=== PATIENT | female | born 1990 | race Caucasian/White ===

== ENCOUNTER → 2018-08-13 16:06 | Outpatient (CLI) | payer BC, SELFPAY ==
[2018-08-13 17:37] LABS: hCG Titer Quant., Serum 86 mIU/mL (<9 non-preg)
== END ==
PROVIDERS: Referring Provider Obstetrics & Gynecology; Visit Provider Obstetrics & Gynecology
DX: Z78.9 Other specified health status (principal)
CPT/HCPCS: 36415; 84702

== ENCOUNTER → 2018-08-15 15:17 | Outpatient (CLI) | payer BC, SELFPAY ==
[2018-08-15 16:27] LABS: hCG Titer Quant., Serum 295 mIU/mL (<9 non-preg)
== END ==
PROVIDERS: Referring Provider Nurse Practitioner Women's Health; Visit Provider Nurse Practitioner Women's Health
DX: Z34.90 Encounter for supervision of normal pregnancy, unspecified, unspecified trimester (principal)
CPT/HCPCS: 36415; 84702

== ENCOUNTER → 2018-09-02 12:50 | Outpatient (CLI) | payer BC, SELFPAY ==
[2018-09-02 09:56] VITALS: BMI 25.1
[2018-09-02 16:56] LABS: Chlamydia Trachomatis by PCR Negative (Negative); Neisserai gonorrhoeae by PCR Negative (Negative); Probe Check PASS; Sample Adequacy Control PASS; Specimen Processing Control PASS
--- OUTSIDE RECORDS SUMMARY | 2018-11-04 13:33 | XMS RPT_ITS ---
:1990 Author Organization OHIP Care Team Providers Name Role Phone EM LOPEZ (MATHEMATICAL SCIENCES PROFESSOR) Attending Unavailable AmarilisJoelle gonzalez Attending Unavailable Joelle Olmos Referring Unavailable Primay Care Physicia, No Primary Care Unavailable Naty Ace Consulting Unavailable ParmeleeJoelle gonzalez Attending Unavailable Primay Care Physicia, No Primary Care Unavailable AmarilisJoelle gonzalez Attending Unavailable ParmeleeAmy gonzalezy Referring Unavailable Primay Care Physicia, No Primary Care Unavailable Amarilis, Joelle Attending Unavailable Naty Ace Attending Unavailable Naty Ace Referring Unavailable PROBLEMS PROBLEMS DATE TYPE CONDITION / CODE ATTENDING STATUS SOURCE 09/02/2018 Unknown Z34.90 - Joelle Olmos Active [place] Encounter for Community supervision of [facility] normal , Repository unspecified, unspecified trimester / Z34.90(ICD-10) 06/19/2018 Active Unknown / EM LOPEZ Active [facility] UNK(Unknown) (MATHEMATICAL SCIENCES PROFESSOR) Main [place] Repository PROCEDURES PROCEDURES No Procedure Records FoundRESULTS RESULTS CBC W/DIFF, AUTOMATED Collected: 09/04/2018 Status: F Source: [place] 10:56 AM [facility] REPOSITORY TYPE CODE TESTS RESULT OUT OF RANGE REFERENCE UNITS LAB L100.1000 4.4-11.0 K/mm3 Normal WBC 6.2 LAB L100.1200 4.2-5.4 M/mm3 Normal RBC 4.56 LAB L100.1300 12.0-15.0 g/dl Normal HGB 13.1 LAB L100.1400 37-47 % Normal HCT 39.2 LAB L100.1500 81-99 fL Normal MCV 86.0 LAB L100.1600 27.0-32.0 pg Normal MCH 28.7 LAB L100.1700 32-36 g/gl Normal MCHC 33.4 LAB L100.1810 11.6-14.6 % Normal RDW CV 11.9 LAB L100.1820 35.1-43.9 fl Normal RDW SD 36.9 LAB L100.1900 150-450 K/mm3 Normal PLT 254 LAB L100.2000 6.2-12.0 fl Normal MPV 9.3 LAB L100.2100 47-70 % Normal NEUT% 52.7 LAB L100.2200 19-41 % Normal LY% 33.3 LAB L100.2300 0-10 % High MONO% 11.9 LAB L100.2400 0-5 % Normal EO% 1.6 LAB L100.2500 0-1 % Normal BASO% 0.3 LAB L100.2550 0.0-0.9 % Normal IM GRAN % 0.200 Result Comment: IG% - Immature Granulocytes (promyelocytes, myelocytes and metamyelocytes) > 1% indicates that a LEFT SHIFT is Present. LAB L100.2620 2.0-7.7 X10 3/uL Normal Absolute Neut 3.2 LAB L100.2720 0.83-4.51 X10 3/ul Normal Absolute Lymph 2.05 Performed By: #### L100.0100 #### [facility] [address] [place], [address] TYPE AND SCREEN Collected: 09/04/2018 Status: F Source: [place] 10:56 AM [facility] REPOSITORY Order Comment: Reason for Type AND Screen/Red Cells: TYPE CODE TESTS RESULT OUT OF RANGE REFERENCE UNITS LAB B10.0800 O Normal BLOOD TYPE GEL POSITIVE LAB B100.4000 Normal Antibody NEGATIVE Screen Performed By: #### B101.7450 #### [facility] [address] [place], [address] RUBELLA IGG Collected: 09/04/2018 Status: F Source: [place] 10:56 AM [facility] REPOSITORY TYPE CODE TESTS RESULT OUT OF RANGE REFERENCE UNITS LAB L509.4000 IU/mL Normal Rubella IgG 131.1 Result Comment: Antibody results Interpretation of Immune Status < 5 IU/ml Presumed Non-immune 5 - < 10 IU/ml Equivocal > or = 10 IU/ml Presumed Immune Performed By: #### L509.4000, L3890.6005 #### [facility] [address] [place], [address] HIV - [facility] Collected: 09/04/2018 Status: F Source: [place] 10:56 AM [facility] REPOSITORY TYPE CODE TESTS RESULT OUT OF RANGE REFERENCE UNITS LAB L3890.6005 Nonreactive Normal HIV - [facility] Non-Reactive Performed By: #### L509.4000, L3890.6005 #### [facility] [place], [address] RAPID PLASMIN REAGIN Collected: 09/04/2018 Status: F Source: [place] (RPR) 10:56 AM [facility] REPOSITORY TYPE CODE TESTS RESULT OUT OF REFERENCE UNITS RANGE LAB L700.5000 NONREACTIVE NONREACTIVE Normal RPR Performed By: #### L700.5000 #### [facility] [place], [address] HEPATITIS B SURFACE Collected: 09/04/2018 Status: F Source: [place] AG 10:56 AM [facility] REPOSITORY TYPE CODE TESTS RESULT OUT OF RANGE REFERENCE UNITS LAB L3100.0400 Negative Normal HB Negative SURF AG Result Comment: Performed at: - [facility] [id number] Jig Bore Operator: Nick Nunez PhD, Phone: [phone] Performed By: #### L3100.0390 #### [facility] (refer to report for specific site) refer to report for address and phone number CT/NG [facility] BY PCR Collected: 09/02/2018 Status: F Source: [place] 1:21 PM [facility] REPOSITORY TYPE CODE TESTS RESULT OUT OF RANGE REFERENCE UNITS LAB L8200.2100 Negative Normal Chlam Negative Trac PCR LAB L8200.2200 Negative Normal NG by Negative PCR Performed By: #### L8200.2000 #### [facility] [address] [place], [address] Observed: 09/02/2018 Status: F Source: [place] CULTURE, URINE 1:21 PM [facility] REPOSITORY Urine Culture ORGANISM 1: Mixed Gram Positive Organisms Fontana Count 25,000-50,000 MIX CULTURE Mixed contaminants. Submit a new specimen if indicated. Performed By: #### M100.0650 #### [facility] [address] [place], [address] MEDICAL BILLING SUPERVISOR OFFICE VISIT Observed: 09/02/2018 Status: F Source: [place] REPORT 11:52 AM [facility] REPOSITORY [facility] 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: No Accompanied by: Is patient in pain?: No Allergies No Known Allergies Allergy (Verified 09/02/18 09:49) Medications Vits [Prenatabs FA ] 1 tab PO DAILY 05/29/13 [History Confirmed 09/02/18] promethazine 12.5 mg tablet 12.5 mg PO Q6H PRN #60 tab 09/02/18 [Rx Confirmed 09/02/18] Last Menstral Period: 05/30/17 Zika: Zika virus screening: Negative : No PFSH PFSH Surgical History S/P appendectomy (Resolved) Family History Mother Epilepsy Grandmother Epilepsy Social History Smoking Status: Former smoker alcohol intake: never substance use type: does not use caffeine: Yes what type of physical activity do you participate in: walking frequency: 1-2 times per week seatbelt use: always do you feel safe at home: Yes additional social history: Gxkmzlm-Ukod-Xfmgw at [employer] 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 DateName GA/Weeks Outcome Route Bth WeighInfant GeLabor LgtAnesthesiDel LocatProvider FOB t n h a n Delivery Date: 09/13/15 On 09/02/18 @ 09:56 Amaris Lund HR of mom and baby dropped. Infection in uterus both were on antibiotics. Delivery Date: 06/17/13 On 09/02/18 @ 09:54 Amaris Lund HR low during labor and meconium HPI NOB-LMP unknown: Details: MANDIE ARAGON is a 28 year old who presents for New OB visit. OB Visit SILVANA Calculator Estimated Delivery Date 04/27/19 Based on LMP (certain) 07/21/18 Current WG 6w 1d Number 1 Expected Delivery Route/Plan Specific Issue/Plans flu vaccine: declines tdap vaccine: [] rhogam: [] LARC form signed: [] labor support person: Maged pain management: [] cut cord/dad catch: [] : [] PP control planned: [] special requests: Initial Weight: Not Recorded Date Weight BP Urine PrFHR FuHt Pres MoCTX DilationFetal StVisit NoProviderComments E ot v te GA G Effac lucose ed Menstrual History Last Menstral Period: 05/30/17 Reported LMP: definite Normal amount/duration: Yes Frequency in days: 7 On hormonal BC at conception: Yes (nuvaring but left out for 9 days) hCG+: 08/11/18 Antepartum Record Genetic Screening: Congenital Heart Defect: Other, Neural Tube Defect: Other, Hemoglobinopathy Or Carrier: Other, Cystic Fibrosis: Other, Chromosome Abnormality: Other, Jesu-Sachs: Other, Hemophilia: Other, Intellectual Disability/Autism: Other, Recurrent Loss/Stillbirth: Other, Other Structural Defect: Patient (niece w gastroicheisis), Other Genetic Disease: Other, Maternal Metabolic Disorder: Other Comments/Counseling: Reviewed Infection History: Live with someone with TB or Exposed to TB: No, Patient or Partner has history of Genital Herpes: No, Rash or Viral illness since last mentrual period: No, Prior GBS-Infected child: No, History of STD: No, HIV Infection: No, History of Hepatitis: No, Recent travel outside of [place]: No, Concern for Hep exposure: No, Varicella immune: Yes (chicken pox) Medical History Medical History: Positive: Operations/hospitalizations (appendectomy), Negative: Diabetes, Hypertension, Heart disease, Auto-immune disorder, Kidney disease/UTI, Neurologic/epilepsy, Psychiatric, Depression/ depression, Hepatitis/liver disease, Varicosities/phlebitis, Thyroid dysfunction, Trauma/domestic violence, History of blood transfusions, D (Rh) Sensitized, Pulmonary (e.g.,TB,Asthma), Seasonal allergies, Drug/latex allergies/reactions, Breast, Nutrition Aides Teacher surgery, Anesthetic complications, History of abnormal pap, Uterine anomaly/estrella, Infertility, Anti-retroviral treatment, Relevant family history, Other ROS Const Reports as per HPI Card Denies chest pain, Denies shortness of breath Resp Denies shortness of breath GI Denies change in stools Denies difficulty urinating, Denies abnormal vaginal bleeding, Denies vaginal odor, Denies vaginal itching, Denies vaginal discharge Exam Const General: cooperative, healthy appearing, well developed Nutritional Appearance: average body habitus, well nourished Orientation: oriented x3 Neck Neck: normal visual inspection Neck mass: No Thyroid: thyroid normal Chest Chest palpation AND inspection: normal inspection of the chest Breast inspection: normal inspection of the breasts, normal inspection of the axillae Resp Effort AND Inspection: normal respiratory effort GI Inspection: normal to inspection Palpation: soft, nontender, no masses External Female Exam: normal external appearance, normal appearance of the urethra Urethra: normal appearance of the urethra Speculum Exam - Vagina: normal appearance of the vagina, normal vaginal discharge Speculum Exam - Cervix: normal appearance of the cervix, closed cervix, other (thin prep pap with reflex HPV, GCC collected) Bimanual Exam- Vagina AND Uterus: normal bimanual exam, uterine shape normal, uterine size normal Bimanual Exam- Adnexa, other: normal adnexae, no adnexal masses, adnexae non-tender Skin General: no rashes or lesions noted, turgor normal Assessment AND Plan Problems 1. Supervision of other normal Z34.80 Grav 3/2 SILVANA 04/27/19 PC: Scott Ornelas. Spouse:Maged 2. Less than 8 weeks gestation of Z3A.01 Genetic screen:checking insurance. 3. Nausea/vomiting in O21.9 Plan Patient oriented to practice and discussed care expectations and screenings. ACOG book offered to patient. labs Rx phenergan Genetic screening offered to patient and patient chose: plans but will check with insurance first RTO 4 weeks Orders Orders: Medications New: Coding Level of Care Code Off vis,est,level 4 Diagnoses Supervision of other normal Z34.80 Less than 8 weeks gestation of Z3A.01 Weeks of gestation: less than 8 weeks Nausea/vomiting in O21.9 09/02/18 1152 <Electronically signed by Joelle STRINGER> Date Joelle HIGUERAC Cosigner Signature: Date (if applicable) CC: HCG TITER QUANT., Collected: 08/15/2018 Status: F Source: [place] SERUM 3:38 PM [facility] REPOSITORY TYPE CODE TESTS RESULT OUT OF RANGE REFERENCE UNITS LAB L700.8000 <9 non-preg mIU/mL High HCG 295 QUANT. Performed By: #### L700.8000 #### [facility] [address] [place], [place], [address] HCG TITER QUANT., Collected: 08/13/2018 Status: F Source: [place] SERUM 4:14 PM [facility] REPOSITORY TYPE CODE TESTS RESULT OUT OF RANGE REFERENCE UNITS LAB L700.8000 <9 non-preg mIU/mL High HCG 86 QUANT. Performed By: #### L700.8000 #### [facility] [address] [place], [address] PROGRESS Observed: 06/27/2018 Status: COMPLETED Source: [place] 3:35 PM [facility] HNO ID: [id number] Author: Rohinimarcos Palumbo Service: (none) Author Type: (none) Type: Progress Notes Filed: 06/27/2018 3:35 PM Note Text: Pap logged and normal pap letter sent to patient. Rohini Palumbo CYTOLOGY Observed: 06/19/2018 Status: F Source: [place] 9:54 AM [facility] [place] REPOSITORY Specimen originated from [facility] Specimen #: [id number] Submitting Physician: EM LOPEZ SPECIMEN SUBMITTED A: CERVICAL, SCREENING, FLUID FINAL DIAGNOSIS A. CERVICAL, SCREENING, FLUID Satisfactory for interpretation. Negative for intraepithelial lesion or malignancy. This specimen has been analyzed by the ThinPrep Imaging System, an automated imaging and review system, which assists the laboratory in evaluating cells on ThinPrep Pap tests. Following automated imaging, selected vela from every slide are reviewed by a angio technologist. MAGGY Parikh(ASCP) (Electronic Signature) CLINICAL DATA ROUTINE EXAM, HPV Testing: Yes, Reflex HPV for ASCUS Date of Last Menstrual Period: 05/22/2018 STAINS A: CERVICAL, SCREENING, FLUID THIN PREP NUISANCE WILDLIFE TRAPPER Kalyn Langley M.D., Manager Hardware Date of Report: 06/27/2018 Date of Procedure: 06/19/2018 Date of Receipt: 06/20/2018 Submitted by: EM LOPEZ Location: [facility] Diagnostic interpretation performed at [facility], [address] [facility] [address]. The Pap Smear is a screening test for cervical cancer. False negative results occur with all screening tests, emphasizing the need for rescreening at recommended intervals, and clinical correlation. PROGRESS Observed: 06/19/2018 Status: COMPLETED Source: [place] 9:44 AM [facility] REPOSITORY HNO ID: [id number] Author: Em Maier) John Service: (none) Author Type: Nurse Practitioner Type: Progress Notes Filed: 06/19/2018 10:08 AM Note Text: Mandie Aragon is a 27 year old who presents for her annual gynecologic exam. Menses: cycles every 21-25 days and 6 days of flow. Contraception: Nuva Ring HPV vaccine: Yes Last Pap: 2014 normal HPV: N/A History of abnormal pap: No Last mammogram: never Sexually active: Yes Pain with intercourse: No Postcoital bleeding: No Obstetric History T2 L2 SAB0 TAB0 Ectopic0 Multiple0 Live Births2 PAST MEDICAL HISTORY Diagnosis Date - Asthma EXERCISE INDUCED, NO INHALER SINCE AGE 13 PAST SURGICAL HISTORY Procedure Laterality Date - APPENDECTOMY 2010 FAMILY HISTORY Problem Relation Age of Onset - other (epilepsy) Mother - Alcohol/Drug Father - Hypertension Father - Hyperlipidemia Father - Stroke Maternal Grandmother - Cancer Paternal Grandmother LUNG - Emphysema Paternal Grandfather SOCIAL HISTORY Social History Substance Use Topics - Smoking status: Former Smoker Packs/day: 0.25 Years: 3.00 Quit date: 09/18/2012 - Smokeless tobacco: Never Used - Alcohol use 3.0 oz/week 2 Cans of Beer (12oz) per week Comment: rarely REVIEW OF SYSTEMS Abdomen: No abdominal pain, nausea, vomiting, diarrhea, or constipation. No bloating, early satiety, indigestion, or increased flatulence. Bladder: No dysuria, gross hematuria, urinary frequency, urinary urgency, or incontinence. Breast: No breast lumps, nipple d/c, overlying skin changes, redness or skin retraction. Allergies and current medication updated:Yes EXAM: BP 100/60 Ht 5' 5.5 (1.66m) Wt 146 lb (66.2kg) LMP 05/22/2018 BMI 23.92 kg/(m2). GENERAL: pleasant, female in no apparent distress HEENT: Normocephalic, atraumatic, mucus membranes moist and no lesions NECK: Supple, full range of motion, no adenopathy and thyroid normal DERMATOLOGY: Normal, without lesions, non-icteric and non-hirsute BREAST: soft, non-tender, symmetric, no dominant mass, normal nipple-areolar complex, no lymphadenopathy and no nipple discharge CHEST: Normal inspiratory effort ABDOMEN: soft, non-tender and no masses PELVIC: external genitalia normal, normal Bartholin's glands, urethra, [place]'s glands, no vulvar lesions, no cervical lesions, good vaginal support, physiologic discharge present, normal appearing perineal body and perianal region, well estrogenized BIMANUAL: uterus normal size, shape and consistency, no adnexal masses, non-tender and no cervical motion tenderness RECTOVAGINAL: deferred. NEURO: alert and oriented x3,exam grossly non-focal EXTREMITIES: normal ASSESSMENT/PLAN: 1) Health maintenance: Pap done with reflex HPV. Mammogram starting age 40. Nutrition, exercise and routine health maintenance exams reviewed. Calcium/Vitamin D supplementation information provided. HPV vaccine: completed series 2) Contraception: Nuva Ring. Contraceptive options reviewed and information provided. 3) STD screening: Declined STD check. 4) Follow up one year or sooner as needed Em Lopez APRN.CNP CNOV Observed: 06/19/2018 Status: COMPLETED Source: [place] 9:30 AM [facility] REPOSITORY Office Visit (WOOB) MANDIE ARAGON ([id number]) 1990 F Date Time Provider Department 06/19/18 9:30 AM EM LOPEZ (KAY) WOOB During your visit today, we recorded the following information about you: Blood pressure Weight Height Last Period 100/60 66.2 kg 1.664 m 05/22/18 Em Lopez APRN.CNP 06/19/2018 10:08 AM Signed Mandie Burleson Margo is a 27 year old who presents for her annual gynecologic exam. Menses: cycles every 21-25 days and 6 days of flow. Contraception: Nuva Ring HPV vaccine: Yes Last Pap: 2014 normal HPV: N/A History of abnormal pap: No Last mammogram: never Sexually active: Yes Pain with intercourse: No Postcoital bleeding: No Obstetric History T2 L2 SAB0 TAB0 Ectopic0 Multiple0 Live Births2 PAST MEDICAL HISTORY Diagnosis Date - Asthma EXERCISE INDUCED, NO INHALER SINCE AGE 13 PAST SURGICAL HISTORY Procedure Laterality Date - APPENDECTOMY 2010 FAMILY HISTORY Problem Relation Age of Onset - other (epilepsy) Mother - Alcohol/Drug Father - Hypertension Father - Hyperlipidemia Father - Stroke Maternal Grandmother - Cancer Paternal Grandmother LUNG - Emphysema Paternal Grandfather SOCIAL HISTORY Social History Substance Use Topics - Smoking status: Former Smoker Packs/day: 0.25 Years: 3.00 Quit date: 09/18/2012 - Smokeless tobacco: Never Used - Alcohol use 3.0 oz/week 2 Cans of Beer (12oz) per week Comment: rarely REVIEW OF SYSTEMS Abdomen: No abdominal pain, nausea, vomiting, diarrhea, or constipation. No bloating, early satiety, indigestion, or increased flatulence. Bladder: No dysuria, gross hematuria, urinary frequency, urinary urgency, or incontinence. Breast: No breast lumps, nipple d/c, overlying skin changes, redness or skin retraction. Allergies and current medication updated:Yes EXAM: BP 100/60 Ht 5' 5.5 (1.66m) Wt 146 lb (66.2kg) LMP 05/22/2018 BMI 23.92 kg/(m2). GENERAL: pleasant, female in no apparent distress HEENT: Normocephalic, atraumatic, mucus membranes moist and no lesions NECK: Supple, full range of motion, no adenopathy and thyroid normal DERMATOLOGY: Normal, without lesions, non-icteric and non-hirsute BREAST: soft, non-tender, symmetric, no dominant mass, normal nipple-areolar complex, no lymphadenopathy and no nipple discharge CHEST: Normal inspiratory effort ABDOMEN: soft, non-tender and no masses PELVIC: external genitalia normal, normal Bartholin's glands, urethra, [place]'s glands, no vulvar lesions, no cervical lesions, good vaginal support, physiologic discharge present, normal appearing perineal body and perianal region, well estrogenized BIMANUAL: uterus normal size, shape and consistency, no adnexal masses, non-tender and no cervical motion tenderness RECTOVAGINAL: deferred. NEURO: alert and oriented x3,exam grossly non-focal EXTREMITIES: normal ASSESSMENT/PLAN: 1) Health maintenance: Pap done with reflex HPV. Mammogram starting age 40. Nutrition, exercise and routine health maintenance exams reviewed. Calcium/Vitamin D supplementation information provided. HPV vaccine: completed series 2) Contraception: Nuva Ring. Contraceptive options reviewed and information provided. 3) STD screening: Declined STD check. 4) Follow up one year or sooner as needed Em Lopez, AVIONICS SYSTEMS REPAIRER.KAY Palumbo 06/27/2018 3:35 PM Signed Pap logged and normal pap letter sent to patient. Rohini Palumbo Referring Provider: SELF [200] Allergies As of Date: 06/19/2018 Noted Allergy Reaction BEES 05/13/2018 2 - Rash Comments: Chest pains, facial swelling Date Reviewed: 06/19/2018 Reviewed by: Em (Kay) John - Fully Assessed Reason for Visit: Yearly Exam [187] Primary Visit Diagnosis:Encounter for gynecological examination (general) (routine) without abnormal findings [Z01.419] Other Visit Diagnosis:Screening for cervical cancer [Z12.4] Order(s):PAP FLUID CERVICAL SCREENING [[id number]] Order #: [id number]. #:[id number] Etonogestrel-Ethinyl Estradiol (NUVARING) 0.12-0.015 mg/24 hr vaginal ringUse 1 Each vaginally as directed. INSERT ONE(1) RING VAGINALLY AND LEAVE IN PLACE FOR THREE WEEKS, THEN REMOVE FOR 1 WEEK.Disp: 3 EachRfl: 3 Prescriptions as of 06/19/2018 Sig: ETONOGESTREL-ETHINYL ESTRADIO* Use 1 Each vaginally as direc* EPINEPHRINE 0.3 MG/0.3 ML INJ* Inject 0.3 mL intramuscularly* DIPHENHYDRAMINE 25 MG CAPSULE Take 25 mg by mouth every 6 h* Problem List As Of Date 06/19/2018 Noted Resolved History of asthma [Z87.09] INVALID FOR*10/24/2012 More... Quit smoking [Z87.891] INVALID FOR*08/04/2013 More... Family history of defects [Z82.79] INVALID FOR*08/04/2013 More... Patient requested diagnostic testing [Z01.89] INVALID FOR*08/04/2013 More... Supervision of normal first [Z34.00] INVALID FOR*07/03/2013 More... Supervision of other normal , antepart*INVALID FOR*12/29/2015 control [Z30.9] INVALID FOR* More... Prescriptions ordered this encounter Disp Refills Start End ETONOGESTREL-ETHINYL ESTRADIOL 0.12 * 3 Ea* 3 06/19/2018 Route: VAGINAL Sig: Use 1 Each vaginally as directed. INSERT ONE(1) RING VAGINALLY AND LEAVE IN PLACE FOR THREE WEEKS, THEN REMOVE FOR 1 WEEK. Medications Discontinued During This Encounter citalopram (CELEXA) 20 mg tablet 10 t* 0 12/13/2015 06/19/2018 Sig: Take one tab every other day for 5 doses then half a tab every other day for 5 days then discontinue. Patient not taking: Reported on 05/13/2018 Disc: Reason for discontinue is not on file. Etonogestrel-Ethinyl Estradiol (NUVA* 3 Ea* 3 06/27/2017 06/19/2018 Class: Print RX Route: VAGINAL Sig: Use 1 Each vaginally as directed. INSERT ONE(1) RING VAGINALLY AND LEAVE IN PLACE FOR THREE WEEKS, THEN REMOVE FOR 1 WEEK. Disc: Reason for discontinue is not on file. Disposition: Return in 1 year (on 06/19/2019) for Annual Exam. Follow-up and Disposition History Recorded Letter Text Em Lopez [facility] [address] [place] [phone] Mandie Aragon [address] [facility] [address] 06/27/2018 [facility]: [id number] Dear Mandie, We are pleased to inform you that your recent Pap Test was within normal limits. Because Pap tests are so effective in the early detection of cervical cancer, you are encouraged to continue having the test at regular intervals. You will be due for a 1 year Gynecological Exam after this date 06/19/2019. If you have any questions regarding the above information, do not hesitate to call our office at between the hours of 8:00 a.m. and 5:00 p.m. Sincerely, Em Lopez CNP Encounter Status:Closed by EM LOPEZ on 06/19/18 CNOV Observed: 05/13/2018 Status: COMPLETED Source: [place] 2:40 PM [facility] [facility] [place] REPOS[facility]ORY Office Visit (AGINTMLW) MANDIE ARAGON ([id number]) 1990 F Date Time Provider Department 05/13/18 2:40 PM ANGIE AMADOR AGINTMLW During your visit today, we recorded the following information about you: Temperature Pulse Respiration Blood pressure 98.4 degrees 76/minute 16/minute 110/62 Weight Height 66.8 kg 1.651 m Angie Amador MD 05/13/2018 3:13 PM Signed Subjective The patient is here to establish care. She was seeing Dr. Bergman but hasn't been seen for 4 years as her insurance changed. She is due for a pap smear and follows with gynecology. She is not interested in a flu shot. She reports she eats healthy. She reports she works out 1-2 times a week by doing some weights and cardio. She is not on any moth exterminator medications and is a former smoker. The patient was seen yesterday in the ED after being stung by a bee. She reports there is a stump around the yard and was pulling out weeds and some bees flew out and stung her. She was stung on the left forearm. The patient reports it started to swell up a little and was starting to get itchy and warm around her face. She went inside to check and noticed bumps all over her body and her throat started to hurt. She then started to have difficulty breathing so she came to the ED. In the ED, she was given some steroids, benadryl and pepcid. She was also given a fluid bolus. She was prescribed prednisone and an epi pen. Today, the patient reports she is still having a mild rash and some itching. She reports she was having some tingling. She does report it is a little better. She reports she hasn't had any fevers and reports she is breathing easy. She has no other questions or concerns today. The history is provided by the patient. Trauma This is a new problem. The current episode started yesterday. The problem occurs constantly. The problem has been gradually improving. Associated symptoms include headaches (history of migraines) and a rash (improving). Pertinent negatives include no abdominal pain, chest pain, congestion, coughing, fever, nausea, sore throat, vomiting or weakness. Nothing (Bee sting) aggravates the symptoms. She has tried nothing (steroids and antihistamine) for the symptoms. The treatment provided moderate relief. ALLERGIES Allergen Reactions - Bees Rash Chest pains, facial swelling Current Outpatient Prescriptions: diphenhydrAMINE (BENADRYL) 25 mg capsule Take 25 mg by mouth every 6 hours as needed. Disp: Rfl: predniSONE (DELTASONE) 20 mg tablet Take 1 tablet by mouth twice daily for 5 days. Disp: 10 tablet Rfl: 0 famotidine (PEPCID) 20 mg tablet Take 1 tablet by mouth twice daily for 5 days. Disp: 10 tablet Rfl: 0 EPINEPHrine (EPIPEN) 0.3 mg/0.3 mL auto-injector Inject 0.3 mL intramuscularly as needed. Inject full content of the syringe. Disp: 2 Each Rfl: 0 Etonogestrel-Ethinyl Estradiol (NUVARING) 0.12-0.015 mg/24 hr vaginal ring Use 1 Each vaginally as directed. INSERT ONE(1) RING VAGINALLY AND LEAVE IN PLACE FOR THREE WEEKS, THEN REMOVE FOR 1 WEEK. Disp: 3 Each Rfl: 3 citalopram (CELEXA) 20 mg tablet Take one tab every other day for 5 doses then half a tab every other day for 5 days then discontinue. (Patient not taking: Reported on 05/13/2018 ) Disp: 10 tablet Rfl: 0 No current facility-administered medications for this visit. 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 Family History Problem Relation Age of Onset - other (epilepsy) Mother - Alcohol/Drug Father - Hypertension Father - Hyperlipidemia Father - Stroke Maternal Grandmother - Cancer Paternal Grandmother LUNG - Emphysema Paternal Grandfather Reviewed past medical and surgical history. BP 110/62 (BP Site: Right Arm, BP Position: Sitting, BP Cuff Size: Regular Adult) Pulse 76 Temp 36.9 ?C (98.4 ?F) Resp 16 Ht 165.1 cm (5' 5) Wt 66.8 kg (147 lb 3.2 oz) BMI 24.50 kg/m? Review of Systems Constitutional: Negative for fever and weight loss. HENT: Negative for congestion, hearing loss and sore throat. Eyes: Negative for blurred vision. Respiratory: Negative for cough and shortness of breath (resolved). Cardiovascular: Negative for chest pain, palpitations and leg swelling. Gastrointestinal: Negative for abdominal pain, constipation, diarrhea, nausea and vomiting. Genitourinary: Negative for dysuria. Musculoskeletal: Negative for falls. Skin: Positive for itching (improving) and rash (improving). Neurological: Positive for tingling (improving) and headaches (history of migraines). Negative for dizziness, loss of consciousness and weakness. Psychiatric/Behavioral: Negative for depression and suicidal ideas. Objective Physical Exam Constitutional: She is oriented to person, place, and time and well-developed, well-nourished, and in no distress. Vital signs are normal. She does not have a sickly appearance. No distress. HENT: Head: Normocephalic and atraumatic. Mouth/Throat: Oropharynx is clear and moist and mucous membranes are normal. Eyes: Pupils are equal, round, and reactive to light. Conjunctivae are normal. Cardiovascular: Normal rate, regular rhythm and normal heart sounds. No murmur heard. Pulmonary/Chest: Effort normal and breath sounds normal. No respiratory distress. She has no wheezes. Abdominal: Soft. Bowel sounds are normal. There is no tenderness. Musculoskeletal: She exhibits no edema. Neurological: She is alert and oriented to person, place, and time. Skin: Skin is warm and dry. She is not diaphoretic. Psychiatric: Mood normal. Nursing note and vitals reviewed. ASSESSMENT/PLAN: 1. Bee sting allergy - ICD9: V15.06, ICD10: Z91.030 (primary diagnosis) 2. Encounter to establish care with new doctor - ICD9: V65.8, ICD10: Z76.89 The patient is here to establish care. She was seen in the ED yesterday for a bee sting and reports her symptoms are improving. She was instructed to complete her medications as prescribed. Cautioned the patient that her epi pen does and to be aware and call for refills routinely. She voiced understanding. Routine follow up scheduled. She was instructed to call with any concerns or questions before then and she agreed. Return in about 1 year (around 05/13/2019) for annual visit. MD Angie Milian MD 05/13/2018 2:37 PM Signed Call with any concerns or questions. Referring Provider: SELF [[id number]] Allergies As of Date: 05/13/2018 Noted Allergy Reaction BEES 05/13/2018 2 - Rash Comments: Chest pains, facial swelling Date Reviewed: 05/13/2018 Reviewed by: Angie Amador - Fully Assessed Reason for Visit: New Patient [172] Cmt: was in ER 05/12/18 for bee stings on left forearm and was given prednisone, benadryl and pepcid now has a rash and tingling in left forearm Reason For Visit History Recorded Primary Visit Diagnosis:Bee sting allergy [Z91.030] Other Visit Diagnosis:Encounter to establish care with new doctor [Z76.89] Prescriptions as of 05/13/2018 Sig: DIPHENHYDRAMINE 25 MG CAPSULE Take 25 mg by mouth every 6 h* PREDNISONE 20 MG TABLET Take 1 tablet by mouth twice * FAMOTIDINE 20 MG TABLET Take 1 tablet by mouth twice * EPINEPHRINE 0.3 MG/0.3 ML INJ* Inject 0.3 mL intramuscularly* ETONOGESTREL-ETHINYL ESTRADIO* Use 1 Each vaginally as direc* CITALOPRAM 20 MG TABLET Take one tab every other day * Patient not taking: Reported on 05/13/2018 Problem List As Of Date 05/13/2018 Noted Resolved History of asthma [Z87.09] INVALID FOR*10/24/2012 More... Quit smoking [Z87.891] INVALID FOR*08/04/2013 More... Family history of defects [Z82.79] INVALID FOR*08/04/2013 More... Patient requested diagnostic testing [Z01.89] INVALID FOR*08/04/2013 More... Supervision of normal first [Z34.00] INVALID FOR*07/03/2013 More... Supervision of other normal , antepart*INVALID FOR*12/29/2015 control [Z30.9] INVALID FOR* More... Other instructions from your clinician: Call with any concerns or questions. Level of Service: EST PATIENT VISIT LEVEL 4 [19497] Disposition: Return in about 1 year (around 05/13/2019) for annual visit. LOS history recorded Follow-up and Disposition History Recorded Encounter Status:Closed by ANGIE AMADOR MD on 05/13/18 PROGRESS Observed: 05/13/2018 Status: COMPLETED Source: [place] 2:26 PM [facility] [place] REPOSITORY [facility] ID: [id number] Author: Angie Amador Service: (none) Author Type: Physician Type: Progress Notes Filed: 05/13/2018 3:13 PM Note Text: Subjective The patient is here to establish care. She was seeing Dr. Bergman but hasn't been seen for 4 years as her insurance changed. She is due for a pap smear and follows with gynecology. She is not interested in a flu shot. She reports she eats healthy. She reports she works out 1-2 times a week by doing some weights and cardio. She is not on any residential medications and is a former smoker. The patient was seen yesterday in the ED after being stung by a bee. She reports there is a stump around the yard and was pulling out weeds and some bees flew out and stung her. She was stung on the left forearm. The patient reports it started to swell up a little and was starting to get itchy and warm around her face. She went inside to check and noticed bumps all over her body and her throat started to hurt. She then started to have difficulty breathing so she came to the ED. In the ED, she was given some steroids, benadryl and pepcid. She was also given a fluid bolus. She was prescribed prednisone and an epi pen. Today, the patient reports she is still having a mild rash and some itching. She reports she was having some tingling. She does report it is a little better. She reports she hasn't had any fevers and reports she is breathing easy. She has no other questions or concerns today. The history is provided by the patient. Trauma This is a new problem. The current episode started yesterday. The problem occurs constantly. The problem has been gradually improving. Associated symptoms include headaches (history of migraines) and a rash (improving). Pertinent negatives include no abdominal pain, chest pain, congestion, coughing, fever, nausea, sore throat, vomiting or weakness. Nothing (Bee sting) aggravates the symptoms. She has tried nothing (steroids and antihistamine) for the symptoms. The treatment provided moderate relief. ALLERGIES Allergen Reactions - Bees Rash Chest pains, facial swelling Current Outpatient Prescriptions: diphenhydrAMINE (BENADRYL) 25 mg capsule Take 25 mg by mouth every 6 hours as needed. Disp: Rfl: predniSONE (DELTASONE) 20 mg tablet Take 1 tablet by mouth twice daily for 5 days. Disp: 10 tablet Rfl: 0 famotidine (PEPCID) 20 mg tablet Take 1 tablet by mouth twice daily for 5 days. Disp: 10 tablet Rfl: 0 EPINEPHrine (EPIPEN) 0.3 mg/0.3 mL auto-injector Inject 0.3 mL intramuscularly as needed. Inject full content of the syringe. Disp: 2 Each Rfl: 0 Etonogestrel-Ethinyl Estradiol (NUVARING) 0.12-0.015 mg/24 hr vaginal ring Use 1 Each vaginally as directed. INSERT ONE(1) RING VAGINALLY AND LEAVE IN PLACE FOR THREE WEEKS, THEN REMOVE FOR 1 WEEK. Disp: 3 Each Rfl: 3 citalopram (CELEXA) 20 mg tablet Take one tab every other day for 5 doses then half a tab every other day for 5 days then discontinue. (Patient not taking: Reported on 05/13/2018 ) Disp: 10 tablet Rfl: 0 No current facility-administered medications for this visit. 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 Family History Problem Relation Age of Onset - other (epilepsy) Mother - Alcohol/Drug Father - Hypertension Father - Hyperlipidemia Father - Stroke Maternal Grandmother - Cancer Paternal Grandmother LUNG - Emphysema Paternal Grandfather Reviewed past medical and surgical history. BP 110/62 (BP Site: Right Arm, BP Position: Sitting, BP Cuff Size: Regular Adult) Pulse 76 Temp 36.9 ?C (98.4 ?F) Resp 16 Ht 165.1 cm (5' 5) Wt 66.8 kg (147 lb 3.2 oz) BMI 24.50 kg/m? Review of Systems Constitutional: Negative for fever and weight loss. HENT: Negative for congestion, hearing loss and sore throat. Eyes: Negative for blurred vision. Respiratory: Negative for cough and shortness of breath (resolved). Cardiovascular: Negative for chest pain, palpitations and leg swelling. Gastrointestinal: Negative for abdominal pain, constipation, diarrhea, nausea and vomiting. Genitourinary: Negative for dysuria. Musculoskeletal: Negative for falls. Skin: Positive for itching (improving) and rash (improving). Neurological: Positive for tingling (improving) and headaches (history of migraines). Negative for dizziness, loss of consciousness and weakness. Psychiatric/Behavioral: Negative for depression and suicidal ideas. Objective Physical Exam Constitutional: She is oriented to person, place, and time and well-developed, well-nourished, and in no distress. Vital signs are normal. She does not have a sickly appearance. No distress. HENT: Head: Normocephalic and atraumatic. Mouth/Throat: Oropharynx is clear and moist and mucous membranes are normal. Eyes: Pupils are equal, round, and reactive to light. Conjunctivae are normal. Cardiovascular: Normal rate, regular rhythm and normal heart sounds. No murmur heard. Pulmonary/Chest: Effort normal and breath sounds normal. No respiratory distress. She has no wheezes. Abdominal: Soft. Bowel sounds are normal. There is no tenderness. Musculoskeletal: She exhibits no edema. Neurological: She is alert and oriented to person, place, and time. Skin: Skin is warm and dry. She is not diaphoretic. Psychiatric: Mood normal. Nursing note and vitals reviewed. ASSESSMENT/PLAN: 1. Bee sting allergy - ICD9: V15.06, ICD10: Z91.030 (primary diagnosis) 2. Encounter to establish care with new doctor - ICD9: V65.8, ICD10: Z76.89 The patient is here to establish care. She was seen in the ED yesterday for a bee sting and reports her symptoms are improving. She was instructed to complete her medications as prescribed. Cautioned the patient that her epi pen does and to be aware and call for refills routinely. She voiced understanding. Routine follow up scheduled. She was instructed to call with any concerns or questions before then and she agreed. Return in about 1 year (around 05/13/2019) for annual visit. Angie Amador MD ED NOTE Observed: 05/12/2018 Status: COMPLETED Source: [place] 8:42 PM [facility] [place] RE[facility] ID: [id number] Author: Hans Estevez RN Service: Emergency Medicine Author Type: Registered Nurse Type: ED Notes Filed: 05/12/2018 8:42 PM Note Text: Patient informed: the name of medication, why we are giving it, possible side effects, what they may expect to feel, and was offered a chance to ask questions, prior to the administration of prednisone. ED NOTE Observed: 05/12/2018 Status: COMPLETED Source: [place] 8:20 PM [facility] [place] REPOS[facility] ID: [id number] Author: Hans Live) PENELOPE Estevez Service: Emergency Medicine Author Type: Registered Nurse Type: ED Notes Filed: 05/12/2018 8:20 PM Note Text: Ice packs applied to beesting area. ED PROV NOTE Observed: 05/12/2018 Status: COMPLETED Source: [place] 7:01 PM [facility] [place] [facility] ID: [id number] Author: Daren Owusu MD Service: Emergency Medicine Author Type: Physician Type: ED Provider Notes Filed: 05/12/2018 8:28 PM Note Text: ED Provider Note Patient Name: Mandie Aragon SERVICE DATE: 05/12/18 History Patient presents with: Allergic Reaction Left 30-45 minutes ago patient was stung by a bee on her left forearm. She has diffuse itching and hives. She is normally having shortness of breath or wheezing. She is not lightheaded. She is never had a reaction to bees before she has no history of anaphylaxis to any compound. Her father may have a history of severe reactions to bees. There has been no other exposure. PAST MEDICAL HISTORY Diagnosis Date - Asthma EXERCISE INDUCED, NO INHALER SINCE AGE 13 PAST SURGICAL HISTORY Procedure Laterality Date - APPENDECTOMY 2010 FAMILY HISTORY Problem Relation Age of Onset - Stroke Mother - Alcohol/Drug Father - Hypertension Father - Stroke Maternal Grandmother - Cancer Paternal Grandmother LUNG - Emphysema Paternal Grandfather - Stroke Sister Social History Social History Main Topics - Smoking status: Former Smoker Years: 3.00 Quit date: 09/18/2012 - Smokeless tobacco: Never Used - Alcohol use 3.0 oz/week 2 Cans of Beer (12oz) per week Comment: NOT WHILE - Drug use: No - Sexual activity: Yes Partners: Male ALLERGIES No Known Allergies Review of Systems Constitutional: Negative for chills and fever. HENT: Negative for congestion, drooling, rhinorrhea and trouble swallowing. Eyes: Negative for visual disturbance. Respiratory: Negative for apnea, shortness of breath and wheezing. Cardiovascular: Negative for chest pain. Gastrointestinal: Negative for abdominal pain, nausea and vomiting. Musculoskeletal: Negative for arthralgias and neck stiffness. Skin: Positive for color change and rash. Allergic/Immunologic: Negative for environmental allergies, food allergies and immunocompromised state. Neurological: Negative for dizziness, speech difficulty and light-headedness. Hematological: Does not bruise/bleed easily. Psychiatric/Behavioral: Negative for agitation. Physical Exam BP 137/80 Pulse 107 Temp 98.7 Resp 20 Ht 5' 5 (1.65m) Wt 140 lb (63.5kg) SpO2 96% BMI 23.30 kg/(m2). Physical Exam Constitutional: She is oriented to person, place, and time. She appears well-developed and well-nourished. No distress. HENT: Head: Normocephalic and atraumatic. Oropharynx is normal. There is no swelling. She has no change in voice. She is able to swallow easily. Eyes: Pupils are equal, round, and reactive to light. EOM are normal. Neck: No tracheal deviation present. Cardiovascular: Regular rhythm, normal heart sounds and intact distal pulses. Mild tachycardia Pulmonary/Chest: Breath sounds normal. No stridor. No respiratory distress. She has no wheezes. She has no rales. She exhibits no tenderness. Abdominal: Soft. Bowel sounds are normal. There is no tenderness. Musculoskeletal: She exhibits no edema. Neurological: She is alert and oriented to person, place, and time. Skin: Skin is warm and dry. Patient does have site of a stinger in her left forearm. This was felt and looked at under magnification shows no retained stinger. She also has hives on both arms and on her back. She has dermatographia on her back where she is scratching. Psychiatric: She has a normal mood and affect. Diagnostic Testing ED Labs Ordered and Reviewed - No data to display EKG done for indication of palpitations and read by me. EKG shows a normal sinus rhythm with a rate of 92. There is no ectopy. Intervals are normal. There is no sign of acute ST depression or elevation consistent with infarct or ischemia. There is no preexcitation. There is no old for comparison. Procedures ED Course / Clinical Impression Clinical Impressions as of May 12 2027 Bee sting reaction, accidental or unintentional, initial encounter I will give the patient IV fluids, steroids, Benadryl, Pepcid. She does not need epinephrine at this time. She will be observed here. We will adjust therapy depending on her clinical response. 19:24 Patient's comfortable. She is unchanged in appearance but feels slightly better. 20:14 Patient's hives are getting significantly better. She is complaining of some mild palpitations and tightness in the chest. She is not short of breath. We will check an EKG. 20:30 Patient's EKG shows no acute process. We will get her home on prednisone, Pepcid and Benadryl. She will take Benadryl [id number]. We will also write for an EpiPen if needed. MDM / Disposition / Plan MDM SIGNATURE: MD Daren Blake MD 05/12/182027 ED NOTE Observed: 05/12/2018 Status: COMPLETED Source: [place] 6:46 PM [facility] [place] REPOSIT[facility] ID: [id number] Author: Ti (Penelope) PENELOPE Archuleta Service: Emergency Medicine Author Type: Registered Nurse Type: ED Notes Filed: 05/12/2018 6:47 PM Note Text: Bee sting left arm 30min PARK GUIDE, arrives to ED c/o redness and hives ALLERGIES ALLERGIES DATE TYPE / CODE NAME / CODE REACTION SEVERITY SOURCE 09/02/2018 Drug No Known Unknown [facility] Allergy/4160 Allergies/F00 [facility] 26455(SNOMED [id number](RXNOR Repository CT) M) 05/13/2018 Environ/4201 BEES RASH [facility] 83839(SNOMED [address] [place] [address]) Repository ENCOUNTERS ENCOUNTERS ADMIT/DISCHARGE ACCOUNT ADMITTING ENCOUNTER LOCATION SOURCE NUMBER CLASS 09/04/2018 [id number] [facility] ing:PAVLAB Repository 09/02/2018 [id number] [facility] ing:PAVLAB Repository 09/02/2018/09/02/19 [id number] Ambulatory BMSBuilding:[address] [place] [address] [facility] Repository 08/15/2018 [id number] [facility] ing:LAB Repository 08/13/2018 [id number] [facility] ing:LAB Repository 06/19/2018/06/20/20 [id number] Ambulatory [address] Repository PAYERS PAYERS ENCOUNTER GUARANTOR PAYER SUBSCRIBER SOURCE 09/04/2018 MANDIE [place]on Primary [place] [id number] [facility] y [place]: [id number] [id number] Repository [address]Jko: (304) majo Date:[id number] [phone] () [address], [place] [address]BK: 09/04/2018 Secondary NOT GIVENUNK [place] Insurance:SELF [facility]Y [facility] Number: Effective Repository Date:2018-09-04 09/02/2018 [facility] Primary [place] [id number] Insurance:ANTHEMPolic WELLMANDOB: Community [place] y Number: [id number] [facility] [place] [id number] Repository [address]Irs: (330) majo Date:[id number] [phone] () [address] [place] [address]ZW: 09/02/2018 Secondary NOT GIVENUNK [place] Insurance:SELF PAY [facility] Number: Effective Repository Date:2018-09-02 09/02/2018 [facility]9430 Primary [place] R [place] Insurance:ANTHEMPolic [place]LL[place]ANDOB: [place] y Number: [id number] Hospital [address]Bdj: (330) [id number] Repository [phone] () majo Date:[id number] [address] [place] [address] 12069WX: 09/02/2018 Secondary NOT GIVENUNK [place] Insurance:SELF PAY [facility] Number: Effective Repository Date:2018-09-02 08/15/2018 [facility]9430 Primary [place] Insurance:ANTHEMPolic [place]OB: [place] y Number: [id number] Hospital [address]Owv: (330) [id number] Repository [phone] () majo Date:[id number] [id number] [place] [id number]: 08/15/2018 Secondary NOT GIVENUNK [place] Insurance:SELF PAY [facility] Number: Effective Repository Date:2018-08-15 08/13/2018 [facility]9430 Primary [place] Insurance:ANTHEMPolic WELL[place]OB: [place] y Number: [id number] Hospital 614[address]Syq: (330) [id number] Repository [phone] () majo Date:7639-49-27MO [id number] [place] [address] [id number]: 08/13/2018 Secondary NOT GIVENUNK [place] Insurance:SELF PAY [facility]: Effective Repository Date:2018-08-13
--- OUTSIDE RECORDS SUMMARY | 2018-11-04 16:57 | XMS RPT_ITS ---
:1990 Author Organization OHIP Care Team Providers Name Role Phone EM LOPEZ (CLOTHES IRONER) Attending Unavailable Naty Ace Attending Unavailable Naty Ace Referring Unavailable [place], Joelle Attending Unavailable Petersburg, Joelle Attending Unavailable Amarilis, Joelle Referring Unavailable Primay Care Physicia, No Primary Care Unavailable Petersburg, Joelle Attending Unavailable Amarilis, Joelle Referring Unavailable Primay Care Physicia, No Primary Care Unavailable Naty Ace Consulting Unavailable Amarilis, Joelle Attending Unavailable Primay Care Physicia, No Primary Care Unavailable PROBLEMS PROBLEMS DATE TYPE CONDITION / CODE ATTENDING STATUS SOURCE 09/02/2018 Unknown Z34.90 - Joelle Olmos Active [place] Encounter for Community supervision of [facility] normal , Repository unspecified, unspecified trimester / Z34.90(ICD-10) 06/19/2018 Active Unknown / EM LOPEZ Active [facility] UNK(Unknown) (CLOTHES IRONER) [place] Repository PROCEDURES PROCEDURES No Procedure Records FoundRESULTS RESULTS CBC W/DIFF, AUTOMATED Collected: 09/04/2018 Status: F Source: [place] 10:56 AM [facility] REPOSITORY TYPE CODE TESTS RESULT OUT [...] Lymph 2.05 Performed By: #### L100.0100 #### [facility] [address] [place], [address] TYPE AND SCREEN Collected: 09/04/2018 Status: F Source: [place] 10:56 AM [facility] REPOSITORY Order Comment: Reason for Type AND Screen/Red Cells: TYPE CODE TESTS RESULT OUT OF RANGE REFERENCE UNITS LAB B10.0800 O Normal BLOOD TYPE GEL POSITIVE LAB B100.4000 Normal Antibody NEGATIVE Screen Performed By: #### B101.7450 #### [facility] [address] [place], [address] RUBELLA IGG Collected: 09/04/2018 Status: F Source: [place] 10:56 AM [facility] REPOSITORY TYPE CODE TESTS RESULT OUT OF RANGE REFERENCE UNITS LAB L509.4000 IU/mL Normal Rubella IgG 131.1 Result Comment: Antibody results Interpretation of Immune Status < 5 IU/ml Presumed Non-immune 5 - < 10 IU/ml Equivocal > or = 10 IU/ml Presumed Immune Performed By: #### L509.4000, L3890.6005 #### [facility] [address] [place], [address] HIV - [facility] Collected: 09/04/2018 Status: F Source: [place] 10:56 AM [facility] REPOSITORY TYPE CODE TESTS RESULT OUT OF RANGE REFERENCE UNITS LAB L3890.6005 Nonreactive Normal HIV - [facility] Non-Reactive Performed By: #### L509.4000, L3890.6005 #### [facility] [place], [address] RAPID PLASMIN REAGIN Collected: 09/04/2018 Status: F Source: [place] (RPR) 10:56 AM [facility] REPOSITORY TYPE CODE TESTS RESULT OUT OF REFERENCE UNITS RANGE LAB L700.5000 NONREACTIVE NONREACTIVE Normal RPR Performed By: #### L700.5000 #### [facility] [place], [address] HEPATITIS B SURFACE Collected: 09/04/2018 Status: F Source: [place] AG 10:56 AM [facility] REPOSITORY TYPE CODE TESTS RESULT OUT OF RANGE REFERENCE UNITS LAB L3100.0400 Negative Normal HB Negative SURF AG Result Comment: Performed at: - [facility] [id number] Steel Pan Form Placing Supervisor: Nick Nunez PhD, Phone: [phone] Performed By: #### L3100.0390 #### [facility] (refer to report for specific site) refer to report for address and phone number CT/NG WCH BY PCR Collected: 09/02/2018 Status: F Source: [place] 1:21 PM [facility] REPOSITORY TYPE CODE TESTS RESULT OUT OF RANGE REFERENCE UNITS LAB L8200.2100 Negative Normal Chlam Negative Trac PCR LAB L8200.2200 Negative Normal NG by Negative PCR Performed By: #### L8200.2000 #### [facility] [address] [place], [address] Observed: 09/02/2018 Status: F Source: [place] CULTURE, URINE 1:21 PM [facility] REPOSITORY Urine Culture ORGANISM 1: Mixed Gram Positive Organisms Carlisle Count 25,000-50,000 MIX CULTURE Mixed contaminants. Submit a new specimen if indicated. Performed By: #### M100.0650 #### [facility] [address] [place], [address] COUPON COLLECTION CLERK OFFICE VISIT Observed: 09/02/2018 Status: F Source: [place] REPORT 11:52 AM [facility] REPOSITORY [facility] 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 Performed By: #### L700.8000 #### [facility] [address] [place], [place], [address] HCG TITER QUANT., Collected: 08/13/2018 Status: F Source: [place] SERUM 4:14 PM [facility] REPOSITORY TYPE CODE TESTS RESULT OUT OF RANGE REFERENCE UNITS LAB L700.8000 <9 non-preg mIU/mL High HCG 86 QUANT. Performed By: #### L700.8000 #### [facility] [address] [place], [address] PROGRESS Observed: 06/27/2018 Status: COMPLETED Source: [place] 3:35 PM [facility] REPOSITORY HNO ID: [id number] Author: Rohinimarcos Palumbo Service: (none) Author Type: (none) Type: Progress Notes Filed: 06/27/2018 3:35 PM Note Text: Pap logged and normal pap letter sent to patient. Rohini Palumbo CYTOLOGY Observed: 06/19/2018 Status: F Source: [place] 9:54 AM [facility] [place] REPOSITORY Specimen originated from [facility] Specimen #: [id number] Submitting Physician: EM LOPEZ SPECIMEN SUBMITTED A: [...] from every slide are reviewed by a nut roaster. MAGGY Parikh(ASCP) (Electronic Signature) CLINICAL DATA ROUTINE EXAM, HPV Testing: Yes, Reflex HPV for ASCUS Date of Last Menstrual Period: 05/22/2018 STAINS A: CERVICAL, SCREENING, FLUID THIN PREP GEOPHYSICAL COMPUTER Kalyn Langley M.D., Continuous Drier Helper Date of Report: 06/27/2018 Date of Procedure: 06/19/2018 Date of Receipt: 06/20/2018 Submitted by: EM LOPEZ Location: [facility] Diagnostic interpretation performed at [facility], [address] [address]. The Pap Smear is a screening test for cervical cancer. False negative results occur with all screening tests, emphasizing the need for rescreening at recommended intervals, and clinical correlation. PROGRESS Observed: 06/19/2018 Status: COMPLETED Source: [place] 9:44 AM [facility] REPOSITORY HNO ID: [id number] Author: Em Maier) John Service: (none) Author [...] external genitalia normal, normal Bartholin's glands, urethra, [employer]'s glands, no vulvar lesions, no cervical lesions, [...] APRN.CNP CNOV Observed: 06/19/2018 Status: COMPLETED Source: [place] 9:30 AM [facility] REPOSITORY Office Visit (WOOB) MANDIE ARAGON ([id number]) 1990 F Date Time Provider Department 06/19/18 [...] external genitalia normal, normal Bartholin's glands, urethra, [employer]'s glands, no vulvar lesions, no cervical lesions, [...] year or sooner as needed Em Lopez, SECURITY INCIDENT RESPONSE ENGINEER.KAY Palumbo 06/27/2018 3:35 PM Signed Pap logged [...] cervical cancer [Z12.4] Order(s):PAP FLUID CERVICAL SCREENING [[id number]] Order #: [id number]. #:[id number] Etonogestrel-Ethinyl Estradiol (NUVARING) 0.12-0.015 mg/24 hr vaginal [...] Disposition History Recorded Letter Text Em Lopez [facility] [address] [place] [phone] Mandie Aragon [address] [facility] [address] 06/27/2018 [facility]: [id number] Dear Mandie, We are pleased to inform [...] 06/19/18 CNOV Observed: 05/13/2018 Status: COMPLETED Source: [place] 2:40 PM [facility] RE[facility]ITORY Office Visit (AGINTMLW) MANDIE ARAGON ([id number]) 1990 F Date Time Provider Department 05/13/18 [...] and cardio. She is not on any intermediate manager medications and is a former smoker. 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 ED NOTE Observed: 05/12/2018 Status: COMPLETED Source: [place] 8:20 PM [facility] REPOSITORY HNO ID: [id number] Author: Hans Live) PENELOPE Estevez Service: Emergency Medicine Author Type: Registered Nurse Type: ED Notes Filed: 05/12/2018 8:20 PM Note Text: Ice packs applied to beesting area. ED PROV NOTE Observed: 05/12/2018 Status: COMPLETED Source: [place] 7:01 PM [facility] REPOSITORY HNO ID: [id number] Author: Daren Owusu MD Service: Emergency Medicine [...] Pepcid and Benadryl. She will take Benadryl [id number]. We will also write for an EpiPen if needed. 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 and hives ALLERGIES ALLERGIES DATE TYPE / CODE NAME / CODE REACTION SEVERITY SOURCE 09/02/2018 Drug No Known Unknown [facility] Allergy/4160 Allergies/F00 [facility] [address](SNOMED [id number](RXNOR Repository CT) M) 05/13/2018 Environ/4201 BEES RASH [facility] [address](SNOMED [facility] [place] [facility]) Repository ENCOUNTERS ENCOUNTERS ADMIT/DISCHARGE ACCOUNT ADMITTING ENCOUNTER LOCATION SOURCE NUMBER CLASS 09/04/2018 [id number] [facility] ing:PAVLAB Repository 09/02/2018 [id number] [facility] ing:PAVLAB Repository 09/02/2018/09/02/19 [id number] Ambulatory BMSBuilding:B [place] [facility] Repository 08/15/2018 [id number] [facility] ing:LAB Repository 08/13/2018 [id number] [facility] ing:LAB Repository 06/19/2018/06/20/20 [id number] Ambulatory [address] Repository PAYERS PAYERS ENCOUNTER GUARANTOR PAYER SUBSCRIBER SOURCE 09/04/2018 MANDIE Burleson Primary ASPEN R [place] [id number] [facility] y Number: [id number] [id number] Repository [address]Afh: (548) majo Date:[id number] [phone] () [address], [place] [address]GW: 09/04/2018 Secondary NOT GIVENUNK [place] Insurance:SELF PAY [facility] Number: Effective Repository Date:2018-09-04 09/02/2018 [facility] Primary ASPEN R [place] [id number] Insurance:ANTHEMPolic WELLMANDOB: Community [place] y Number: [id number] [facility] [place] [id number] Repository [address]Mxe: ([phone]) majo Date:[id number] [phone] () [address] [place] [address]YI: 09/02/2018 Secondary NOT GIVENUNK [place] Insurance:SELF PAY [facility] Number: Effective Repository Date:2018-09-02 09/02/2018 [facility]94[address] Primary ASPEN R [place] Insurance:ANTHEMPolic WELLMANDOB: [place] y Number: [id number] Hospital [address]Bhj: (330) [id number] Repository [phone] () majo Date:[id number] [address] [place] [address]MO: 09/02/2018 Secondary NOT GIVENUNK [place] Insurance:SELF PAY [facility] Number: Effective Repository Date:2018-09-02 08/15/2018 [facility]9430 Primary [place] Insurance:ANTHEMPolic WELL[place]ANDOB: [place] y Number: [id number] [address]Tms: (330) [id number] Repository [phone] () majo Date:0065-25-19OA [id number] [place] [address]IV: 08/15/2018 Secondary NOT GIVENUNK [place] Insurance:SELF PAY [facility] Number: Effective Repository Date:2018-08-15 08/13/2018 [facility]9430 Primary ASP[place] Insurance:ANTHEMPolic WELL[place]ANDOB: [place] y Number: [id number] [address]Ewx: (330) [id number] Repository [phone] () majo Date:6329-03-78CR [id number] [place] [address]LP: 08/13/2018 Secondary NOT GIVENUNK [place] Insurance:SELF PAY [facility] Number: Effective Repository Date:2018-08-13
== END ==
PROVIDERS: Referring Provider Nurse Practitioner Women's Health; Visit Provider Nurse Practitioner Women's Health
DX: Z34.90 Encounter for supervision of normal pregnancy, unspecified, unspecified trimester (principal)
CPT/HCPCS: 87086; 87088; 87491; 87591

== ENCOUNTER → 2018-09-04 10:40 | Outpatient (CLI) | payer BC, SELFPAY ==
[2018-09-02 09:56] VITALS: BMI 25.1
[2018-09-04 11:21] LABS: Absolute Lymphocyte Count 2.05 X10^3/ul (0.83-4.51); Absolute Neutrophil Count 3.2 X10^3/uL (2.0-7.7); Basophil# 0.02 X10^3/uL; Basophil% 0.3 % (0-1); Eosinophils% 1.6 % (0-5); Hematocrit 39.2 % (37-47); Hemoglobin 13.1 g/dl (12.0-15.0); Lymphocyte # 2.05 X10^3/ul (4.0); Lymphocyte % 33.3 % (19-41); Mean Corp Hgb Conc 33.4 g/gl (32-36); Mean Corpuscular Hgb 28.7 pg (27.0-32.0); Mean Platelet Vol. 9.3 fl (6.2-12.0); Monocyte# 0.73 X10^3/uL; Monocyte% 11.9 % (0-10); Neutrophil # 3.24 X10^3/uL (2.7-7.7); Neutrophil % 52.7 % (47-70); Platelet Count 254 K/mm3 (150-450); RBC Distribution Width CV 11.9 % (11.6-14.6); RBC Distribution Width SD 36.9 fl (35.1-43.9); Red Blood Count 4.56 M/mm3 (4.2-5.4); White Blood Count 6.2 K/mm3 (4.4-11.0)
[2018-09-04 11:26] LABS: POSITIVE COUNT NO; POSITIVE DIFFERENTIAL NO; POSITIVE MORPHOLOGY NO
[2018-09-04 13:20] LABS: HIV - WCH Non-Reactive (Nonreactive); Rubella IgG 131.1 IU/mL
[2018-09-05 01:11] LABS: Rapid Plasmin Reagin (RPR) NONREACTIVE (NONREACTIVE)
[2018-09-05 11:12] LABS: HEPATITIS B SURFACE AG Negative (Negative)
== END ==
PROVIDERS: Visit Provider Nurse Practitioner Women's Health
DX: Z34.80 Encounter for supervision of other normal pregnancy, unspecified trimester (principal)
CPT/HCPCS: 36415; 85025; 86592; 86703; 86762; 86850; 86900; 87340

== ENCOUNTER → 2018-09-30 15:07 | Outpatient (CLI) | payer BC, SELFPAY ==
[2018-09-30 14:36] VITALS: BMI 25.1
== END ==
PROVIDERS: Visit Provider Obstetrics & Gynecology
DX: Z34.81 Encounter for supervision of other normal pregnancy, first trimester (principal)
CPT/HCPCS: 36415

== ENCOUNTER → 2018-11-18 | Outpatient (CLI) | payer BC, SELFPAY ==
[2018-10-29 13:17] VITALS: BMI 25.1
== END | disposition home or self-care (01) ==
LOC: PAVLAB 09:44
PROVIDERS: Visit Provider Obstetrics & Gynecology
DX: Z34.80 Encounter for supervision of other normal pregnancy, unspecified trimester (principal)
CPT/HCPCS: 36415

== ENCOUNTER → 2018-12-08 | Outpatient (CLI) | payer BC, SELFPAY ==
[2018-11-25 14:11] VITALS: BMI 25.6
--- NOTE | 2018-12-08 12:32 | US_ITS ---
STUDY: SECOND AND THIRD TRIMESTER OBSTETRICAL ULTRASOUND REASON FOR EXAM: Female, 28 years old. Routine survey. LMP: July 21, 2018. TECHNIQUE: Transabdominal TECHNICAL QUALITY: Adequate. PRIOR ULTRASOUND: None. FINDINGS: There is a single intrauterine fetus. The fetus is in a cephalic presentation. There is demonstrated cardiac activity with a heart rate of 153 bpm. There is a normal amniotic fluid volume. The largest amniotic fluid pocket measures 6.7 cm x 3.8 cm. The amniotic fluid index (MARÍA) is within normal limits. The placenta is anterior in location and is not low lying. There are Grade 0 placental changes. The cervix measures 3.6 cm in length. The bilateral adnexal regions are normal. BIOMETRY: BPD: 4.83 cm: 20 weeks, 5 days HC: 18.12 cm: 20 weeks, 4 days AC: 15.36 cm: 20 weeks, 4 days FL: 3.7 cm: 21 weeks, 6 days CI: 79% FL/BPD: 77% FL/HC: FL/AC: 24% HC/AC: 1.18 age by current US: 21 weeks, 0 days. SILVANA by current US: April 20, 2019. Estimated weight: 395 grams, +/- 58 grams, 94 %. Age by LMP: 20 weeks, 0 days. SILVANA by LMP: April 27, 2019. ANATOMY: Gender: Male Cranium: Normal lateral ventricles. Normal choroid plexus. Normal cerebellum. Normal cisterna magna. Normal face, nose and lips. Chest: Normal 4-chamber heart. Abdomen/Pelvis: Normal diaphragm. Normal stomach. Normal abdominal wall. Normal cord insertion. Normal 3 vessel cord. Normal kidneys. Normal bladder. Spine: Normal cervical spine. Normal thoracic spine. Normal lumbar spine. Normal sacrum. Extremities: Normal bilateral upper extremities. Normal bilateral lower extremities. US/OB Anatomy Scan IMPRESSION: Single live intrauterine gestation with a mean gestational age of 21 weeks. Electronically Signed: Alfredo Cummins, at 15:26 EDT , Service support ,
== END | disposition home or self-care (01) ==
PROVIDERS: Family Provider Internal Medicine; PCP Internal Medicine; Referring Provider Obstetrics & Gynecology; Visit Provider Obstetrics & Gynecology
DX: Z34.90 Encounter for supervision of normal pregnancy, unspecified, unspecified trimester (principal)
CPT/HCPCS: 76805

== ENCOUNTER → 2019-01-20 | Outpatient (CLI) | payer BC, SELFPAY ==
[2019-01-20 13:45] VITALS: BMI 25.6
[2019-01-20 14:54] LABS: Absolute Lymphocyte Count 1.76 X10^3/ul (0.83-4.51); Absolute Neutrophil Count 5.5 X10^3/uL (2.0-7.7); Basophil# 0.02 X10^3/uL; Basophil% 0.2 % (0-1); Eosinophil# 0.09 X10^3/uL; Eosinophils% 1.1 % (0-5); Hematocrit 34.4 % (37-47); Hemoglobin 11.6 g/dl (12.0-15.0); Lymphocyte # 1.76 X10^3/ul (4.0); Mean Corp Hgb Conc 33.7 g/gl (32-36); Mean Corpuscular Hgb 28.8 pg (27.0-32.0); Mean Corpuscular Volume 85.4 fL (81-99); Mean Platelet Vol. 8.7 fl (6.2-12.0); Monocyte# 1.02 X10^3/uL; Monocyte% 12.1 % (0-10); Neutrophil % 65.5 % (47-70); POSITIVE COUNT NO; POSITIVE DIFFERENTIAL NO; POSITIVE MORPHOLOGY NO; Platelet Count 255 K/mm3 (150-450); RBC Distribution Width CV 12.1 % (11.6-14.6); RBC Distribution Width SD 37.9 fl (35.1-43.9); Red Blood Count 4.03 M/mm3 (4.2-5.4); White Blood Count 8.4 K/mm3 (4.4-11.0)
[2019-01-20 15:05] LABS: Glucose Challenge Gest 1H 50g 84 mg/dL (70-140)
== END | disposition home or self-care (01) ==
LOC: PAVLAB 14:05
PROVIDERS: Visit Provider Obstetrics & Gynecology
DX: Z34.92 Encounter for supervision of normal pregnancy, unspecified, second trimester (principal); Z3A.26 26 weeks gestation of pregnancy
CPT/HCPCS: 36415; 82950; 85025

== ENCOUNTER → 2019-04-03 | Outpatient (CLI) | payer BC, SELFPAY ==
[2019-04-03 11:05] VITALS: BMI 25.6
== END | disposition home or self-care (01) ==
LOC: LABSPEC 16:49
PROVIDERS: Referring Provider Obstetrics & Gynecology; Visit Provider Obstetrics & Gynecology
DX: Z34.80 Encounter for supervision of other normal pregnancy, unspecified trimester (principal)
CPT/HCPCS: 87081

== ENCOUNTER → 2019-04-16 16:39 | Outpatient (CLI) | payer BC, SELFPAY ==
[2019-04-16 16:22] VITALS: BMI 29.7
[2019-04-16 17:14] LABS: ROM Internal Control Test YES-OK TO RESULT pt. (Internal QC)
[2019-04-16 17:17] LABS: ROM Patient Test POSITIVE (Negative)
== END ==
PROVIDERS: Visit Provider Obstetrics & Gynecology
DX: N89.8 Other specified noninflammatory disorders of vagina (principal)
CPT/HCPCS: 84112

== ENCOUNTER 2019-04-16 17:55 | Inpatient (IN) | payer BC, SELFPAY ==
[2019-04-16 18:03] VITALS: BMI 29.7
[2019-04-16 18:11] VITALS: BMI 29.9
[2019-04-16] MEDS: Lactated Ringers 1,000 ML 50 ML IV (18:55)
[2019-04-16 19:13] LABS: Absolute Lymphocyte Count 1.92 X10^3/uL (0.83-4.51); Absolute Neutrophil Count 8.4 X10^3/uL (2.0-7.7); Basophil# 0.02 X10^3/uL; Basophil% 0.2 % (0-1); Eosinophil# 0.09 X10^3/uL; Eosinophils% 0.8 % (0-5); Hematocrit 34.9 % (37-47); Hemoglobin 11.4 g/dL (12.0-15.0); Lymphocyte # 1.92 X10^3/ul (4.0); Lymphocyte % 16.4 % (19-41); Mean Corp Hgb Conc 32.7 g/dL (32-36); Mean Corpuscular Hgb 27.2 pg (27.0-32.0); Mean Corpuscular Volume 83.3 fL (81-99); Mean Platelet Vol. 9.5 fl (6.2-12.0); Monocyte# 1.24 X10^3/uL; Monocyte% 10.6 % (0-10); NRBC Flagged by Analyzer 0 % (0-5); Neutrophil # 8.38 X10^3/uL (2.7-7.7); Neutrophil % 71.6 % (47-70); Platelet Count 270 K/mm3 (150-450); RBC Distribution Width CV 12.5 % (11.6-14.6); Red Blood Count 4.19 M/mm3 (4.2-5.4); White Blood Count 11.7 K/mm3 (4.4-11.0)
[2019-04-16] MEDS: Oxytocin 30 units/NS 500 ml 30 UNITS/500 ML IV.SOLN IV (19:55)
[2019-04-16] MEDS: Lactated Ringers 1,000 ML 999 ML IV (22:39)
[2019-04-16] MEDS: fentaNYL-bupivacaine (epidural) 100 ML BAG EPIDURAL (23:44)
[2019-04-17] MEDS: Lactated Ringers 500 ML 999 ML IV (00:35)
[2019-04-17] MEDS: Lactated Ringers 1,000 ML 200 ML IV (03:43)
[2019-04-17] MEDS: fentaNYL-bupivacaine (epidural) 100 ML BAG EPIDURAL (04:20)
[2019-04-17] MEDS: Ondansetron 4 MG/2 ML Vial IV (04:36)
[2019-04-17] MEDS: Amnioinfusion- 0.9% NS 1,000 ML IV.SOLN. 1000 ML INTRA-UTER (05:18)
[2019-04-17] MEDS: Oxytocin 30 units/NS 500 ml 30 UNITS/500 ML IV.SOLN 334 UNITS IV (05:48)
--- NOTE | 2019-04-17 07:17 | HP.PCM_ITS ---
- Problem List (1) PROM with onset of labor more than 24 hours following rupture Status: Acute (2) Nausea/vomiting in Status: Acute (3) Status: Acute Qualifiers: Weeks of gestation: 38 weeks Qualified Code(s): Z3A.38 - 38 weeks gestation of Comment: nipt-low risk-male carrier screening negative afp normal. (4) Supervision of other normal Status: Acute Comment: PRR SILVANA 04/27/19 boy Stevie PC: Scott Ornelas. Spouse:Mihai History Date of Admission: 05/29/13 Final SILVANA: 04/27/19 Gestational age: 38 Weeks and 4 Days History of this : This is a 28 year-old, G 3P2 at 38 weeks gestational age presents with rupture of membranes for over 24 hours without onset of labor. Patient has had some contractions but no bleeding and has felt good movement. Patient denies any fevers. Patient was GBS negative. Patient presents for induction of labor secondary to premature prolonged rupture of membranes. Pitocin used. Medical History: Medical History (Last Reviewed 04/16/19 @ 16:22 by Miroslava Gifford) Environmental allergies Z91.09 Headaches, cluster G44.009 Surgical History: Surgical History (Last Reviewed 04/16/19 @ 16:22 by Miroslava Gifford) S/P appendectomy Z90.49 Allergies No Known Allergies Allergy (Verified 04/16/19 18:12) Home Medications: Home Medications Vits [Prenatabs FA ] 1 tab PO DAILY 05/29/13 Smoking Status: Former smoker Alcohol: None Number of Fetus(es): 1 NST - FHR Rate Baby A Baseline: 140 Variability:: Moderate Accelerations:: 15 x 15 Decelerations:: None NST Reactive:: Yes FHR Category:: Category I Uterine Activity:: irregular History Past Pregnancies: Past Pregnancies 2 previous term uncomplicated Labs: Mom's Problem List Problem Status Onset Code PROM with onset of labor more than 24 hours following rupture Acute O42.10 Normal vaginal delivery Acute O80 Mom's Labs & Results 04/16/19 04/16/19 18:55 18:55 WBC 11.7 H RBC 4.19 L Hgb 11.4 L Hct 34.9 L MCV 83.3 MCH 27.2 MCHC 32.7 RDW Std Deviation 38.0 RDW Coeff of Veto 12.5 Plt Count 270 MPV 9.5 Immature Gran % (Auto) 0.400 Neut % (Auto) 71.6 H Lymph % (Auto) 16.4 L [place] % (Auto) 10.6 H Eos % (Auto) 0.8 Baso % (Auto) 0.2 Absolute Neuts (auto) 8.4 H Absolute Lymphs (auto) 1.92 Nucleated RBC % 0 Blood Type O POSITIVE Antibody Screen NEGATIVE Course Did the patient receive Yes care? Labs Blood Type: O RH: POSITIVE RPR/VDRL/Syphilis Nonreactive Rubella status Immune HbSAg Negative Date Done: 09/04/18 Chlamydia Negative Gonorrhea Negative HIV/AIDS Non-Reactive Group B Strep: Negative Current Obstetrical History Gestational Diabetes No Incompetent Cervix No Infertility No IUGR No Macrosomia No Hypertension/Pre-eclampsia No Placenta Previa/Abruption No PTL/PROM No Uterine anomaly No Oligohydramnios No Polyhydramnios No Multiple gestation No Past Medical History Asthma Yes: sports induced Diabetes No Hypertension No Heart disease No Mitral valve prolapse No Neurologic/Seizure disorder/ No Migraines Kidney disease No Liver disease No Varicosities No Clotting disorders/Hx of DVT No Thyroid Dysfunction No Other medical diseases No Psychiatric disorders No Major trauma No Abnormal PAP smear No Sleep apnea No Mammogram in the last 2 years No Social History Marital Status: Alleged father Mihai Hx Smoking Yes Smoking Status Former smoker Expected Infant Delivery Method: Spontaneous Vaginal Review of Systems Constitutional: Denies: Fever, Malaise Eyes: Denies: Blurred vision, Vision Change HEENT: Denies: Head Aches, Visual Changes Cardiovascular: Denies: Chest Pain, Palpitations Respiratory: Denies: Cough, Shortness of Breath, Wheezing Gastrointestinal: Denies: Abdominal Pain, Diarrhea, Nausea, Vomiting Genitourinary: Denies: Dysuria, Hematuria Gynecological: Reports: Vaginal discharge Musculoskeletal: Denies: Joint Pain, Muscle pain Skin: Denies: Lesions, Rash Neurological: Denies: Blurred vision, Focal weakness, Headaches Psychiatric: Denies: Anxiety, Depression Endocrine: Denies: Heat/ Cold Intolerance Hematologic/ Lymphatic: Denies: Easy Bruising, Easy Bleeding Physical Exam General: Alert, Cooperative, No apparent distress HEENT: Atraumatic, Normocephalic. Negative for: Thyromegaly, Lymphadenopathy Cardiovascular: Regular rate Lungs: Normal air movement Abdomen: Soft, Non Tender, Gravid Neurological: Deep Tendon Reflexes 2+/4 and Symmetrical, Neuro grossly intact. Negative for: Clonus BABY COUNSELOR: Normal external genitalia. Negative for: Vulvar lesions Estimated gestational size: Appropriate for gestational size Presentation: Cephalic Cervix Dilation (cm): 2 Assessment/Plan All Active Problems (Last Reviewed 04/16/19 @ 16:22 by Miroslava Gifford) PROM with onset of labor more than 24 hours following rupture (Acute) Normal vaginal delivery (Acute) Segmental and somatic dysfunction of pelvic region (Acute) Segmental and somatic dysfunction of sacral region (Acute) Segmental and somatic dysfunction of lumbar region (Acute) Nausea/vomiting in (Acute) (Acute) Supervision of other normal (Acute) This is a 28 year-old, , at 38 weeks gestational age presents IOL PROM. Patient presents IOL, plan management for , pitocin PRN. Pain management: Plans epidural. GBS negative. Management of any complications: None I have reviewed the [facility] and made any clinically relevant updates.
--- NOTE | 2019-04-17 07:20 | OP.PCM_ITS ---
Problem List (1) PROM with onset of labor more than 24 hours following rupture Status: Acute (2) Nausea/vomiting in Status: Acute (3) Status: Acute Qualifiers: Weeks of gestation: 38 weeks Qualified Code(s): Z3A.38 - 38 weeks gestation of Comment: nipt-low risk-male carrier screening negative afp normal. (4) Supervision of other normal Status: Acute Comment: PRR SILVANA 04/27/19 boy Stevie PC: Scott Ornelas. Spouse:Mihai (5) Normal vaginal delivery Status: Acute Vaginal Delivery Maternal Presentation: Spontaneous Rupture of Membranes 28-year-old at 38 weeks presents with spontaneous rupture of membranes over 24 hours. Patient has had irregular contractions but is still 2 cm. She was started on Pitocin and 4 bag was ruptured for clear fluid. Patient p roceeded to complete dilation Method of Induction: Pitocin Medical Reason for Induction: Premature Rupture of Membranes Amniotic Membrane Rupture Type: Spontaneous at home Amniotic Fluid Description: Clear Final SILVANA: 04/27/19 Gestational age: 38 Weeks and 4 Days Date of Procedure: 04/17/19 Pre-Operative Diagnosis: Premature rupture membranes along with prolonged rupture membranes Post-Operative Diagnosis: Same Surgery/ Procedure Performed: Spontaneous Vaginal Delivery Type of Anesthesia: Epidural Description of Procedure: Patient began pushing and delivered the head in the CORBY presentation. The head was delivered atraumatically. The anterior and posterior shoulders delivered without complication followed by the rest of the infant and the was placed on the maternal abdomen. Delayed cord clamping was employed for approximately 60 seconds. Cord was clamped and cut and gentle traction was applied to the cord and the placenta delivered spontaneously immediately following it was noted to be intact with three-vessel cord. The perineum and vagina were inspected and noted to have no laceration. EBL was 100 cc. Patient and tolerated delivery well. Presentation: COBRY Placental Delivery Description: Spontaneous Cord Vessel Description: 3 Vessels Cord Entanglement: None Drain: Sung to straight drain Estimated Blood Loss: 100 Infant A gender: Male Episiotomy Description: None Laceration: None Medications given after delivery: IV Pitocin Complications: None
[2019-04-17] MEDS: 0.9% Saline Lock 10 ML Syringe IV (08:37)
[2019-04-17 12:00] VITALS: BP 109/61; PULSE 93; RESP 14; TEMP 36.6
[2019-04-17] MEDS: Naproxen 250 MG Tablet 500 MG PO (13:43)
[2019-04-17 15:45] VITALS: BP 115/62; PULSE 83; RESP 14; TEMP 36.9
[2019-04-17] MEDS: Acetaminophen 500 MG Tablet 1000 MG PO (17:32)
[2019-04-17 20:00] VITALS: BP 112/79; PULSE 76; RESP 16; TEMP 37.2
[2019-04-18] VITALS: BP 115/71; PULSE 72; RESP 16; TEMP 36.9
--- NOTE | 2019-04-18 01:51 | DCINST_ITS ---
Discharge Diet: No Restrictions Discharge Activity: Return to Normal Activity, May not drive while taking narcotic pain medications., May Shower May resume sexual activity in: 4-6 weeks Call your doctor if your incision/area has: Continuous Slow Oozing, Sudden Increased Bleeding, Increased Pain/ Swelling, Increased Redness, Foul Smelling Discharge Additional Instructions: If you experience any of the following, contact your healthcare provider. * Bleeding that soaks a pad every hour for 2 hours * Fever 100.4 or higher * Unrelieved incision or abdominal pain * Swelling, redness, discharge or bleeding from your incision or episiotomy site * Your incision begins to separate * Problems urinating (including inability to urinate or burning while urinating). * Visual changes * Severe headache * Flu-like symptoms * Pain or redness in one of both of your breasts * Pain, warmth, tenderness or swelling in your legs, especially the calf area * Frequent nausea and vomiting * Symptoms of depression or anxiety If you experience any of the following, call 911 or go to the nearest Emergency Room. * Chest pain * Problems breathing * Seizure activity * Partial or complete paralysis of a body part, slurred speech, weakness or drooping of the face, or a sudden inability to walk or hold your balance Allergies/Adverse Reactions: Allergies No Known Allergies Allergy (Verified 04/16/19 18:12) Medications to take at Discharge Vits [Prenatabs FA ] 1 tab PO DAILY 05/29/13 Please Follow Up With: Naty Aec MD - [phone] When: Call to make an appointment with your doctor in 6 weeks. If you had elevated Blood pressure or 4th degree laceration you will need to be seen in 2 weeks. Primary Care Physician: Care Physician,No Primary [Primary Care Provider] - Test Results: Test results from this visit will be discussed in further detail at your follow- up appointment, if applicable.
--- NOTE | 2019-04-18 01:51 | PCM.DCVAG ---
Discharge Diet: No Restrictions Discharge Activity: Return to Normal Activity, May not drive while taking narcotic pain medications., May Shower May resume sexual activity in: 4-6 weeks Call your doctor if your incision/area has: Continuous Slow Oozing, Sudden Increased Bleeding, Increased Pain/ Swelling, Increased Redness, Foul Smelling Discharge Additional Instructions: If you experience any of the following, contact your healthcare provider. Bleeding that soaks a pad every hour for 2 hours Fever 100.4 or higher Unrelieved incision or abdominal pain Swelling, redness, discharge or bleeding from your incision or episiotomy site Your incision begins to separate Problems urinating (including inability to urinate or burning while urinating). Visual changes Severe headache Flu-like symptoms Pain or redness in one of both of your breasts Pain, warmth, tenderness or swelling in your legs, especially the calf area Frequent nausea and vomiting Symptoms of depression or anxiety If you experience any of the following, call 911 or go to the nearest Emergency Room. Chest pain Problems breathing Seizure activity Partial or complete paralysis of a body part, slurred speech, weakness or drooping of the face, or a sudden inability to walk or hold your balance Allergies/Adverse Reactions: Allergies No Known Allergies Allergy (Verified 04/16/19 18:12) Medications to take at Discharge Vits [Prenatabs FA ] 1 tab PO DAILY 05/29/13 Please Follow Up With: Naty Ace MD - [phone] When: Call to make an appointment with your doctor in 6 weeks. If you had elevated Blood pressure or 4th degree laceration you will need to be seen in 2 weeks. Primary Care Physician: Care Physician,No Primary [Primary Care Provider] - Test Results: Test results from this visit will be discussed in further detail at your follow-up appointment, if applicable.
[2019-04-18 03:30] VITALS: BP 110/70; PULSE 74; RESP 16; TEMP 36.6
--- NOTE | 2019-04-18 09:28 | PCM.PN.OB ---
Patient Problems: Active and Suspected Problems (Last Reviewed 04/16/19 @ 16:22 by Miroslava Gifford) PROM with onset of labor more than 24 hours following rupture (Acute) Normal vaginal delivery (Acute) Subjective: doing well no complaints pain controlled no CP SOB N V ambulating well tolerating po lochia moderate, going well - Physical Exam Vital Signs Temp Pulse Resp BP 97.9 F 74 16 110/70 04/18/19 03:30 04/18/19 03:30 04/18/19 03:30 04/18/19 03:30 Oxygen Delivery Method Room Air Weight: 180 lb 1.883 oz Body Mass Index (BMI) 29.9 Intake and Output for Last 24 Hours 04/16/19 04/17/19 04/18/19 23:59 23:59 23:59 Intake Total 1798.63 / 1798.63 2133.06 / 2133.06 Output Total 800 / 800 1800 / 1800 Balance 998.63 / 998.63 333.06 / 333.06 Medical Necessity - Tobacco Use Smoking Status: Former smoker Assessment/Plan All Active Problems (Last Reviewed 04/16/19 @ 16:22 by Miroslava Gifford) PROM with onset of labor more than 24 hours following rupture (Acute) Normal vaginal delivery (Acute) Segmental and somatic dysfunction of pelvic region (Acute) Segmental and somatic dysfunction of sacral region (Acute) Segmental and somatic dysfunction of lumbar region (Acute) Nausea/vomiting in (Acute) (Acute) Supervision of other normal (Acute) s/p PPD # 1 1. routine post delivery care 2. breast feeding- support given 3. rh positive 4. rubella immune
[2019-04-18 10:07] VITALS: BP 108/77; PULSE 74; RESP 16; TEMP 36.8; O2SAT 96
[2019-04-18] MEDS: Naproxen 250 MG Tablet 500 MG PO (10:07)
[2019-04-18 14:10] VITALS: BP 102/69; PULSE 70; TEMP 36.9; O2SAT 99
== END 2019-04-18 18:10 | disposition home or self-care (01) | DRG 807 ==
PROVIDERS: Admitting Provider Obstetrics & Gynecology; Referring Provider Obstetrics & Gynecology; Visit Provider Obstetrics & Gynecology
DX: O42.12 Full-term premature rupture of membranes, onset of labor more than 24 hours following rupture (principal); Z37.0 Single live birth; Z3A.38 38 weeks gestation of pregnancy; Z87.891 Personal history of nicotine dependence; M99.05 Segmental and somatic dysfunction of pelvic region; M99.04 Segmental and somatic dysfunction of sacral region; M99.03 Segmental and somatic dysfunction of lumbar region
CPT/HCPCS: 59025; 59050; 85025; 86850; 86900; 86901; 99218; J7030; J7120; A4216; G0378; J2405; J3490

== ENCOUNTER → 2019-06-01 16:59 | Outpatient (CLI) | payer BC, SELFPAY ==
[2019-06-01 14:57] VITALS: BMI 29.9
[2019-06-04 15:38] LABS: HPV Reflexed? NOT INDICATED
== END ==
PROVIDERS: Referring Provider Obstetrics & Gynecology; Visit Provider Obstetrics & Gynecology
DX: Z12.4 Encounter for screening for malignant neoplasm of cervix (principal)
CPT/HCPCS: 88175; G0145

== ENCOUNTER → 2022-04-17 | Outpatient (CLI) | payer BC, SELFPAY ==
[2022-04-24 16:01] LABS: HPV APTIMA, High Risk Negative (Negative)
== END | disposition home or self-care (01) ==
LOC: LABSPEC 14:37
PROVIDERS: Referring Provider Obstetrics & Gynecology; Visit Provider Obstetrics & Gynecology
DX: Z12.4 Encounter for screening for malignant neoplasm of cervix (principal)
CPT/HCPCS: 87624; 88175; G0145

== ENCOUNTER → 2022-11-27 | Outpatient (CLI) | payer BC, SELFPAY ==
[2022-11-27 11:25] LABS: Absolute Lymphocyte Count 2.46 X10^3/uL (0.83-4.51); Absolute Neutrophil Count 3.6 X10^3/uL (2.0-7.7); Basophil# 0.03 X10^3/uL; Basophil% 0.4 % (0-1); Eosinophil# 0.18 X10^3/uL; Eosinophils% 2.6 % (0-5); Hematocrit 43.4 % (37-47); Hemoglobin 14.1 g/dL (12.0-15.0); Lymphocyte # 2.46 X10^3/ul (0.83-4.51); Lymphocyte % 35.4 % (19-41); Mean Corp Hgb Conc 32.5 g/dL (32-36); Mean Corpuscular Hgb 28.8 pg (27.0-32.0); Mean Corpuscular Volume 88.8 fL (81-99); Mean Platelet Vol. 8.7 fl (6.2-12.0); Monocyte# 0.72 X10^3/uL; Monocyte% 10.4 % (0-10); NRBC Flagged by Analyzer 0 % (0-5); Neutrophil # 3.55 X10^3/uL (2.7-7.7); Neutrophil % 51.1 % (47-70); Platelet Count 360 K/mm3 (150-450); RBC Distribution Width SD 38.7 fl (35.1-43.9); Red Blood Count 4.89 M/mm3 (4.2-5.4)
[2022-11-27 12:02] LABS: Vitamin D,25 Hydroxy 29.2 ng/mL
[2022-11-27 12:09] LABS: Estradiol 59.8 pg/mL; T4 Free Direct 0.89 ng/dL (0.76-1.46); Thyroid Stim Hormone (TSH) 1.27 uIU/mL (0.358-3.74)
[2022-11-29 22:06] LABS: Testosterone Free 1.1 pg/mL (0.0-4.2)
== END | disposition home or self-care (01) ==
LOC: LAB 11:08
PROVIDERS: PCP Nurse Practitioner Family; Referring Provider Obstetrics & Gynecology; Visit Provider Obstetrics & Gynecology
DX: N91.4 Secondary oligomenorrhea (principal)
CPT/HCPCS: 36415; 82306; 82670; 83001; 84402; 84439; 84443; 85025

== ENCOUNTER → 2022-12-04 | Outpatient (CLI) | payer BC, SELFPAY ==
--- NOTE | 2022-12-04 16:26 | US_ITS ---
STUDY: ULTRASOUND OF THE FEMALE PELVIS - COMPLETE REASON FOR EXAM: Female, 32 years old. Secondary oligomenorrhea LMP: November 23, 2022 TECHNIQUE: Transabdominal and Transvaginal TECHNICAL QUALITY: Adequate. COMPARISON: None. FINDINGS: The uterus is anteverted and is in a midline position. The uterus measures 7.4 cm x 5.9 cm x 3.6 cm. Normal uterine cervix. The endometrium measures 8 mm in thickness, and is hyperechoic. There is no demonstrated endometrial mass. The myometrium is of heterogeneous echotexture although no focal fibroid is seen. This is suggestive of fibroid change. I.U.D. - The patient does not have an I.U.D. The right ovary is visualized. The right ovary measures 2.3 cm x 1.8 cm x 1.8 cm. There is no right ovarian cyst or ovarian mass. There is no visualized right adnexal mass or complex lesion. There is normal arterial and normal venous vascularity. The left ovary is visualized. The left ovary measures 3 cm x 1.7 cm x 1.8 cm. A dominant follicle is seen within the ovary measuring 1 cm x 1 cm x 1 cm. There is no visualized left adnexal mass or complex lesion. There is normal arterial and normal venous vascularity. There is no fluid in the cul-de-sac. The pre void volume of the bladder was 478 ml. Polycystic ovary disease: No. US/Pelvic w/ Transvaginal IMPRESSION: Heterogeneous echotexture of the uterus suggestive of fibroid change of the no focal fibroid is seen. Electronically Signed: Alfredo Cummins MD at 14:57 EDT ,
== END | disposition home or self-care (01) ==
LOC: US 16:25
PROVIDERS: PCP Nurse Practitioner Family; Referring Provider Obstetrics & Gynecology; Visit Provider Obstetrics & Gynecology
DX: N91.4 Secondary oligomenorrhea (principal)
CPT/HCPCS: 76830; 76856

== ENCOUNTER 2025-08-06 11:35 | Emergency (ER) | payer BC, SELFPAY ==
[2025-08-06 11:36] VITALS: BP 119/87; PULSE 73; RESP 16; TEMP 36.1; O2SAT 100; BMI 26.9
[2025-08-06 11:37] VITALS: BP 119/87; PULSE 69; RESP 16; TEMP 36.1; O2SAT 100
--- NOTE | 2025-08-06 13:34 | EX.ED.DYSGE1 ---
HPI History of Present Illness Chief Complaint: Dental Narrative Narrative: Patient is a 35-year-old female who presented to the emergency department the chief complaint of right lower dental pain. Patient states that this has been bothering her for the last few days now she states that she tried to call her doctor and her dentist and they were unable to get her in therefore she came here to be further evaluated. She states that she tried Motrin without any relief. Patient states that she has been eating and drinking without any difficulty. PFSH PFSH Medical History (Updated 08/06/25 @ 14:[address] Abhi Martins, DO) Headaches, cluster Environmental allergies Home Medications ?Medication ?Instructions ?Recorded ?Last Taken ?Type fluoxetine 20 mg capsule (Prozac) 20 mg PO DAILY #30 caps 11/27/22 Unknown Rx sumatriptan succinate 25 mg tablet 25 mg PO ONCE 11/27/22 Unknown History (Imitrex) clindamycin HCl 300 mg capsule 300 mg PO TID 5 days #15 caps 08/06/25 Unknown Rx (Cleocin HCl) ondansetron 4 mg disintegrating 4 mg PO Q6H PRN nausea and 08/06/25 Unknown Rx tablet vomiting #20 tabs oxycodone-acetaminophen 5 mg-325 1 tab PO Q6H PRN pain 2 days #8 08/06/25 Unknown Rx mg tablet (Endocet) tabs Allergy/AdvReac Type Severity Reaction Status Date / Time bee venom protein (honey Allergy Mild Hives Verified 08/06/25 11:39 bee) (bees) droperidol Allergy Mild Other Verified 08/06/25 11:39 Family History Mother Epilepsy Grandmother Epilepsy Surgical History S/P appendectomy Social History (Updated 08/06/25 @ 13:49 by Pati Patiño) Smoking Status: Never smoker alcohol intake: never substance use type: does not use caffeine: No what type of physical activity do you participate in: weight training frequency: 3-4 times per week seatbelt use: always do you feel safe at home: Yes additional social history: [id number] 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 ROS ROS ED ROS Narrative Constitutional: Denies any fevers, chills, headaches Eyes, ears, nose, throat: Complains of dental pain as noted above Neurological: Denies numbness or tingling Skin: Denies rashes or lesions EXAM Physical Exam Narrative Exam Narrative: General: Patient lying in bed rest comfortably did not appear to be in acute distress Head: Atraumatic, normocephalic Eyes, ears, nose, throat:, Patient has tenderness to palpation along the right posterior molar no concern for abscess at this point in time no sublingual swelling PERRL bilaterally, EOMI bilaterally, no conjunctival injection noted Neck: Soft, supple, trachea midline, no concern for Nahum's angina Cardiovascular: Regular rate Extremities: +5/5 strength noted in the bilateral upper and lower extremities Neurological: Patient following commands knew that she was at [facility] year is 2024 Skin: Warm, dry, intact no rashes lesions noted Const Vital Signs: 08/06/25 11:36 08/06/25 11:37 Temperature 96.9 F L 96.9 F L Temperature Source Oral Oral Pulse Rate 73 69 Respiratory Rate 16 16 Blood Pressure 119/87 H 119/87 H Blood Pressure Mean 97 97 Pulse Ox 100 100 Oxygen Delivery Method Room Air Room Air MDM MDM MDM Narrative Medical decision making narrative: Patient is a 35-year-old female who presented to the emergency department the chief complaint of dental pain. On the differential diagnose includes but limited to dental carry, periapical abscess although have low suspicion for this clinically. Patient be given IM Toradol as she is planning to go back to work after this she will be given a dose of clindamycin. On reevaluation patient she is feeling better she would like to go back to work at this point in time. She will be given a prescription for clindamycin, Endocet and Zofran for severe pain. She is advised otherwise rotate Tylenol and ibuprofen [id number] she is advised to follow-up with her dentist in the outpatient setting and return with worsening symptoms or other concerns. She is agreeable to plan all question concerns answered she was discharged home in stable condition Discharge Plan Triage Chief Complaint: Dental ED Provider: Abhi Martins Dx/Rx/DC Orders Clinical Impression: Pain, dental, History of cluster headache, Encounter for medical screening examination Prescriptions: New clindamycin HCl [Cleocin HCl] 300 mg capsule 300 mg PO TID 5 Days Qty: 15 0RF ondansetron 4 mg tablet,disintegrating 4 mg PO Q6H PRN (Reason: nausea and vomiting) Qty: 20 0RF oxycodone-acetaminophen [Endocet] 5-325 mg tablet 1 tab PO Q6H PRN (Reason: pain) 2 Days Qty: 8 0RF No Action sumatriptan succinate [Imitrex] 25 mg tablet 25 mg PO ONCE fluoxetine [Prozac] 20 mg capsule 20 mg PO DAILY Qty: 30 12RF Primary Care Provider: Emelia Siddiqui NP Referrals: Emelia Siddiqui DIRECTOR CLINICAL INFORMATION SERVICES, DIRECTOR CLINICAL INFORMATION SERVICES-C [Primary Care Provider, [facility]] Activity Restrictions/Additional Instructions: Rotate Tylenol and ibuprofen [id number] when you do this you can take something every 3 hours for pain max dose Tylenol in 24 hours 4000 mg max dose of ibuprofen in 24 hours 3200 mg. Use the Endocet for severe pain and sure you take Zofran with this as it will upset your stomach. Do not operate anything under influence this medication. Follow-up with your dentist in the outpatient setting take antibiotics as prescribed. Return with worsening symptoms or any concerns Print Language: Portuguese Disposition Disposition: Home, Self Care
[2025-08-06] MEDS: Ketorolac 30 MG/ML Syringe IM (13:46)
--- OUTSIDE RECORDS SUMMARY | 2025-08-06 13:58 | XMS RPT_ITS | CCD ---
Author Organization [facility] Care Team Providers Care Inspector Process Name Role Phone Queden HEEL TOP LIFT SPLITTER.Lisa VILLANUEVAtny A Primary Care Provider Care Physician, No Primary Primary Care Provider Unavailable Care Physician, No Primary Referring Provider Un available Dr. Naty Ace Attending Provider Queden HEEL TOP LIFT SPLITTER.KAY Emelia A Primary Care Provider Queden HEEL TOP LIFT SPLITTER.KAY Emelia A Primary Care Provider QUEDEN, EMELIA A Primary Care Unavailable ELEANOR BARRETT Attending Unavailable Queden HOOP MAKER MACHINE, Emelia Primary Care Unavailable Queden HOOP MAKER MACHINE, Emelia Referring Unavailable Naty Ace Attending Unavailable Queden HOOP MAKER MACHINE, Emelia Referring Unavailable Naty Ace Attending Unavailable Queden HOOP MAKER MACHINE, Emelia Primary Care Unavailable Queden HOOP MAKER MACHINE, Emelia Primary Care Unavailable Assessment, Health Risk Attending Unavaila ble Assessment, Health Risk Referring Unavaila ble ANTONI SOLIS Attending Unavailable QUEDEN, EMELIA A Primary Care Unavailable NENAELEANOR Referring Unavailable QUEDEN, EMELIA A Primary Care Unavailable EMILI MENDOZA Attending Unavailable EMILI MENDOZA Attending Unavailable QUEDEN, EMELIA A Primary Care Unavailable LUIS ANGEL HALL Attending Unavailable QUEDEN, EMELIA A Primary Care Unavailable QUEDEN, EMELIA A Attending Unavailable QUEDEN, EMELIA A Primary Care Unavailable QUEDEN, EMELIA A Attending Unavailable QUEDEN, EMELIA A Referring Unavailable QUEDEN, EMELIA A Primary Care Unavailable QUEDEN, EMELIA A Referring Unavailable QUEDEN, EMELIA A Primary Care Unavailable QUEDEN, EMELIA A Primary Care Unavailable QUEDEN, EMELIA A Attending Unavailable QUEDEN, EMELIA A Primary Care Unavailable Allergies Allergy Classification Reported Allergen(s) Allergy Type Date of Onset Reaction(s) Facility (20 sources) Bees; Translations: [BEES] Allergy to substance 05-13-2018 Rash [facility] (17 sources) Droperidol; Translations: [DROPERIDOL] Drug Allergy 10-07-2024 Dystonia [facility] Work Phone: Medications Current Medications Medication Drug Class(es) Dates Sig (Normalized) Sig (Original) [id number] 200 actuat albuterol 0.09 mg/actuat metered dose inhaler (20 sources) beta2-Adrenergic Agonist Start: 08-22-2021 End: 10-20-2024 take 2 puff(s) by inhalation every four hours as needed albuterol HFA (PROVENTIL HFA, VENTOLIN HFA) 90 mcg/actuation inhaler Indications: Acute lower respiratory infection , Recurrent cough Inhale 2 Puffs as instructed every 4 hours as needed. 1 Each 09/16/2023 10/20/2024 Discontinued Comment on above: Inhale 2 Puffs as in structed every 4 hours as needed. amoxicillin 500 mg oral capsule (1 source) Penicillin-class Antibacterial Start: 07-03-2023 End: 07-13-2023 take 1 capsule by mouth every eight hours amoxicillin (AMOXIL) 500 mg capsule Take 1 capsule by mouth every 8 hours for 10 days. 30 capsule 0 07/03/2023 07/13/2023 Active Comment on above: Take 1 capsule by [facility] every 8 hours for 10 days. amoxicillin 875 mg / clavulanate 125 mg oral tablet (3 sources) Penicillin-class Antibacterial Start: 09-16-2023 End: 09-26-2023 take 1 tablet by mouth every twelve hours amoxicillin-clavul anate potassium (AUGMENTIN) 875-125 mg per tablet Indications: Acute lower respiratory infection Take 1 tablet by mouth every 12 hours for 10 days. 20 tablet 0 09/16/2023 09/26/2023 Active Start: 08-27-2022 End: 09-06-2022 take 1 tablet by mouth every twelve hours amoxicillin-clavulanic acid (AUGMENTIN) 875-125 mg per tablet Indications: Sore throat Take 1 tablet by mouth every 12 hours for 10 days. 20 tablet 0 08/27/2022 09/06/2022 Active Comment on above: Take 1 tablet by [facility] every 12 hours for 10 days. cephalexin 500 mg oral capsule (3 sources) Cephalosporin Antibacterial Start: 5 End: 5 take 1 capsule by mouth three times daily cephALEXin (KEFLEX) 500 mg capsule Take 1 capsule by mouth three times a day for 7 days. 21 capsule 10/06/2024 10/13/2024 Active codeine phosphate 2 mg/ml / guaiFENesin 20 mg/ml oral solution (2 sources) Opioid Agonist Start: 3 End: 3 take 5 mL by mouth every eight hours as needed for cough and cough codeine-guaiFENesi n (ROBITUSSIN AC) 10-100 mg/5 mL syrup Indications: Acute cough Take 5 mL by mouth three times a day as needed for up to 5 days. 118 mL 0 06/07/2023 06/12/2023 Active Start: 07-16-2022 End: 07-21-2022 take 5 mL by mouth every eight hours as needed for cough and cough codeine-guaiFENesin (GUAIFENESIN AC) 10-100 mg/5 mL syrup Indications: Recurrent cough Take 5 mL by mouth three times daily as needed for cough for up to 5 days. 75 mL 0 07/16/2022 07/21/2022 Active Comment on above: Take 5 mL by mouth t hree times daily as needed for cough for up to 5 days. Take 5 mL by mouth t hree times a day as needed for up to 5 days. dexamethasone 4 mg oral tablet (1 source) Corticosteroid Start: End: take 2 tablets by mouth once dexAMETHasone (DECADRON) 4 mg tablet Indications: Sore throat Take 2 tablets by mouth one time only for 1 dose. 2 tablet 0 08/27/2022 08/27/2022 Active Comment on above: Take 2 tablets by mo [facility] one time only for 1 dose. dicyclomine hydrochloride 10 mg oral capsule (20 sources) Anticholinergic Start: 023 End: 025 take 1 capsule by mouth three times daily as needed dicyclomine (BENTYL) 10 mg capsule Indications: Abdominal bloating with cramps , Diarrhea, unspecified type Take 1 capsule by mouth three times daily as needed. 30 capsule 03/22/2023 10/20/2024 Discontinued Comment on above: Take 1 capsule by mo [facility] three times daily as needed. doxycycline hyclate 100 mg oral capsule (2 sources) Tetracycline-class Drug Start: 025 End: take 1 capsule by mouth twice daily doxycycline hyclate (VIBRAMYCIN) 100 mg capsule Take 1 capsule by mouth two times a day for 14 days. 28 capsule 01/22/2025 02/05/2025 Active [id number] 0.3 ml EPINEPHrine 1 mg/ml auto-injector (20 sources) alpha-Adrenergic Agonist, beta-Adrenergic Agonist, Catecholamine Start: 020 End: 023 EPINEPHrine (EPIPEN) 0.3 mg/0.3 mL auto-injector Inject 0.3 mL intramuscularly as needed. Inject full content of the syringe. 2 Each 03/22/2023 Active Comment on above: Inject 0.3 mL intram uscularly as needed. Inject full content of the syringe. famotidine 20 mg oral tablet (1 source) Histamine-2 Receptor Antagonist Start: 022 End: take 1 tablet by mouth twice daily famotidine (PEPCID) 20 mg tablet Take 1 tablet by mouth twice daily for 14 days. 28 tablet 0 12/08/2021 12/22/2021 Active Comment on above: Take 1 tablet by [facility] twice daily for 14 days. FLUoxetine 40 mg oral capsule (20 sources) Serotonin Reuptake Inhibitor Start: 024 End: take 1 capsule by mouth once daily FLUoxetine (PROZAC) 40 mg capsule Indications: PAKO (generalized anxiety disorder) Take 1 capsule by mouth once daily. 90 capsule 1 11/16/2024 Active Start: 05-01-2023 take 1 capsule by [facility] once daily FLUoxetine (PROZAC) 20 mg capsule Indications: PAKO (generalized anxiety disorder) Take 1 capsule by mouth once daily. 30 capsule 2 05/01/2023 Active Start: 11-27-2022 End: 03-22-2023 FLUoxetine (PROZAC) 20 mg ca psule Take by mouth. 0 11/27/2022 03/22/2023 Discontinued (Changing Therapy/Dosage Form) Comment on above: Take 20 mg by mouth once daily. Take by mouth. Take 1 capsule by [facility] once daily. TAKE 1 CAPSULE BY [facility] EVERY DAY 120 actuat fluticasone propionate 0.044 mg/actuat metered dose inhaler (20 sources) Corticosteroid Start: 12-30-19 take 1 puff(s) by mouth twice daily fluticasone (FLOVENT) 44 mcg/actuation inhaler Indications: Moderate persistent asthma, uncomplicated (HCC) INHALE 1 PUFF INSTRUCTED TWO TIMES A DAY. SHAKE WELL BEFORE USE. RINSE MOUTH AFTER USE. 3 Each 2 12/30/2023 Active Start: 10-27-2023 End: 12-30-2023 take 1 puff(s) by mouth twice daily fluticasone (FLOVENT) 44 mcg/actuation inhaler Indications: Moderate persistent asthma, uncomplicated Inhale 1 Puff as instructed two times a day. Shake well before use. Rinse mouth after use. 10.6 g 1 10/27/2023 12/30/2023 Discontinued Comment on above: Inhale 1 Puff as ins tructed two times a day. Shake well before use. Rinse mouth after use. hydrOXYzine pamoate 25 mg oral capsule (20 sources) Antihistamine Start: 07-29-20 take 25-50 mg by mouth every eight hours as needed hydrOXYzine pamoate (VISTARIL) 25 mg capsule Take 1-2 capsules by mouth three times a day as needed. 30 capsule 2 07/29/2023 Active Comment on above: Take 1-2 capsules by mouth three times a day as needed. nitrofurantoin, macrocrystals 25 mg / nitrofurantoin, monohydrate 75 mg oral capsule (1 source) Nitrofuran Antibacterial Start: 05-29-20 End: 06-05-20 take 1 capsule by mouth twice daily nitrofurantoin monohydrate and macrocrystal (MACROBID) 100 mg capsule Indications: Acute cystitis with hematuria Take 1 capsule by mouth two times a day for 7 days. 14 capsule 05/29/2024 06/05/2024 Active ondansetron 4 mg oral tablet (20 sources) Serotonin-3 Receptor Antagonist Start: 11-23-19 End: 03-22-20 take 1 tablet by mouth every eight hours as needed for nausea ondansetron (ZOFRAN) 4 mg tablet Indications: Migraine without aura and without status migrainosus, not intractable Take 1 tablet by mouth every 8 hours as needed for nausea/vomiting. 12 tablet 03/22/2023 Active Start: 10-29-2018 End: 01-20-2019 take 4 mg by mouth every four hours Ondansetron Discontinued 4 MG PO Q4H 60 October 29, 2018 12:00am January 20, 2019 1:44pm Comment on above: Take 1 tablet by [facility] every 8 hours as needed for nausea/vomiting. phenazopyridine hydrochloride 100 mg oral tablet (7 sources) Start: 2023 End: 2024 take 1 tablet by mouth three times daily as needed phenazopyridine (PYRIDIUM) 100 mg tablet Indications: Burning with urination Take 1 tablet by mouth three times a day as needed. 6 tablet 05/26/2024 10/20/2024 Discontinued predniSONE 20 mg oral tablet (7 sources) Start: 2023 End: 2023 take 2 tablets by mouth once daily predniSONE (DELTASONE) 20 mg tablet Indications: Acute lower respiratory infection Take 2 tablets by mouth once daily for 5 days. 10 tablet 0 09/16/2023 09/21/2023 Active Start: 06-07-2023 End: 09-16-2023 take 3 tablets by mouth once daily, then take 2 tablets by mouth once daily, then take 1 tablet by mouth once daily predniSONE (DELTASONE) 20 mg tablet Take 3 pills by mouth daily for 3 days, then 2 pills by mouth daily for 3 days, then 1 pill by mouth daily for 3 days 18 tablet 0 06/07/2023 09/16/2023 Discontinued Start: 07-16-2022 End: 07-21-2022 take 2 tablets by mouth once daily predniSONE (DELTASONE) 20 mg tablet Indications: Recurrent cough Take 2 tablets by mouth once daily for 5 days. 10 tablet 0 07/16/2022 07/21/2022 Active Start: 12-09-2021 End: 12-13-2021 take 2 tablets by mouth once daily predniSONE (DELTASONE) 20 mg tablet Take 2 tablets by mouth once daily for 4 days. 8 tablet 0 12/09/2021 12/13/2021 Active Comment on above: Take 2 tablets by mo [facility] once daily for 4 days. Take 2 tablets by mo [facility] once daily for 5 days. Take 3 pills by mout daily for 3 days, then 2 pills by mouth daily for 3 days, then 1 pill by mouth daily for 3 days rimegepant 75 mg disintegrating oral tablet (6 sources) Start: 01-21-20 End: 02-20-20 rimegepant (NURTEC ODT) 75 mg disintegrating tablet Take 1 tablet by mouth as directed. 8 tablet 5 01/20/2025 02/19/2025 Active rizatriptan 10 mg oral tablet (3 sources) Serotonin-1b and Serotonin-1d Receptor Agonist Start: 10-21-19 End: 01-19-20 take 1 tablet by mouth every two hours as needed for headache rizatriptan (MAXALT) 10 mg tablet Take 1 tablet by mouth as needed (at onset of headache. May repeat after 2 hours.). Do not exceed 30 mg per day. 12 tablet 2 10/20/2024 01/18/2025 Active SUMAtriptan 25 mg oral tablet (20 sources) Serotonin-1b and Serotonin-1d Receptor Agonist Start: 09-04-19 End: 10-21-19 take 1 tablet by mouth every two hours as needed for headache SUMAtriptan (IMITREX) 25 mg tablet Indications: Migraine without aura and without status migrainosus, not intractable TAKE 1 TABLET BY MOUTH NEEDED FOR MIGRAINE HEADACHE . MAY REPEAT AFTER 2 HOURS. 12 tablet 09/04/2023 10/20/2024 Discontinued Start: 11-27-2022 take 1 tablet by mouth once [place] matriptan Succinate (Imitrex) 25 mg tablet Active 25 MG PO ONCE November 27, 2022 12:00am Start: 11-22-2022 End: 07-02-2023 take 1 tablet by mouth every two hours as needed for headache SUMAtriptan (IMITREX) 25 mg tablet Indications: Migraine without aura and without status migrainosus, not intractable TAKE 1 TABLET BY MOUTH NEEDED FOR MIGRAINE HEADACHE . MAY REPEAT AFTER 2 HOURS. 12 tablet 0 07/02/2023 Active Comment on above: Take 1 tablet by [facility] as needed for migraine headache (see administration instructions). May repeat after 2 hours. TAKE 1 TABLET BY [facility] TH NEEDED FOR MIGRAINE HEADACHE . MAY REPEAT AFTER 2 HOURS. topiramate 50 mg oral tablet (14 sources) Start: take 1 tablet by mouth once daily at bedtime topiramate (TOPAMAX) 50 mg tablet TAKE 1 TABLET BY MOUTH EVERYDAY AT BEDTIME 90 tablet 04/13/2025 Active Start: 02-17-2025 End: 05-18-2025 take 1 tablet by mouth once daily at bedtime topiramate (TOPAMAX) 50 mg tablet Take 1 tablet by mouth daily at bedtime. 30 tablet 2 02/17/2025 04/13/2025 Discontinued Start: 10-20-2024 End: 03-09-2025 take 1 tablet by mouth once daily at bedtime topiramate (TOPAMAX) 25 mg tablet Take 1 tablet by mouth daily at bedtime. 30 tablet 2 12/09/2024 02/17/2025 Discontinued Completed/Discontinued Medications Medication Drug Class(es) Dates Sig (Normalized) Sig (Original) Acetaminophen / HYDROcodone (2 sources) Opioid Agonist Start: 06-18-2013 End: 09-22-2015 take 1 tablet by mouth every six hours as needed Hydrocodone-Acetamin ophen Discontinued 1 - 2 TABLET PO EVERY 6 HOURS NEEDED June 18, 2013 1:00am September 23, 2015 12:05am acetaminophen 325 mg / oxyCODONE hydrochloride 5 mg oral tablet (2 sources) Opioid Agonist Start: 09-28-2015 End: 09-02-2018 take 1 tablet by mouth every six hours as needed Oxycodone-Acetaminop hen Discontinued 1 - 2 TABLET PO EVERY 6 HOURS NEEDED September 28, 2015 1:00am September 02, 2018 10:49am ascorbic acid 125 mg / iron carbonyl 65 mg delayed release oral tablet (2 sources) Vitamin C Start: 05-29-2013 End: 09-22-2015 Iron,Carbonyl-Vitami n C (Vitron-C Tablet) 1 EACH Tablet. Discontinued 1 EACH PO DAILY May 29, 2013 12:00am September 23, 2015 12:05am azithromycin 250 mg oral tablet (3 sources) Macrolide Antimicrobial Start: 07-16-2022 End: 08-27-2022 azithromycin (ZITHROMAX) 250 mg tablet Indications: Recurrent cough Take two tablets by mouth the first day and then one tablet a day for days 2-5 6 tablet 0 07/16/2022 08/27/2022 Discontinued (Course of therapy completed) Comment on above: Take two tablets by mouth the first day and then one tablet a day for days 2-5 benzonatate 100 mg oral capsule (3 sources) Non-narcotic Antitussive Start: 08-22-2021 benzonatate (TESSALON PERLES) 100 mg capsule Indications: Persistent cough Take 2 capsules by mouth as directed. Take 1 capsule in the morning and afternoon and then 2 capsules at bedtime as needed 60 capsule 0 08/22/2021 Active Comment on above: Take 2 capsules by m outh as directed. Take 1 capsule in the morning and afternoon and then 2 capsules at bedtime as needed cyclobenzaprine hydrochloride 5 mg oral tablet (14 sources) Muscle Relaxant Start: 05-24-2022 End: 11-22-2022 take 1 tablet by mouth twice daily as needed for pain cyclobenzaprine (FLEXERIL) 5 mg tablet Indications: Neck pain Take 1 tablet by mouth twice daily as needed for pain or muscle spasm. 30 tablet 0 05/24/2022 11/22/2022 Discontinued (Lack of Efficacy) Comment on above: Take 1 tablet by [facility] th twice daily as needed for pain or muscle spasm. diphenhydrAMINE hydrochloride 25 mg oral tablet (2 sources) Histamine-1 Receptor Antagonist Start: 12-08-2021 take 1 tablet by mouth every six hours as needed diphenhydrAMINE (BENADRYL) 25 mg tablet Take 1 tablet by mouth every 6 hours as needed. 20 tablet 0 12/08/2021 Active Comment on above: Take 1 tablet by [facility] th every 6 hours as needed. etonogestrel/ethinyl estradiol (NUVARING VAGINAL) (3 sources) End: 03-22-2023 etonogestrel/ethinyl estradiol (NUVARING VAGINAL) Use vaginally. 0 03/22/2023 Discontinued etonogestrel/eth inyl estradiol (NUVARING VAGINAL) Use vaginally. 0 Active Comment on above: Use vaginally. ibuprofen 800 mg oral tablet (2 sources) Nonsteroidal Anti-inflammatory Drug Start: 09-28-19 End: 09-02-19 take 800 mg by mouth three times daily as needed Ibuprofen Discontinued 800 MG PO 3 TIMES DAILY NEEDED September 28, 2015 1:00am September 02, 2018 10:50am 2 ml ketorolac tromethamine 30 mg/ml injection (1 source) Nonsteroidal Anti-inflammatory Drug, Cyclooxygenase Inhibitor Start: 11-23-19 End: 11-23-19 keTORolac 60 mg injection (Toradol) Start: 11-22-2022 End: 11-22-2022 keTORolac 60 mg injection (T oradol) methylPREDNISolone (1 source) Corticosteroid Start: 05-24-2022 End: 06-26-2022 methylPREDNISolone (MEDROL, LOUISA,) 4 mg Dose-Pack Indications: URI, acute As Instructed per package 21 tablet 0 05/24/2022 06/26/2022 Discontinued (Course of therapy completed) Comment on above: As Instructed per [facility] Vit,[id number] (2 sources) Start: 05-29-2013 End: 04-17-2022 take 1 tablet by mouth once daily Vit,[id number] Discontinued 1 TABLET PO DAILY May 29, 2013 12:00am April 17, 2022 11:59am promethazine hydrochloride 12.5 mg oral tablet (2 sources) Phenothiazine Start: 09-02-2018 End: 01-20-2019 take 12.5 mg by mouth every six hours Promethazine Discontinued 12.5 MG PO EVERY 6 HOURS 60 September 02, 2018 1:00am January 20, 2019 1:44pm sertraline 50 mg oral tablet (20 sources) Serotonin Reuptake Inhibitor Start: 11-12-2022 End: 03-22-2023 take 1 tablet by mouth once daily sertraline (ZOLOFT) 25 mg tablet Indications: PAKO (generalized anxiety disorder) TAKE 1 TABLET BY MOUTH ONCE DAILY. TAKE WITH 50 MG TABLET DAILY. 90 tablet 1 11/12/2022 03/22/2023 Discontinued Start: 05-24-2022 take 1 tablet by [facility] once daily sertraline (ZOLOFT) 25 mg tablet Indications: PAKO (generalized anxiety disorder) Take 1 tablet by mouth once daily. Take with 50 mg tablet daily. 90 tablet 1 05/24/2022 Active Start: 10-26-2019 End: 05-01-2023 take 1 tablet by mouth once daily sertraline (ZOLOFT) 50 mg tablet Indications: PAKO (generalized anxiety disorder) Take 1 tablet by mouth once daily. 30 tablet 2 04/17/2023 05/01/2023 Discontinued (Discontinued by Patient) Comment on above: TAKE 1 TABLET BY [facility] TH EVERY DAY Take 1 tablet by [facility] th once daily. Take 1 tablet by [facility] th once daily. Take with 50 mg tablet daily. Take 1 tablet by [facility] th once daily. Take with 25 mg tablet daily. Take 1 tablet by [facility] th once daily. 1/2 tablet for the first 7 days and then 1 full tablet daily after. Problems Active Problems Problem Classification Problem Date Documented Da te Episodic/Chronic Anxiety disorders (20 sources) Generalized anxiety disorder; Translations: [Generalized anxiety disorder] Onset: 06-26-2022 Chronic Asthma (3 sources) Uncomplicated moderate persistent asthma; Translations: [Moderate persistent asthma, uncomplicated] Onset: 06-18-2025 10-27-2023 Chronic E Codes: Natural/environment (1 source) Bitten or stung by nonvenomous insect and other nonvenomous arthropods, sequela; Translations: [Tick bite of left upper arm, sequela] Onset: 06-18-2025 Episodic Genitourinary symptoms and ill-defined conditions (2 sources) Scalding pain on urination ; Translations: [Dysuria] 05-26-2024 Episodic Headache; including migraine (10 sources) Migraine without aura, not refractory ; Translations: [Migraine without aura, not intractable, without status migrainosus] Onset: 01-20-2025 Chronic Headache; including migraine (1 source) Headache; including migraine; Translations: [Nonintractable headache, unspecified chronicity pattern, unspecified headache type] Onset: 10-07-2024 Immunizations and screening for infectious disease (10 sources) Patient encounter status; Translations: [Encounter for immunization] Episodic Malaise and fatigue (4 sources) Fatigue; Translations: [Other fatigue] 11-27-2022 Episodic Menstrual disorders (4 sources) Secondary oligomenorrhea; Translations: [Secondary oligomenorrhea] 11-27-2022 Chronic Nausea and vomiting (1 source) Nausea; Translations: [Nausea] Onset: 10-07-2024 Episodic Nutritional deficiencies (1 source) Vitamin D deficiency, unspecified; Translations: [Vitamin D deficiency] Onset: 06-18-2025 Chronic Other gastrointestinal disorders (1 source) Abdominal bloating; Translations: [Abdominal distension (gaseous)] 03-22-2023 Episodic Other gastrointestinal disorders (1 source) Diarrhea; Translations: [Diarrhea, unspecified] 03-22-2023 Episodic Other infections; including parasitic (1 source) Disorder due to infection; Translations: [Personal history of other infectious and parasitic diseases] Episodic Other lower respiratory disease (4 sources) Persistent cough; Translations: [Persistent cough] Episodic Other lower respiratory disease (1 source) Acute lower respiratory tract infection; Translations: [Unspecified acute lower respiratory infection] 09-16-2023 Episodic Other nervous system disorders (1 source) Poor concentration; Translations: [Attention and concentration deficit] 08-25-2024 Chronic Other nervous system disorders (1 source) Attention and concentration deficit; Translations: [Difficulty concentrating] Onset: 08-25-2024 Chronic Other nutritional; endocrine; and metabolic disorders (2 sources) Weight gain; Translations: [Abnormal weight gain] 11-27-2022 Episodic Other nutritional; endocrine; and metabolic disorders (2 sources) Abnormal weight gain; Translations: [Abnormal weight gain] 11-27-2022 Episodic Other skin disorders (1 source) Eruption; Translations: [Rash and other nonspecific skin eruption] 01-22-2025 Episodic Other upper respiratory infections (20 sources) Recurrent upper respiratory tract infection ; Translations: [Acute upper respiratory infection, unspecified] Onset: 07-16-2022 Episodic Spondylosis; intervertebral disc disorders; other back problems (1 source) Chronic neck pain; Translations: [Cervicalgia] Episodic Superficial injury; contusion (1 source) Insect bite (nonvenomous) of left upper arm, sequela; Translations: [Tick bite of left upper arm, sequela] Onset: 06-18-2025 Episodic Urinary tract infections (1 source) Acute cystitis; Translations: [Acute cystitis with hematuria] 05-29-2024 Episodic Past or Other Problems Problem Classification Problem Date Documented Da te Episodic/Chronic Diseases of mouth; excluding dental (2 sources) Geographic tongue; Translations: [Geographic tongue] Onset: 02-23-2025 02-15-2025 Episodic Headache; including migraine (1 source) Headache Onset: 10-06-2024 Episodic Other lower respiratory disease (20 sources) Cough; Translations: [Acute cough] Onset: 07-16-2022 Episodic Other lower respiratory disease (20 sources) H/O: asthma; Translations: [Personal history of other diseases of the respiratory system] Onset: 10-09-2012 Resolved: 10-24-2012 08-07-2021 Episodic Other and delivery including normal (20 sources) Normal in primigravida; Translations: [Encounter for supervision of normal first , unspecified trimester] Onset: 11-24-2012 Resolved: 12-29-2015 08-07-2021 Episodic Other skin disorders (1 source) Rash and other nonspecific skin eruption; Translations: [Rash] Onset: 01-22-2025 Episodic Residual codes; unclassified (20 sources) FH: Congenital anomaly; Translations: [Family history of other congenital malformations, deformations and chromosomal abnormalities] Onset: 10-09-2012 Resolved: 08-04-2013 08-07-2021 Episodic Screening and history of mental health and substance abuse codes (20 sources) Stopped smoking; Translations: [Personal history of nicotine dependence] Onset: 10-09-2012 Resolved: 08-04-2013 08-07-2021 Episodic Unclassified (20 sources) Uses contraception; Translations: [ control] Onset: 05-19-2015 Resolved: 06-26-2022 08-07-2021 Results Test Name Value Interpretation Reference Range Facility [facility] 06-18-2025 [facility] Office Visit (AGFAMPLE) ANA ARAGON ([id number]) 1990 F Date Time Provider Department 06/18/25 9:00 AM EMELIA SIDDIQUI During your visit today, we recorded the following information about you: Temperature Pulse Blood pressure Weight 98.2 degrees 76/minute 110/60 69.4 kg Height 1.651 m Emelia Siddiqui APRN.SECURITY SOFTWARE ENGINEER 06/18/2025 10:34 AM Signed CHIEF COMPLAINT: The patient is a 34-year-old female with asthma, depression/anxiety, and migraine, presenting for annual wellness visit and follow-up for medication management and laboratory evaluation. I reviewed past medical, surgical, social, and family histories today and updated chart. Allergies, chronic medications, and supplements were also reviewed. Recording using Synt[employer]ia software for draft documentation of the visit was discussed with the patient/authorized patient relations representative; all questions welcomed and answered. Patient/authorized patient relations representative agreed to proceed. Lifestyle: - Recently completed schooling and started a job in [place], which has reduced stress levels. - Has not yet established a regular exercise routine. - Primarily cooks at home. - Has three children, ages 12, 9, and 6. - Sees a car cooper but is overdue for a Pap smear. - Due for a vision exam. Migraine: - Managed by a neurologist at [facility]. - Currently taking Topamax and Nurtec, which have been effective in reducing frequency and severity. - Still experiences migraines around menstruation. - Nurtec taken PRN at onset of headache, provides relief within a few hours without causing drowsiness. Anxiety: - Currently taking fluoxetine 40 mg daily. - Reports persistent feelings of being overwhelmed and anxious on some days. - Experiences chest tightness associated with anxiety. - Considering dosage adjustment. Asthma: - Using Flovent inhaler, but not consistently. PAST MEDICAL HISTORY Diagnosis Date Asthma (HCC) EXERCISE INDUCED, NO INHALER SINCE AGE 13 Endometrioid adenofibroma PAKO (generalized anxiety disorder) 06/26/2022 PAST SURGICAL HISTORY Procedure Laterality Date APPENDECTOMY 2010 SOCIAL HISTORY[1] ALLERGIES Allergen Reactions Bees Rash Chest pains, facial swelling Droperidol Dystonia Family History Problem Relation Age of Onset other (epilepsy) Mother Alcohol/Drug Father Hypertension Father Hyperlipidemia Father Stroke Maternal Grandmother Cancer Paternal Grandmother LUNG Emphysema Paternal Grandfather Current Outpatient Medications Medication Sig Dispense Refill FLUoxetine (PROZAC) 40 mg capsule TAKE 1 CAPSULE BY MOUTH EVERY DAY 90 capsule 1 topiramate (TOPAMAX) 50 mg tablet TAKE 1 TABLET BY MOUTH EVERYDAY AT BEDTIME 90 tablet 0 fluticasone (FLOVENT) 44 mcg/actuation inhaler INHALE 1 PUFF INSTRUCTED TWO TIMES A DAY. SHAKE WELL BEFORE USE. RINSE MOUTH AFTER USE. 3 Each 2 hydrOXYzine pamoate (VISTARIL) 25 mg capsule Take 1-2 capsules by mouth three times a day as needed. 30 capsule 2 ondansetron (ZOFRAN) 4 mg tablet Take 1 tablet by mouth every 8 hours as needed for nausea/vomiting. 12 tablet 0 EPINEPHrine (EPIPEN) 0.3 mg/0.3 mL auto-injector Inject 0.3 mL intramuscularly as needed. Inject full content of the syringe. 2 Each 0 FLUoxetine (PROZAC) 10 mg capsule Take 1 capsule by mouth once daily. Take with 40 mg capsule daily. 90 capsule 0 No current facility-administered medications for this visit. Review of Systems Constitutional: (-) drowsiness Head: (+) headaches Eyes: (-) visual changes Cardiovascular: (+) chest tightness, (-) chest pain Respiratory: (-) dyspnea Musculoskeletal: (-) back pain, (-) neck pain Psychiatric: (+) anxiety BP 110/60 Pulse 76 Temp 98.2 Ht 5' 5 (1.65m) Wt 153 lb (69.4kg) SpO2 100% LMP 01/20/2025 BMI 25.46 kg/(m2). Physical Exam GENERAL: NAD, alert and oriented. SKIN: Unremarkable, no rash or skin lesions. HEAD: Normocephalic. EYES: PERRLA, conjunctiva clear. EARS: External ears normal, canals clear, TM's normal. NOSE/SINUSES: Nares normal. Septum midline. OROPHARYNX: Lips, mucosa, and tongue normal, good dentition. No oral lesions noted. NECK: Supple, no lymphadenopathy, normal thyroid LUNGS: Clear to auscultation bilaterally, no wheezes/rhonchi/rales . HEART: Regular rate and rhythm, no murmurs. No ectopy. EXTREMITIES: Normal, no deformities, no skin discoloration, no edema. NEURO: Awake, alert and oriented x3, normal gait, no involuntary motions. ASSESSMENT/PLAN: 1. Well adult exam (Z00.00) - No acute concerns on exam. - Recommended patient follow up with car cooper for overdue Pap smear. - Advised patient to schedule vision exam. - Ordered routine labs; instructed patient to fast prior to blood draw. 2. PAKO (generalized anxiety disorder) (F41.1) - Ongoing anxiety and feeling overwhelmed on current fluo (more content not included)... Normal [facility] CNOVon 06-16-2025 CNOV Office Visit (WOUCA) ANA ARAGON ([id number]) 1990 F Date Time Provider Department 06/16/25 4:15 PM ANTONI SOLIS During your visit today, we recorded the following information about you: Temperature Pulse Respiration Blood pressure 98.2 degrees 80/minute 16/minute 100/64 Weight 69.6 kg Antoni Solis APRN.SECURITY SOFTWARE ENGINEER 06/16/2025 5:10 PM Signed URGENT CARE FLEX Subjective HPI HPI Ana Aragon is a 34 year old female who presents today for CC of st, sinus pressure. This started 2 days ago. Has tried nothing for relief. Symptoms are worsened by nothing. Risk factors sick exposure/strep at home. Denies possibility of being . nonsmoker. .Patient presents with: Sore Throat: sinus pressure x 2 days, strep exposure PAST MEDICAL HISTORY Diagnosis Date Asthma (HCC) EXERCISE INDUCED, NO INHALER SINCE AGE 13 Endometrioid adenofibroma PAKO (generalized anxiety disorder) 06/26/2022 PAST SURGICAL HISTORY Procedure Laterality Date APPENDECTOMY 2010 ALLERGIES Bees and Droperidol MEDICATIONS FLUoxetine (PROZAC) 40 mg capsule TAKE 1 CAPSULE BY MOUTH EVERY DAY topiramate (TOPAMAX) 50 mg tablet TAKE 1 TABLET BY MOUTH EVERYDAY AT BEDTIME fluticasone (FLOVENT) 44 mcg/actuation inhaler INHALE 1 PUFF INSTRUCTED TWO TIMES A DAY. SHAKE WELL BEFORE USE. RINSE MOUTH AFTER USE. hydrOXYzine pamoate (VISTARIL) 25 mg capsule Take 1-2 capsules by mouth three times a day as needed. ondansetron (ZOFRAN) 4 mg tablet Take 1 tablet by mouth every 8 hours as needed for nausea/vomiting. EPINEPHrine (EPIPEN) 0.3 mg/0.3 mL auto-injector Inject 0.3 mL intramuscularly as needed. Inject full content of the syringe. FAMILY HISTORY Problem Relation Age of Onset other (epilepsy) Mother Alcohol/Drug Father Hypertension Father Hyperlipidemia Father Stroke Maternal Grandmother Cancer Paternal Grandmother LUNG Emphysema Paternal Grandfather SOCIAL HISTORY[1] Review of Systems Constitutional: Negative for chills, fatigue and fever. HENT: Positive for rhinorrhea and sore throat. Negative for ear discharge, ear pain, sinus pressure and sinus pain. Eyes: Negative for discharge and redness. Respiratory: Negative for cough, shortness of breath and wheezing. Cardiovascular: Negative for chest pain. Skin: Negative for rash. Objective BP 100/64 Pulse 80 Temp 36.8 ?C (98.2 ?F) Resp 16 Wt 69.6 kg (153 lb 7 oz) LMP 01/20/2025 (Exact Date) SpO2 98% BMI 25.53 kg/m? Physical Exam Constitutional: General: She is not in acute distress. Appearance: She is not toxic-appearing or diaphoretic. HENT: Head: Normocephalic and atraumatic. Right Ear: Hearing, tympanic membrane, ear canal and external ear normal. Left Ear: Hearing, tympanic membrane, ear canal and external ear normal. Nose: Nose normal. Mouth/Throat: Lips: [place]. Mouth: Mucous membranes are moist. Pharynx: Uvula midline. Posterior oropharyngeal erythema present. Eyes: General: Lids are normal. No scleral icterus. Right eye: No discharge. Left eye: No discharge. Conjunctiva/sclera: Conjunctivae normal. Pupils: Pupils are equal, round, and reactive to light. Neck: Trachea: Trachea normal. Cardiovascular: Rate and Rhythm: Normal rate and regular rhythm. Heart sounds: Normal heart sounds. Pulmonary: Effort: Pulmonary effort is normal. Breath sounds: Normal breath sounds. Musculoskeletal: Cervical back: Normal range of motion and neck supple. Lymphadenopathy: Cervical: No cervical adenopathy. Skin: Findings: No rash. Neurological: Mental Status: She is alert and oriented to person, place, and time. {ASSESSMENT/PLAN: 1. Sore throat - ICD9: 462, ICD10: J02.9 (primary diagnosis) - suspect viral - Group A strep molecular testing negative - Discussed supportive care treatment with fluids, rest and analgesia. - The patient should follow up in 3-5 days if symptoms persist or worsen - STREP A MOLECULAR (POC) 2. URI, acute - ICD9: 465.9, ICD10: J06.9 - Discussed viral etiology and rationale for treatment. - Symptomatic treatment with prn analgesia - Supportive care with fluids and rest - Follow up in 3-5 days if symptoms persist or sooner if worsening of symptoms Antoni Solis APRN.SECURITY SOFTWARE ENGINEER History and Record Review External record(s) reviewed: prior outpatient record. Differential Diagnoses - viral uri is more likely for the following reason(s): consistent with laboratory studies Disposition The patient was discharged. Procedures [1] Social History Tobacco Use Smoking status: Former Current packs/day: 0.00 Average packs/day: 0.3 packs/day for 3.0 years (0.8 ttl pk-yrs) Types: Cigarettes Start date: 09/18/2009 Quit date: 09/18/2012 Years since quittin.7 Smokeless tobacco: Never Vaping Use Vaping status: Never Used Substance Use Topics Alcohol use: Yes Alcohol (more content not included)... Normal [facility] B. burgdorferi IgG and IgM p lillian (S)on 02-23-2025 B. burgdorferi IgG+IgM Qn (S) Negative Normal Negative [facility] Comment on above: Order Comment: Chad nair Type: BLOOD SPECIMEN Ordering Facility: [facility] Address: [address] [place] [address] Result Comment: Rece nt infection with B. burgdorferi sensu lato cannot be excluded if the specimen collected within four weeks after the onset of signs and symptoms or within six weeks after a known tick exposure. Clinical and epidemiological correlation is required. Performed By: #### 3 4942-3 #### [facility] CLIA [id number] [address] [place] [address] [place] CBC W Auto Differential pane l (Bld)on 02-23-2025 Basophils (Bld) [#/Vol] 0.03 10*3/uL Normal <0.11 [facility] Comment on above: Order Comment: Chad nair Type: BLOOD SPECIMEN Ordering Facility: [facility] Address: [address] [place] [address] Performed By: #### 5 7021-8 #### [facility] CLIA [id number] [address] [place] [address] [place] Basophils/100 WBC (Bld) 0.5 % Normal [facility] Comment on above: Order Comment: Speci men Type: BLOOD SPECIMEN Ordering Facility: [facility] Address: [address] [place] [address] Performed By: #### 5 7021-8 #### [facility] CLIA [id number] [address] [place] [address] [facility] [place] Differential cell count method Nom (Bld) Auto Normal [facility] Comment on above: Order Comment: Speci men Type: BLOOD SPECIMEN Ordering Facility: [facility] Address: [address] [place] [address] Performed By: #### 5 7021-8 #### [facility] CLIA [id number] [address] [place] [address] [facility] Eosinophils (Bld) [#/Vol] 0.09 10*3/uL Normal <0.46 [facility] Comment on above: Order Comment: Speci men Type: BLOOD SPECIMEN Ordering Facility: [facility] Address: [address] [place] [address] Performed By: #### 5 7021-8 #### [facility] CLIA [id number] [address] [place] [id number] [facility] Eosinophils/100 WBC (Bld) 1.5 % Normal [facility] Comment on above: Order Comment: Speci men Type: BLOOD SPECIMEN Ordering Facility: [facility] Address: [address] [place] [address] Performed By: #### 5 7021-8 #### [facility] CLIA [id number] [address] [place] [address] [place] [facility] Erythrocyte distribution width (RBC) [Ratio] 12.4 % Normal 11.5-15.0 [facility] Comment on above: Order Comment: Speci men Type: BLOOD SPECIMEN Ordering Facility: [facility] Address: [address] [place] [address] Performed By: #### 5 7021-8 #### [facility] CLIA [id number] [address] [place] Hematocrit (Bld) [Volume fraction] 40.7 % Normal 36.0-46.0 [facility] Comment on above: Order Comment: Speci men Type: BLOOD SPECIMEN Ordering Facility: [facility] Address: [address] [place] [address] Performed By: #### 5 7021-8 #### [facility] CLIA [id number] [address] [place] [address] [place] Hemoglobin (Bld) [Mass/Vol] 13.5 g/dL Normal 11.5-15.5 [facility] Comment on above: Order Comment: Speci men Type: BLOOD SPECIMEN Ordering Facility: [facility] Address: [address] [place] [address] Performed By: #### 5 7021-8 #### [facility] CLIA [id number] [address] [place] [address] [place] Immature granulocytes (Bld) [#/Vol] 10*3/uL Normal <0.10 [facility] Comment on above: Order Comment: Speci men Type: BLOOD SPECIMEN Ordering Facility: [facility] Address: [address] [place] [address] Performed By: #### 5 7021-8 #### [facility] CLIA [id number] [address] [place] Immature granulocytes/100 WBC (Bld) 0.2 % Normal [facility] Comment on above: Order Comment: Speci men Type: BLOOD SPECIMEN Ordering Facility: [facility] Address: [address] [place] [address] Performed By: #### 5 7021-8 #### [facility] CLIA [id number] [address] [place] Lymphocytes (Bld) [#/Vol] 2.20 10*3/uL Normal 1.00-4.00 [facility] Comment on above: Order Comment: Speci men Type: BLOOD SPECIMEN Ordering Facility: [facility] Address: [address] [place] [address] Performed By: #### 5 7021-8 #### [facility] CLIA [id number] [address] Lymphocytes/100 WBC (Bld) 35.9 % Normal [facility] Comment on above: Order Comment: Speci men Type: BLOOD SPECIMEN Ordering Facility: [facility] Address: [address] [place] [address] Performed By: #### 5 7021-8 #### [facility] CLIA [id number] [address] [facility] MCH (RBC) [Entitic mass] 29.3 pg Normal 26.0-34.0 [facility] Comment on above: Order Comment: Speci men Type: BLOOD SPECIMEN Ordering Facility: [facility] Address: [address] [place] [address] Performed By: #### 5 7021-8 #### [facility] CLIA [id number] [address] [place] [address] MCHC (RBC) [Mass/Vol] 33.2 g/dL Normal 30.5-36.0 [facility] Comment on above: Order Comment: Speci men Type: BLOOD SPECIMEN Ordering Facility: [facility] Address: [address] [place] [address] Performed By: #### 5 7021-8 #### [facility] CLIA [id number] [address] [place] [address] MCV (RBC) [Entitic vol] 88.5 fL Normal 80.0-100.0 [facility] Comment on above: Order Comment: Speci men Type: BLOOD SPECIMEN Ordering Facility: [facility] Address: [address] [place] [address] Performed By: #### 5 7021-8 #### [facility] CLIA [id number] [address] [place] Monocytes (Bld) [#/Vol] 0.47 10*3/uL Normal <0.87 [facility] Comment on above: Order Comment: Speci men Type: BLOOD SPECIMEN Ordering Facility: [facility] Address: [address] [place] [address] Performed By: #### 5 7021-8 #### [facility] CLIA [id number] [address] [place] [address] [place] Monocytes/100 WBC (Bld) 7.7 % Normal [facility] Comment on above: Order Comment: Speci men Type: BLOOD SPECIMEN Ordering Facility: [facility] Address: [address] [place] [address] Performed By: #### 5 7021-8 #### [facility] CLIA [id number] [address] [place] [address] [place] Neutrophils (Bld) [#/Vol] 3.32 10*3/uL Normal 1.45-7.50 [facility] Comment on above: Order Comment: Speci men Type: BLOOD SPECIMEN Ordering Facility: [facility] Address: [address] [place] [address] Performed By: #### 5 7021-8 #### [facility] CLIA [id number] [address] [place] [address] [place] Neutrophils/100 WBC (Bld) 54.2 % Normal [facility] Comment on above: Order Comment: Speci men Type: BLOOD SPECIMEN Ordering Facility: [facility] Address: [address] [place] [address] Performed By: #### 5 7021-8 #### [facility] CLIA [id number] [address] [place] [address] [place] Nucleated RBC (Bld) [#/Vol] Normal [facility] Comment on above: Order Comment: Speci men Type: BLOOD SPECIMEN Ordering Facility: [facility] Address: [address] [place] [address] Performed By: #### 5 7021-8 #### [facility] CLIA [id number] [address] [place] [address] [place] Nucleated RBC/100 WBC (Bld) [Ratio] Normal [facility] Comment on above: Order Comment: Speci men Type: BLOOD SPECIMEN Ordering Facility: [facility] Address: [address] [place] [address] Performed By: #### 5 7021-8 #### [facility] CLIA [id number] [address] [place] [address] [place] Platelet mean volume (Bld) [Entitic vol] 9.5 fL Normal 9.0-12.7 [facility] Comment on above: Order Comment: Speci men Type: BLOOD SPECIMEN Ordering Facility: [facility] Address: [address] [place] [address] Performed By: #### 5 7021-8 #### [facility] CLIA [id number] [address] [place] [address] [place] Platelets (Bld) [#/Vol] 289 10*3/uL Normal 150-400 [facility] Comment on above: Order Comment: Speci men Type: BLOOD SPECIMEN Ordering Facility: [facility] Address: [address] [place] [address] Performed By: #### 5 7021-8 #### [facility] CLIA [id number] [address] [place] [address] [place] RBC (Bld) [#/Vol] 4.60 10*6/uL Normal 3.90-5.20 [facility] Comment on above: Order Comment: Speci men Type: BLOOD SPECIMEN Ordering Facility: [facility] Address: [address] [place] [address] Performed By: #### 5 7021-8 #### [facility] CLIA [id number] [address] [place] [address] [place] WBC (Bld) [#/Vol] 6.12 10*3/uL Normal 3.70-11.00 [facility] Comment on above: Order Comment: Speci men Type: BLOOD SPECIMEN Ordering Facility: [facility] Address: [address] [place] [address] Performed By: #### 5 7021-8 #### [facility] CLIA [id number] [address] [place] [address] [facility] 02-03-2025 KAYN Telephone (AGFAMPLE) ANA ARAGON ([id number]) 1990 F Date Time Provider Department 02/03/25 EMELIA SIDDIQUI During your visit today, we recorded the following information about you: Helen Hammer MA 02/03/2025 1:01 PM Signed Pt. Lm on vm stating she was at urgent care 01/12/2025 for tic bite. They prescribed her doxycyline. She is in [place] and is in the sun. She states she is burnt and is swollen. Wants to know if it is from doxy and wants to know what she can do for the burn. Pt. States she still has a few more days left to take it. Please advise. NOELLE Lee Kristin C, APRN.[facility] 02/03/2025 2:28 PM Signed Yes its from the doxycycline, it can make you very sun sensitive. I recommend avoiding too much sun exposure - especially between 10 am and 2 pm Wear hat, loose clothing that provides coverage SPF at least 50 She can try OTC steroid cream for the burn, cold compresses, plenty of fluids. Helen Andrew MA 02/03/2025 2:32 PM Addendum Patient notified. Helen Hammer MA Allergies As of Date: 02/03/2025 Noted Allergy Reaction BEES 05/13/2018 2 - Rash Comments: Chest pains, facial swelling DROPERIDOL 10/07/2024 13 - Dystonia Date Reviewed: 01/22/2025 Reviewed by: Alice Jones LPN - Fully Assessed Reason for Visit: Patient Question [3877] Prescriptions as of 02/03/2025 - doxycycline hyclate (VIBRAMYCIN) 100 mg capsule Take 1 capsule by mouth two times a day for 14 days. - rimegepant (NURTEC ODT) 75 mg disintegrating tablet Take 1 tablet by mouth as directed. - topiramate (TOPAMAX) 25 mg tablet Take 1 tablet by mouth daily at bedtime. - FLUoxetine (PROZAC) 40 mg capsule Take 1 capsule by mouth once daily. - fluticasone (FLOVENT) 44 mcg/actuation inhaler INHALE 1 PUFF INSTRUCTED TWO TIMES A DAY. SHAKE WELL BEFORE USE. RINSE MOUTH AFTER USE. - hydrOXYzine pamoate (VISTARIL) 25 mg capsule Take 1-2 capsules by mouth three times a day as needed. - ondansetron (ZOFRAN) 4 mg tablet Take 1 tablet by mouth every 8 hours as needed for nausea/vomiting. - EPINEPHrine (EPIPEN) 0.3 mg/0.3 mL auto-injector Inject 0.3 mL intramuscularly as needed. Inject full content of the syringe. Problem List As Of Date 02/03/2025 Noted Resolved History of asthma [Z87.09] 10/09/2012 10/24/2012 Quit smoking [Z87.891] 10/09/2012 08/04/2013 Family history of defects [Z82.79] 10/09/2012 08/04/2013 Patient requested diagnostic testing [Z01.89] 10/09/2012 08/04/2013 Supervision of normal first [Z34.00] 11/24/2012 07/03/2013 Supervision of other normal , antepart*03/01/2015 12/29/2015 control [[id number]] 05/19/2015 06/26/2022 PAKO (generalized anxiety disorder) [F41.1] 06/26/2022 Recurrent upper respiratory infection (URI) [J0*07/16/2022 Recurrent cough [R05.8] 07/16/2022 Encounter Status:Closed by HELEN HAMMER on 02/03/25 [facility] CNOVon 01-22-2025 CNOV Office Visit (UCWSTR ) ANA ARAGON ([id number]) 1990 F Date Time Provider Department 01/22/25 1:30 PM LUIS ANGEL HALL [facility] During your visit today, we recorded the following information about you: Temperature Pulse Respiration Blood pressure 97 degrees 80/minute 18/minute 109/75 Weight Last Period 69 kg 01/20/25 Luis Angel Hall, PA 01/22/2025 1:27 PM Signed [facility] Subjective Ana Aragon is a 34 year old female. Patient presents with: Insect Bites AND Stings: Entered by patient Trauma: Left upper arm, redness, warmth, swelling, increasing in size, unsure of what insectx 2 days HPI Rash: - Rash onset 3 days ago, progressively enlarging. - circled the rash with a pen on Saturday night; noted to have spread by the next day. - Rash is tender and slightly pruritic. - [place]; denies seeing a tick attached. - Children have had multiple tick exposures. - Denies or . PAST MEDICAL HISTORY Diagnosis Date Asthma (HCC) EXERCISE INDUCED, NO INHALER SINCE AGE 13 Endometrioid adenofibroma PAKO (generalized anxiety disorder) 06/26/2022 PAST SURGICAL HISTORY Procedure Laterality Date APPENDECTOMY 2010 ALLERGIES Bees and Droperidol MEDICATIONS rimegepant (NURTEC ODT) 75 mg disintegrating tablet Take 1 tablet by mouth as directed. topiramate (TOPAMAX) 25 mg tablet Take 1 tablet by mouth daily at bedtime. FLUoxetine (PROZAC) 40 mg capsule Take 1 capsule by mouth once daily. fluticasone (FLOVENT) 44 mcg/actuation inhaler INHALE 1 PUFF INSTRUCTED TWO TIMES A DAY. SHAKE WELL BEFORE USE. RINSE MOUTH AFTER USE. hydrOXYzine pamoate (VISTARIL) 25 mg capsule Take 1-2 capsules by mouth three times a day as needed. ondansetron (ZOFRAN) 4 mg tablet Take 1 tablet by mouth every 8 hours as needed for nausea/vomiting. EPINEPHrine (EPIPEN) 0.3 mg/0.3 mL auto-injector Inject 0.3 mL intramuscularly as needed. Inject full content of the syringe. doxycycline hyclate (VIBRAMYCIN) 100 mg capsule Take 1 capsule by mouth two times a day for 14 days. FAMILY HISTORY Problem Relation Age of Onset other (epilepsy) Mother Alcohol/Drug Father Hypertension Father Hyperlipidemia Father Stroke Maternal Grandmother Cancer Paternal Grandmother LUNG Emphysema Paternal Grandfather Social History Tobacco Use Smoking status: Former Current packs/day: 0.00 Average packs/day: 0.3 packs/day for 3.0 years (0.8 ttl pk-yrs) Types: Cigarettes Start date: 09/18/2009 Quit date: 09/18/2012 Years since quittin.3 Smokeless tobacco: Never Vaping Use Vaping status: Never Used Substance Use Topics Alcohol use: Yes Alcohol/week: 2.0 standard drinks of alcohol Types: 2 Cans of Beer (12oz) per week Comment: social Drug use: Never Review of Systems Skin: (+) rash, (+) pruritus, (+) skin tenderness Objective BP 109/75 Pulse 80 Temp 36.1 ?C (97 ?F) Resp 18 Wt 69 kg (152 lb 1.9 oz) LMP 01/20/2025 (Exact Date) SpO2 100% BMI 25.31 kg/m? Physical Exam Vitals and nursing note reviewed. Constitutional: General: She is not in acute distress. Appearance: Normal appearance. She is not toxic-appearing. HENT: Mouth/Throat: Mouth: Mucous membranes are moist. Cardiovascular: Rate and Rhythm: Normal rate and regular rhythm. Pulmonary: Effort: Pulmonary effort is normal. Breath sounds: Normal breath sounds. Skin: General: Skin is warm and dry. Findings: Erythema and rash present. Comments: Approximately 3 cm x 3 cm round erythematous area of left upper arm/deltoid region. Small amount of central clearing starting. No lymphatic streaking. No abscess. No fluctuance Neurological: Mental Status: She is alert. General: No acute distress. Skin: Erythematous rash with central clearing, resembling a bullseye pattern. {1. Rash (R21) - Erythematous, slightly pruritic rash with central clearing, resembling erythema migrans. - Differential diagnosis includes Lyme disease and cellulitis. - Initiated doxycycline BID for 14 days; prescription sent to [facility] pharmacy. - Advised to complete the full course of antibiotics. - Educated on monitoring for systemic symptoms such as fever, myalgias, or cephalgia. - Instructed to return for evaluation if symptoms persist or worsen. Recording using Syntensia software for draft documentation of the visit was discussed with the patient/authorized patient relations representative; all questions welcomed and answered. Patient/authorized patient relations representative agreed to proceed History and Record Review External record(s) reviewed: prior outpatient record. Differential Diagnoses - Rash, suspect erythema migrans is more likely for the following reason(s): suggested by HANDP Disposition The patient was discharged. Procedures Allergies As of Date: 01/22/2025 Noted Allergy Reaction BEES (more content not included)... Normal [facility] CNOVon 10-20-2024 CNOV Office Visit (NEURMM ) ANA ARAGON ([id number]) 1990 F Date Time Provider Department 10/20/24 8:00 AM EMILI MENDOZA NEURCHELSIE During your visit today, we recorded the following information about you: Pulse Blood pressure 71/minute 105/70 Emili Menodza APRN.SECURITY SOFTWARE ENGINEER 10/20/2024 10:10 AM Addendum [facility] Neurologic [place] New Patient Evaluation This visit was conducted via virtual platform. I have communicated my name and active licensure. The patient's identity and physical location were verified at the time of this visit. Either the patient or their legal patient relations representative has been informed of the risks and benefits of -- and alternatives to -- treatment through a remote evaluation and consents to proceed with the evaluation remotely. CHIEF COMPLAINT: Migraines Ana Aragon is a 34 year old accompanied by self. Consult was requested by self for an opinion regarding above CC. My final impression and recommendations will be communicated back to the requesting physician by way of the shared medical record or fax. October 20, 2024 HPI: Ms. Aragon presents today secondary to issues of headache. Went to the ED x2 d/t ongoing AVELAR recently. AVELAR started to resolve after second ED visit. Before she went to the ED tried drinking water and was sick vomiting. Could not stop vomiting. Per ED note on 10/07/24: 34-year-old female PMH asthma, PAKO, migraines presents today for headache. Patient arrived hemodynamically stable, saturating well on room air and no acute distress. Patient was neurovascularly intact on arrival. Patient afebrile and overall nontoxic-appearing. Patient treated symptomatically with IV migraine cocktail. Patient was noted to have dystonic reaction likely from droperidol. Patient treated with Benadryl with improvement. Patient monitored in the department. CT head negative. On reevaluation, patient states that her headache had improved and was nearly resolved. She is requesting to be discharged. States that she felt much better at this time. She was able to ambulate and tolerate p.o. in the department. Patient was encouraged to follow-up with neurology. Referral request was placed. She was told return immediately if she develops any nausea, vomiting, unable to tolerate food or water, worsening headaches, vision changes, blurry vision, difficulty ambulating, focal weakness or numbness. Patient verbalized understanding. Patient discharged home. Patient is comfortable to plan at this time. Had reaction to droperidol; took steroid and Benadryl for this. Has had to go to the ED in the past for a AVELAR. Migraine HPI HEADACHE LOCATION: can be posterior. Normally worse on R. Can vary side to side. Spread to whole head. Neck pain? Yes with headaches. Onset: Headaches began around age 18 Quality: throbbing Photophobia? Yes Phonophobia? Yes Nausea? Yes Vomitting? Yes Aura? How long? No None Worse with activity? Yes Severe? 7/10 -- usually less severe Frequency: 2-5 times a month Duration? 2 days to 5-7 days Autonomic features: None Autonomic headache features -: none Tinnitus? No Positional? No - lies in dark room with heavy eye pad Double vision? Yes - with recent headache but not normally Visual obscurations? Yes -blurred Worse with valsalva/sneeze/cough ? No Caffeine intake? Ally, 1/day Water intake? Eight or more 8 ounce glasses daily. Alcohol? Rare Tobacco? No Drug use? No Triggers? Menstrual cycle, weather changing from hot to cold Sleep concerns? No; in school and has three kids Mood concerns? Yes; anxiety History of concussion? No Plans for /current BC? No/no plans. No current BC. Family Hx of migraines, aneurysms, brain tumors: Mother with migraines; no aneurysm/brain tumor Ophthalmology: Last summer Renal stone No, cardiovascular disease/arrhythmia No, cerebrovascular disease (TIA/stroke) No Only takes hydroxyzine prn; does not have current prescription. Previous/Current Headache treatment Preventative: Fluoxetine- current Sertraline- past Magnesium glycinate- current (6 months) CANNOT TAKE BB D/T ASTHMA Rescue: Imitrex- does not help (took two hours later without relief) Excedrin- some days helps but other times does not # of doses of abortive medications per month: > or = 10 days/month (or 8 for opiates, 5 for barbiturates) Medication Overuse Headache concern? No In school for sonography; last week. PAST MEDICAL HISTORY Diagnosis Date Asthma EXERCISE INDUCED, NO INHALER SINCE AGE 13 Endometrioid adenofibroma PAKO (generalized anxiety disorder) 06/26/2022 PAST SURGICAL HISTORY Procedure Laterality Date APPENDECTOMY 2010 Current Outpatient Medications on File Prior to Visit Medication Sig cephALEXin (KEFLEX) 500 mg capsule Take 1 capsule by mouth three times a day for 7 days. phenazo (more content not included)... Normal [facility] CNCOon 10-08-2024 CNCO Letter Text Normal [facility] CNPGely 10-08-2024 KAYN Telephone (AGINTMLW) ANA ARAGON ([id number]) 1990 F Date Time Provider Department 10/08/24 AL PALACIOS AGRIDGE During your visit today, we recorded the following information about you: Elenita Brady 10/08/2024 7:37 AM Signed No Show Documentation Ana Aragon no showed for an appointment on 10/08/2024 with Al Palacios APRN.CNP at 7:00 am Virtual appointment. She was scheduled for Emergency Room follow up for migraines. I called and was unable to reach the patient regarding her missed appointment. Resources discussed/offered to patient: na No show determined to be fault of patient: Yes This is the patients third no show in the last 12 months. Patient was rescheduled for na. [facility] Is this the Third or Fourth No Show? No Elenita Brady October 08, 2024 7:36 AM Allergies As of Date: 10/08/2024 Noted Allergy Reaction BEES 05/13/2018 2 - Rash Comments: Chest pains, facial swelling DROPERIDOL 10/07/2024 13 - Dystonia Date Reviewed: 10/07/2024 Reviewed by: Tiny Núñez RN - Fully Assessed Reason for Visit: Missed Appointment [1304] Cmt: 3rd no show in 365 days (2nd letter sent) Prescriptions as of 10/08/2024 - cephALEXin (KEFLEX) 500 mg capsule Take 1 capsule by mouth three times a day for 7 days. - phenazopyridine (PYRIDIUM) 100 mg tablet Take 1 tablet by mouth three times a day as needed. - FLUoxetine (PROZAC) 40 mg capsule take 1 capsule by mouth every day - fluticasone (FLOVENT) 44 mcg/actuation inhaler INHALE 1 PUFF INSTRUCTED TWO TIMES A DAY. SHAKE WELL BEFORE USE. RINSE MOUTH AFTER USE. - albuterol HFA (PROVENTIL HFA, VENTOLIN HFA) 90 mcg/actuation inhaler Inhale 2 Puffs as instructed every 4 hours as needed. - SUMAtriptan (IMITREX) 25 mg tablet TAKE 1 TABLET BY MOUTH NEEDED FOR MIGRAINE HEADACHE . MAY REPEAT AFTER 2 HOURS. - hydrOXYzine pamoate (VISTARIL) 25 mg capsule Take 1-2 capsules by mouth three times a day as needed. - ondansetron (ZOFRAN) 4 mg tablet Take 1 tablet by mouth every 8 hours as needed for nausea/vomiting. - EPINEPHrine (EPIPEN) 0.3 mg/0.3 mL auto-injector Inject 0.3 mL intramuscularly as needed. Inject full content of the syringe. - dicyclomine (BENTYL) 10 mg capsule Take 1 capsule by mouth three times daily as needed. Problem List As Of Date 10/08/2024 Noted Resolved History of asthma [Z87.09] 10/09/2012 10/24/2012 Quit smoking [Z87.891] 10/09/2012 08/04/2013 Family history of defects [Z82.79] 10/09/2012 08/04/2013 Patient requested diagnostic testing [Z01.89] 10/09/2012 08/04/2013 Supervision of normal first [Z34.00] 11/24/2012 07/03/2013 Supervision of other normal , antepart*03/01/2015 12/29/2015 control [UJG0930] 05/19/2015 06/26/2022 PAKO (generalized anxiety disorder) [F41.1] 06/26/2022 Recurrent upper respiratory infection (URI) [J0*07/16/2022 Recurrent cough [R05.8] 07/16/2022 Encounter Status:Closed by ELENITA BRADY on 10/08/24 [facility] ALLIED HEALTHon 10-07-2024 ALLIED HEALTH HNO ID: [id number] Author: LYNDON HERNANDEZ CT Service: Radiology Author Type: Technologist Type: Allied Health Filed: 10/07/2024 17:52 Note Text: Radiology Service Progress Note PATIENT NAME: Ana Aragon DATE OF SERVICE: October 07, 2024 TIME: 5:51 PM PATIENT IDENTITY VERIFICATION COMPLETED USING TWO (2) IDENTIFIERS: Name and Date of confirmed by patient verbally and Name and Date of confirmed by identification band. FALL SCREENING: Has the patient had 2 falls in the last year or 1 fall with injury or currently using an Ambulatory Assistive Device (Walker, Cane, Wheelchair, Crutches, etc.)? Emergency Room Patient: Screened in ED PATIENT GENDER DATA: Assigned female at . status: : No status: NO. PATIENT RELEVANT IMPLANT DATA REVIEWED: Not Applicable PATIENT PRESENTS WITH AN IMPLANTABLE OR ATTACHED EMERGENCY MEDICINE PHYSICIAN: No RADIOLOGY DEPARTMENT: CT; Exam(s) Completed: Abdomen/Pelvis PERIPHERAL IV DATA: Inpatient: see LDA documentation SIGNED BY: MAGGY Keith October 07, 2024 5:51 PM [facility] 10-07-2024 [facility] Telephone (AGFAMPLE) MARGO,ANA Burleson ([id number]) 1990 F Date Time Provider Department 10/07/24 EMELIA SIDDIQUI AGKENNAISIS During your visit today, we recorded the following information about you: Susy Granado MA 10/07/2024 11:28 AM Signed Patient called and left a message stating she would like to schedule a virtual ER follow up appt with PCP Susy Granado MA Allergies As of Date: 10/07/2024 Noted Allergy Reaction BEES 05/13/2018 2 - Rash Comments: Chest pains, facial swelling Date Reviewed: 10/06/2024 Reviewed by: Jacinda Martinez, PENELOPE - Fully Assessed Reason for Visit: Appointment [186] Prescriptions as of 10/07/2024 - cephALEXin (KEFLEX) 500 mg capsule Take 1 capsule by mouth three times a day for 7 days. - phenazopyridine (PYRIDIUM) 100 mg tablet Take 1 tablet by mouth three times a day as needed. - FLUoxetine (PROZAC) 40 mg capsule take 1 capsule by mouth every day - fluticasone (FLOVENT) 44 mcg/actuation inhaler INHALE 1 PUFF INSTRUCTED TWO TIMES A DAY. SHAKE WELL BEFORE USE. RINSE MOUTH AFTER USE. - albuterol HFA (PROVENTIL HFA, VENTOLIN HFA) 90 mcg/actuation inhaler Inhale 2 Puffs as instructed every 4 hours as needed. - SUMAtriptan (IMITREX) 25 mg tablet TAKE 1 TABLET BY MOUTH NEEDED FOR MIGRAINE HEADACHE . MAY REPEAT AFTER 2 HOURS. - hydrOXYzine pamoate (VISTARIL) 25 mg capsule Take 1-2 capsules by mouth three times a day as needed. - ondansetron (ZOFRAN) 4 mg tablet Take 1 tablet by mouth every 8 hours as needed for nausea/vomiting. - EPINEPHrine (EPIPEN) 0.3 mg/0.3 mL auto-injector Inject 0.3 mL intramuscularly as needed. Inject full content of the syringe. - dicyclomine (BENTYL) 10 mg capsule Take 1 capsule by mouth three times daily as needed. Problem List As Of Date 10/07/2024 Noted Resolved History of asthma [Z87.09] 10/09/2012 10/24/2012 Quit smoking [Z87.891] 10/09/2012 08/04/2013 Family history of defects [Z82.79] 10/09/2012 08/04/2013 Patient requested diagnostic testing [Z01.89] 10/09/2012 08/04/2013 Supervision of normal first [Z34.00] 11/24/2012 07/03/2013 Supervision of other normal , antepart*03/01/2015 12/29/2015 control [[id number]] 05/19/2015 06/26/2022 PAKO (generalized anxiety disorder) [F41.1] 06/26/2022 Recurrent upper respiratory infection (URI) [J0*07/16/2022 Recurrent cough [R05.8] 07/16/2022 Encounter Status:Closed by SUSY GRANADO on 10/07/24 Normal [facility] CT BRAIN WO IVCONon 10-07-19 CT BRAIN WO IVCON * * *Final Report* * * DATE OF EXAM: Oct 07 2024 5:51PM [facility] [place] / PROCEDURE REASON: Headache, sudden, severe * * * * Physician Interpretation * * * * EXAMINATION: CT BRAIN WO IVCON CLINICAL HISTORY: Sudden headache TECHNIQUE: Serial axial images without IV contrast were obtained from the vertex to the foramen magnum. MQ: [id number] CT Radiation dose: Integrated Dose-Length Product (DLP) for this visit = 778 mGy*cm CT Dose Reduction Employed: Automated exposure control(AEC) and iterative recon COMPARISON: None. RESULT: Post-operative change: None. Acute change: No evidence of an acute infarct or other acute parenchymal process. Hemorrhage: No evidence of acute intracranial hemorrhage. ECASS hemorrhagic transformation score: Not Applicable Mass Lesion / Mass Effect: There is no evidence of an intracranial mass or extraaxial fluid collection. No significant mass effect. Chronic change: None apparent. Parenchyma: There is no significant volume loss. The brain parenchyma is otherwise within normal limits for age. Ventricles: The ventricles are within normal limits of size and configuration for age. Paranasal sinuses and skull base: Mild mucoperiosteal thickening in the left sphenoid sinus. The skull base and imaged soft tissues are unremarkable. Localizer images: No additional findings. IMPRESSION: No evidence of acute intracranial abnormality. Cut Out Worker: PSCTricia Transcribe Date/Time: Oct 07 2024 6:08P Dictated by : JOE HENSON MD This examination was interpreted and the report reviewed and electronically signed by: JOE HENSON MD on Oct 07 2024 6:12PM EST [id number] [facility] ED NOTEon 10-07-2024 ED NOTE HNO ID: [id number] Author: BEAN RUDD RN Service: ? Author Type: Registered Nurse Type: ED Notes Filed: 10/07/2024 20:20 Note Text: Discharge instructions d/w pt at bedside. Stated understanding with no further questions for this nurse. Encouraged f/u with PCP and referring doctors given. Stated understanding. Prescription(S) were given X 0. [facility] ED NOTE HNO ID: [id number] Author: LA NENA WEAVER RN Service: Nursing Author Type: Registered Nurse Type: ED Notes Filed: 10/07/2024 18:11 Note Text: Report given to PENELOPE Rodríguez and care transferred at this time. [facility] ED NOTE HNO ID: [id number] Author: LA NENA WEAVER RN Service: Nursing Author Type: Registered Nurse Type: ED Notes Filed: 10/07/2024 17:08 Note Text: Assumed care of patient at this time. [facility] ED PROV NOTEon 10-07-2024 ED PROV NOTE HNO ID: [id number] Author: ELEANOR BARRETT DO Service: Emergency Medicine Author Type: Physician Type: ED Provider Notes Filed: 10/07/2024 20:54 Note Text: ED Provider Note Patient Name: Ana Aragon : 1990 SERVICE DATE: 10/07/24 History Patient presents with: Headache: X6 days; worsening headache than her norm; was seen at [place] ER yesterday; no imaging Was given a cocktail and it helped slightly Nausea HPI 34-year-old female PMH asthma, PAKO, migraines presents today for headache. Patient states that she has had a headache ongoing for 6 days. Patient states that she does get migraines about twice per month. Notes that they are usually global. States that they usually go away after 1 to 2 days. States that this 1 has persisted and has gotten steadily worse. Does endorse aura. Denies any blurry vision, vision changes, nausea, vomiting, fever, chills, focal weakness or numbness, chest pain, shortness of breath, syncope, fall, head strike, trauma. Denies any edema, chance of , dysuria, hematuria, vaginal bleeding, melena, hematochezia. PAST MEDICAL HISTORY Diagnosis Date Asthma EXERCISE INDUCED, NO INHALER SINCE AGE 13 Endometrioid adenofibroma PAKO (generalized anxiety disorder) 06/26/2022 PAST SURGICAL HISTORY Procedure Laterality Date APPENDECTOMY 2010 FAMILY HISTORY Problem Relation Age of Onset other (epilepsy) Mother Alcohol/Drug Father Hypertension Father Hyperlipidemia Father Stroke Maternal Grandmother Cancer Paternal Grandmother LUNG Emphysema Paternal Grandfather Social History Tobacco Use Smoking status: Former Current packs/day: 0.00 Average packs/day: 0.3 packs/day for 3.0 years (0.8 ttl pk-yrs) Types: Cigarettes Start date: 09/18/2009 Quit date: 09/18/2012 Years since quittin.0 Smokeless tobacco: Never Vaping Use Vaping status: Never Used Substance and Sexual Activity Alcohol use: Yes Alcohol/week: 2.0 standard drinks of alcohol Types: 2 Cans of Beer (12oz) per week Comment: social Drug use: Never Sexual activity: Yes Partners: Male control/protection: Inserts ALLERGIES Allergen Reactions Bees Rash Chest pains, facial swelling Droperidol Dystonia Review of Systems Constitutional: Negative for fatigue and fever. HENT: Negative for congestion. Respiratory: Negative for cough and shortness of breath. Cardiovascular: Negative for chest pain and leg swelling. Gastrointestinal: Negative for abdominal pain, diarrhea, nausea and vomiting. Genitourinary: Negative for dysuria. Neurological: Positive for headaches. Physical Exam Vitals [10/07/24 1652] BP Pulse Temp Temp src Resp SpO2 Weight Height 117/75 83 36.9 ?C (98.4 ?F) Oral 18 98 % 72.1 kg (159 lb) -- Physical Exam Constitutional: General: She is not in acute distress. Appearance: She is not ill-appearing, toxic-appearing or diaphoretic. HENT: Head: Normocephalic. Nose: Nose normal. Mouth/Throat: Mouth: Mucous membranes are moist. Eyes: Pupils: Pupils are equal, round, and reactive to light. Cardiovascular: Rate and Rhythm: Normal rate and regular rhythm. Pulses: Normal pulses. Pulmonary: Effort: Pulmonary effort is normal. No respiratory distress. Breath sounds: No wheezing. Comments: Saturating well on room air. No respiratory distress. No conversational dyspnea. Abdominal: Palpations: Abdomen is soft. Tenderness: There is no abdominal tenderness. There is no guarding. Comments: Soft and nontender in all quadrants. No peritoneal signs. Musculoskeletal: Cervical back: No rigidity. Right lower leg: No edema. Left lower leg: No edema. Skin: Capillary Refill: Capillary refill takes less than 2 seconds. Neurological: Mental Status: She is alert. Comments: Alert, oriented x 4. CN II through XII intact. Strength 5/5 BUE, BLE. Dull sensation intact BUE, BLE. Negative venous finger. Negative heel gomez. Diagnostic Testing ED Labs Ordered and Reviewed - No data to display Procedures ED Course / Clinical Impression ED Course as of 10/07/242053 Eleanor Barrett's Documentation SatOct 07, [id number] On evaluation of patient, patient did appear to have dystonic reaction, likely from droperidol. Will give Benadryl. Patient monitored closely. 1819 CT BRAIN WO IVCON IMPRESSION: No evidence of acute intracranial abnormality. Clinical Impressions as of 10/07/242053 Nonintractable headache, unspecified chronicity pattern, unspecified headache type Nausea MDM / Disposition / Plan Chart review: Seen 04/20/2024 for well adult exam. History of PAKO hCG negative yesterday. Patient noted to have leukocytosis. Electrolytes unremarkable. Mag unremarkable. History and Record Review External record(s) reviewed: prior outpatient record. Findings from review of outpatient records: See above Differential Diagnoses - Migraines is more likely for the following reason (more content not included)... Normal [facility] ED Triage Noteon 10-07-2024 ED Triage Note HNO ID: [id number] Author: PETER PECK PA-C Service: ? Author Type: Physician Fruit Buyer Type: ED Triage Notes Filed: 10/07/2024 17:00 Note Text: ED TRIAGE PROVIDER NOTE Patient Name: Ana Aragon Service Date: 10/07/24 BRIEF HPI: This is a 34 year old female who presents to the ED with: Hx of Migraines AVELAR x 6 days, Migraines usually last 2 days Was seen at [place] ED yesterday, no imaging Cocktail helped some More photophobic today +nausea, no vomiting No fever BRIEF EXAM: NAD Awake and Alert Non labored breathing No focal neurological deficits INITIAL WORKUP AND DECISION MAKING: Orders Placed This Encounter CT BRAIN WO IVCON droperidol 1.25 mg injection (INAPSINE) keTORolac 15 mg injection (Toradol) NaCl 0.9% 1,000 mL iv bolus NaCl 0.9% iv flush bag magnesium sulfate 1 g in D5W 100 mL SIGNATURE: Peter Peck PA-C Normal [facility] B-HCG SerPl-aCncon 5 HCG.beta subunit Qn m[IU]/mL Normal <5.0 [facility] Comment on above: Order Comment: Speci men Type: BLOOD SPECIMEN Ordering Facility: [facility] Address: [address] [place] [address] Result Comment: Nega tive Performed By: #### 2 1198-7 #### [facility] CLIA [id number] [address] [place] [address] OF [facility] Bacteria Ur Culton 5 Bacteria identified Cx Nom (U) CULTURE, URINE: No growth (<1,000 CFU/ml) Normal [facility] Comment on above: Performed By: #### 2 4356-8 #### [facility] CLIA [id number] [address] [place] [address] OF [place] #### 630-4 #### [facility] CLIA [id number] [address] OF [facility] Basic metabolic 2000 panelon 10-06-2024 Anion gap [Moles/Vol] 12 mmol/L Normal 8-15 [facility] Comment on above: Order Comment: Speci men Type: BLOOD SPECIMENOrdering Facility: [facility] Address: [address] [place] [address] Performed By: #### 2 4321-2, ####[facility] [place] [facility] [id number] [place] [address] [place] Calcium [Mass/Vol] 9.5 mg/dL Normal 8.5-10.2 [facility] Comment on above: Order Comment: Speci men Type: BLOOD SPECIMENOrdering Facility: [facility] Address: [address] [place], [place] [address] Performed By: #### 2 4321-2, ####[facility] [place] LABCLIA [id number] [facility] [place] [address] [place] Chloride [Moles/Vol] 98 mmol/L Normal 98-107 [facility] Comment on above: Order Comment: Speci men Type: BLOOD SPECIMENOrdering Facility: [facility] Address: [address] [place] [address] Performed By: #### 2 4320-2, ####[facility] LABCLIA [id number] [facility] [place] [address] [place] CO2 [Moles/Vol] 25 mmol/L Normal 22-30 [facility] Comment on above: Order Comment: Speci men Type: BLOOD SPECIMENOrdering Facility: [facility] Address: [address] [place] [address] Performed By: #### 2 4321-2, ####[facility] LABCLIA [id number] [facility] [place] [address] [place] Creatinine [Mass/Vol] 0.85 mg/dL Normal 0.58-0.96 [facility] Comment on above: Order Comment: Speci men Type: BLOOD SPECIMENOrdering Facility: [facility] Address: [address] [place] [address] Performed By: #### 2 4321-2, ####[facility] LABCLIA [id number] [place] [address] [place] Creatinine and Glomerular filtration rate.predicted panel (S/P/Bld) 92 mL/min/1.73m??? Normal >=60 [facility] Comment on above: Order Comment: Chad nair Type: BLOOD SPECIMENOrdering Facility: [facility] Address: [address] [place] [address] Result Comment: Lilian mated Glomerular Filtration Rate (eGFR) is calculated using the 2020 CKD-EPI creatinine equation. This equation utilizes serum creatinine, sex, and age as parameters. The creatinine assay has traceable calibration to isotope dilution-mass spectrometry. Refer to KDIGO guidelines for clinical interpretation. In patients with unstable renal function, e.g. those with acute kidney injury, the eGFR may not accurately reflect actual GFR. Performed By: #### 2 4321-2, ####[facility] [employer] LABCLIA [id number] [place] [id number] [place] Glucose [Mass/Vol] 107 mg/dL High 74-99 [facility] Comment on above: Order Comment: Chad nair Type: BLOOD SPECIMENOrdering Facility: [facility] Address: [address] [place] [address] Result Comment: The [place] Diabetes Association (ADA) provides guidance for cutoff values for fasting glucose and random glucose. The ADA defines fasting as no caloric intake for at least 8 hours. Fasting plasma glucose results between 100 to 125 mg/dL indicate increased risk for diabetes (prediabetes). Fasting plasma glucose results greater than or equal to 126 mg/dL meet the criteria for diagnosis of diabetes. In the absence of unequivocal hyperglycemia, results should be confirmed by repeat testing. In a patient with classic symptoms of hyperglycemia or hyperglycemic crisis, random plasma glucose results greater than or equal to 200 mg/dL meet the criteria for diagnosis of diabetes. Reference: Standards of Medical Care in Diabetes 2016, [place] Diabetes Association. Diabetes Care. 2016.39(Suppl 1). Performed By: #### 2 4321-2, ####TelepartnerZARINA [facility] LABCLIA [id number] [place] [address] [place] Potassium [Moles/Vol] 4.1 mmol/L Normal 3.7-5.1 [facility] Comment on above: Order Comment: Speci men Type: BLOOD SPECIMENOrdering Facility: [facility] Address: [address] [place] [address] Performed By: #### 2 4321-2, 64413-3 ####[facility] LABCLIA [id number] [place] [facility] [place] [address] [place] Sodium [Moles/Vol] 135 mmol/L Low 136-144 [facility] Comment on above: Order Comment: Speci men Type: BLOOD SPECIMENOrdering Facility: [facility] Address: [address] [place] [address] Performed By: #### 2 4321-2, ####[facility] [place] LABCLIA [id number] [facility] [place] [address] [place] [facility] Urea nitrogen [Mass/Vol] 11 mg/dL Normal 7-21 [facility] Comment on above: Order Comment: Speci men Type: BLOOD SPECIMENOrdering Facility: [facility] Address: [address] [place] [address] Performed By: #### 2 4321-2, ####[facility] LABCLIA [id number] [facility] [place] [address] [place] CBC W Auto Differential pane l (Bld)on 10-06-2024 Basophils (Bld) [#/Vol] 10*3/uL Normal <0.11 [facility] Comment on above: Order Comment: Speci men Type: BLOOD SPECIMENOrdering Facility: [facility] Address: [address] [place] [address] Performed By: #### 5 7021-8 ####[facility] LABCLIA [id number] [facility] [place] [address] [facility] [place] Basophils/100 WBC (Bld) 0.1 % Normal [facility] Comment on above: Order Comment: Speci men Type: BLOOD SPECIMENOrdering Facility: [facility] Address: [address] [place] [address] Performed By: #### 5 7021-8 ####[facility] [place] LABCLIA [id number] [place] [address] [facility] Differential cell count method Nom (Bld) Auto Normal [facility] Comment on above: Order Comment: Speci men Type: BLOOD SPECIMENOrdering Facility: [facility] Address: [address] [place] [address] Performed By: #### 5 7021-8 ####[facility] [place] LABCLIA [id number] [place] [address] [facility] Eosinophils (Bld) [#/Vol] 0.06 10*3/uL Normal <0.46 [facility] Comment on above: Order Comment: Speci men Type: BLOOD SPECIMENOrdering Facility: [facility] Address: [address] [place] [address] Performed By: #### 5 7021-8 ####[facility] [place] LABCLIA [id number] [place] [id number] [facility] Eosinophils/100 WBC (Bld) 0.4 % Normal [facility] Comment on above: Order Comment: Speci men Type: BLOOD SPECIMENOrdering Facility: [facility] Address: [address] [place] [address] Performed By: #### 5 7021-8 ####[facility] LABCLIA [id number] [place] [address] [place] Erythrocyte distribution width (RBC) [Ratio] 12.0 % Normal 11.5-15.0 [facility] Comment on above: Order Comment: Speci men Type: BLOOD SPECIMENOrdering Facility: [facility] Address: [address] [place] [address] Performed By: #### 5 7021-8 ####[facility] [place] LABCLIA [id number] [place] [address] [place] Hematocrit (Bld) [Volume fraction] 44.5 % Normal 36.0-46.0 [facility] Comment on above: Order Comment: Speci men Type: BLOOD SPECIMENOrdering Facility: [facility] Address: [address] [place] [address] Performed By: #### 5 7021-8 ####[facility] LABCLIA [id number] [place] [address] [place] Hemoglobin (Bld) [Mass/Vol] 14.7 g/dL Normal 11.5-15.5 [facility] Comment on above: Order Comment: Speci men Type: BLOOD SPECIMENOrdering Facility: [facility] Address: [address] [place] [address] Performed By: #### 5 7021-8 ####[facility] LABCLIA [id number] [facility] [place] [address] [place] Immature granulocytes (Bld) [#/Vol] 10*3/uL Normal <0.10 [facility] Comment on above: Order Comment: Speci men Type: BLOOD SPECIMENOrdering Facility: [facility] Address: [address] [place] [address] Performed By: #### 5 7021-8 ####[facility] [place] LABCLIA [id number] [place] [facility] [place] [address] [place] Immature granulocytes/100 WBC (Bld) 0.1 % Normal [facility] Comment on above: Order Comment: Speci men Type: BLOOD SPECIMENOrdering Facility: [facility] Address: [address] [place] [address] Performed By: #### 5 7021-8 ####[facility] [place] LABCLIA [id number] [facility] [place] [address] [place] Lymphocytes (Bld) [#/Vol] 0.93 10*3/uL Low 1.00-4.00 [facility] Comment on above: Order Comment: Speci men Type: BLOOD SPECIMENOrdering Facility: [facility] Address: [address] [place] [address] Performed By: #### 5 7021-8 ####[facility] LABCLIA [id number] [place], [place] [id number] [place] [address] Lymphocytes/100 WBC (Bld) 6.4 % Normal [facility] Comment on above: Order Comment: Speci men Type: BLOOD SPECIMENOrdering Facility: [facility] Address: [address] [place] [address] Performed By: #### 5 7021-8 ####[facility] LABCLIA [id number] [address] MCH (RBC) [Entitic mass] 28.9 pg Normal 26.0-34.0 [facility] Comment on above: Order Comment: Speci men Type: BLOOD SPECIMENOrdering Facility: [facility] Address: [address] [place] [address] Performed By: #### 5 7021-8 ####[facility] LABCLIA [id number] [address] MCHC (RBC) [Mass/Vol] 33.0 g/dL Normal 30.5-36.0 [facility] Comment on above: Order Comment: Speci men Type: BLOOD SPECIMENOrdering Facility: [facility] Address: [address] [place] [address] Performed By: #### 5 7021-8 ####[facility] LABCLIA [id number] [place] [id number] [facility] MCV (RBC) [Entitic vol] 87.6 fL Normal 80.0-100.0 [facility] Comment on above: Order Comment: Speci men Type: BLOOD SPECIMENOrdering Facility: [facility] Address: [address] [place] [address] Performed By: #### 5 7021-8 ####[facility] LABCLIA [id number] [place] [address] [facility] Monocytes (Bld) [#/Vol] 0.88 10*3/uL High <0.87 [facility] Comment on above: Order Comment: Speci men Type: BLOOD SPECIMENOrdering Facility: [facility] Address: [address] [place] [address] Performed By: #### 5 7021-8 ####[facility] [place] LABCLIA [id number] [place] [address] [place] Monocytes/100 WBC (Bld) 6.0 % Normal [facility] Comment on above: Order Comment: Speci men Type: BLOOD SPECIMENOrdering Facility: [facility] Address: [address] [place] [address] Performed By: #### 5 7021-8 ####[facility] [place] LABCLIA [id number] [place] [address] [place] [facility] Neutrophils (Bld) [#/Vol] 12.68 10*3/uL High 1.45-7.50 [facility] Comment on above: Order Comment: Speci men Type: BLOOD SPECIMENOrdering Facility: [facility] Address: [address] [place] [address] Performed By: #### 5 7021-8 ####[facility] [place] LABCLIA [id number] [place] [facility] [address] [place] [facility] Neutrophils/100 WBC (Bld) 87.0 % Normal [facility] Comment on above: Order Comment: Speci men Type: BLOOD SPECIMENOrdering Facility: [facility] Address: [address] [place] [address] Performed By: #### 5 7021-8 ####[facility] [place] LABCLIA [id number] [place] [address] [place] Nucleated RBC (Bld) [#/Vol] Normal [facility] Comment on above: Order Comment: Speci men Type: BLOOD SPECIMENOrdering Facility: [facility] Address: [address] [place] [address] Performed By: #### 5 7021-8 ####[facility] [place] LABCLIA [id number] [place] [address] [facility] [place] Nucleated RBC/100 WBC (Bld) [Ratio] Normal [facility] Comment on above: Order Comment: Speci men Type: BLOOD SPECIMENOrdering Facility: [facility] Address: [address] [place] [address] Performed By: #### 5 7021-8 ####[facility] LABCLIA [id number] [place] [address] [place] Platelet mean volume (Bld) [Entitic vol] 8.8 fL Low 9.0-12.7 [facility] Comment on above: Order Comment: Speci men Type: BLOOD SPECIMENOrdering Facility: [facility] Address: [address] [place] [address] Performed By: #### 5 7021-8 ####[facility] LABCLIA [id number] [place] [address] [facility] [place] Platelets (Bld) [#/Vol] 343 10*3/uL Normal 150-400 [facility] Comment on above: Order Comment: Speci men Type: BLOOD SPECIMENOrdering Facility: [facility] Address: [address] [place] [address] Performed By: #### 5 7021-8 ####[facility] LABCLIA [id number] [place] [address] [place] RBC (Bld) [#/Vol] 5.08 10*6/uL Normal 3.90-5.20 [facility] Comment on above: Order Comment: Speci men Type: BLOOD SPECIMENOrdering Facility: [facility] Address: [address] [place] [address] Performed By: #### 5 7021-8 ####[facility] LABCLIA [id number] [place] [address] [place] WBC (Bld) [#/Vol] 14.59 10*3/uL High 3.70-11.00 [facility] Comment on above: Order Comment: Speci men Type: BLOOD SPECIMENOrdering Facility: [facility] Address: [address] [place], [place] [address], [place] [address] Performed By: #### 5 7021-8 ####[facility] SHANNAN [id number] [place] [address] [facility] ED NOTEon 10-06-2024 ED NOTE HNO ID: [id number] Author: JACINDA MARTINEZ RN Service: Emergency Medicine Author Type: Registered Nurse Type: ED Notes Filed: 10/06/2024 20:01 Note Text: Pt to ED with c/o headache x 5 days with N/V Normal [facility] ED PROV NOTEon 10-06-2024 ED PROV NOTE HNO ID: [id number] Author: PAULINA NOONAN MD Service: Emergency Medicine Author Type: Physician Type: ED Provider Notes Filed: 10/07/2024 00:04 Note Text: ED Provider Note Patient Name: Ana Aragon : 1990 SERVICE DATE: 10/06/24 History Patient presents with: Headache This patient is a 34-year-old female with a past medical history significant for eczema, and generalized anxiety disorder with a history of migraine headaches who presents the emergency department for evaluation for headache. Patient states has had a headache for the last 5 days now with photophobia and nausea. She states the result she came to the emergency department. She states she normally takes Excedrin with relief of the headache. She states however this headache would not go away. She denies sudden onset. She denies worst headache of her life. She also denies any focal neurologic deficits. She denies fevers or chills. History provided by: Patient sole splitter used: No PAST MEDICAL HISTORY Diagnosis Date Asthma EXERCISE INDUCED, NO INHALER SINCE AGE 13 Endometrioid adenofibroma PAKO (generalized anxiety disorder) 06/26/2022 PAST SURGICAL HISTORY Procedure Laterality Date APPENDECTOMY 2010 FAMILY HISTORY Problem Relation Age of Onset other (epilepsy) Mother Alcohol/Drug Father Hypertension Father Hyperlipidemia Father Stroke Maternal Grandmother Cancer Paternal Grandmother LUNG Emphysema Paternal Grandfather Social History Tobacco Use Smoking status: Former Current packs/day: 0.00 Average packs/day: 0.3 packs/day for 3.0 years (0.8 ttl pk-yrs) Types: Cigarettes Start date: 09/18/2009 Quit date: 09/18/2012 Years since quittin.0 Smokeless tobacco: Never Vaping Use Vaping status: Never Used Substance and Sexual Activity Alcohol use: Yes Alcohol/week: 2.0 standard drinks of alcohol Types: 2 Cans of Beer (12oz) per week Comment: social Drug use: Never Sexual activity: Yes Partners: Male control/protection: Inserts ALLERGIES Allergen Reactions Bees Rash Chest pains, facial swelling Review of Systems Constitutional: Negative for chills, fatigue and fever. HENT: Negative for ear discharge, ear pain, mouth sores, rhinorrhea, sinus pressure, sneezing, sore throat and tinnitus. Eyes: Positive for visual disturbance. Negative for photophobia, discharge and itching. Respiratory: Negative for cough, shortness of breath, wheezing and stridor. Cardiovascular: Negative for chest pain, palpitations and leg swelling. Gastrointestinal: Positive for nausea and vomiting. Negative for abdominal distention, blood in stool, constipation and diarrhea. Endocrine: Negative for cold intolerance and heat intolerance. Genitourinary: Negative for dysuria, flank pain, frequency and hematuria. Musculoskeletal: Negative for back pain, gait problem and joint swelling. Skin: Negative for color change, pallor and rash. Neurological: Positive for headaches. Negative for dizziness, syncope, weakness and light-headedness. Psychiatric/Behaviora l: Negative for confusion, hallucinations, sleep disturbance and suicidal ideas. Physical Exam Vitals [10/06/241956] BP Pulse Temp Temp src Resp SpO2 Weight Height 111/73 78 36.9 ?C (98.4 ?F) Temporal 18 99 % 72.2 kg (159 lb 2.8 oz) 1.651 m (5' 5) Physical Exam Vitals and nursing note reviewed. Constitutional: General: She is not in acute distress. Appearance: She is not ill-appearing. HENT: Head: Normocephalic and atraumatic. Right Ear: External ear normal. Left Ear: External ear normal. Nose: No congestion or rhinorrhea. Mouth/Throat: Mouth: Mucous membranes are moist. Pharynx: Oropharynx is clear. Eyes: General: Right eye: No discharge. Left eye: No discharge. Pupils: Pupils are equal, round, and reactive to light. Neck: Trachea: No tracheal deviation. Cardiovascular: Rate and Rhythm: Normal rate and regular rhythm. Heart sounds: Normal heart sounds. Pulmonary: Effort: No respiratory distress. Breath sounds: Normal breath sounds. No stridor. No wheezing. Abdominal: General: There is no distension. Palpations: There is no mass. Tenderness: There is no abdominal tenderness. There is no guarding or rebound. Musculoskeletal: General: No tenderness or deformity. Cervical back: Normal range of motion. Lymphadenopathy: Cervical: No cervical adenopathy. Skin: General: Skin is warm and dry. Coloration: Skin is not pale. Findings: No rash. Neurological: General: No focal deficit present. Mental Status: She is alert and oriented to person, place, and time. Cranial Nerves: No cranial nerve deficit. Sensory: No sensory deficit. Motor: No weakness. Coordination: Coordination normal. Gait: Gait normal. Psychiatric: Thought Content: Thought content normal. Judgment: Judgment normal. Diagnostic Testing ED Labs Ordered and Re (more content not included)... Normal [facility] Magnesium SerPl-mCncon 10-06 Magnesium [Mass/Vol] 2.2 mg/dL Normal 1.7-2.3 [facility] Comment on above: Order Comment: Speci men Type: BLOOD SPECIMENOrdering Facility: [facility] Address: [address] [place] [address] Performed By: #### 2 4321-2, 49565-4 ####[facility] LABCLIA [id number] [address] STATES [facility] Urinalysis complete panel (U )on 10-06-2024 Bacteria LM.HPF (Urine sed) [#/Area] Many Abnormal None Seen [facility] Comment on above: Order Comment: Speci men Type: URINE SPECIMEN [facility] Address: [address] [place] [address] Performed By: #### 2 4356-8 #### [facility] [place] [facility] CLIA [id number] [address] [place] [address] [place] #### 630-4 #### [facility] CLIA [id number] [address] [place] Bilirubin Ql (U) Negative Normal Negative [facility] Comment on above: Order Comment: Speci men Type: URINE SPECIMEN [facility] Address: [address] [place] [address] Performed By: #### 2 4356-8 #### [facility] [place] [facility] CLIA [id number] [address] [place] [address] [place] #### 630-4 #### [facility] CLIA [id number] [address] Clarity (Unsp spec) Cloudy Abnormal Clear [facility] Comment on above: Order Comment: Speci men Type: URINE SPECIMEN [facility] Address: [address] [place] [address] Performed By: #### 2 4356-8 #### [facility] [place] [facility] CLIA [id number] [address] [place] [address] [place] #### 630-4 #### [facility] CLIA [id number] [address] Color (U) Yellow Normal Yellow [facility] Comment on above: Order Comment: Speci men Type: URINE SPECIMEN [facility] Address: [address] [place] [address] Performed By: #### 2 4356-8 #### [facility] [place] [facility] CLIA [id number] [address] [place] [address] [place] #### 630-4 #### [facility] CLIA [id number] [address] Epithelial cells LM.HPF (Urine sed) [#/Area] Many Normal [facility] Comment on above: Order Comment: Speci men Type: URINE SPECIMEN [facility] Address: [address] [place] [address] Performed By: #### 2 4356-8 #### [facility] [place] [facility] CLIA [id number] [address] [place] [address] [place] #### 630-4 #### [facility] CLIA [id number] [address] Glucose Test strip (U) [Mass/Vol] Negative Normal Negative [facility] Comment on above: Order Comment: Speci men Type: URINE SPECIMEN [facility] Address: [address] [place] [address] Performed By: #### 2 4356-8 #### [facility] [place] [facility] CLIA [id number] [address] [place] [address] #### 630-4 #### [facility] CLIA [id number] [address] Hemoglobin Ql (U) Negative Normal Negative [facility] Comment on above: Order Comment: Speci men Type: URINE SPECIMEN [facility] Address: [address] [place] [address] Performed By: #### 2 4356-8 #### [facility] [place] [facility] CLIA [id number] [address] [place] [address] #### 630-4 #### [facility] CLIA [id number] [address] Ketones Ql (U) Trace Abnormal Negative [facility] Comment on above: Order Comment: Speci men Type: URINE SPECIMEN [facility] Address: [address] [place] [address] Performed By: #### 2 4356-8 #### [facility] [place] [facility] CLIA [id number] [address] [place] [address] [place] #### 630-4 #### [facility] CLIA [id number] [address] Leukocyte esterase Test strip Ql (U) 1+ Abnormal Negative [facility] Comment on above: Order Comment: Speci men Type: URINE SPECIMEN [facility] Address: [address] [place] [address] Performed By: #### 2 4356-8 #### [facility] [place] [facility] CLIA [id number] [address] [place] [address] #### 630-4 #### [facility] CLIA [id number] [address] [place] [address] Nitrite Ql (U) Negative Normal Negative [facility] Comment on above: Order Comment: Speci men Type: URINE SPECIMEN Ordering Facility: [facility] Address: [address] [place] [address] Performed By: #### 2 4356-8 #### [facility] CLIA [id number] [address] [place] [address] #### 630-4 #### [facility] CLIA [id number] [address] [place] [address] pH (U) 8.5 [pH] High 5.0-8.0 [facility] Comment on above: Order Comment: Speci men Type: URINE SPECIMEN Ordering Facility: [facility] Address: [address] [place] [address] Performed By: #### 2 4356-8 #### [facility] CLIA [id number] [address] [place] [address] #### 630-4 #### [facility] CLIA [id number] [address] [place] [address] Protein (U) [Mass/Vol] 1+ Abnormal Negative [facility] Comment on above: Order Comment: Speci men Type: URINE SPECIMEN Ordering Facility: [facility] Address: [address] [place] [address] Performed By: #### 2 4356-8 #### [facility] CLIA [id number] [address] [place] [address] #### 630-4 #### [facility] CLIA [id number] [address] RBC LM.HPF (Urine sed) [#/Area] 0-3 /HPF Normal 0-3 /HPF [facility] Comment on above: Order Comment: Speci men Type: URINE SPECIMEN Ordering Facility: [facility] Address: [address] [place] [address] Performed By: #### 2 4356-8 #### [facility] CLIA [id number] [address] [place] [address] #### 630-4 #### [facility] CLIA [id number] [address] [place] [address] Specific gravity (U) [Rel density] 1.020 Normal 1.005-1.030 [facility] Comment on above: Order Comment: Speci men Type: URINE SPECIMEN Ordering Facility: [facility] Address: [address] [place] [address] Performed By: #### 2 4356-8 #### [facility] CLIA [id number] [address] [place] [address] #### 630-4 #### [facility] CLIA [id number] [address] Urobilinogen Ql (U) 1.0 EU/dL Normal 0.2-1.0 EU/dL [facility] Comment on above: Order Comment: Speci men Type: URINE SPECIMEN Ordering Facility: [facility] Address: [address] [place] [address] Performed By: #### 2 4356-8 #### [facility] CLIA [id number] [address] [place] [address] #### 630-4 #### [facility] CLIA [id number] [address] WBC LM.HPF (Urine sed) [#/Area] 11-25 /HPF Abnormal 0-5 /HPF [facility] Comment on above: Order Comment: Speci men Type: URINE SPECIMEN Ordering Facility: [facility] Address: [address] [place] [address] Performed By: #### 2 4356-8 #### [facility] CLIA [id number] [address] [place] [address] #### 630-4 #### [facility] CLIA [id number] [address] [place] [address] [facility] UA DIP, URINE (POC)on 2023 BILIRUBIN UA (POCT) Negative Negative [facility] CLARITY UA (POCT) Clear [facility] COLOR UA (POCT) Light yellow [facility] GLUCOSE UA (POCT) Negative Negative mg/dL [facility] Hemoglobin Ql (U) Large Abnormal Negative [facility] Interpretation and review of laboratory results Abnormal [facility] KETONE UA (POCT) Negative Negative mg/dL [facility] LEUKOCYTES UA (POCT) Small Abnormal Negative [facility] NITRITE UA (POCT) Negative Negative [facility] PH UA (POCT) 7.0 4.5 - 8.0 [facility] Protein Ql (U) Negative Negative mg/dL [facility] SPECIFIC GRAVITY UA (POCT) 1.010 1.005 - 1.030 [facility] UROBILINOGEN UA (POCT) 0.2 Patricia l E.U./dL [facility] Location:[facility], [address] [place] [address], [address] [place] [address] POINT OF CARE [facility] NITRIC OXIDE, EXHALEDon 02-2 [facility] STREP A MOLECULAR (POC)on Procedural Control Valid [facility] Strep A (POCT) Positive Abnormal Negative [facility] STREP A CULTURE Positive [facility] HBV surface Ab Ql (S)on 03-12 HBV surface Ab Qn (S) 31.10 mIU/mL [facility] HEP B SURF ABon 03-22-2023 HBV surface Ab Ql (S) Positive [facility] Absolute lymphocyte countOrd ered By: Dr. Ace on 11-27-2022 Lymphocytes Auto (Unsp spec) [#/Vol] 2.46 10*3/uL 0.83-4.51 [facility] Basophil percentageOrdered B y: Dr. Ace on 11-27-2022 Basophils/100 WBC (Bld) 0.4 % 0-1 [facility] Eosinophils/100 WBC (Bld) 2.6 % 0-5 [facility] Neutrophils (Bld) [#/Vol] 3.6 10*3/uL 2.0-7.7 [facility] Neutrophils/100 WBC (Bld) 51.1 % 47-70 [facility] WBC (Bld) [#/Vol] 7.0 10*3/uL 4.4-11.0 [facility] Blood erythrocytes count (nu mber/volume)Ordered By: Dr. Ace on 11-27-2022 RBC (Bld) [#/Vol] 4.89 10*6/uL 4.2-5.4 [facility] Blood hemoglobin measurement (mass/volume)Ordered By: Dr. Ace on 11-27-2022 Hemoglobin (Bld) [Mass/Vol] 14.1 g/dL 12.0-15.0 [facility] Blood lymphocytes/100 leukoc ytesOrdered By: Dr. Ace on 11-27-2022 Lymphocytes/100 WBC (Bld) 35.4 % 19-41 [facility] Blood monocytes/100 leukocyt esOrdered By: Dr. Ace on 11-27-2022 Monocytes/100 WBC (Bld) 10.4 % 0-10 [facility] Blood platelet mean volumeOr dered By: Dr. Ace on 11-27-2022 Platelet mean volume (Bld) [Entitic vol] 8.7 fL 6.2-12.0 [facility] Determination of erythrocyte mean corpuscular volume (MCV)Ordered By: Dr. Ace on 11-27-2022 MCV (RBC) [Entitic vol] 88.8 fL 81-99 [facility] Hematocrit Auto (Bld) [Volum e fraction]Ordered By: Dr. Ace on 11-27-2022 Hematocrit (Bld) [Volume fraction] 43.4 % 37-47 [facility] - Chemistry and C hemistry - challengeOrdered By: Dr. Ace on 11-27-2022 Free T4 [Mass/Vol] 0.89 ng/dL 0.76-1.46 [facility] Laboratory - Hematology and Cell countsOrdered By: Dr. Ace on 11-27-2022 Erythrocyte distribution width (RBC) [Entitic vol] 38.7 fL 35.1-43.9 [facility] Erythrocyte distribution width (RBC) [Ratio] 12.0 % 11.6-14.6 [facility] Immature granulocytes/100 WBC (Bld) 0.100 % 0.0-0.9 [facility] Comment on above: IG% - Immature Granu locytes (promyelocytes, myelocytes and metamyelocytes) > 1% indicates that a LEFT SHIFT is Present. MCH (RBC) [Entitic mass] 28.8 pg 27.0-32.0 [facility] Nucleated RBC/100 WBC (Bld) [Ratio] 0 % 0-5 [facility] MCHC Auto (RBC) [Mass/Vol]Or dered By: Dr. Ace on 11-27-2022 MCHC (RBC) [Mass/Vol] 32.5 g/dL 32-36 [facility] No Panel InformationOrdered By: Dr. Ace on 11-27-2022 Follicle Stimulating Hormone 6.0 mIU/mL [facility] Comment on above: NORMAL REFERENCE RAN GES FEMALE FOLLICULAR 2.3 - 12.6 mIU/mL MID-CYCLE PEAK 5.2 - 17.5 mIU/mL LUTEAL 1.7 - 12.9 mIU/mL POST-MENOPAUSAL ON MHT 5.9 - 72.8 mIU/mL NOT ON MHT 12.7 - 132.2 mlU/mL MALE 0.7 - 10.8 mIU/mL Thyroid Stimulating Hormone (TSH) 1.27 uIU/mL 0.358-3.74 [facility] Vitamin D 25-Hydroxy 29.2 ng/mL [facility] Comment on above: Vitamin D 25(OH) Sta tus Range Deficiency <20 ng/mL (50nmol/L) Insufficiency 20 - 30 ng/mL (50 - 75 nmol/L) Sufficiency 30 - 100 ng/mL (75 - 250 nmol/L) Toxicity >100 ng/mL (>250 nmol/L) Platelets bldOrdered By: Dr. Ace on 11-27-2022 Platelets (Bld) [#/Vol] 360 10*3/uL 150-450 [facility] Serum or plasma estradiol (E 2) measurement (mass/volume)Ordered By: Dr. Ace on 11-27-2022 E2 [Mass/Vol] 59.8 pg/mL [facility] Comment on above: NORMAL REFERENCE RAN GES FEMALE FOLLICULAR 21.4 - 164.8 pg/mL MID-CYCLE PEAK 49.9 - 367.2 pg/mL LUTEAL 40.2 - 259.0 pg/mL POST-MENOPAUSAL ON MHT <11.0 - 462.1 pg/mL NOT ON MHT <11.0 - 58.3 pg/mL MALE <11.0 - 52.5 pg/mL NOTE:[employer] HAS CONFIRMED THE DRUG FULVETRANT (FASLODEX) MAY CAUSE FALSELY ELEVATED ESTRADIOL RESULTS WHEN USING THIS TEST METHOD. IF PATIENT IS TAKING FULVESTRANT AN ALTERNATIVE METHOD SHOULD BE USED TO DETERMINE ESTRADIOL CONCENTRATION. Serum or plasma testosterone free measurement (mass/volume)Ordered By: Dr. Ace on 11-27-2022 Testosterone Free [Mass/Vol] 1.1 pg/mL 0.0-4.2 [facility] Comment on above: Performed at: [address] [id number] Director: Chary Reyes MD, Phone: [phone] No Panel Informationon 09-12 [facility] SPIROMETRY - BASELINE AND PO ST DILATORon 09-12-2022 DLCO (ml/min/mmHg) 23.94 ml/min/mmHg [facility] DLCO/VA (ml/min/mmHg/L) 4.95 ml/min/mmHg/L [facility] DLCOcor (ml/min/mmHg) 24.11 ml/min/mmHg [facility] ERV BOX (L) 1.14 L [facility] [id number]% POST (L/S) 4.81 L[facility] ZAY80-18% PRE (L/S) 3.60 L/S [facility] FEV1 PRE (L) 3.23 L [facility] FEV1/FVC POST (%) 87 % [facility] FEV1/FVC PRE (%) 83 % [facility] FEV1_POST (L) 3.42 L [facility] FRC Gas (L) 2.53 L [facility] FVC POST (L) 3.92 L [facility] FVC PRE (L) 3.87 L [facility] IC BOX (L) 2.82 L [facility] PEF POST (L/S) 8.22 L/S [facility] PEF PRE (L/S) 9.30 L/S [facility] RV Gas (L) 1.39 L [facility] RV/TLC Gas (%) 26 % [facility] TLC Gas (L) 5.35 L [facility] VA (L) 4.87 L [facility] VC (L) BOX 3.96 L [facility] STREP A MOLECULAR (POC)on Procedural Control Valid [facility] Strep A (POCT) Positive Abnormal Negative [facility] Rapid Influenza A/Bon 2019 Rapid Influenza A/B See below Normal Negative [facility] Comment on above: Result Comment: Posi tive for influenza A. Performed By: #### L RFLU #### [place] [address] Vital Signs Date Time Vital Sign Value Performing Clinician Facility 01-22-2025 13:21-0400 Body mass index (BMI) [Ratio] 25.31 kg/m2 KrisSiege Paintballn Aberegg PA Work Phone: [facility] 01-22-2025 13:21-0400 Body temperature 97 [degF] Krislyn Aberegg PA Work Phone: [facility] 01-22-2025 13:21-0400 Body weight 69 kg Krislyn Aberegg PA Work Phone: [facility] 01-22-2025 13:21-0400 Diastolic blood pressure 75 mm[Hg] Krislyn Aberegg PA Work Phone: [facility] 01-22-2025 13:21-0400 Heart rate 80 /min Krislyn Aberegg PA Work Phone: [facility] 01-22-2025 13:21-0400 Respiratory rate 18 /min Krislyn Aberegg PA Work Phone: [facility] 01-22-2025 13:21-0400 SaO2% (BldA) [Mass fraction] 100 % Krislyn Aberegg PA Work Phone: [facility] 01-22-2025 13:21-0400 Systolic blood pressure 109 mm[Hg] Krislyn Aberegg PA Work Phone: [facility] 10-20-2024 08:41-0400 Diastolic blood pressure 70 mm[Hg] Emili Dahlhausen HEEL [employer] LIFT SPLITTER.SECURITY SOFTWARE ENGINEER Work Phone: [facility] 10-20-2024 08:41-0400 Heart rate 71 /min Emili Dahlhausen HEEL TOP LIFT SPLITTER.SECURITY SOFTWARE ENGINEER Work Phone: [facility] 10-20-2024 08:41-0400 SaO2% (BldA) [Mass fraction] 98 % Emili Dahlhausen HEEL TOP LIFT SPLITTER.SECURITY SOFTWARE ENGINEER Work Phone: [facility] 10-20-2024 08:41-0400 Systolic blood pressure 105 mm[Hg] Emili Dahlhausen HEEL TOP LIFT SPLITTER.SECURITY SOFTWARE ENGINEER Work Phone: [facility] 05-26-2024 15:04-0400 Body height 165.7 cm Emelia Queden HEEL TOP LIFT SPLITTER.SECURITY SOFTWARE ENGINEER Work Phone: [facility] 05-26-2024 15:04-0400 Body mass index (BMI) [Ratio] 24.77 kg/m2 Emelia Queden HEEL TOP LIFT SPLITTER.SECURITY SOFTWARE ENGINEER Work Phone: [facility] 05-26-2024 15:04-0400 Body temperature 98.2 [degF] Emelia Queden HEEL TOP LIFT SPLITTER.SECURITY SOFTWARE ENGINEER Work Phone: [facility] 05-26-2024 15:04-0400 Body weight 68.04 kg Emelia Queden HEEL TOP LIFT SPLITTER.SECURITY SOFTWARE ENGINEER Work Phone: [facility] 05-26-2024 15:04-0400 Diastolic blood pressure 68 mm[Hg] Emelia Queden HEEL TOP LIFT SPLITTER.SECURITY SOFTWARE ENGINEER Work Phone: [facility] 05-26-2024 15:04-0400 Heart rate 77 /min Emelia Queden HEEL TOP LIFT SPLITTER.SECURITY SOFTWARE ENGINEER Work Phone: [facility] 05-26-2024 15:04-0400 Respiratory rate 18 /min Emelia Queden HEEL TOP LIFT SPLITTER.SECURITY SOFTWARE ENGINEER Work Phone: [facility] 05-26-2024 15:04-0400 SaO2% (BldA) [Mass fraction] 97 % Emelia Queden HEEL TOP LIFT SPLITTER.SECURITY SOFTWARE ENGINEER Work Phone: [facility] 05-26-2024 15:04-0400 Systolic blood pressure 112 mm[Hg] Emelia Queden HEEL TOP LIFT SPLITTER.[facility] Work Phone: [facility] 04-20-2024 13:59-0400 Body height 165.7 cm Emelia Queden HEEL TOP LIFT SPLITTER.[facility] Work Phone: [facility] 04-20-2024 13:59-0400 Body mass index (BMI) [Ratio] 25.93 kg/m2 Emelia Queden HEEL TOP LIFT SPLITTER.SECURITY SOFTWARE ENGINEER Work Phone: [facility] 04-20-2024 13:59-0400 Body temperature 97.81 [degF] Emelia Queden HEEL TOP LIFT SPLITTER.[facility] Work Phone: [facility] 04-20-2024 13:59-0400 Body weight 71.22 kg Emelia Queden HEEL TOP LIFT SPLITTER.[facility] Work Phone: [facility] 04-20-2024 13:59-0400 Diastolic blood pressure 62 mm[Hg] Emelia Queden HEEL TOP LIFT SPLITTER.SECURITY SOFTWARE ENGINEER Work Phone: [facility] 04-20-2024 13:59-0400 Heart rate 81 /min Emelia Queden HEEL TOP LIFT SPLITTER.SECURITY SOFTWARE ENGINEER Work Phone: [facility] 04-20-2024 13:59-0400 Respiratory rate 16 /min Emelia Queden HEEL TOP LIFT SPLITTER.SECURITY SOFTWARE ENGINEER Work Phone: [facility] 04-20-2024 13:59-0400 SaO2% (BldA) [Mass fraction] 98 % Emelia Queden HEEL TOP LIFT SPLITTER.SECURITY SOFTWARE ENGINEER Work Phone: [facility] 04-20-2024 13:59-0400 Systolic blood pressure 112 mm[Hg] Emelia Queden HEEL TOP LIFT SPLITTER.SECURITY SOFTWARE ENGINEER Work Phone: [facility] 09-16-2023 09:17-0500 Body height 165.7 cm Emelia Queden HEEL TOP LIFT SPLITTER.SECURITY SOFTWARE ENGINEER Work Phone: [facility] 09-16-2023 09:17-0500 Body temperature 97.9 [degF] Emelia Queden HEEL TOP LIFT SPLITTER.SECURITY SOFTWARE ENGINEER Work Phone: [facility] 09-16-2023 09:17-0500 Body weight 74.84 kg Emelia Queden HEEL TOP LIFT SPLITTER.SECURITY SOFTWARE ENGINEER Work Phone: [facility] 09-16-2023 09:17-0500 Diastolic blood pressure 60 mm[Hg] Emelia Queden HEEL TOP LIFT SPLITTER.SECURITY SOFTWARE ENGINEER Work Phone: [facility] 09-16-2023 09:17-0500 Heart rate 75 /min Emelia Queden HEEL TOP LIFT SPLITTER.SECURITY SOFTWARE ENGINEER Work Phone: [facility] 09-16-2023 09:17-0500 Respiratory rate 18 /min Emelia Queden HEEL TOP LIFT SPLITTER.SECURITY SOFTWARE ENGINEER Work Phone: [facility] 09-16-2023 09:17-0500 SaO2% (BldA) [Mass fraction] 97 % Emelia Queden HEEL TOP LIFT SPLITTER.SECURITY SOFTWARE ENGINEER Work Phone: [facility] 09-16-2023 09:17-0500 Systolic blood pressure 102 mm[Hg] Emelia Queden HEEL TOP LIFT SPLITTER.SECURITY SOFTWARE ENGINEER Work Phone: [facility] 07-03-2023 14:51-0500 Body height 165.7 cm Samantha Trill HEEL TOP LIFT SPLITTER.SECURITY SOFTWARE ENGINEER Work Phone: [facility] 07-03-2023 14:51-0500 Body temperature 98.1 [degF] Samantha Trill HEEL TOP LIFT SPLITTER.SECURITY SOFTWARE ENGINEER Work Phone: [facility] 11-22-2023 14:51-0500 Body weight 75.3 kg Samantha Chuguru HEEL TOP LIFT SPLITTER.SECURITY SOFTWARE ENGINEER Work Phone: [facility] 07-03-2023 14:51-0500 Diastolic blood pressure 60 mm[Hg] Samantha Trill HEEL TOP LIFT SPLITTER.SECURITY SOFTWARE ENGINEER Work Phone: [facility] 07-03-2023 14:51-0500 Heart rate 92 /min Samantha Trill HEEL TOP LIFT SPLITTER.SECURITY SOFTWARE ENGINEER Work Phone: [facility] 07-03-2023 14:51-0500 SaO2% (BldA) [Mass fraction] 96 % Samantha Trill HEEL TOP LIFT SPLITTER.SECURITY SOFTWARE ENGINEER Work Phone: [facility] 07-03-2023 14:51-0500 Systolic blood pressure 104 mm[Hg] Samantha Trill HEEL TOP LIFT SPLITTER.SECURITY SOFTWARE ENGINEER Work Phone: [facility] 06-07-2023 09:54-0400 Body height 165.7 cm Gudelia Sheets DO Work Phone: [facility] 06-07-2023 09:54-0400 Body temperature 98.01 [degF] Gudelia Sheets DO Work Phone: [facility] 06-07-2023 09:54-0400 Body weight 74.57 kg Gudelia Sheets DO Work Phone: [facility] 06-07-2023 09:54-0400 Diastolic blood pressure 68 mm[Hg] Gudelia Sheets DO Work Phone: [facility] 06-07-2023 09:54-0400 Heart rate 82 /min Gudelia Sheets DO Work Phone: [facility] 06-07-2023 09:54-0400 Respiratory rate 16 /min Gudelia Sheets DO Work Phone: [facility] 06-07-2023 09:54-0400 SaO2% (BldA) [Mass fraction] 96 % Gudelia Sheets DO Work Phone: [facility] 06-07-2023 09:54-0400 Systolic blood pressure 112 mm[Hg] Gudelia Sheets DO Work Phone: [facility] 04-29-2023 14:00-0400 Diastolic blood pressure 62 mm[Hg] Nurse [place] Work Phone: [facility] 04-29-2023 14:00-0400 Systolic blood pressure 110 mm[Hg] Nurse [place] Work Phone: [facility] 04-01-2023 11:05-0400 Diastolic blood pressure 66 mm[Hg] Nurse [place] Work Phone: [facility] 04-01-2023 11:05-0400 Systolic blood pressure 120 mm[Hg] Nurse [place] Work Phone: [facility] 03-22-2023 09:43-0400 Body height 165.7 cm Emelia Queden HEEL TOP LIFT SPLITTER.SECURITY SOFTWARE ENGINEER Work Phone: [facility] 03-22-2023 09:43-0400 Body temperature 97.59 [degF] Emelia Queden HEEL TOP LIFT SPLITTER.SECURITY SOFTWARE ENGINEER Work Phone: [facility] 03-22-2023 09:43-0400 Body weight 74.84 kg Emelia Queden HEEL TOP LIFT SPLITTER.SECURITY SOFTWARE ENGINEER Work Phone: [facility] 03-22-2023 09:43-0400 Diastolic blood pressure 68 mm[Hg] Emelia Queden HEEL TOP LIFT SPLITTER.SECURITY SOFTWARE ENGINEER Work Phone: [facility] 03-22-2023 09:43-0400 Heart rate 76 /min Emelia Queden HEEL TOP LIFT SPLITTER.SECURITY SOFTWARE ENGINEER Work Phone: [facility] 03-22-2023 09:43-0400 Respiratory rate 18 /min Emelia Queden HEEL TOP LIFT SPLITTER.SECURITY SOFTWARE ENGINEER Work Phone: [facility] 03-22-2023 09:43-0400 SaO2% (BldA) [Mass fraction] 96 % Emelia Queden HEEL TOP LIFT SPLITTER.SECURITY SOFTWARE ENGINEER Work Phone: [facility] 03-22-2023 09:43-0400 Systolic blood pressure 120 mm[Hg] Emelia Queden HEEL TOP LIFT SPLITTER.SECURITY SOFTWARE ENGINEER Work Phone: [facility] 11-27-2022 09:47-0400 Body height 165.1 cm No Primary Care Physician [facility] 11-27-2022 09:47-0400 Body mass index (BMI) [Ratio] 28 kg/m2 No Primary Care Physician [facility] 11-27-2022 09:47-0400 Body weight 76.43 kg No Primary Care Physician [facility] 11-27-2022 09:47-0400 Diastolic blood pressure 78 mm[Hg] No Primary Care Physician [facility] 11-27-2022 09:47-0400 Systolic blood pressure 112 mm[Hg] No Primary Care Physician [facility] 11-22-2022 13:38-0400 Body height 165.7 cm Emelia Queden HEEL TOP LIFT SPLITTER.SECURITY SOFTWARE ENGINEER Work Phone: [facility] 11-22-2022 13:38-0400 Body temperature 98.2 [degF] Emelia Queden HEEL TOP LIFT SPLITTER.SECURITY SOFTWARE ENGINEER Work Phone: [facility] 11-22-2022 13:38-0400 Body weight 77.56 kg Emelia Queden HEEL TOP LIFT SPLITTER.SECURITY SOFTWARE ENGINEER Work Phone: [facility] 11-22-2022 13:38-0400 Diastolic blood pressure 70 mm[Hg] Emelia Queden HEEL TOP LIFT SPLITTER.SECURITY SOFTWARE ENGINEER Work Phone: [facility] 11-22-2022 13:38-0400 Heart rate 78 /min Emelia Scottden HEEL TOP LIFT SPLITTER.SECURITY SOFTWARE ENGINEER Work Phone: [facility] 11-22-2022 13:38-0400 SaO2% (BldA) [Mass fraction] 98 % Emelia Queden HEEL TOP LIFT SPLITTER.SECURITY SOFTWARE ENGINEER Work Phone: [facility] 11-22-2022 13:38-0400 Systolic blood pressure 120 mm[Hg] Emelia Queden HEEL TOP LIFT SPLITTER.SECURITY SOFTWARE ENGINEER Work Phone: [facility] 09-07-2022 11:50-0500 Diastolic blood pressure 70 mm[Hg] Nurse [place] Work Phone: [facility] 09-07-2022 11:50-0500 Systolic blood pressure 122 mm[Hg] Nurse [place] Work Phone: [facility] 08-27-2022 15:10-0500 Body height 165.7 cm Emelia Queden HEEL TOP LIFT SPLITTER.SECURITY SOFTWARE ENGINEER Work Phone: [facility] 08-27-2022 15:10-0500 Body temperature 99.19 [degF] Emelia Queden HEEL TOP LIFT SPLITTER.SECURITY SOFTWARE ENGINEER Work Phone: [facility] 08-27-2022 15:10-0500 Body weight 71.67 kg Emelia Queden HEEL TOP LIFT SPLITTER.SECURITY SOFTWARE ENGINEER Work Phone: [facility] 08-27-2022 15:10-0500 Diastolic blood pressure 70 mm[Hg] Emelia Queden HEEL TOP LIFT SPLITTER.SECURITY SOFTWARE ENGINEER Work Phone: [facility] 08-27-2022 15:10-0500 Heart rate 112 /min Emelia Queden HEEL TOP LIFT SPLITTER.SECURITY SOFTWARE ENGINEER Work Phone: [facility] 08-27-2022 15:10-0500 SaO2% (BldA) [Mass fraction] 97 % Emelia Queden HEEL TOP LIFT SPLITTER.SECURITY SOFTWARE ENGINEER Work Phone: [facility] 08-27-2022 15:10-0500 Systolic blood pressure 120 mm[Hg] Emelia Queden HEEL TOP LIFT SPLITTER.SECURITY SOFTWARE ENGINEER Work Phone: [facility] 07-27-2022 16:08-0500 Diastolic blood pressure 70 mm[Hg] Nurse [place] Work Phone: [facility] 07-27-2022 16:08-0500 Systolic blood pressure 120 mm[Hg] Nurse [place] Work Phone: [facility] 07-16-2022 11:41-0500 Body height 165.7 cm Emelia Queden HEEL TOP LIFT SPLITTER.SECURITY SOFTWARE ENGINEER Work Phone: [facility] 07-16-2022 11:41-0500 Body temperature 97.59 [degF] Emelia Queden HEEL TOP LIFT SPLITTER.SECURITY SOFTWARE ENGINEER Work Phone: [facility] 07-16-2022 11:41-0500 Body weight 72.58 kg Emelia Siddiqui HEEL TOP LIFT SPLITTER.SECURITY SOFTWARE ENGINEER Work Phone: [facility] 07-16-2022 11:41-0500 Diastolic blood pressure 70 mm[Hg] Emelia Siddiuqi HEEL TOP LIFT SPLITTER.SECURITY SOFTWARE ENGINEER Work Phone: [facility] 07-16-2022 11:41-0500 Heart rate 73 /min Emelia Siddiqui HEEL TOP LIFT SPLITTER.SECURITY SOFTWARE ENGINEER Work Phone: [facility] 07-16-2022 11:41-0500 Respiratory rate 18 /min Emelia Siddiqui HEEL TOP LIFT SPLITTER.SECURITY SOFTWARE ENGINEER Work Phone: [facility] 07-16-2022 11:41-0500 SaO2% (BldA) [Mass fraction] 96 % Emelia Siddiqui HEEL TOP LIFT SPLITTER.SECURITY SOFTWARE ENGINEER Work Phone: [facility] 07-16-2022 11:41-0500 Systolic blood pressure 122 mm[Hg] Emelia Siddiqui HEEL TOP LIFT SPLITTER.SECURITY SOFTWARE ENGINEER Work Phone: [facility] Encounters Encounter Date Encounter Type Care Provider Facility Start: 06-18-2025 End: 06-18-2025 ambulatory EMELIA SIDDIQUI Facility:[facility] Start: 06-18-2025 Encounter for genera l adult medical examination without abnormal findings EMELIA SIDDIQUI [facility] Start: 06-16-2025 End: 06-16-2025 ambulatory [facility] Facility:[facility] Start: 04-12-2025 End: 04-13-2025 Refill Emili Mendoza HEEL TOP LIFT SPLITTER.SECURITY SOFTWARE ENGINEER Work Phone: Neurology Comment on above: Med Change Request Start: 04-05-2025 End: 04-05-2025 ambulatory Emili Mendoza HEEL TOP LIFT SPLITTER.SECURITY SOFTWARE ENGINEER Work Phone: Neurology Comment on above: [employer] Start: 02-25-2025 End: 04-27-2025 Follow-up encounter Emelia Siddiqui HEEL TOP LIFT SPLITTER.SECURITY SOFTWARE ENGINEER Work Phone: [facility] Start: 02-23-2025 End: 02-23-2025 ambulatory EMELIASARAH SIDDIQUI Facility:[facility] Start: 02-17-2025 End: 02-17-2025 ambulatory Emili Mendoza HEEL TOP LIFT SPLITTER.SECURITY SOFTWARE ENGINEER Work Phone: Neurology Comment on above: [employer] Start: 02-15-2025 End: 02-15-2025 ambulatory Emelia Siddiqui HEEL TOP LIFT SPLITTER.SECURITY SOFTWARE ENGINEER Work Phone: [facility] Comment on above: Erythema migrans (Pr imary Dx) Start: 02-15-2025 End: 02-15-2025 Telemedicine consultation with patient Emelia Siddiqui HEEL TOP LIFT SPLITTER.SECURITY SOFTWARE ENGINEER Work Phone: [facility] Start: 02-03-2025 End: 02-03-2025 Telephone encounter Emeliasarah Scottortega HEEL TOP LIFT SPLITTER.SECURITY SOFTWARE ENGINEER Work Phone: [facility] Comment on above: Patient Question Start: 01-22-2025 End: 01-22-2025 Patient encounter procedure Luis Angel Hall PA Work Phone: [facility] Comment on above: Rash (Primary Dx) Start: 01-22-2025 End: 01-22-2025 ambulatory LUIS ANGEL HALL Facility:[facility] Start: 01-21-2025 End: 01-21-2025 ambulatory Emelia Siddiqui HEEL TOP LIFT SPLITTER.SECURITY SOFTWARE ENGINEER Work Phone: [facility] Comment on above: Swollen Bump Start: 01-20-2025 End: 01-20-2025 Telemedicine consultation with patient Emili Mendoza HEEL TOP LIFT SPLITTER.SECURITY SOFTWARE ENGINEER Work Phone: Neurology Start: 01-20-2025 End: 01-20-2025 ambulatory Emili Mendoza HEEL TOP LIFT SPLITTER.SECURITY SOFTWARE ENGINEER Work Phone: Neurology Comment on above: Migraine without aur a and without status migrainosus, not intractable (Primary Dx) Start: 12-25-2024 ambulatory Emelia Siddiqui HOOP MAKER MACHINE Facil ity:[facility] Start: 12-08-2024 End: 12-09-2024 Refill Emili Mendoza HEEL TOP LIFT SPLITTER.SECURITY SOFTWARE ENGINEER Work Phone: Neurology Comment on above: Refill Request Start: 11-16-2024 End: 11-16-2024 Refill Emelia Siddiqui HEEL TOP LIFT SPLITTER.SECURITY SOFTWARE ENGINEER Work Phone: [facility] Comment on above: Refill Request Start: 10-26-2024 ambulatory Emelia Siddiqui HOOP MAKER MACHINE Facil ity:[facility] Start: 10-20-2024 End: 10-20-2024 ambulatory ELEANOR NENA Facility:[facility] Start: 10-20-2024 End: 10-20-2024 Patient encounter procedure Emili Mendoza HEEL TOP LIFT SPLITTER.SECURITY SOFTWARE ENGINEER Work Phone: Neurology Comment on above: Migraine without aur a and without status migrainosus, not intractable (Primary Dx) Start: 10-09-2024 End: 10-09-2024 ambulatory Emelia Siddiqui HEEL TOP LIFT SPLITTER.SECURITY SOFTWARE ENGINEER Work Phone: [facility] Start: 10-09-2024 End: 10-09-2024 Follow-up encounter Emelia Siddiqui HEEL TOP LIFT SPLITTER.SECURITY SOFTWARE ENGINEER Work Phone: [facility] Comment on above: ED Follow-up ([place] [facility] 10/06/2024 and [place] [facility] 10/07/2024) Start: 10-08-2024 End: 10-08-2024 Telephone encounter Al Palacios HEEL TOP LIFT SPLITTER.SECURITY SOFTWARE ENGINEER Work Phone: [facility] Comment on above: Missed Appointment ( 3rd no show in 365 days (2nd letter sent)) Start: 10-07-2024 End: 10-07-2024 Emergency department patient visit [facility] Facility:[facility] Start: 10-07-2024 End: 10-07-2024 Telephone encounter Emelia Siddiqui HEEL TOP LIFT SPLITTER.SECURITY SOFTWARE ENGINEER Work Phone: [facility] Comment on above: Appointment Start: 10-06-2024 Emergency department patient visit [facility] Facility:[facility] Start: 08-25-2024 End: 08-25-2024 [facility] Emelia Scottden HEEL TOP LIFT SPLITTER.SECURITY SOFTWARE ENGINEER Work Phone: [facility] Comment on above: PAKO (generalized anx iety disorder) (Primary Dx); Difficulty concentrating Start: 05-29-2024 End: 05-29-2024 Telephone encounter Emelia Carrington Queden HEEL TOP LIFT SPLITTER.SECURITY SOFTWARE ENGINEER Work Phone: [facility] Comment on above: Results Start: 05-26-2024 End: 05-26-2024 Patient encounter procedure Emelia Carrington Queden HEEL TOP LIFT SPLITTER.SECURITY SOFTWARE ENGINEER Work Phone: [facility] Comment on above: Burning with urinati on (Primary Dx); Urinary urgency Start: 05-25-2024 End: 05-25-2024 Telephone encounter Emelia Carrington Queden HEEL TOP LIFT SPLITTER.SECURITY SOFTWARE ENGINEER Work Phone: [facility] Comment on above: Missed Appointment ( 3rd no show in 365 days (2nd letter sent)) Start: 04-20-2024 End: 04-20-2024 Patient encounter procedure Emelia Carrington Queden HEEL TOP LIFT SPLITTER.SECURITY SOFTWARE ENGINEER Work Phone: [facility] Comment on above: Well adult exam (Abi cervantes Dx); Encounter for immunization; PAKO (generalized anxiety disorder); Screening for depression Start: 04-20-2024 End: 04-20-2024 Patient encounter status Emelia Carrington Queden HEEL TOP LIFT SPLITTER.SECURITY SOFTWARE ENGINEER Work Phone: [facility] Work Phone: Start: 04-02-2024 End: 04-02-2024 Telephone encounter Emelia Carrington Queden HEEL TOP LIFT SPLITTER.SECURITY SOFTWARE ENGINEER Work Phone: [facility] Start: 03-19-2024 Patient encounter status Tracey ny A Queden HEEL TOP LIFT SPLITTER.SECURITY SOFTWARE ENGINEER Work Phone: [facility] Work Phone: Start: 03-19-2024 Telephone encounter Emelia A Queden HEEL TOP LIFT SPLITTER.SECURITY SOFTWARE ENGINEER Work Phone: [facility] Comment on above: Patient Question Start: 03-16-2024 ambulatory Emelia Queden HOOP MAKER MACHINE Facil ity:[facility] Start: 01-09-2024 Refill Emelia A Qued en HEEL TOP LIFT SPLITTER.SECURITY SOFTWARE ENGINEER Work Phone: [facility] Comment on above: Refill Request Start: 12-28-2023 Refill Emelia A Qued en HEEL TOP LIFT SPLITTER.SECURITY SOFTWARE ENGINEER Work Phone: [facility] Comment on above: Med Change Request Start: 10-27-2023 Telephone encounter Emelia A Queden HEEL TOP LIFT SPLITTER.SECURITY SOFTWARE ENGINEER Work Phone: [facility] Comment on above: Results Start: 10-01-2023 End: 10-01-2023 ambulatory [facility] Comment on above: Arrived Procedure Start: 10-01-2023 End: 10-01-2023 Patient encounter procedure Pulm [facility] Start: 09-16-2023 End: 09-16-2023 Patient encounter procedure Emelia A Queden HEEL TOP LIFT SPLITTER.SECURITY SOFTWARE ENGINEER Work Phone: [facility] Comment on above: Acute lower respirat ory infection (Primary Dx); Recurrent cough; Recurrent upper respiratory infection (URI); PAKO (generalized anxiety disorder) Start: 07-03-2023 End: 07-03-2023 Patient encounter procedure Samantha Sethi HEEL TOP LIFT SPLITTER.SECURITY SOFTWARE ENGINEER Work Phone: [facility] Comment on above: Strep pharyngitis (P rimary Dx); Sore throat Start: 07-02-2023 Refill Emelia A Qued en HEEL TOP LIFT SPLITTER.SECURITY SOFTWARE ENGINEER Work Phone: [facility] Comment on above: Refill Request Start: 06-07-2023 End: 06-07-2023 Patient encounter procedure Gudelia Richards DO Work Phone: [facility] Comment on above: Acute cough (Primary Dx) Start: 05-23-2023 Refill Emelia A Qued en HEEL TOP LIFT SPLITTER.SECURITY SOFTWARE ENGINEER Work Phone: [facility] Comment on above: Refill Request Start: 05-01-2023 ambulatory Emelia A Qued en HEEL TOP LIFT SPLITTER.SECURITY SOFTWARE ENGINEER Work Phone: [facility] Comment on above: Prozac Start: 04-29-2023 End: 04-29-2023 Nursing evaluation of patient and report Nurse Amalia Adams Work Phone: [facility] Comment on above: Encounter for immuni zation (Primary Dx) Start: 04-20-2023 Refill Emelia A Qued en HEEL TOP LIFT SPLITTER.SECURITY SOFTWARE ENGINEER Work Phone: [facility] Comment on above: Refill Request Start: 04-14-2023 Refill Emelia A Qued en HEEL TOP LIFT SPLITTER.SECURITY SOFTWARE ENGINEER Work Phone: [facility] Comment on above: Refill Request Start: 04-01-2023 End: 04-01-2023 Nursing evaluation of patient and report Nurse Amalia Medina [place] Work Phone: [facility] Comment on above: Need for immunizatio n against measles (Primary Dx) Start: 03-28-2023 Telephone encounter Emelia Scottden HEEL TOP LIFT SPLITTER.SECURITY SOFTWARE ENGINEER Work Phone: [facility] Comment on above: Results; Appointment Start: 03-27-2023 Telephone encounter Emelia A Queden HEEL TOP LIFT SPLITTER.SECURITY SOFTWARE ENGINEER Work Phone: [facility] Start: 03-22-2023 End: 03-22-2023 Patient encounter procedure Emelia A Queden HEEL TOP LIFT SPLITTER.SECURITY SOFTWARE ENGINEER Work Phone: [facility] Comment on above: Well adult exam ([facility] helen Dx); Migraine without aura and without status migrainosus, not intractable; PAKO (generalized anxiety disorder); Abdominal bloating with cramps; Diarrhea, unspecified type; Immunity status testing; Screening for tuberculosis Start: 03-22-2023 End: 03-22-2023 Patient encounter status Emelia A Queden HEEL TOP LIFT SPLITTER.SECURITY SOFTWARE ENGINEER Work Phone: [facility] Work Phone: Start: 02-07-2023 ambulatory Emelia A Qued en HEEL TOP LIFT SPLITTER.SECURITY SOFTWARE ENGINEER Work Phone: [facility] Start: 02-07-2023 Patient encounter procedure Emelia A Queden HEEL TOP LIFT SPLITTER.SECURITY SOFTWARE ENGINEER Work Phone: [facility] Comment on above: Referral Start: 01-16-2023 Refill Emelia A Qued en HEEL TOP LIFT SPLITTER.SECURITY SOFTWARE ENGINEER Work Phone: [facility] Comment on above: Refill Request Start: 12-20-2022 Refill Emelia A Qued en HEEL TOP LIFT SPLITTER.SECURITY SOFTWARE ENGINEER Work Phone: [facility] Comment on above: Refill Request Start: 12-04-2022 End: 12-04-2022 ambulatory No Primary Care Physician [facility] Work Phone: Start: 12-04-2022 End: 12-04-2022 Patient encounter procedure No Primary Care Physician [facility]Ultrasound, [facility] Start: 11-27-2022 End: 11-27-2022 ambulatory No Primary Care Physician [facility] Work Phone: Start: 11-27-2022 End: 11-27-2022 Patient encounter procedure No Primary Care Physician [facility]-Laboratory Start: 11-27-2022 End: 11-27-2022 Patient encounter procedure No Primary Care Physician [facility] Start: 11-22-2022 Telephone encounter Helen Hammer [facility] Comment on above: Patient Question Start: 11-22-2022 End: 11-22-2022 Patient encounter procedure Emelia A Queden HEEL TOP LIFT SPLITTER.SECURITY SOFTWARE ENGINEER Work Phone: [facility] Comment on above: Migraine without aur a and without status migrainosus, not intractable (Primary Dx); Chronic neck pain Start: 09-24-2022 Telephone encounter Emelia A Queden HEEL TOP LIFT SPLITTER.SECURITY SOFTWARE ENGINEER Work Phone: [facility] Comment on above: Results Start: 09-14-2022 Telephone encounter Emelia A Queden HEEL TOP LIFT SPLITTER.SECURITY SOFTWARE ENGINEER Work Phone: [facility] Comment on above: Results Refill Request Start: 09-12-2022 End: 09-12-2022 ambulatory [facility] Comment on above: Procedure Start: 09-12-2022 End: 09-12-2022 Patient encounter procedure Pulm [facility]ct Lab [facility] Start: 09-07-2022 End: 09-07-2022 Nursing evaluation of patient and report Nurse Amalia Adams Work Phone: [facility] Comment on above: Encounter for immuni zation (Primary Dx) Start: 09-04-2022 Telephone encounter Emelia Siddiqui APRN.CNP Work Phone: [facility] Comment on above: Orders Start: 08-27-2022 End: 08-27-2022 Patient encounter procedure Emelia Siddiqui APRN.KAY Work Phone: [facility] Comment on above: Sore throat (Primary Dx); Strep throat; Frequent infections; Depression screening Start: 07-27-2022 End: 07-27-2022 Nursing evaluation of patient and report Nurse Amalia Medina [place] Work Phone: [facility] Comment on above: Encounter for immuni zation (Primary Dx) Start: 07-16-2022 End: 07-16-2022 Patient encounter procedure Emelia Siddiqui APRN.KAY Work Phone: [facility] Comment on above: Recurrent cough (Abi helen Dx); Recurrent upper respiratory infection (URI) Start: 06-26-2022 End: 06-26-2022 [facility] Emelia Siddiqui APRN.CNP Work Phone: [facility] Comment on above: PAKO (generalized anx iety disorder) (Primary Dx); Acute cough Start: 05-17-2022 Telephone encounter Emelia Siddiqui APRN.CNP Work Phone: [facility] Comment on above: Missed Appointment ( 2nd no show in 365 days (2nd letter sent)) Start: 12-12-2021 ambulatory Emelia A Qued en HEEL TOP LIFT SPLITTER.SECURITY SOFTWARE ENGINEER Work Phone: [facility] Comment on above: ER F/U Start: 12-06-2021 Refill Emelia Carrington Qued en HEEL TOP LIFT SPLITTER.SECURITY SOFTWARE ENGINEER Work Phone: [facility] Comment on above: Refill Request Start: 10-09-2012 End: 08-04-2013 Patient requested procedure Emelia Socttden HEEL TOP LIFT SPLITTER.SECURITY SOFTWARE ENGINEER Work Phone: [facility] Procedures Date Procedure Procedure Detail Performing Clinician Start: 05-26-2024 Urnls dip stick/tabl et rgnt auto w/o microscopy Emelia Charissa Queden HEEL TOP LIFT SPLITTER.SECURITY SOFTWARE ENGINEER Work Phone: Start: 04-20-2024 Adult depression scr eening assessment Emelia Queden HEEL TOP LIFT SPLITTER.SECURITY SOFTWARE ENGINEER Work Phone: Start: 10-01-2023 Nitric oxide gas determination Emelia Charissa Queden HEEL TOP LIFT SPLITTER.SECURITY SOFTWARE ENGINEER Work Phone: Start: 10-01-2023 Brncdilat rspse spmt ry pre&post-brncdilat admn Emelia A Queden HEEL TOP LIFT SPLITTER.SECURITY SOFTWARE ENGINEER Work Phone: Start: 07-03-2023 End: 07-03-2023 STREP A MOLECULAR (POC) Samantha Sethi HEEL TOP LIFT SPLITTER.SECURITY SOFTWARE ENGINEER Work Phone: Start: 12-04-2022 Pelvic echography No [facility] Care Physician Start: 09-12-2022 Brncdilat rspse spmt ry pre&post-brncdilat admn Emelia A Queden HEEL TOP LIFT SPLITTER.SECURITY SOFTWARE ENGINEER Work Phone: Start: 09-07-2022 [employer] COVI D-19 PRIMARY SERIES VACCINE, AGE 12+ YR Emelia A Queden HEEL TOP LIFT SPLITTER.SECURITY SOFTWARE ENGINEER Work Phone: Start: 08-27-2022 STREP A MOLECULAR (POC) Emelia A Queden HEEL TOP LIFT SPLITTER.SECURITY SOFTWARE ENGINEER Work Phone: Start: 07-27-2022 [employer] COVI D-19 PRIMARY SERIES VACCINE, AGE 12+ YR Emelia Siddiqui APRN.CNP Work Phone: Start: 04-04-2021 Adult depression scr eening assessment Emelia Siddiqui APRN.CNP Work Phone: Plan of Treatment Date Care Activity Detail Author Start: 01-20-2029 Urine microalbumin profile [facility] Start: 04-20-2025 Depression Screening Depression Scre ening [facility] Start: 04-12-2025 Influenza vaccination Influenza Vacc ine (#1) [facility] Start: 02-15-2025 End: 05-17-2025 Borrelia burgdorferi IgG and IgM panel - Serum LYME AB LATE >30 DAYS SYMPTOMS Lab Routine Erythema migrans Expected: 02/15/2025, Expires: 05/17/2025 [facility] Work Phone: Comment on above: Expected: 02/15/2025 , Expires: 05/17/2025 Start: 02-15-2025 End: 05-17-2025 CBC W Auto Differential panel - Blood COMPLETE BLOOD COUNT AND DIFFERENTIAL Lab Routine Erythema migrans Expected: 02/15/2025, Expires: 05/17/2025 [facility] Comment on above: Expected: 02/15/2025 , Expires: 05/17/2025 Start: 01-20-2025 End: 01-20-2025 Follow-up encounter 01/20/2025 11:30 AM EDT [facility] [address] [place] [address] Emili Mendoza APRN.SECURITY SOFTWARE ENGINEER [address] [address] 3 month follow up (migraines) Neurology Comment on above: 3 month follow up (m igraines) Start: 10-20-2024 End: 10-20-2024 Patient encounter procedure 10/20/2024 8:00 AM EDT Office Visit Neurology [address] [id number] Emili Mendoza APRN.KAY [address] [address] ED follow up: migraine Neurology Comment on above: ED follow up: migrai ne Start: 10-08-2024 End: 10-08-2024 ambulatory 10/08/2024 7:00 AM [facility] [address] [place] [address] Al Palacios, HEEL TOP LIFT SPLITTER.SECURITY SOFTWARE ENGINEER [address] [place] [address] ER FU migranes [facility] Comment on above: ER FU migranes Start: 04-20-2024 End: 07-20-2024 CBC W Auto Differential panel - Blood COMPLETE BLOOD COUNT AND DIFFERENTIAL Lab Routine Well adult exam Expected: 04/20/2024, Expires: 07/20/2024 [facility] Comment on above: Expected: 04/20/2024 , Expires: 07/20/2024 Start: 04-20-2024 End: 07-20-2024 Comprehensive metabolic 2000 panel - Serum or Plasma COMPREHENSIVE METABOLIC PANEL Lab Routine Well adult exam Expected: 04/20/2024, Expires: 07/20/2024 [facility] Comment on above: Expected: 04/20/2024 , Expires: 07/20/2024 Start: 04-20-2024 End: 04-20-2024 Patient encounter procedure 04/20/2024 2:00 PM EDT Office Visit [facility] [address] [place] [address] Emelia Siddiqui, HEEL TOP LIFT SPLITTER.SECURITY SOFTWARE ENGINEER [address] [place] [address] Wellness check [facility] Comment on above: Wellness check Start: 04-12-2024 Influenza vaccination Influenza Vacc ine (#1) [facility] Start: 03-19-2024 End: 03-19-2025 BLOOD TB SCREEN, INCUBATED [facility] Work Phone: Comment on above: Expected: 03/19/2024 , Expires: 03/19/2025 Start: 02-09-2024 Influenza vaccination Influenza Vacc ine (#1) [facility] Comment on above: Postponed from 04/12 (Declined at this time) Start: 11-23-2023 COVID-19 VACCINE (3 - Booster for Pfizer series) COVID-19 VACCINE (3 - Booster for Pfizer series) [facility] Comment on above: Postponed from 11/02 (Declined at this time) Start: 08-27-2023 COVID-19 VACCINE (2 - Pfizer series) COVID-19 VACCINE (2 - Pfizer series) [facility] Comment on above: Postponed from 08/17 (Declined at this time) Start: 08-12-2023 Behavioral Health Screening Behavioral Health Screening [facility] Start: 08-12-2023 Depression Assessment Depression Ass essment [facility] Start: 06-19-2023 PAP TESTING PAP TESTING [facility] Start: 06-19-2023 Screening for malign ant neoplasm of cervix Pap Testing [facility] Start: 05-24-2023 COVID-19 VACCINE (#1) COVID-19 VACCI NE (#1) [facility] Comment on above: Postponed from 01/13 (Declined at this time) Start: 04-12-2023 Influenza vaccination C [facility] Start: 03-22-2023 End: 03-22-2024 BLOOD TB SCREEN, INCUBATED [facility] Work Phone: Comment on above: Expected: 03/22/2023 , Expires: 03/22/2024 Start: 03-22-2023 End: 05-22-2023 GLIADIN (DEAMINATED) ABS [facility] Work Phone: Comment on above: Expected: 03/22/2023 , Expires: 05/22/2023 Start: 03-22-2023 End: 05-22-2023 MUMPS IGG AB [facility] Work Phone: Comment on above: Expected: 03/22/2023 , Expires: 05/22/2023 Start: 03-22-2023 End: 05-22-2023 RUBELLA IGG AB [facility] Work Phone: Comment on above: Expected: 03/22/2023 , Expires: 05/22/2023 Start: 03-22-2023 End: 05-22-2023 RUBEOLA (MEASLES)IGG [facility] Work Phone: Comment on above: Expected: 03/22/2023 , Expires: 05/22/2023 Start: 03-22-2023 End: 05-22-2023 Tissue transglutaminase Ab panel - Serum [facility] Work Phone: Comment on above: Expected: 03/22/2023 , Expires: 05/22/2023 Start: 03-22-2023 End: 05-22-2023 VARICELLA ZOSTER IGG [facility] Work Phone: Comment on above: Expected: 03/22/2023 , Expires: 05/22/2023 Start: 02-08-2023 Influenza vaccination INFLUENZA (#1) [facility] Comment on above: Postponed from 04/12 (Declined at this time) Start: 11-02-2022 COVID-19 VACCINE (3 - Booster for Pfizer series) COVID-19 VACCINE (3 - Booster for Pfizer series) [facility] Start: 08-17-2022 COVID-19 VACCINE (2 - Pfizer series) COVID-19 VACCINE (2 - Pfizer series) [facility] Start: 04-12-2022 Influenza vaccination C [facility] Start: 04-04-2022 Adult depression scr eening assessment DEPRESSION SCREENING [facility] Start: 04-04-2022 COVID-19 VACCINE (1) COVID-19 VACCIN E (1) [facility] Comment on above: Postponed from 07/15 (Declined at this time) Start: 08-12-2021 DEPRESSION ASSESSMENT DEPRESSION ASS ESSMENT [facility] Start: 06-19-2021 Screening for malign ant neoplasm of cervix Cervical Cancer Screening [facility] Start: 2020 HPV TESTING HPV TESTING [facility] Start: 2020 Screening for malign ant neoplasm of cervix HPV Testing [facility] Start: 2017 HPV Vaccine (1 - 3-d ose SCDM series) HPV Vaccine (1 - 3-dose SCDM series) [facility] Start: 2008 Depression Screening Depression Scre ening [facility] Start: 01-13-1991 COVID-19 VACCINE (#1) COVID-19 VACCI NE (#1) [facility] Start: 1990 HEPATITIS B (1 of 3 - 3-dose series) HEPATITIS B (1 of 3 - 3-dose series) [facility] Bacteria identified in Urine by Culture URINE CULTURE Microbiology Routine Urinary urgency Burning with urination 05/26/2024 3:27 PM EDT [facility] Work Phone: Im adm prq id subq/i m njxs 1 vaccine IMADM PRQ ID SUBQ/IM NJXS 1 VACC Immunization/Injection Routine Encounter for immunization Ordered: 09/07/2022 [facility] Work Phone: Comment on above: Ordered: 09/07/2022 Im adm prq id subq/i m njxs 1 vaccine IMADM PRQ ID SUBQ/IM NJXS 1 VACC Immunization/Injection Routine Need for immunization against measles Ordered: 04/01/2023 [facility] Work Phone: Comment on above: Ordered: 04/01/2023 Im adm prq id subq/i m njxs 1 vaccine IMADM PRQ ID SUBQ/IM NJXS 1 VACC Immunization/Injection Routine Encounter for immunization Ordered: 04/20/2024 [facility] Work Phone: Comment on above: Ordered: 04/20/2024 End: 08-15-2023 LUNG DIFFUSION CAPACITY (DLCO) LUNG DIFFUSION CAPACITY (DLCO) PFT Routine Recurrent cough 1 Occurrences starting 07/16/2022 until 08/15/2023 [facility] Work Phone: Comment on above: 1 Occurrences starti ng 07/16/2022 until 08/15/2023 End: 10-04-2023 LUNG DIFFUSION CAPACITY (DLCO) LUNG DIFFUSION CAPACITY (DLCO) PFT Routine Persistent cough 1 Occurrences starting 09/04/2022 until 10/04/2023 [facility] Work Phone: Comment on above: 1 Occurrences starti ng 09/04/2022 until 10/04/2023 End: 08-15-2023 LUNG VOLUMES LUNG VOLUMES PFT Routine Recurrent cough 1 Occurrences starting 07/16/2022 until 08/15/2023 [facility] Work Phone: Comment on above: 1 Occurrences starti ng 07/16/2022 until 08/15/2023 End: 10-04-2023 LUNG VOLUMES LUNG VOLUMES PFT Routine Persistent cough 1 Occurrences starting 09/04/2022 until 10/04/2023 [facility] Work Phone: Comment on above: 1 Occurrences starti ng 09/04/2022 until 10/04/2023 End: 10-15-2024 NITRIC OXIDE, EXHALED NITRIC OXIDE, EXHALED PFT Routine Recurrent cough Recurrent upper respiratory infection (URI) 1 Occurrences starting 09/16/2023 until 10/15/2024 [facility] Work Phone: Comment on above: 1 Occurrences starti ng 09/16/2023 until 10/15/2024 End: 08-15-2023 SPIROMETRY - BASELINE AND POST DILATOR SPIROMETRY - BASELINE AND POST DILATOR PFT Routine Recurrent cough 1 Occurrences starting 07/16/2022 until 08/15/2023 [facility] Work Phone: Comment on above: 1 Occurrences starti ng 07/16/2022 until 08/15/2023 End: 10-04-2023 SPIROMETRY - BASELINE AND POST DILATOR SPIROMETRY - BASELINE AND POST DILATOR PFT Routine Persistent cough 1 Occurrences starting 09/04/2022 until 10/04/2023 [facility] Work Phone: Comment on above: 1 Occurrences starti ng 09/04/2022 until 10/04/2023 End: 10-15-2024 SPIROMETRY - BASELINE AND POST DILATOR SPIROMETRY - BASELINE AND POST DILATOR PFT Routine Recurrent cough Recurrent upper respiratory infection (URI) 1 Occurrences starting 09/16/2023 until 10/15/2024 [facility] Work Phone: Comment on above: 1 Occurrences starti ng 09/16/2023 until 10/15/2024 SPIROMETRY - BASELIN E AND POST DILATOR SPIROMETRY - BASELINE AND POST DILATOR PFT Routine Recurrent cough Recurrent upper respiratory infection (URI) 10/01/2023 9:44 AM EST [facility] Work Phone: STREP A MOLECULAR (POC) STREP A MOLECULAR (POC) Microbiology Routine Sore throat Ordered: 08/27/2022 [facility] Work Phone: Comment on above: Ordered: 08/27/2022 [place] Pelvis [facility] Pelvis transvaginal [place] Immunizations Immunization Date Immunization Notes Care Provider Kenna becerril 04-20-2024 influenza, seasonal, injectable Emelia Queden HEEL TOP LIFT SPLITTER.SECURITY SOFTWARE ENGINEER Work Phone: [facility] 04-20-2024 influenza virus vaccine, unspecified formulation Emelia Queden HEEL TOP LIFT SPLITTER.SECURITY SOFTWARE ENGINEER Work Phone: [facility] 09-27-2023 influenza, seasonal, injectable [facility] 09-27-2023 influenza virus vaccine, unspecified formulation Emelia Queden HEEL TOP LIFT SPLITTER.SECURITY SOFTWARE ENGINEER Work Phone: [facility] 04-29-2023 measles, mumps and rubella virus vaccine Nurse [place] Work Phone: [facility] 04-01-2023 measles, mumps and rubella virus vaccine Nurse [place] Work Phone: [facility] 09-07-2022 COVID-19 original vaccine, age 12+ yr, monovalent (PFIZER-BIONTECH - STEVENS TOP) Nurse [place] Work Phone: [facility] 07-27-2022 COVID-19 original vaccine, age 12+ yr, monovalent (PFIZER-BIONTECH - STEVENS TOP) Nurse [place] Work Phone: [facility] 07-25-2022 influenza, injectabl e, quadrivalent, preservative free Emelia Queden HEEL TOP LIFT SPLITTER.SECURITY SOFTWARE ENGINEER Work Phone: [facility] Work Phone: 07-25-2022 influenza, seasonal, injectable Nurse [place] Work Phone: [facility] 07-25-2022 influenza virus vaccine, unspecified formulation Emelia Queden HEEL TOP LIFT SPLITTER.[facility] Work Phone: [facility] 06-30-2019 influenza, injectabl e, quadrivalent, preservative free Emelia Queden HEEL TOP LIFT SPLITTER.[facility] Work Phone: [facility] 01-20-2019 tetanus toxoid, redu sailaja diphtheria toxoid, and acellular pertussis vaccine, adsorbed Emelia Queden HEEL TOP LIFT SPLITTER.[facility] Work Phone: [facility] 07-13-2015 tetanus toxoid, redu sailaja diphtheria toxoid, and acellular pertussis vaccine, adsorbed Emelia Queden HEEL TOP LIFT SPLITTER.[facility] Work Phone: [facility] Work Phone: 05-19-2015 influenza, injectabl e, quadrivalent, contains preservative Emelia Queden HEEL TOP LIFT SPLITTER.[facility] Work Phone: [facility] 05-19-2013 influenza virus vaccine, unspecified formulation Emelia Queden HEEL TOP LIFT SPLITTER.[facility] Work Phone: [facility] 05-12-2013 Influenza virus vaccine No P [facility] Physician [facility] Payers Date Payer Category Payer Self-pay [id number] 2014 [facility] BLUE CARD O OOS [id number] 2014 Unknown [employer] BLUE CARD PPO OOS [id number] 2014-Present [phone] [address] [place] [address] PPO [id number] 2014 Unknown [employer] BLUE CARD PPO OOS [id number] 2014-Present [phone] [address] [place] [address] PPO [id number] 2014 Unknown [id number] Unknown [facility] [id number] Unknown [facility] [id number] Unknown [id number] Unknown [id number] Unknown [id number] Social History Date Type Detail Facility Start: 10-09-2012 End: 04-20-2024 Tobacco smoking status NHIS Ex-smoker [facility] Work Phone: Start: 09-18-2009 End: 09-18-2012 History of tobacco use Current smoker [facility] Work Phone: Start: 09-18-2009 End: 09-18-2012 History of tobacco use Cigarette Smoker [facility] Work Phone: Start: 10-09-2012 End: 05-17-2023 Cigarettes smoked current (pack per day) - Reported 0.25 [facility] Work Phone: Start: 10-09-2012 End: 04-20-2024 Tobacco use and exposure Smokeless tobacco non-user [facility] Work Phone: Start: 08-22-2021 End: 02-17-2025 Alcohol intake Current drinker of alcohol (finding) [facility] Start: 04-13-2020 History SDOH Alcohol Comment social [facility] Start: 1990 Sex Assigned At Not on file [facility] Start: 11-28-2021 End: 07-16-2022 Exposure to SARS-CoV-2 (event) Not sure [facility] Start: 05-07-2022 End: 05-17-2022 Exposure to SARS-CoV-2 (event) Unable to assess [facility] Start: 11-27-2022 Tobacco smoking stat us [facility] Unknown if ever smoked [facility] Start: 04-17-2019 None [facility] Start: 1990 Sex Assigned At Female W [facility] Start: 12-26-2022 End: 03-22-2023 Tobacco use panel [facility] Work Phone: Start: 07-13-2012 Adult Depression Screening Assessment 0 [facility] Work Phone: Goals Date Patient Goal Desired Activity /State Functional Status Date Assessment Result Facility 03-01-2015 Are you deaf, or do you have serious difficulty hearing No 03/01/2015 2:08 PM Natacha Miller MA No [facility] 03-01-2015 Are you blind, or do you have serious difficulty seeing, even when wearing glasses No 03/01/2015 2:08 PM Natacha Miller MA No [facility] 03-01-2015 Do you have serious difficulty walking or climbing stairs No 03/01/2015 2:08 PM Natacha Miller MA No [facility] 03-01-2015 Do you have difficul ty dressing or bathing No 03/01/2015 2:08 PM Natacha Miller MA No [facility] 03-01-2015 Because of a physica l, mental, or emotional condition, do you have difficulty doing errands alone such as visiting a physician's office or shopping No 03/01/2015 2:08 PM EDT Natacha Simental MA No [facility] Mental Status Date Assessment Result Facility 03-01-2015 Because of a physica l, mental, or emotional condition, do you have serious difficulty concentrating, remembering, or making decisions No 03/01/2015 2:08 PM EDT Natacha Simental MA No [facility] Clinical Notes 03-01-2015 to 06-18-2025 Telephone Encounter - Sindhu Gleason MA - 04/13/2025 8:13 AM EDTTelephone Encounter - Sindhu Gleason MA - 04/13/2025 8:13 AM EDTTelephone Encounter - Aguilar Meyer RN - 04/05/2025 12:21 PM EDT Note Date & Type Note Facility 06-18-2025 Note HNO ID: [id number] Author: EMELIA SIDDIQUI APRN.SECURITY SOFTWARE ENGINEER Service: ? Author Type: Nurse Practitioner Type: Progress Notes Filed: 06/18/2025 10:34 Note Text: CHIEF COMPLAINT: The patient is a 34-year-old female with asthma, depression/anxiety, and migraine, presenting for annual wellness visit and follow-up for medication management and laboratory evaluation. I reviewed past medical, surgical, social, and family histories today and updated chart. Allergies, chronic medications, and supplements were also reviewed. Recording using [employer] software for draft documentation of the visit was discussed with the patient/authorized patient relations representative; all questions welcomed and answered. Patient/authorized patient relations representative agreed to proceed. Lifestyle: - Recently completed schooling and started a job in [place], which has reduced stress levels. - Has not yet established a regular exercise routine. - Primarily cooks at home. - Has three children, ages 12, 9, and 6. - Sees a car cooper but is overdue for a Pap smear. - Due for a vision exam. Migraine: - Managed by a neurologist at [facility]. - Currently taking Topamax and Nurtec, which have been effective in reducing frequency and severity. - Still experiences migraines around menstruation. - Nurtec taken PRN at onset of headache, provides relief within a few hours without causing drowsiness. Anxiety: - Currently taking fluoxetine 40 mg daily. - Reports persistent feelings of being overwhelmed and anxious on some days. - Experiences chest tightness associated with anxiety. - Considering dosage adjustment. Asthma: - Using Flovent inhaler, but not consistently. PAST MEDICAL HISTORY Diagnosis Date Asthma (HCC) EXERCISE INDUCED, NO INHALER SINCE AGE 13 Endometrioid adenofibroma PAKO (generalized anxiety disorder) 06/26/2022 PAST SURGICAL HISTORY Procedure Laterality Date APPENDECTOMY 2010 SOCIAL HISTORY[1] ALLERGIES Allergen Reactions Bees Rash Chest pains, facial swelling Droperidol Dystonia Family History Problem Relation Age of Onset other (epilepsy) Mother Alcohol/Drug Father Hypertension Father Hyperlipidemia Father Stroke Maternal Grandmother Cancer Paternal Grandmother LUNG Emphysema Paternal Grandfather Current Outpatient Medications Medication Sig Dispense Refill FLUoxetine (PROZAC) 40 mg capsule TAKE 1 CAPSULE BY MOUTH EVERY DAY 90 capsule 1 topiramate (TOPAMAX) 50 mg tablet TAKE 1 TABLET BY MOUTH EVERYDAY AT BEDTIME 90 tablet 0 fluticasone (FLOVENT) 44 mcg/actuation inhaler INHALE 1 PUFF INSTRUCTED TWO TIMES A DAY. SHAKE WELL BEFORE USE. RINSE MOUTH AFTER USE. 3 Each 2 hydrOXYzine pamoate (VISTARIL) 25 mg capsule Take 1-2 capsules by mouth three times a day as needed. 30 capsule 2 ondansetron (ZOFRAN) 4 mg tablet Take 1 tablet by mouth every 8 hours as needed for nausea/vomiting. 12 tablet 0 EPINEPHrine (EPIPEN) 0.3 mg/0.3 mL auto-injector Inject 0.3 mL intramuscularly as needed. Inject full content of the syringe. 2 Each 0 FLUoxetine (PROZAC) 10 mg capsule Take 1 capsule by mouth once daily. Take with 40 mg capsule daily. 90 capsule 0 No current facility-administered medications for this visit. Review of Systems Constitutional: (-) drowsiness Head: (+) headaches Eyes: (-) visual changes Cardiovascular: (+) chest tightness, (-) chest pain Respiratory: (-) dyspnea Musculoskeletal: (-) back pain, (-) neck pain Psychiatric: (+) anxiety BP 110/60 Pulse 76 Temp 98.2 Ht 5' 5 (1.65m) Wt 153 lb (69.4kg) SpO2 100% LMP 01/20/2025 BMI 25.46 kg/(m2). Physical Exam GENERAL: NAD, alert and oriented. SKIN: Unremarkable, no rash or skin lesions. HEAD: Normocephalic. EYES: PERRLA, conjunctiva clear. EARS: External ears normal, canals clear, TM's normal. NOSE/SINUSES: Nares normal. Septum midline. OROPHARYNX: Lips, mucosa, and tongue normal, good dentition. No oral lesions noted. NECK: Supple, no lymphadenopathy, normal thyroid LUNGS: Clear to auscultation bilaterally, no wheezes/rhonchi/rales. HEART: Regular rate and rhythm, no murmurs. No ectopy. EXTREMITIES: Normal, no deformities, no skin discoloration, no edema. NEURO: Awake, alert and oriented x3, normal gait, no involuntary motions. ASSESSMENT/PLAN: 1. Well adult exam (Z00.00) - No acute concerns on exam. - Recommended patient follow up with car cooper for overdue Pap smear. - Advised patient to schedule vision exam. - Ordered routine labs; instructed patient to fast prior to blood draw. 2. PAKO (generalized anxiety disorder) (F41.1) - Ongoing anxiety and feeling overwhelmed on current fluoxetine 40 mg dose. - Increase fluoxetine by 10 mg (total 50 mg daily); discussed option to revert to 40 mg or consider alternatives if side effects occur. - Follow-up after the new year to reassess response to increased dose; patient instructed to send [employer] message if issues arise befo (more content not included)... [facility] 06-16-2025 Note HNO ID: [id number] Author: ANTONI SOLIS APRN.SECURITY SOFTWARE ENGINEER Service: ? Author Type: Nurse Practitioner Type: Progress Notes Filed: 06/16/2025 17:10 Note Text: URGENT CARE FLEX Subjective HPI HPI Ana Aragon is a 34 year old female who presents today for CC of st, sinus pressure. This started 2 days ago. Has tried nothing for relief. Symptoms are worsened by nothing. Risk factors sick exposure/strep at home. Denies possibility of being . nonsmoker. .Patient presents with: Sore Throat: sinus pressure x 2 days, strep exposure PAST MEDICAL HISTORY Diagnosis Date Asthma (HCC) EXERCISE INDUCED, NO INHALER SINCE AGE 13 Endometrioid adenofibroma PAKO (generalized anxiety disorder) 06/26/2022 PAST SURGICAL HISTORY Procedure Laterality Date APPENDECTOMY 2010 ALLERGIES Bees and Droperidol MEDICATIONS FLUoxetine (PROZAC) 40 mg capsule TAKE 1 CAPSULE BY MOUTH EVERY DAY topiramate (TOPAMAX) 50 mg tablet TAKE 1 TABLET BY MOUTH EVERYDAY AT BEDTIME fluticasone (FLOVENT) 44 mcg/actuation inhaler INHALE 1 PUFF INSTRUCTED TWO TIMES A DAY. SHAKE WELL BEFORE USE. RINSE MOUTH AFTER USE. hydrOXYzine pamoate (VISTARIL) 25 mg capsule Take 1-2 capsules by mouth three times a day as needed. ondansetron (ZOFRAN) 4 mg tablet Take 1 tablet by mouth every 8 hours as needed for nausea/vomiting. EPINEPHrine (EPIPEN) 0.3 mg/0.3 mL auto-injector Inject 0.3 mL intramuscularly as needed. Inject full content of the syringe. FAMILY HISTORY Problem Relation Age of Onset other (epilepsy) Mother Alcohol/Drug Father Hypertension Father Hyperlipidemia Father Stroke Maternal Grandmother Cancer Paternal Grandmother LUNG Emphysema Paternal Grandfather SOCIAL HISTORY[1] Review of Systems Constitutional: Negative for chills, fatigue and fever. HENT: Positive for rhinorrhea and sore throat. Negative for ear discharge, ear pain, sinus pressure and sinus pain. Eyes: Negative for discharge and redness. Respiratory: Negative for cough, shortness of breath and wheezing. Cardiovascular: Negative for chest pain. Skin: Negative for rash. Objective BP 100/64 Pulse 80 Temp 36.8 ?C (98.2 ?F) Resp 16 Wt 69.6 kg (153 lb 7 oz) LMP 01/20/2025 (Exact Date) SpO2 98% BMI 25.53 kg/m? Physical Exam Constitutional: General: She is not in acute distress. Appearance: She is not toxic-appearing or diaphoretic. HENT: Head: Normocephalic and atraumatic. Right Ear: Hearing, tympanic membrane, ear canal and external ear normal. Left Ear: Hearing, tympanic membrane, ear canal and external ear normal. Nose: Nose normal. Mouth/Throat: Lips: [place]. Mouth: Mucous membranes are moist. Pharynx: Uvula midline. Posterior oropharyngeal erythema present. Eyes: General: Lids are normal. No scleral icterus. Right eye: No discharge. Left eye: No discharge. Conjunctiva/sclera: Conjunctivae normal. Pupils: Pupils are equal, round, and reactive to light. Neck: Trachea: Trachea normal. Cardiovascular: Rate and Rhythm: Normal rate and regular rhythm. Heart sounds: Normal heart sounds. Pulmonary: Effort: Pulmonary effort is normal. Breath sounds: Normal breath sounds. Musculoskeletal: Cervical back: Normal range of motion and neck supple. Lymphadenopathy: Cervical: No cervical adenopathy. Skin: Findings: No rash. Neurological: Mental Status: She is alert and oriented to person, place, and time. {ASSESSMENT/PLAN: 1. Sore throat - ICD9: 462, ICD10: J02.9 (primary diagnosis) - suspect viral - Group A strep molecular testing negative - Discussed supportive care treatment with fluids, rest and analgesia. - The patient should follow up in 3-5 days if symptoms persist or worsen - STREP A MOLECULAR (POC) 2. URI, acute - ICD9: 465.9, ICD10: J06.9 - Discussed viral etiology and rationale for treatment. - Symptomatic treatment with prn analgesia - Supportive care with fluids and rest - Follow up in 3-5 days if symptoms persist or sooner if worsening of symptoms Antoni Solis APRN.SECURITY SOFTWARE ENGINEER History and Record Review External record(s) reviewed: prior outpatient record. Differential Diagnoses - viral uri is more likely for the following reason(s): consistent with laboratory studies Disposition The patient was discharged. Procedures [1] Social History Tobacco Use Smoking status: Former Current packs/day: 0.00 Average packs/day: 0.3 packs/day for 3.0 years (0.8 ttl pk-yrs) Types: Cigarettes Start date: 09/18/2009 Quit date: 09/18/2012 Years since quittin.7 Smokeless tobacco: Never Vaping Use Vaping status: Never Used Substance Use Topics Alcohol use: Yes Alcohol/week: 2.0 standard drinks of alcohol Types: 2 Cans of Beer (12oz) per week Comment: social Drug use: Never [facility] 04-13-2025 Telephone encounter Note Patient has been identified by name and date of : Yes Last office visit in this department: 01/20/25 virtual See pharmacy request for 90 day supply RX INSTRUCTIONS: Pharmacy initiated this request. No need to notify patient. Patient phones requesting refills as follows: Requested Prescriptions Pending Prescriptions Disp Refills topiramate (TOPAMAX) 50 mg tablet [Pharmacy Med Name: TOPIRAMATE 50 MG TABLET] 90 tablet 1 Sig: TAKE 1 TABLET BY MOUTH EVERYDAY AT BEDTIME Please review and advise. Sindhu Gleason MA [facility] 04-13-2025 Miscellaneous Notes Patient has been identified by name and date of : Yes Last office visit in this department: 01/20/25 virtual See pharmacy request for 90 day supply RX INSTRUCTIONS: Pharmacy initiated this request. No need to notify patient. Patient phones requesting refills as follows: Requested Prescriptions Pending Prescriptions Disp Refills topiramate (TOPAMAX) 50 mg tablet [Pharmacy Med Name: TOPIRAMATE 50 MG TABLET] 90 tablet 1 Sig: TAKE 1 TABLET BY MOUTH EVERYDAY AT BEDTIME Please review and advise. Sindhu Gleason MA documented in this encounter [facility] 04-05-2025 Telephone encounter Note DEBORAH: 01/20/2025 Distance Health Visit with Emili Mendoza APRN.[facility] Assessment/Plan: G43.009 Migraine without aura and without status migrainosus, not intractable (primary encounter diagnosis) Comment: Pt previously seen for migraine headaches located to either R or L posterior head with radiation throughout R and L hemicrania and associated with n/v and photo/phonophobia. Previous CT unremarkable. She was started on Topamax 25mg as headache preventative with goal to increase to 50mg once daily. She was also started on Maxalt as migraine abortive. At time of appointment today, she reports roughly 3-4 migraines per month with a decrease in severity and duration; no change in AVELAR characteristics. She denies SE with Tpx. She reports no improvement in migraines with use of rizatriptan. Will adjust medications as noted below. -Increase Topamax to 50mg daily at bedtime. -Discontinue Maxalt and instead begin Nurtec 75mg once every 24 hours as needed as migraine abortive (given failure of rizatriptan and sumatriptan). [facility] [place] [phone] who informs that patient has numerous refills available for Nurtec. Patient informed via my chart reply. [facility] 04-05-2025 Miscellaneous Notes DEBORAH: 01/20/2025 Distance Health Visit with Emili Mendoza APRN.[facility] Assessment/Plan: G43.009 Migraine without aura and without status migrainosus, not intractable (primary encounter diagnosis) Comment: Pt previously seen for migraine headaches located to either R or L posterior head with radiation throughout R and L hemicrania and associated with n/v and photo/phonophobia. Previous CT unremarkable. She was started on Topamax 25mg as headache preventative with goal to increase to 50mg once daily. She was also started on Maxalt as migraine abortive. At time of appointment today, she reports roughly 3-4 migraines per month with a decrease in severity and duration; no change in AVELAR characteristics. She denies SE with Tpx. She reports no improvement in migraines with use of rizatriptan. Will adjust medications as noted below. -Increase Topamax to 50mg daily at bedtime. -Discontinue Maxalt and instead begin Nurtec 75mg once every 24 hours as needed as migraine abortive (given failure of rizatriptan and sumatriptan). Spoke to Pharmacist at: [facility], [place], [place] [phone] who informs that patient has numerous refills available for Nurtec. Patient informed via my chart reply. documented in this encounter [facility] 02-17-2025 Telephone encounter Note 50mg tablet sent. [facility] 02-17-2025 Miscellaneous Notes 50mg tablet sent. Last office visit with Scott Mendoza APRN.[facility] 01-20-25 Assessment/Plan: G43.009 Migraine without aura and without status migrainosus, not intractable (primary encounter diagnosis) Comment: Pt previously seen for migraine headaches located to either R or L posterior head with radiation throughout R and L hemicrania and associated with n/v and photo/phonophobia. Previous CT unremarkable. She was started on Topamax 25mg as headache preventative with goal to increase to 50mg once daily. She was also started on Maxalt as migraine abortive. At time of appointment today, she reports roughly 3-4 migraines per month with a decrease in severity and duration; no change in AVELAR characteristics. She denies SE with Tpx. She reports no improvement in migraines with use of rizatriptan. Will adjust medications as noted below. -Increase Topamax to 50mg daily at bedtime. -Discontinue Maxalt and instead begin Nurtec 75mg once every 24 hours as needed as migraine abortive (given failure of rizatriptan and sumatriptan). documented in this encounter [facility] 02-17-2025 Telephone encounter Note Last office visit with Scott Mendoza APRN.[facility] 01-20-25 Assessment/Plan: G43.009 Migraine without aura and without status migrainosus, not intractable (primary encounter diagnosis) Comment: Pt previously seen for migraine headaches located to either R or L posterior head with radiation throughout R and L hemicrania and associated with n/v and photo/phonophobia. Previous CT unremarkable. She was started on Topamax 25mg as headache preventative with goal to increase to 50mg once daily. She was also started on Maxalt as migraine abortive. At time of appointment today, she reports roughly 3-4 migraines per month with a decrease in severity and duration; no change in AVELAR characteristics. She denies SE with Tpx. She reports no improvement in migraines with use of rizatriptan. Will adjust medications as noted below. -Increase Topamax to 50mg daily at bedtime. -Discontinue Maxalt and instead begin Nurtec 75mg once every 24 hours as needed as migraine abortive (given failure of rizatriptan and sumatriptan). [facility] 02-16-2025 Note HNO ID: [id number] Author: EMELIA SIDDIQUI APRN.SECURITY SOFTWARE ENGINEER Service: ? Author Type: Nurse Practitioner Type: Progress Notes Filed: 02/16/2025 13:30 Note Text: VIRTUAL VISIT PROGRESS NOTE This is a virtual visit using [employer] Video Visit. It required patient-provider interaction for the medical decision making as documented below. I have communicated my name and active licensure. The patient's identity and physical location were verified at the time of this visit. Either the patient or their legal patient relations representative has been informed of the risks and benefits of -- and alternatives to -- treatment through a remote evaluation and consents to proceed with the evaluation remotely. CHIEF COMPLAINT: Patient here today for Rash. I reviewed past medical, surgical, social, and family histories today and updated chart. Allergies, chronic medications, and supplements were also reviewed. Patient states she developed a rash (bullseye) to her left upper arm approximately 3 and a half weeks ago. She doesn't recall seeing a tick on her but [place] area and spend a lot of time outside. She was seen in an urgent care and was started on Doxycycline for 2 weeks. She thinks she had significant sun sensitivity while taking it and developed a burn-like rash to her right hand. She does report fatigue but denies fevers, headaches, joint pain. She is inquiring about lab work to test for Lyme's disease. PAST MEDICAL HISTORY Diagnosis Date Asthma (HCC) EXERCISE INDUCED, NO INHALER SINCE AGE 13 Endometrioid adenofibroma PAKO (generalized anxiety disorder) 06/26/2022 PAST SURGICAL HISTORY Procedure Laterality Date APPENDECTOMY 2010 Social History Tobacco Use Smoking status: Former Current packs/day: 0.00 Average packs/day: 0.3 packs/day for 3.0 years (0.8 ttl pk-yrs) Types: Cigarettes Start date: 09/18/2009 Quit date: 09/18/2012 Years since quittin.4 Smokeless tobacco: Never Vaping Use Vaping status: Never Used Substance Use Topics Alcohol use: Yes Alcohol/week: 2.0 standard drinks of alcohol Types: 2 Cans of Beer (12oz) per week Comment: social Drug use: Never ALLERGIES Allergen Reactions Bees Rash Chest pains, facial swelling Droperidol Dystonia Family History Problem Relation Age of Onset other (epilepsy) Mother Alcohol/Drug Father Hypertension Father Hyperlipidemia Father Stroke Maternal Grandmother Cancer Paternal Grandmother LUNG Emphysema Paternal Grandfather Current Outpatient Medications Medication Sig Dispense Refill rimegepant (NURTEC ODT) 75 mg disintegrating tablet Take 1 tablet by mouth as directed. 8 tablet 5 topiramate (TOPAMAX) 25 mg tablet Take 1 tablet by mouth daily at bedtime. 30 tablet 2 FLUoxetine (PROZAC) 40 mg capsule Take 1 capsule by mouth once daily. 90 capsule 1 fluticasone (FLOVENT) 44 mcg/actuation inhaler INHALE 1 PUFF INSTRUCTED TWO TIMES A DAY. SHAKE WELL BEFORE USE. RINSE MOUTH AFTER USE. 3 Each 2 hydrOXYzine pamoate (VISTARIL) 25 mg capsule Take 1-2 capsules by mouth three times a day as needed. 30 capsule 2 ondansetron (ZOFRAN) 4 mg tablet Take 1 tablet by mouth every 8 hours as needed for nausea/vomiting. 12 tablet 0 EPINEPHrine (EPIPEN) 0.3 mg/0.3 mL auto-injector Inject 0.3 mL intramuscularly as needed. Inject full content of the syringe. 2 Each 0 No current facility-administered medications for this visit. Review of Systems Constitutional: Positive for fatigue. Negative for chills, diaphoresis and fever. Respiratory: Negative for chest tightness and shortness of breath. Cardiovascular: Negative for chest pain and palpitations. Skin: Positive for rash (left upper arm). Neurological: Negative for dizziness, light-headedness and headaches. LMP 01/20/2025 Physical Exam Vitals and nursing note reviewed. Constitutional: Appearance: Normal appearance. Skin: Neurological: Mental Status: She is alert and oriented to person, place, and time. ASSESSMENT/PLAN: 1. Erythema migrans - ICD9: 529.1, ICD10: K14.1 - Rash resolving, after discussing with patient will test for Lyme and CBC. F/U as needed. - Discussed decreasing tick exposure - LYME AB LATE >30 DAYS SYMPTOMS - COMPLETE BLOOD COUNT AND DIFFERENTIAL New medication(s) prescribed today: None. Copy of written care plan, clinical summary, treatment plan, new medications, goals, and self management requirements were given to patient. Emelia Siddiqui APRN.[facility] 02-16-2025 History of Present illness Narrative Images from the original note were not included. VIRTUAL VISIT PROGRESS NOTE This is a virtual visit using [employer] Video Visit. It required patient-provider interaction for the medical decision making as documented below. I have communicated my name and active licensure. The patient's identity and physical location were verified at the time of this visit. Either the patient or their legal patient relations representative has been informed of the risks and benefits of -- and alternatives to -- treatment through a remote evaluation and consents to proceed with the evaluation remotely. CHIEF COMPLAINT: Patient here today for Rash. I reviewed past medical, surgical, social, and family histories today and updated chart. Allergies, chronic medications, and supplements were also reviewed. Patient states she developed a rash (bullseye) to her left upper arm approximately 3 and a half weeks ago. She doesn't recall seeing a tick on her but they live by [place] area and spend a lot of time outside. She was seen in an urgent care and was started on Doxycycline for 2 weeks. She thinks she had significant sun sensitivity while taking it and developed a burn-like rash to her right hand. She does report fatigue but denies fevers, headaches, joint pain. She is inquiring about lab work to test for Lyme's disease. PAST MEDICAL HISTORY Diagnosis Date Asthma (HCC) EXERCISE INDUCED, NO INHALER SINCE AGE 13 Endometrioid adenofibroma PAKO (generalized anxiety disorder) 06/26/2022 PAST SURGICAL HISTORY Procedure Laterality Date APPENDECTOMY 2010 Social History Tobacco Use Smoking status: Former Current packs/day: 0.00 Average packs/day: 0.3 packs/day for 3.0 years (0.8 ttl pk-yrs) Types: Cigarettes Start date: 09/18/2009 Quit date: 09/18/2012 Years since quittin.4 Smokeless tobacco: Never Vaping Use Vaping status: Never Used Substance Use Topics Alcohol use: Yes Alcohol/week: 2.0 standard drinks of alcohol Types: 2 Cans of Beer (12oz) per week Comment: social Drug use: Never ALLERGIES Allergen Reactions Bees Rash Chest pains, facial swelling Droperidol Dystonia Family History Problem Relation Age of Onset other (epilepsy) Mother Alcohol/Drug Father Hypertension Father Hyperlipidemia Father Stroke Maternal Grandmother Cancer Paternal Grandmother LUNG Emphysema Paternal Grandfather Current Outpatient Medications Medication Sig Dispense Refill rimegepant (NURTEC ODT) 75 mg disintegrating tablet Take 1 tablet by mouth as directed. 8 tablet 5 topiramate (TOPAMAX) 25 mg tablet Take 1 tablet by mouth daily at bedtime. 30 tablet 2 FLUoxetine (PROZAC) 40 mg capsule Take 1 capsule by mouth once daily. 90 capsule 1 fluticasone (FLOVENT) 44 mcg/actuation inhaler INHALE 1 PUFF INSTRUCTED TWO TIMES A DAY. SHAKE WELL BEFORE USE. RINSE MOUTH AFTER USE. 3 Each 2 hydrOXYzine pamoate (VISTARIL) 25 mg capsule Take 1-2 capsules by mouth three times a day as needed. 30 capsule 2 ondansetron (ZOFRAN) 4 mg tablet Take 1 tablet by mouth every 8 hours as needed for nausea/vomiting. 12 tablet 0 EPINEPHrine (EPIPEN) 0.3 mg/0.3 mL auto-injector Inject 0.3 mL intramuscularly as needed. Inject full content of the syringe. 2 Each 0 No current facility-administered medications for this visit. Review of Systems Constitutional: Positive for fatigue. Negative for chills, diaphoresis and fever. Respiratory: Negative for chest tightness and shortness of breath. Cardiovascular: Negative for chest pain and palpitations. Skin: Positive for rash (left upper arm). Neurological: Negative for dizziness, light-headedness and headaches. LMP 01/20/2025 Physical Exam Vitals and nursing note reviewed. Constitutional: Appearance: Normal appearance. Skin: Neurological: Mental Status: She is alert and oriented to person, place, and time. ASSESSMENT/PLAN: 1. Erythema migrans - ICD9: 529.1, ICD10: K14.1 - Rash resolving, after discussing with patient will test for Lyme and CBC. F/U as needed. - Discussed decreasing tick exposure - LYME AB LATE >30 DAYS SYMPTOMS - COMPLETE BLOOD COUNT AND DIFFERENTIAL New medication(s) prescribed today: None. Copy of written care plan, clinical summary, treatment plan, new medications, goals, and self management requirements were given to patient. Emelia Siddiqui APRN.[facility] documented in this encounter [facility] 02-03-2025 Telephone encounter Note Patient notified. Helen Hammer MA [facility] 02-03-2025 Miscellaneous Notes Patient notified. Helen Hammer MA Yes its from the doxycycline, it can make you very sun sensitive. I recommend avoiding too much sun exposure - especially between 10 am and 2 pm Wear hat, loose clothing that provides coverage SPF at least 50 She can try OTC steroid cream for the burn, cold compresses, plenty of fluids. Samantha Pt. Lm on vm stating she was at urgent care 01/12/2025 for tic bite. They prescribed her doxycyline. She is in [place] and is in the sun. She states she is burnt and is swollen. Wants to know if it is from doxy and wants to know what she can do for the burn. Pt. States she still has a few more days left to take it. Please advise. Helen Hammer MA documented in this encounter [facility] 02-03-2025 Telephone encounter Note Yes its from the doxycycline, it can make you very sun sensitive. I recommend avoiding too much sun exposure - especially between 10 am and 2 pm Wear hat, loose clothing that provides coverage SPF at least 50 She can try OTC steroid cream for the burn, cold compresses, plenty of fluids. Samantha T [facility] 02-03-2025 Telephone encounter Note Pt. Lm on vm stating she was at urgent care 01/12/2025 for tic bite. They prescribed her doxycyline. She is in [place] and is in the sun. She states she is burnt and is swollen. Wants to know if it is from doxy and wants to know what she can do for the burn. Pt. States she still has a few more days left to take it. Please advise. Helen Hammer MA T [facility] 01-22-2025 Note HNO ID: [id number] Author: LUIS ANEGL HALL PA Service: ? Author Type: Physician Fruit Buyer Type: Progress Notes Filed: 01/22/2025 13:27 Note Text: [facility] Subjective Ana Aragon is a 34 year old female. Patient presents with: Insect Bites AND Stings: Entered by patient Trauma: Left upper arm, redness, warmth, swelling, increasing in size, unsure of what insectx 2 days HPI Rash: - Rash onset 3 days ago, progressively enlarging. - circled the rash with a pen on Saturday night; noted to have spread by the next day. - Rash is tender and slightly pruritic. - [place] area; denies seeing a tick attached. - Children have had multiple tick exposures. - Denies or . PAST MEDICAL HISTORY Diagnosis Date Asthma (HCC) EXERCISE INDUCED, NO INHALER SINCE AGE 13 Endometrioid adenofibroma PAKO (generalized anxiety disorder) 06/26/2022 PAST SURGICAL HISTORY Procedure Laterality Date APPENDECTOMY 2010 ALLERGIES Bees and Droperidol MEDICATIONS rimegepant (NURTEC ODT) 75 mg disintegrating tablet Take 1 tablet by mouth as directed. topiramate (TOPAMAX) 25 mg tablet Take 1 tablet by mouth daily at bedtime. FLUoxetine (PROZAC) 40 mg capsule Take 1 capsule by mouth once daily. fluticasone (FLOVENT) 44 mcg/actuation inhaler INHALE 1 PUFF INSTRUCTED TWO TIMES A DAY. SHAKE WELL BEFORE USE. RINSE MOUTH AFTER USE. hydrOXYzine pamoate (VISTARIL) 25 mg capsule Take 1-2 capsules by mouth three times a day as needed. ondansetron (ZOFRAN) 4 mg tablet Take 1 tablet by mouth every 8 hours as needed for nausea/vomiting. EPINEPHrine (EPIPEN) 0.3 mg/0.3 mL auto-injector Inject 0.3 mL intramuscularly as needed. Inject full content of the syringe. doxycycline hyclate (VIBRAMYCIN) 100 mg capsule Take 1 capsule by mouth two times a day for 14 days. FAMILY HISTORY Problem Relation Age of Onset other (epilepsy) Mother Alcohol/Drug Father Hypertension Father Hyperlipidemia Father Stroke Maternal Grandmother Cancer Paternal Grandmother LUNG Emphysema Paternal Grandfather Social History Tobacco Use Smoking status: Former Current packs/day: 0.00 Average packs/day: 0.3 packs/day for 3.0 years (0.8 ttl pk-yrs) Types: Cigarettes Start date: 09/18/2009 Quit date: 09/18/2012 Years since quittin.3 Smokeless tobacco: Never Vaping Use Vaping status: Never Used Substance Use Topics Alcohol use: Yes Alcohol/week: 2.0 standard drinks of alcohol Types: 2 Cans of Beer (12oz) per week Comment: social Drug use: Never Review of Systems Skin: (+) rash, (+) pruritus, (+) skin tenderness Objective BP 109/75 Pulse 80 Temp 36.1 ?C (97 ?F) Resp 18 Wt 69 kg (152 lb 1.9 oz) LMP 01/20/2025 (Exact Date) SpO2 100% BMI 25.31 kg/m? Physical Exam Vitals and nursing note reviewed. Constitutional: General: She is not in acute distress. Appearance: Normal appearance. She is not toxic-appearing. HENT: Mouth/Throat: Mouth: Mucous membranes are moist. Cardiovascular: Rate and Rhythm: Normal rate and regular rhythm. Pulmonary: Effort: Pulmonary effort is normal. Breath sounds: Normal breath sounds. Skin: General: Skin is warm and dry. Findings: Erythema and rash present. Comments: Approximately 3 cm x 3 cm round erythematous area of left upper arm/deltoid region. Small amount of central clearing starting. No lymphatic streaking. No abscess. No fluctuance Neurological: Mental Status: She is alert. General: No acute distress. Skin: Erythematous rash with central clearing, resembling a bullseye pattern. {1. Rash (R21) - Erythematous, slightly pruritic rash with central clearing, resembling erythema migrans. - Differential diagnosis includes Lyme disease and cellulitis. - Initiated doxycycline BID for 14 days; prescription sent to [facility] pharmacy. - Advised to complete the full course of antibiotics. - Educated on monitoring for systemic symptoms such as fever, myalgias, or cephalgia. - Instructed to return for evaluation if symptoms persist or worsen. Recording using [employer] software for draft documentation of the visit was discussed with the patient/authorized patient relations representative; all questions welcomed and answered. Patient/authorized patient relations representative agreed to proceed History and Record Review External record(s) reviewed: prior outpatient record. Differential Diagnoses - Rash, suspect erythema migrans is more likely for the following reason(s): suggested by HANDP Disposition The patient was discharged. Procedures [facility] 01-22-2025 History of Present illness Narrative Images from the original note were not included. [facility] Subjective Ana Aragon is a 34 year old female. Patient presents with: Insect Bites & Stings: Entered by patient Trauma: Left upper arm, redness, warmth, swelling, increasing in size, unsure of what insectx 2 days HPI Rash: - Rash onset 3 days ago, progressively enlarging. - circled the rash with a pen on Saturday night; noted to have spread by the next day. - Rash is tender and slightly pruritic. - [place] area; denies seeing a tick attached. - Children have had multiple tick exposures. - Denies or . PAST MEDICAL HISTORY Diagnosis Date Asthma (HCC) EXERCISE INDUCED, NO INHALER SINCE AGE 13 Endometrioid adenofibroma PAKO (generalized anxiety disorder) 06/26/2022 PAST SURGICAL HISTORY Procedure Laterality Date APPENDECTOMY 2010 ALLERGIES Bees and Droperidol MEDICATIONS rimegepant (NURTEC ODT) 75 mg disintegrating tablet Take 1 tablet by mouth as directed. topiramate (TOPAMAX) 25 mg tablet Take 1 tablet by mouth daily at bedtime. FLUoxetine (PROZAC) 40 mg capsule Take 1 capsule by mouth once daily. fluticasone (FLOVENT) 44 mcg/actuation inhaler INHALE 1 PUFF INSTRUCTED TWO TIMES A DAY. SHAKE WELL BEFORE USE. RINSE MOUTH AFTER USE. hydrOXYzine pamoate (VISTARIL) 25 mg capsule Take 1-2 capsules by mouth three times a day as needed. ondansetron (ZOFRAN) 4 mg tablet Take 1 tablet by mouth every 8 hours as needed for nausea/vomiting. EPINEPHrine (EPIPEN) 0.3 mg/0.3 mL auto-injector Inject 0.3 mL intramuscularly as needed. Inject full content of the syringe. doxycycline hyclate (VIBRAMYCIN) 100 mg capsule Take 1 capsule by mouth two times a day for 14 days. FAMILY HISTORY Problem Relation Age of Onset other (epilepsy) Mother Alcohol/Drug Father Hypertension Father Hyperlipidemia Father Stroke Maternal Grandmother Cancer Paternal Grandmother LUNG Emphysema Paternal Grandfather Social History Tobacco Use Smoking status: Former Current packs/day: 0.00 Average packs/day: 0.3 packs/day for 3.0 years (0.8 ttl pk-yrs) Types: Cigarettes Start date: 09/18/2009 Quit date: 09/18/2012 Years since quittin.3 Smokeless tobacco: Never Vaping Use Vaping status: Never Used Substance Use Topics Alcohol use: Yes Alcohol/week: 2.0 standard drinks of alcohol Types: 2 Cans of Beer (12oz) per week Comment: social Drug use: Never Review of Systems Skin: (+) rash, (+) pruritus, (+) skin tenderness Objective BP 109/75 Pulse 80 Temp 36.1 C (97 F) Resp 18 Wt 69 kg (152 lb 1.9 oz) LMP 01/20/2025 (Exact Date) SpO2 100% BMI 25.31 kg/m Physical Exam Vitals and nursing note reviewed. Constitutional: General: She is not in acute distress. Appearance: Normal appearance. She is not toxic-appearing. HENT: Mouth/Throat: Mouth: Mucous membranes are moist. Cardiovascular: Rate and Rhythm: Normal rate and regular rhythm. Pulmonary: Effort: Pulmonary effort is normal. Breath sounds: Normal breath sounds. Skin: General: Skin is warm and dry. Findings: Erythema and rash present. Comments: Approximately 3 cm x 3 cm round erythematous area of left upper arm/deltoid region. Small amount of central clearing starting. No lymphatic streaking. No abscess. No fluctuance Neurological: Mental Status: She is alert. General: No acute distress. Skin: Erythematous rash with central clearing, resembling a bullseye pattern. {1. Rash (R21) - Erythematous, slightly pruritic rash with central clearing, resembling erythema migrans. - Differential diagnosis includes Lyme disease and cellulitis. - Initiated doxycycline BID for 14 days; prescription sent to [facility] pharmacy. - Advised to complete the full course of antibiotics. - Educated on monitoring for systemic symptoms such as fever, myalgias, or cephalgia. - Instructed to return for evaluation if symptoms persist or worsen. Recording using [employer] software for draft documentation of the visit was discussed with the patient/authorized patient relations representative; all questions welcomed and answered. Patient/authorized patient relations representative agreed to proceed History and Record Review External record(s) reviewed: prior outpatient record. Differential Diagnoses - Rash, suspect erythema migrans is more likely for the following reason(s): suggested by H&P Disposition The patient was discharged. Procedures documented in this encounter [facility] 01-20-2025 History of Present illness Narrative Images from the original note were not included. [facility] Follow-up Visit Follow-up note This visit was conducted via virtual platform. I have communicated my name and active licensure. The patient's identity and physical location were verified at the time of this visit. Either the patient or their legal patient relations representative has been informed of the risks and benefits of -- and alternatives to -- treatment through a remote evaluation and consents to proceed with the evaluation remotely. January 20, 2025 HPI: Ms. Aragon presents today for a follow-up visit. Per her previous visit on 10/20/24: G43.009 Migraine without aura and without status migrainosus, not intractable (primary encounter diagnosis) Comment: Pt presenting today for headaches. She reports a history of headaches since age 18. Headaches are located to either R or L posterior head with radiation throughout R and L hemicrania. Headaches are associated with n/v, photo/phonophobia. She denies aura, autonomic features, exertional or positional component. Headaches occur roughly 2-5 times per month and last 2-7 days. Recent headache persisted for 6 days at which time she was evaluated in the ED. CT brain unremarkable. AVELAR improved after discharge. She is currently taking fluoxetine but not on a medication for headache prevention. She has taken Imitrex in the past without relief of headaches. She continues to take OTC Excedrin as needed. Headaches consistent with migraine without aura. After discussion regarding medications will proceed with plan below. -Begin Topamax 25mg daily at bedtime. Increase to 50mg daily at bedtime after two weeks if no SE. SE reviewed. -Begin Maxalt 10mg as needed at onset of migraine. Can repeat dose after two hours if migraine persists. She should not take more than two tablets in 24 hours and recommend using no more than 3 days per week. Follow up in three months or sooner should new or changing symptoms occur. Headaches have gotten better. Feels Topamax has helped a lot. Going away faster than before. Generally less severe. She did not increase to 50mg. Has had roughly three to four migraines per month. No SE with Tpx. The headache prior to her menstrual cycle was more severe. Does not find much relief with the rizatriptan. No SE. No change in headache characteristics. No renal stone. No stroke/TIA. No new neurological concerns. PAST MEDICAL HISTORY Diagnosis Date Asthma (HCC) EXERCISE INDUCED, NO INHALER SINCE AGE 13 Endometrioid adenofibroma PAKO (generalized anxiety disorder) 06/26/2022 PAST SURGICAL HISTORY Procedure Laterality Date APPENDECTOMY 2010 Current Outpatient Medications on File Prior to Visit Medication Sig topiramate (TOPAMAX) 25 mg tablet Take 1 tablet by mouth daily at bedtime. FLUoxetine (PROZAC) 40 mg capsule Take 1 capsule by mouth once daily. rizatriptan (MAXALT) 10 mg tablet Take 1 tablet by mouth as needed (at onset of headache. May repeat after 2 hours.). Do not exceed 30 mg per day. fluticasone (FLOVENT) 44 mcg/actuation inhaler INHALE 1 PUFF INSTRUCTED TWO TIMES A DAY. SHAKE WELL BEFORE USE. RINSE MOUTH AFTER USE. hydrOXYzine pamoate (VISTARIL) 25 mg capsule Take 1-2 capsules by mouth three times a day as needed. ondansetron (ZOFRAN) 4 mg tablet Take 1 tablet by mouth every 8 hours as needed for nausea/vomiting. EPINEPHrine (EPIPEN) 0.3 mg/0.3 mL auto-injector Inject 0.3 mL intramuscularly as needed. Inject full content of the syringe. No current facility-administered medications on file prior to visit. Social History Tobacco Use Smoking status: Former Current packs/day: 0.00 Average packs/day: 0.3 packs/day for 3.0 years (0.8 ttl pk-yrs) Types: Cigarettes Start date: 09/18/2009 Quit date: 09/18/2012 Years since quittin.3 Smokeless tobacco: Never Vaping Use Vaping status: Never Used Substance Use Topics Alcohol use: Yes Alcohol/week: 2.0 standard drinks of alcohol Types: 2 Cans of Beer (12oz) per week Comment: social Drug use: Never ALLERGIES Allergen Reactions Bees Rash Chest pains, facial swelling Droperidol Dystonia Review of Systems: Cardiopulmonary: denies chest pain, palpitations Respiratory: denies shortness of breath GI/: denies recent nausea, vomiting, diarrhea, constipation, incontinence Musculoskeletal: denies weakness, joint ache/pain Back/spine: denies low back or cervical pains Neuro: denies tremors, loss of feeling, dizziness, seizure, blackout, paresthesia, facial paresthesia, facial weakness, difficulty in speech, slurring of words, dysarthria, dysphagia, memory loss, headache, vision changes, loss of hearing Physical Exam: There were no vitals filed for this visit. Patient is alert and in no distress. Dress is appropriate. Mood is appropriate Breathing appears regular and unstressed Neurologic examination: Exam is observational at best. General Appearance: well appearing, in no acute distress Mental status evaluation during the interview and examination showed normal level of consciousness, orientation, language, memory, praxis, and higher intellectual function Affect: Normal Speech: normal Cranial Nerves: III, IV, -EOMI: full. VII-face is symmetric without evidence of weakness. VIII-hearing intact. XII-tongue protrudes midline with normal movements. Labs/studies: CT Brain Report CT BRAIN WO IVCON Exam End: 10/07/2024 5:51 PM (Final result) Narrative: * * *Final Report* * * DATE OF EXAM: Oct 07 2024 5:51PM [facility] [id number] IVCON / PROCEDURE REASON: Headache, sudden, severe * * * * Physician Interpretation * * * * EXAMINATION: CT BRAIN WO IVCON CLINICAL HISTORY: Sudden headache TECHNIQUE: Serial axial images without IV contrast were obtained from the vertex to the foramen magnum. MQ: CTBWO_3 CT Radiation dose: Integrated Dose-Length Product (DLP) for this visit = 778 mGy*cm CT Dose Reduction Employed: Automated exposure control(AEC) and iterative recon COMPARISON: None. RESULT: Post-operative change: None. Acute change: No evidence of an acute infarct or other acute parenchymal process. Hemorrhage: No evidence of acute intracranial hemorrhage. ECASS hemorrhagic transformation score: Not Applicable Mass Lesion / Mass Effect: There is no evidence of an intracranial mass or extraaxial fluid collection. No significant mass effect. Chronic change: None apparent. Parenchyma: There is no significant volume loss. The brain parenchyma is otherwise within normal limits for age. Ventricles: The ventricles are within normal limits of size and configuration for age. Paranasal sinuses and skull base: Mild mucoperiosteal thickening in the left sphenoid sinus. The skull base and imaged soft tissues are unremarkable. Localizer images: No additional findings. Impression: IMPRESSION: No evidence of acute intracranial abnormality. Cut Out Worker: ANTONIA Transcribe Date/Time: Oct 07 2024 6:08P Dictated by : JOE HENSON MD This examination was interpreted and the report reviewed and electronically signed by: JOE HENSON MD on Oct 07 2024 6:12PM EST Assessment/Plan: G43.009 Migraine without aura and without status migrainosus, not intractable (primary encounter diagnosis) Comment: Pt previously seen for migraine headaches located to either R or L posterior head with radiation throughout R and L hemicrania and associated with n/v and photo/phonophobia. Previous CT unremarkable. She was started on Topamax 25mg as headache preventative with goal to increase to 50mg once daily. She was also started on Maxalt as migraine abortive. At time of appointment today, she reports roughly 3-4 migraines per month with a decrease in severity and duration; no change in AVELAR characteristics. She denies SE with Tpx. She reports no improvement in migraines with use of rizatriptan. Will adjust medications as noted below. -Increase Topamax to 50mg daily at bedtime. -Discontinue Maxalt and instead begin Nurtec 75mg once every 24 hours as needed as migraine abortive (given failure of rizatriptan and sumatriptan). Previous/Current Headache treatment Preventative: Fluoxetine- current Sertraline- past Magnesium glycinate- current (6 months) Topamax- current CANNOT TAKE BB D/T ASTHMA Rescue: Imitrex- ineffective Excedrin- some days helps but other times does not Maxalt- ineffective Nurtec- ordered/current No orders found for this visit on 01/20/25. Emili Mendoza APRN.CNP I spent a total of 15 minutes on the date of the service which included preparing to see the patient, [id number] patient care, completing clinical documentation, obtaining and/or reviewing separately obtained history, performing a medically appropriate examination, counseling and educating the patient/family/caregiver, and ordering medications, tests, or procedures. This patient arrived 19 minutes late for a 30 minute established patient appointment. In accordance with previous stated direction from leadership, the patient was seen for assessment of urgent issues but a full neurologic consultation could not be performed in the time allotted. documented in this encounter [facility] 01-20-2025 Note HNO ID: [id number] Author: EMILI MENDOZA APRN.CNP Service: ? Author Type: Nurse Practitioner Type: Progress Notes Filed: 01/20/2025 12:07 Note Text: [facility] [place] Follow-up Visit Follow-up note This visit was conducted via virtual platform. I have communicated my name and active licensure. The patient's identity and physical location were verified at the time of this visit. Either the patient or their legal patient relations representative has been informed of the risks and benefits of -- and alternatives to -- treatment through a remote evaluation and consents to proceed with the evaluation remotely. January 20, 2025 HPI: Ms. Aragon presents today for a follow-up visit. Per her previous visit on 10/20/24: G43.009 Migraine without aura and without status migrainosus, not intractable (primary encounter diagnosis) Comment: Pt presenting today for headaches. She reports a history of headaches since age 18. Headaches are located to either R or L posterior head with radiation throughout R and L hemicrania. Headaches are associated with n/v, photo/phonophobia. She denies aura, autonomic features, exertional or positional component. Headaches occur roughly 2-5 times per month and last 2-7 days. Recent headache persisted for 6 days at which time she was evaluated in the ED. CT brain unremarkable. AVELAR improved after discharge. She is currently taking fluoxetine but not on a medication for headache prevention. She has taken Imitrex in the past without relief of headaches. She continues to take OTC Excedrin as needed. Headaches consistent with migraine without aura. After discussion regarding medications will proceed with plan below. -Begin Topamax 25mg daily at bedtime. Increase to 50mg daily at bedtime after two weeks if no SE. SE reviewed. -Begin Maxalt 10mg as needed at onset of migraine. Can repeat dose after two hours if migraine persists. She should not take more than two tablets in 24 hours and recommend using no more than 3 days per week. Follow up in three months or sooner should new or changing symptoms occur. Headaches have gotten better. Feels Topamax has helped a lot. Going away faster than before. Generally less severe. She did not increase to 50mg. Has had roughly three to four migraines per month. No SE with Tpx. The headache prior to her menstrual cycle was more severe. Does not find much relief with the rizatriptan. No SE. No change in headache characteristics. No renal stone. No stroke/TIA. No new neurological concerns. PAST MEDICAL HISTORY Diagnosis Date Asthma (HCC) EXERCISE INDUCED, NO INHALER SINCE AGE 13 Endometrioid adenofibroma PAKO (generalized anxiety disorder) 06/26/2022 PAST SURGICAL HISTORY Procedure Laterality Date APPENDECTOMY 2010 Current Outpatient Medications on File Prior to Visit Medication Sig topiramate (TOPAMAX) 25 mg tablet Take 1 tablet by mouth daily at bedtime. FLUoxetine (PROZAC) 40 mg capsule Take 1 capsule by mouth once daily. rizatriptan (MAXALT) 10 mg tablet Take 1 tablet by mouth as needed (at onset of headache. May repeat after 2 hours.). Do not exceed 30 mg per day. fluticasone (FLOVENT) 44 mcg/actuation inhaler INHALE 1 PUFF INSTRUCTED TWO TIMES A DAY. SHAKE WELL BEFORE USE. RINSE MOUTH AFTER USE. hydrOXYzine pamoate (VISTARIL) 25 mg capsule Take 1-2 capsules by mouth three times a day as needed. ondansetron (ZOFRAN) 4 mg tablet Take 1 tablet by mouth every 8 hours as needed for nausea/vomiting. EPINEPHrine (EPIPEN) 0.3 mg/0.3 mL auto-injector Inject 0.3 mL intramuscularly as needed. Inject full content of the syringe. No current facility-administered medications on file prior to visit. Social History Tobacco Use Smoking status: Former Current packs/day: 0.00 Average packs/day: 0.3 packs/day for 3.0 years (0.8 ttl pk-yrs) Types: Cigarettes Start date: 09/18/2009 Quit date: 09/18/2012 Years since quittin.3 Smokeless tobacco: Never Vaping Use Vaping status: Never Used Substance Use Topics Alcohol use: Yes Alcohol/week: 2.0 standard drinks of alcohol Types: 2 Cans of Beer (12oz) per week Comment: social Drug use: Never ALLERGIES Allergen Reactions Bees Rash Chest pains, facial swelling Droperidol Dystonia Review of Systems: Cardiopulmonary: denies chest pain, palpitations Respiratory: denies shortness of breath GI/: denies recent nausea, vomiting, diarrhea, constipation, incontinence Musculoskeletal: denies weakness, joint ache/pain Back/spine: denies low back or cervical pains Neuro: denies tremors, loss of feeling, dizziness, seizure, blackout, paresthesia, facial paresthesia, facial weakness, difficulty in speech, slurring of words, dysarthria, dysphagia, memory loss, headache, vision changes, loss of hearing Physical Exam: There were no vitals filed for this visit. Patient is alert and in no distress. Dress is appropriate. Mood is appropriate (more content not included)... [facility] 12-09-2024 Telephone encounter Note Pharmacy verified in [email or web address]. Patient has been identified by name and date of : Yes Patient aware RX will be sent to pharmacy. No need to notify patient. Pharmacy phones for refill(s): Requested Prescriptions Pending Prescriptions Disp Refills topiramate (TOPAMAX) 25 mg tablet 30 tablet 2 Sig: Take 1 tablet by mouth daily at bedtime. Date of last office visit : 10/20/2024 Date of next office visit : Visit date not found Last 2 Encounter Wt Readings: Date: Wt: 10/07/2024 72.1 kg (159 lb) 10/06/2024 72.2 kg (159 lb 2.8 oz) Please advise. Kalyn Padilla MA [facility] 12-09-2024 Miscellaneous Notes Pharmacy verified in [email or web address]. Patient has been identified by name and date of : Yes Patient aware RX will be sent to pharmacy. No need to notify patient. Pharmacy phones for refill(s): Requested Prescriptions Pending Prescriptions Disp Refills topiramate (TOPAMAX) 25 mg tablet 30 tablet 2 Sig: Take 1 tablet by mouth daily at bedtime. Date of last office visit : 10/20/2024 Date of next office visit : Visit date not found Last 2 Encounter Wt Readings: Date: Wt: 10/07/2024 72.1 kg (159 lb) 10/06/2024 72.2 kg (159 lb 2.8 oz) Please advise. Kalyn Padilla MA documented in this encounter [facility] 11-16-2024 Telephone encounter Note patient electronically requesting refills as follows: Last seen 08/25/24 [facility] . Last refill 01/13/24 . Requested Prescriptions Pending Prescriptions Disp Refills FLUoxetine (PROZAC) 40 mg capsule 90 capsule 1 Sig: Take 1 capsule by mouth once daily. Please review and advise. Sharla Whittaker MA [facility] 11-16-2024 Miscellaneous Notes patient electronically requesting refills as follows: Last seen 08/25/24 [facility] . Last refill 01/13/24 . Requested Prescriptions Pending Prescriptions Disp Refills FLUoxetine (PROZAC) 40 mg capsule 90 capsule 1 Sig: Take 1 capsule by mouth once daily. Please review and advise. Sharla Whittaker MA documented in this encounter [facility] 10-20-2024 Instructions Emili Mendoza APRN.SECURITY SOFTWARE ENGINEER - 10/20/2024 8:33 AM EDT -Start Topamax 25mg tablet once daily at bedtime for two weeks. Increase to two tablets after two weeks if no side effects. Headache Preventive Treatment: Please keep in mind that it takes 4-6 weeks for the medication to start working well and 2-3 months at the appropriate dose before deciding if it will be useful or not. If it is not helping at all by this time, then we will discuss other medications to try. Supplements may take 3-6 months until you see full effect. Natural supplements: Magnesium Oxide 500 mg at bed Coenzyme Q10 300 mg in AM Vitamin B2- 200 mg twice a day Feverfew 50 mg twice a day Vitamins and herbs that show potential Magnesium: Magnesium (250 mg twice a day or 500 mg at bed) has a relaxant effect on smooth muscles such as blood vessels. Individuals suffering from frequent or daily headache usually have low magnesium levels which can be increase with daily supplementation of 400-750 mg. Three trials found 40-90% average headache reduction when used as a preventative. Magnesium also demonstrated the benefit in menstrually related migraine. Magnesium is part of the messenger system in the serotonin cascade and it is a good muscle relaxant. It is also useful for constipation which can be a side effect of other medications used to treat migraine. Good sources include nuts, whole grains, and tomatoes. Riboflavin (vitamin B 2) 200 mg twice a day. This vitamin assists nerve cells in the production of ATP a principal energy storing molecule. It is necessary for many chemical reactions in the body. There have been at least 3 clinical trials of riboflavin using 400 mg per day all of which suggested that migraine frequency can be decreased. All 3 trials showed significant improvement in over half of migraine sufferers. The supplement is found in bread, cereal, milk, meat, and poultry. Most Americans get more riboflavin than the recommended daily allowance, however riboflavin deficiency is not necessary for the supplements to help prevent headache. Feverfew: Feverfew is a common garden herb [place] to [place] and popular in [place] as a treatment for disorders typically controlled by aspirin. The mechanism of action is unknown but is believed to be related to a chemical called parthenolide which helps the body use serotonin more effectively. Serotonin helps prevent migraine and assists with resolution when it occurs. Parthenolide also inhibits the release of histamine which is linked to pain and inflammation. Consistency of active ingredients in different products can be a problem. Some formulations don't have the active ingredient (parthenolide) that prevents migraine. A parthenolide content of 0.2% is generally recommended. Typical dosage is one capsule 3 times a day. Coenzyme Q10: This is present in almost all cells in the body and is critical component for the conversion of energy. Recent studies have shown that a nutritional supplement of CoQ10 can reduce the frequency of migraine attacks by improving the energy production of cells as with riboflavin. Doses of 150 mg twice a day have been shown to be effective. Melatonin: Increasing evidence shows correlation between melatonin secretion and headache conditions. Melatonin supplementation has decreased headache intensity and duration. It is widely used as a sleep aid. Sleep is natures way of dealing with migraine. A dose of 3 mg is recommended to start for headaches including cluster headache. Higher doses up to 15 mg has been reviewed for use in Cluster headache and have been used. The rationale behind using melatonin for cluster is that many theories regarding the cause of Cluster headache center around the disruption of the normal circadian rhythm in the brain. This helps restore the normal circadian rhythm. Lana: Lana has a small amount of antihistamine and anti-inflammatory action which may help headache. It is primarily used for nausea and may aid in the absorption of other medications. HEADACHE DIET: Foods and beverages which may trigger migraine Note that only 20% of headache patients are food sensitive. You will know if you are food sensitive if you get a headache consistently 20 minutes to 2 hours after eating a certain food. Only cut out a food if it causes headaches, otherwise you might remove foods you enjoy! What matters most for diet is to eat a well balanced healthy diet full of vegetables and low fat protein, and to not miss meals. Chocolate, other sweets ALL cheeses except cottage and cream cheese Dairy products, yogurt, sour cream, ice cream Liver Meat extracts (Bovril, Marmite, meat tenderizers) Meats or fish which have undergone aging, fermenting, pickling or smoking. These include: Hotdogs,salami,Lox,sausage, mortadellas,smoked salmon, pepperoni, Pickled bergeron Pods of broad tripathi (Vincentian beans, Slovenian pea pods, [place] Islander (esthela) beans, alexander and navy beans Ripe avocado, ripe banana Yeast extracts or active yeast preparations such as Maria's or Gilbert's (commercial bakes goods are permitted) Tomato based foods, pizza (lasagna, etc.) MSG (monosodium glutamate) is disguised as many things; look for these common aliases: Monopotassium glutamate Autolysed yeast Hydrolysed protein Sodium caseinate flavorings all natural preservatives Nutrasweet Avoid all other foods that convincingly provoke headaches. Headache Prevention Strategies: 1. Maintain a headache diary; learn to identify and avoid triggers. Common triggers include: Emotional triggers: Emotional/Upset family or friends Emotional/Upset occupation Business reversal/success Anticipation anxiety Crisis-serious Post-crisis periodNew job/position Physical triggers: Vacation Day Weekend Strenuous Exercise High Altitude Location New Move Day Physical Illness Oversleep/Not enough sleep Weather changes Light: Photophobia or light sesnitivity treatment involves a balance between desensitization and reduction in overly strong input. Use dark polarized glasses outside, but not inside. Avoid bright or fluorescent light, but do not dim environment to the point that going into a normally lit room hurts. Consider FL-41 tint lenses, which reduce the most irritating wavelengths without blocking too much light. These can be obtained at [employer] or [employer] Foods: see list above. 2. Limit use of acute treatments (mqmu-rzm-glebbpf medications, triptans, etc.) to no more than 2 days per week or 10 days per month to prevent medication overuse headache (rebound headache). 3. Follow a regular schedule (including weekends and holidays): Don't skip meals. Eat a balanced diet. 8 hours of sleep nightly. Minimize stress. Exercise 30 minutes per day. Being overweight is associated with a 5 times increased risk of chronic migraine. Keep well hydrated and drink 6-8 glasses of water per day. 4. Initiate non-pharmacologic measures at the earliest onset of your headache. Rest and quiet environment. Relax and reduce stress. [employer] is a free hunter that can instruct you on some simple relaxtion and breathing techniques. Http://[employer] is a free website that provides teaching videos on relaxation. Also, there are many apps that can be downloaded for mindful relaxation. An hunter called YOGA NIDRA will help walk you through mindfulness. Cold compresses. 5. Don't wait!! Take prescribed medication at the first sign of migraine. 6. Compliance: Take prescribed medication regularly as directed and at the first sign of a migraine. 7. Communicate: Call your physician when problems arise, especially if your headaches change, increase in frequency/severity, or become associated with neurological symptoms (weakness, numbness, slurred speech, etc.). 8. Headache/pain management therapies: Consider various complementary methods, including medication, behavioral therapy, psychological counselling, biofeedback, massage therapy, acupuncture, dry needling, and other modalities. Such measures may reduce the need for medications. Counseling for pain management, where patients learn to function and ignore/minimize their pain, seems to work very well. 9. Recommend changing family's attention and focus away from patient's headaches. Instead, emphasize daily activities. If first question of day is 'How are your headaches/Do you have a headache today?', then patient will constantly think about headaches, thus making them worse. Goal is to re-direct attention away from headaches, toward daily activities and other distractions. 10. Helpful Websites: www.AmericanHeadacheSociety.org www.migrainetrust.org www.headaches.org www.migraine.org.uk www.achenet.org 11. HEADACHE EXPECTATIONS: There are many types of headaches, and only a rare few in which complete relief can be expected. In general, there is no cure for headache, especially migraine based headaches. There is nothing available that completely prevents headaches from occurring, breaking through, or having periodic flare-ups and fluctuations. Regardless of what you are using on a daily basis for prevention, episodic headaches should still be expected, and periods where frequency may escalate and fluctuate are unavoidable. There is no quick fix for most headaches. Furthermore, the longer you have had high frequency headaches (such as chronic daily headache), the longer it will likely take to expect any improvement. In fact, some people will never improve, regardless of how many medications or other treatments we try. Our treatment strategy is to evaluate for possible causes of your headache, although testing is usually always normal, even in cases of daily continuous headaches for years. Most types of headache such as migraine are electrical brain disorders (similar to how epilepsy is an electrical brain disorders). Therefore, there is no testing that will reveal this dysfunctional electrical circuitry such on MRI, or other testing. We try to find a medication that may help lessen the frequency and/or severity of your headaches. The goal is not to completely stop them from happening, although if that happens, great! Different people respond to different medications, and some people just don't respond to anything, so it's usually a matter of trying different options. We can not predict if or when exactly you will respond to a treatment that we provide. Preventive headache medications take 4-6 weeks to start working, and 2-3 months to see full effect, assuming you reach an effective dose. Therefore, calling or messaging frequently because you have a headache flare prior to the 3 month yocasta is unlikely to change anything, and unfortunately there is nothing available that will expedite this, so please try to avoid this. Our recommendation will generally be to give it adequate time first. In general, the best that preventive medications or other treatments (including Botox) are able to offer in migraine management (variable in other headache types) is a 50% improvement in frequency and/or severity of headache. That is our goal, and any additional benefit is considered a bonus. Some people do significantly better than this, others do not get close to this. Therefore, if your headaches are not improving by at least 3 months on your preventive strategy, contact us and we can discuss further adjustments. Keep in mind that complete headache cure is not a realistic expectation. MyChart: Please ask the schedulers to give you an activation code. The main way of communication is by [employer] rather than phone lines, so if you have not signed up, please do so. [employer] is also the way that you can review your labs and testing. We are not able to contact everyone to tell them results are normal. If you do not hear back from us regarding testing you have had, it should be considered normal or within normal range. If you have any questions about the results, you are free to message us. MyChart is meant for simple questions regarding medications, possible side effects, or other simple straight forward questions in limited sentences, rather than multiple paragraphs of discussion. MyChart is not meant for, or efficient for these complex questions, extensive questions, extensive medication adjustments, complex new symptoms or concerns. These issues beyond simple questions require a follow up visit with myself, one of our physician assistants, nurse practitioners, or a Virtual Visit via computer or smart phone, as detailed further down. Refills: Please pay attention to when your refills will need to be renewed. Due to the volume of phone calls daily, this could potentially take a few days, although we certainly try to honor your refill requests as soon as we can. You should call at least 1 week in advance of needing a refill to ensure you do not run out of medication. Keep in mind that refill requests on Fridays may not be filled until the following week. documented in this encounter [facility] 10-20-2024 History of Present illness Narrative Images from the original note were not included. [facility] [place] New Patient Evaluation This visit was conducted via virtual platform. I have communicated my name and active licensure. The patient's identity and physical location were verified at the time of this visit. Either the patient or their legal patient relations representative has been informed of the risks and benefits of -- and alternatives to -- treatment through a remote evaluation and consents to proceed with the evaluation remotely. CHIEF COMPLAINT: Migraines Ana Aragon is a 34 year old accompanied by self. Consult was requested by self for an opinion regarding above CC. My final impression and recommendations will be communicated back to the requesting physician by way of the shared medical record or fax. October 20, 2024 HPI: Ms. Aragon presents today secondary to issues of headache. Went to the ED x2 d/t ongoing AVELAR recently. AVELAR started to resolve after second ED visit. Before she went to the ED tried drinking water and was sick vomiting. Could not stop vomiting. Per ED note on 10/07/24: 34-year-old female PMH asthma, PAKO, migraines presents today for headache. Patient arrived hemodynamically stable, saturating well on room air and no acute distress. Patient was neurovascularly intact on arrival. Patient afebrile and overall nontoxic-appearing. Patient treated symptomatically with IV migraine cocktail. Patient was noted to have dystonic reaction likely from droperidol. Patient treated with Benadryl with improvement. Patient monitored in the department. CT head negative. On reevaluation, patient states that her headache had improved and was nearly resolved. She is requesting to be discharged. States that she felt much better at this time. She was able to ambulate and tolerate p.o. in the department. Patient was encouraged to follow-up with neurology. Referral request was placed. She was told return immediately if she develops any nausea, vomiting, unable to tolerate food or water, worsening headaches, vision changes, blurry vision, difficulty ambulating, focal weakness or numbness. Patient verbalized understanding. Patient discharged home. Patient is comfortable to plan at this time. Had reaction to droperidol; took steroid and Benadryl for this. Has had to go to the ED in the past for a AVELAR. Migraine HPI HEADACHE LOCATION: can be posterior. Normally worse on R. Can vary side to side. Spread to whole head. Neck pain? Yes with headaches. Onset: Headaches began around age 18 Quality: throbbing Photophobia? Yes Phonophobia? Yes Nausea? Yes Vomitting? Yes Aura? How long? No None Worse with activity? Yes Severe? 7/10 -- usually less severe Frequency: 2-5 times a month Duration? 2 days to 5-7 days Autonomic features: None Autonomic headache features -: none Tinnitus? No Positional? No - lies in dark room with heavy eye pad Double vision? Yes - with recent headache but not normally Visual obscurations? Yes -blurred Worse with valsalva/sneeze/cough? No Caffeine intake? Ally, 1/day Water intake? Eight or more 8 ounce glasses daily. Alcohol? Rare Tobacco? No Drug use? No Triggers? Menstrual cycle, weather changing from hot to cold Sleep concerns? No; in school and has three kids Mood concerns? Yes; anxiety History of concussion? No Plans for /current BC? No/no plans. No current BC. Family Hx of migraines, aneurysms, brain tumors: Mother with migraines; no aneurysm/brain tumor Ophthalmology: Last summer Renal stone No, cardiovascular disease/arrhythmia No, cerebrovascular disease (TIA/stroke) No Only takes hydroxyzine prn; does not have current prescription. Previous/Current Headache treatment Preventative: Fluoxetine- current Sertraline- past Magnesium glycinate- current (6 months) CANNOT TAKE BB D/T ASTHMA Rescue: Imitrex- does not help (took two hours later without relief) Excedrin- some days helps but other times does not # of doses of abortive medications per month: > or = 10 days/month (or 8 for opiates, 5 for barbiturates) Medication Overuse Headache concern? No In school for sonography; last week. PAST MEDICAL HISTORY Diagnosis Date Asthma EXERCISE INDUCED, NO INHALER SINCE AGE 13 Endometrioid adenofibroma PAKO (generalized anxiety disorder) 06/26/2022 PAST SURGICAL HISTORY Procedure Laterality Date APPENDECTOMY 2010 Current Outpatient Medications on File Prior to Visit Medication Sig cephALEXin (KEFLEX) 500 mg capsule Take 1 capsule by mouth three times a day for 7 days. phenazopyridine (PYRIDIUM) 100 mg tablet Take 1 tablet by mouth three times a day as needed. FLUoxetine (PROZAC) 40 mg capsule take 1 capsule by mouth every day fluticasone (FLOVENT) 44 mcg/actuation inhaler INHALE 1 PUFF INSTRUCTED TWO TIMES A DAY. SHAKE WELL BEFORE USE. RINSE MOUTH AFTER USE. albuterol HFA (PROVENTIL HFA, VENTOLIN HFA) 90 mcg/actuation inhaler Inhale 2 Puffs as instructed every 4 hours as needed. SUMAtriptan (IMITREX) 25 mg tablet TAKE 1 TABLET BY MOUTH NEEDED FOR MIGRAINE HEADACHE . MAY REPEAT AFTER 2 HOURS. hydrOXYzine pamoate (VISTARIL) 25 mg capsule Take 1-2 capsules by mouth three times a day as needed. ondansetron (ZOFRAN) 4 mg tablet Take 1 tablet by mouth every 8 hours as needed for nausea/vomiting. EPINEPHrine (EPIPEN) 0.3 mg/0.3 mL auto-injector Inject 0.3 mL intramuscularly as needed. Inject full content of the syringe. dicyclomine (BENTYL) 10 mg capsule Take 1 capsule by mouth three times daily as needed. No current facility-administered medications on file prior to visit. Social History Tobacco Use Smoking status: Former Current packs/day: 0.00 Average packs/day: 0.3 packs/day for 3.0 years (0.8 ttl pk-yrs) Types: Cigarettes Start date: 09/18/2009 Quit date: 09/18/2012 Years since quittin.0 Smokeless tobacco: Never Vaping Use Vaping status: Never Used Substance Use Topics Alcohol use: Yes Alcohol/week: 2.0 standard drinks of alcohol Types: 2 Cans of Beer (12oz) per week Comment: social Drug use: Never ALLERGIES Allergen Reactions Bees Rash Chest pains, facial swelling Droperidol Dystonia Review of Systems: ENT: denies loss of hearing, vertigo Cardiopulmonary: denies chest pain, palpitations Respiratory: denies shortness of breath GI: denies recent diarrhea, constipation : denies incontinence Musculoskeletal: denies weakness Neuro: denies tremors, loss of feeling, dizziness, seizure, blackout, paresthesia, facial paresthesia, facial weakness, difficulty in speech, slurring of words, dysarthria, dysphagia, + headache Physical Exam: 10/20/24 0841 BP: 105/70 Pulse: 71 SpO2: 98% Patient is alert and in no distress. Dress is appropriate. Mood is appropriate Breathing appears regular and unstressed Neurologic examination: Cognitively intact. No deficits. No formal MOCA performed. CN: Pupils equal and reactive to light, extraocular movements intact with no nystagmus, face is symmetric with no facial droop, facial sensation intact bilaterally to light touch. V1-3, hearing intact bilaterally, symmetric evaluation of the soft palate, tongue is midline with no deviation, shoulder shrug is symmetric. Motor Examination: Right Upper Extremity: (of 5) Left Upper Extremity: (of 5) Shoulder Abduction: Deltoid (Ax/C5) 5 Shoulder Abduction 5 Elbow Flexion: Biceps (MC/R and C5/6) 5 Elbow Flexion 5 Elbow Extension: Triceps (R/C7) 5 Elbow Extension 5 Wrist Flexion (M/U and C6/7) 5 Wrist Flexion 5 Wrist Extension (R/C6) 5 Wrist Extension 5 Finger Abduction (U/T1) 5 Finger Abduction 5 Magnetic Healer 5 Magnetic Healer 5 Right Lower Extremity: (of 5) Left Lower Extremity: (of 5) Hip Flexion: Iliopsoas (F and L1/2) 5 Hip Flexion 5 Knee Extension: Quadriceps (F and L3/4) 5 Knee Extension 5 Knee Flexion: Hamstrings (S/S1) 5 Knee Flexion 5 Dorsiflexion: Tibialis Anterior (DP and L4/5) 5 Dorsiflexion 5 Plantarflexion: Gastrocnemius/Soleus (T and S1/2) 5 Plantarflexion 5 Reflexes: Right Extremities Left Extremities: Triceps (C7-8R) 2 Triceps 2 Biceps (C5-6MC) 2 Biceps 2 Brachioradialis (C5-6R) 2 Brachioradialis 2 Patellar (L3-4F) 2+ Patellar 2+ Achilles (S1-2S) 2 Achilles 2 Ankle Clonus: negative bilaterally Flores's: negative bilaterally Sensory Intact to light touch upper and lower extremities bilaterally Temperature: intact in all extremities Normal toe and finger vibratory sensation No pain with palpation over bilateral temporal and occipital region. Labs/studies: CT Brain Report CT BRAIN WO IVCON Exam End: 10/07/2024 5:51 PM (Final result) Narrative: * * *Final Report* * * DATE OF EXAM: Oct 07 2024 5:51PM [facility] [place] / PROCEDURE REASON: Headache, sudden, severe * * * * Physician Interpretation * * * * EXAMINATION: CT BRAIN WO IVCON CLINICAL HISTORY: Sudden headache TECHNIQUE: Serial axial images without IV contrast were obtained from the vertex to the foramen magnum. MQ: [id number] CT Radiation dose: Integrated Dose-Length Product (DLP) for this visit = 778 mGy*cm CT Dose Reduction Employed: Automated exposure control(AEC) and iterative recon COMPARISON: None. RESULT: Post-operative change: None. Acute change: No evidence of an acute infarct or other acute parenchymal process. Hemorrhage: No evidence of acute intracranial hemorrhage. ECASS hemorrhagic transformation score: Not Applicable Mass Lesion / Mass Effect: There is no evidence of an intracranial mass or extraaxial fluid collection. No significant mass effect. Chronic change: None apparent. Parenchyma: There is no significant volume loss. The brain parenchyma is otherwise within normal limits for age. Ventricles: The ventricles are within normal limits of size and configuration for age. Paranasal sinuses and skull base: Mild mucoperiosteal thickening in the left sphenoid sinus. The skull base and imaged soft tissues are unremarkable. Localizer images: No additional findings. Impression: IMPRESSION: No evidence of acute intracranial abnormality. Cut Out Worker: PSCTricia Transcribe Date/Time: Oct 07 2024 6:08P Dictated by : JOE HENSON MD This examination was interpreted and the report reviewed and electronically signed by: JOE HENSON MD on Oct 07 2024 6:12PM EST Assessment/Plan: G43.009 Migraine without aura and without status migrainosus, not intractable (primary encounter diagnosis) Comment: Pt presenting today for headaches. She reports a history of headaches since age 18. Headaches are located to either R or L posterior head with radiation throughout R and L hemicrania. Headaches are associated with n/v, photo/phonophobia. She denies aura, autonomic features, exertional or positional component. Headaches occur roughly 2-5 times per month and last 2-7 days. Recent headache persisted for 6 days at which time she was evaluated in the ED. CT brain unremarkable. AVELAR improved after discharge. She is currently taking fluoxetine but not on a medication for headache prevention. She has taken Imitrex in the past without relief of headaches. She continues to take OTC Excedrin as needed. Headaches consistent with migraine without aura. After discussion regarding medications will proceed with plan below. -Begin Topamax 25mg daily at bedtime. Increase to 50mg daily at bedtime after two weeks if no SE. SE reviewed. -Begin Maxalt 10mg as needed at onset of migraine. Can repeat dose after two hours if migraine persists. She should not take more than two tablets in 24 hours and recommend using no more than 3 days per week. Follow up in three months or sooner should new or changing symptoms occur. No orders found for this visit on 10/20/24. Emili Mendoza APRN.KAY I spent a total of 45 minutes on the date of the service which included preparing to see the patient, [id number] patient care, completing clinical documentation, obtaining and/or reviewing separately obtained history, performing a medically appropriate examination, counseling and educating the patient/family/caregiver, and ordering medications, tests, or procedures. Portions of this note were created with electronic dictation and errors in spelling, syntax, and meaning may have occurred. documented in this encounter [facility] 10-20-2024 Note HNO ID: [id number] Author: MEILI MENDOZA APRN.CNP Service: ? Author Type: Nurse Practitioner Type: Progress Notes Filed: 10/20/2024 10:10 Note Text: [facility] Neurologic [place] New Patient Evaluation This visit was conducted via virtual platform. I have communicated my name and active licensure. The patient's identity and physical location were verified at the time of this visit. Either the patient or their legal patient relations representative has been informed of the risks and benefits of -- and alternatives to -- treatment through a remote evaluation and consents to proceed with the evaluation remotely. CHIEF COMPLAINT: Migraines Ana Aragon is a 34 year old accompanied by self. Consult was requested by self for an opinion regarding above CC. My final impression and recommendations will be communicated back to the requesting physician by way of the shared medical record or fax. October 20, 2024 HPI: Ms. Aragon presents today secondary to issues of headache. Went to the ED x2 d/t ongoing AVELAR recently. AVELAR started to resolve after second ED visit. Before she went to the ED tried drinking water and was sick vomiting. Could not stop vomiting. Per ED note on 10/07/24: 34-year-old female PMH asthma, PAKO, migraines presents today for headache. Patient arrived hemodynamically stable, saturating well on room air and no acute distress. Patient was neurovascularly intact on arrival. Patient afebrile and overall nontoxic-appearing. Patient treated symptomatically with IV migraine cocktail. Patient was noted to have dystonic reaction likely from droperidol. Patient treated with Benadryl with improvement. Patient monitored in the department. CT head negative. On reevaluation, patient states that her headache had improved and was nearly resolved. She is requesting to be discharged. States that she felt much better at this time. She was able to ambulate and tolerate p.o. in the department. Patient was encouraged to follow-up with neurology. Referral request was placed. She was told return immediately if she develops any nausea, vomiting, unable to tolerate food or water, worsening headaches, vision changes, blurry vision, difficulty ambulating, focal weakness or numbness. Patient verbalized understanding. Patient discharged home. Patient is comfortable to plan at this time. Had reaction to droperidol; took steroid and Benadryl for this. Has had to go to the ED in the past for a AVELAR. Migraine HPI HEADACHE LOCATION: can be posterior. Normally worse on R. Can vary side to side. Spread to whole head. Neck pain? Yes with headaches. Onset: Headaches began around age 18 Quality: throbbing Photophobia? Yes Phonophobia? Yes Nausea? Yes Vomitting? Yes Aura? How long? No None Worse with activity? Yes Severe? 7/10 -- usually less severe Frequency: 2-5 times a month Duration? 2 days to 5-7 days Autonomic features: None Autonomic headache features -: none Tinnitus? No Positional? No - lies in dark room with heavy eye pad Double vision? Yes - with recent headache but not normally Visual obscurations? Yes -blurred Worse with valsalva/sneeze/cough? No Caffeine intake? Ally, 1/day Water intake? Eight or more 8 ounce glasses daily. Alcohol? Rare Tobacco? No Drug use? No Triggers? Menstrual cycle, weather changing from hot to cold Sleep concerns? No; in school and has three kids Mood concerns? Yes; anxiety History of concussion? No Plans for /current BC? No/no plans. No current BC. Family Hx of migraines, aneurysms, brain tumors: Mother with migraines; no aneurysm/brain tumor Ophthalmology: Last summer Renal stone No, cardiovascular disease/arrhythmia No, cerebrovascular disease (TIA/stroke) No Only takes hydroxyzine prn; does not have current prescription. Previous/Current Headache treatment Preventative: Fluoxetine- current Sertraline- past Magnesium glycinate- current (6 months) CANNOT TAKE BB D/T ASTHMA Rescue: Imitrex- does not help (took two hours later without relief) Excedrin- some days helps but other times does not # of doses of abortive medications per month: > or = 10 days/month (or 8 for opiates, 5 for barbiturates) Medication Overuse Headache concern? No In school for sonography; last week. PAST MEDICAL HISTORY Diagnosis Date Asthma EXERCISE INDUCED, NO INHALER SINCE AGE 13 Endometrioid adenofibroma PAKO (generalized anxiety disorder) 06/26/2022 PAST SURGICAL HISTORY Procedure Laterality Date APPENDECTOMY 2010 Current Outpatient Medications on File Prior to Visit Medication Sig cephALEXin (KEFLEX) 500 mg capsule Take 1 capsule by mouth three times a day for 7 days. phenazopyridine (PYRIDIUM) 100 mg tablet Take 1 tablet by mouth three times a day as needed. FLUoxetine (PROZAC) 40 mg capsule take 1 capsule by mouth every day fluticasone (FLOVENT) 44 mcg/actuation inhaler INHALE 1 PUFF INSTRUCTE (more content not included)... [facility] 10-16-2024 Note HNO ID: [id number] Author: HANANE TONY LPN Service: ? Author Type: LICENSED NURSE Type: Progress Notes Filed: 10/16/2024 10:29 Note Text: ED Follow-Up Note Provider Action / FYI: Call completed by: ADRIANE Patient seen in ED: In Network ED Contact made with Patient: No, left message. Hanane Tony LPN October 16, 2024 10:29 AM [facility] 10-09-2024 Note HNO ID: [id number] Author: HANANE TONY LPN Service: ? Author Type: LICENSED NURSE Type: Progress Notes Filed: 10/09/2024 10:11 Note Text: ED Follow-Up Note Provider Action / FYI: Call completed by: ADRIANE Patient seen in ED: In Network ED Contact made with Patient: No, left message. Hanane Tony LPN October 09, 2024 10:11 AM [facility] 10-09-2024 History of Present illness Narrative ED Follow-Up Note Provider Action / FYI: Call completed by: ADRIANE Patient seen in ED: In Network ED Contact made with Patient: No, left message. Hanane Tony LPN October 09, 2024 10:11 AM documented in this encounter [facility] 10-09-2024 Note Patient Outreach (AG FAMPLE) -------- ANA ARAGON ([id number]) 1990 F Date Time Provider Department 10/09/24 EMELIA SIDDIQUI During your visit today, we recorded the following information about you: Hanane Tony LPN 10/09/2024 10:11 AM Signed ED Follow-Up Note Provider Action / FYI: Call completed by: ADRIANE Patient seen in ED: In Network ED Contact made with Patient: No, left message. Hanane Tony LPN October 09, 2024 10:11 AM Hanane Tony LPN 10/16/2024 10:29 AM Signed ED Follow-Up Note Provider Action / FYI: Call completed by: ADRIANE Patient seen in ED: In Network ED Contact made with Patient: No, left message. Hanane Tony LPN October 16, 2024 10:29 AM Allergies As of Date: 10/09/2024 Noted Allergy Reaction BEES 05/13/2018 2 - Rash Comments: Chest pains, facial swelling DROPERIDOL 10/07/2024 13 - Dystonia Date Reviewed: 10/07/2024 Reviewed by: Tiny Núñez RN - Fully Assessed Reason for Visit: ED Follow-up [821] Cmt: [place] [facility] 10/06/2024 and [place] [facility] 10/07/2024 Prescriptions as of 10/16/2024 - phenazopyridine (PYRIDIUM) 100 mg tablet Take 1 tablet by mouth three times a day as needed. - FLUoxetine (PROZAC) 40 mg capsule take 1 capsule by mouth every day - fluticasone (FLOVENT) 44 mcg/actuation inhaler INHALE 1 PUFF INSTRUCTED TWO TIMES A DAY. SHAKE WELL BEFORE USE. RINSE MOUTH AFTER USE. - albuterol HFA (PROVENTIL HFA, VENTOLIN HFA) 90 mcg/actuation inhaler Inhale 2 Puffs as instructed every 4 hours as needed. - SUMAtriptan (IMITREX) 25 mg tablet TAKE 1 TABLET BY MOUTH NEEDED FOR MIGRAINE HEADACHE . MAY REPEAT AFTER 2 HOURS. - hydrOXYzine pamoate (VISTARIL) 25 mg capsule Take 1-2 capsules by mouth three times a day as needed. - ondansetron (ZOFRAN) 4 mg tablet Take 1 tablet by mouth every 8 hours as needed for nausea/vomiting. - EPINEPHrine (EPIPEN) 0.3 mg/0.3 mL auto-injector Inject 0.3 mL intramuscularly as needed. Inject full content of the syringe. - dicyclomine (BENTYL) 10 mg capsule Take 1 capsule by mouth three times daily as needed. Problem List As Of Date 10/09/2024 Noted Resolved History of asthma [Z87.09] 10/09/2012 10/24/2012 Quit smoking [Z87.891] 10/09/2012 08/04/2013 Family history of defects [Z82.79] 10/09/2012 08/04/2013 Patient requested diagnostic testing [Z01.89] 10/09/2012 08/04/2013 Supervision of normal first [Z34.00] 11/24/2012 07/03/2013 Supervision of other normal , antepart*03/01/2015 12/29/2015 control [[id number]] 05/19/2015 06/26/2022 PAKO (generalized anxiety disorder) [F41.1] 06/26/2022 Recurrent upper respiratory infection (URI) [J0*07/16/2022 Recurrent cough [R05.8] 07/16/2022 Encounter Status:Closed by HANANE TONY on 10/09/24 [facility] 10-08-2024 Miscellaneous Notes No Show Documentation Ana Aragon no showed for an appointment on 10/08/2024 with Al Palacios APRN.KAY at 7:00 am Virtual appointment. She was scheduled for Emergency Room follow up for migraines. I called and was unable to reach the patient regarding her missed appointment. Resources discussed/offered to patient: na No show determined to be fault of patient: Yes This is the patients third no show in the last 12 months. Patient was rescheduled for na. Letter sent thru MyChart : Yes Is this the Third or Fourth No Show? No Elenita Brady October 08, 2024 7:36 AM documented in this encounter [facility] 10-08-2024 Telephone encounter Note No Show Documentation Ana Aragon no showed for an appointment on 10/08/2024 with Al Palacios APRN.SECURITY SOFTWARE ENGINEER at 7:00 am Virtual appointment. She was scheduled for Emergency Room follow up for migraines. I called and was unable to reach the patient regarding her missed appointment. Resources discussed/offered to patient: na No show determined to be fault of patient: Yes This is the patients third no show in the last 12 months. Patient was rescheduled for na. Letter sent thru MyChart : Yes Is this the Third or Fourth No Show? No Elenita Brady October 08, 2024 7:36 AM [facility] 10-07-2024 Telephone encounter Note Patient called and left a message stating she would like to schedule a virtual ER follow up appt with PCP Susy Granado MA [facility] 10-07-2024 Miscellaneous Notes Patient called and left a message stating she would like to schedule a virtual ER follow up appt with PCP Susy Granado MA documented in this encounter [facility] 10-06-2024 Note SARS-COV-2 (AGENT OF COVID-19) RNA: Not detected INFLUENZA A RNA: Not detected INFLUENZA B RNA: Not detected RESPIRATORY SYNCYTIAL VIRUS (RSV) RNA: Not detected [facility] Comment on above: Performed By: #### 9 [id number] ####[facility] [id number] [place] [address] [facility] 08-27-2024 Note HNO ID: [id number] Author: EMELIA SIDDIQUI APRN.KAY Service: ? Author Type: Nurse Practitioner Type: Progress Notes Filed: 08/27/2024 12:37 Note Text: Patient disconnected from visit before provider got on. Tried calling the patient and left voicemail. She did call back once and I returned her call but still unable to make contact. Will reschedule visit. [facility] 08-27-2024 History of Present illness Narrative Patient disconnected from visit before provider got on. Tried calling the patient and left voicemail. She did call back once and I returned her call but still unable to make contact. Will reschedule visit. documented in this encounter [facility] 08-25-2024 Instructions Emelia Siddiqui APRN.CNP - 08/25/2024 12:01 PM EST Yumiko Almaraz CNP [place] [phone] Appointment:[phone] documented in this encounter [facility] 05-29-2024 Telephone encounter Note Patient received her my chart message. Helen Hammer MA [facility] 05-29-2024 Miscellaneous Notes Patient received her my chart message. Helen Hammer MA Urine culture grew E.coli so I am going to start her on Macrobid for 7 days. documented in this encounter [facility] 05-29-2024 Telephone encounter Note Urine culture grew E.coli so I am going to start her on Macrobid for 7 days. [facility] 05-26-2024 Instructions Emelia Siddiqui APRN.CNP - 05/26/2024 3:22 PM EDT Urinary Tract Infections The urinary tract makes and stores urine, one of the body's liquid waste products. The urinary tract includes the following parts: Kidneys, which produce urine by removing waste and water from the blood Ureters, the tubes that carry urine from the kidneys to the bladder Bladder, the sac-like container for storing urine Urethra, the tube that carries urine from the bladder to outside of the body What is a urinary tract infection? Normal urine contains no bacteria (germs). Sometimes, however, bacteria from outside the body get into the urinary tract, and cause infection and inflammation. This is a urinary tract infection. The infection can involve the urethra (a condition called urethritis), kidneys (a condition called pyelonephritis) or bladder, (a condition called cystitis). Cystitis is the most common type of urinary tract infection. What are the symptoms of a urinary tract infection? A urinary tract infection causes the lining of the urinary tract to become red and irritated, which may produce some of the following symptoms: Pain in the flank (side), abdomen or pelvic area Pressure in the lower pelvis Frequent need to urinate (frequency) Painful urination (dysuria) Urgent need to urinate (urgency) Incontinence (urine leakage) The need to urinate at night Abnormal urine color (cloudy urine) Blood in the urine Strong or foul-smelling urine Other symptoms that may be associated with a urinary tract infection include: Pain during sex Penis pain Flank (side of the body) pain Fatigue Fever (temperature above 100oF) Chills Vomiting Mental changes or confusion What causes a urinary tract infection? Urinary tract infections are caused by microorganisms--usually bacteria--that enter the urethra and bladder, causing inflammation and infection. The bacteria also may travel up the ureters and infect the kidneys. More than 90 percent of cystitis cases are caused by E. coli, a bacterium normally found in the intestines. How common are urinary tract infections? Urinary tract infections are very common, occurring in 1 out of 5 women sometime in their lifetime. One to 2% of children develop urinary tract infections. Each year, 8 million to 10 million visits to doctors are for urinary tract infections. Who gets urinary tract infections? Anyone can get a urinary tract infection, but they are more common in women. This is because the urethra in females is shorter and closer to the anus, where E. coli bacteria are common. Older adults also are at higher risk for developing cystitis. This increased risk may be due to incomplete emptying of the bladder related to various medical conditions, including an enlarged prostate or a bladder prolapse (i.e., falling down or slipping of the bladder from its usual position). If you get frequent urinary tract infections, your doctor may do tests to check for other health problems--such as diabetes or an abnormal urinary system--that may be contributing to your infections. How are urinary tract infections diagnosed? Your doctor will use the following tests to diagnose a urinary tract infection: Urinalysis to examine the urine for red blood cells, white blood cells and bacteria (The number of white and red blood cells can indicate an infection.) Urine culture to determine the type of bacteria in the urine. This is important to help determine the appropriate treatment. If your infection does not respond to treatment or if you get repeated infections, your doctor may use the following tests to examine your urinary tract for disease or injury: Intravenous pyelogram (IVP), a series of X-rays of the bladder, kidneys and ureters after a special dye is injected (The dye helps the structures to show up better on the X-ray.) Ultrasound, a test that uses sound waves to form images of internal organs Cystoscopy, a test that uses a special instrument fitted with a lens and a light source (cystoscope) to see inside the bladder from the urethra CT scan, a type of X-ray that takes cross sections of the body (like slices) - much more precise than typical X-rays How are urinary tract infections treated? Antibiotics, medicines that kill the bacteria, are used to treat urinary tract infections. Your doctor will choose a drug that best treats the bacteria causing your infection. Commonly used antibiotics include: Nitrofurantoin Sulfonamides (sulfa drugs) Amoxicillin Cephalosporins Trimethoprim/sulfamethoxazole (Bactrim ) Doxycycline Quinolones (such as ciprofloxacin [Cipro ]) It is very important that you follow your doctor's directions for taking the medicine. Do not stop taking the antibiotic because your symptoms go away and you start feeling better. If you have a history of frequent urinary tract infections, you may be given a prescription for antibiotics that you would take at the first onset of symptoms. Other patients may be given antibiotics to take every day, every other day, or after sexual intercourse to prevent the infection. If the infection is not treated completely with the full course of antibiotics, it can return. What are the complications of a urinary tract infection? A urinary tract infection that is not treated can lead to a more serious infection of the kidneys. Can urinary tract infections be prevented? There are some steps you can take to reduce your risk of developing a urinary tract infection: Follow good hygiene practices of the genital area (especially women). After a bowel movement, the genitals should be wiped from front to back to reduce the chance of dragging E. coli bacteria from the rectal area to the urethra. Urinate frequently. This flushes bacteria out of the bladder and may reduce the risk of cystitis in those who are prone to urinary tract infections. Drinking plenty of fluids encourages frequent urination. Avoid fluids and foods that irritate the bladder, such as alcohol, citrus juices, drinks containing caffeine and spicy foods. Also avoid smoking during this time. Urinate immediately before and after sex. This may help flush out bacteria that may have been introduced during intercourse. Wash the genital area with warm water before having sex. Apply an estrogen-containing vaginal cream in post-menopausal women to reduce the risk of a urinary tract infection. Your physician will decide with you if this is something that may benefit you. The estrogen cream changes the pH of the vagina to make one less susceptible to infections. Drink at least 6-8 glasses of water a day Don't douche Don't use feminine deodorants on your genital area Change tampons and feminine pads often Use a water-based lubricant during sex if you have vaginal dryness Check with your doctor if you think your diaphragm is causing infection Wear cotton underwear Take showers instead of baths Avoid tight-fitting clothing and pantyhose What is the prognosis (outlook) for a person with a urinary tract infection? While urinary tract infections may be uncomfortable, they generally respond well to treatment. When should I call my health care provider? Call your health care provider if you have symptoms of a urinary tract infection. Also call if you have been diagnosed with an infection and your symptoms get worse or you develop new symptoms, especially fever, back pain and vomiting. documented in this encounter [facility] 05-26-2024 History of Present illness Narrative CHIEF COMPLAINT: Ana Aragon is a 33 year old female who presents for UTI symptoms. I reviewed past medical, surgical, social, and family histories today and updated chart. Allergies, chronic medications, and supplements were also reviewed. Symptoms started yesterday Had burning and urgency yesterday Had burning and difficulty urinating today Trying to drink more fluids Had blood in her urine today No flank pain No fever, N/V The history is provided by the patient. UTI This is a new problem. The current episode started yesterday. The problem occurs every urination. The problem has not changed since onset.The quality of the pain is described as burning. The pain is at a severity of 5/10. The pain is moderate. There has been no fever. She is Sexually active. There is No history of pyelonephritis. Associated symptoms include frequency, hematuria and urgency. Pertinent negatives include no chills, no sweats and no flank pain. PAST MEDICAL HISTORY Diagnosis Date Asthma EXERCISE INDUCED, NO INHALER SINCE AGE 13 Endometrioid adenofibroma PAKO (generalized anxiety disorder) 06/26/2022 PAST SURGICAL HISTORY Procedure Laterality Date APPENDECTOMY 2010 Social History Tobacco Use Smoking status: Former Current packs/day: 0.00 Average packs/day: 0.3 packs/day for 3.0 years (0.8 ttl pk-yrs) Types: Cigarettes Start date: 09/18/2009 Quit date: 09/18/2012 Years since quittin.6 Smokeless tobacco: Never Vaping Use Vaping status: Never Used Substance Use Topics Alcohol use: Yes Alcohol/week: 2.0 standard drinks of alcohol Types: 2 Cans of Beer (12oz) per week Comment: social Drug use: Never ALLERGIES Allergen Reactions Bees Rash Chest pains, facial swelling Family History Problem Relation Age of Onset other (epilepsy) Mother Alcohol/Drug Father Hypertension Father Hyperlipidemia Father Stroke Maternal Grandmother Cancer Paternal Grandmother LUNG Emphysema Paternal Grandfather Current Outpatient Medications Medication Sig Dispense Refill FLUoxetine (PROZAC) 40 mg capsule take 1 capsule by mouth every day 90 capsule 1 fluticasone (FLOVENT) 44 mcg/actuation inhaler INHALE 1 PUFF INSTRUCTED TWO TIMES A DAY. SHAKE WELL BEFORE USE. RINSE MOUTH AFTER USE. 3 Each 2 albuterol HFA (PROVENTIL HFA, VENTOLIN HFA) 90 mcg/actuation inhaler Inhale 2 Puffs as instructed every 4 hours as needed. 1 Each 0 SUMAtriptan (IMITREX) 25 mg tablet TAKE 1 TABLET BY MOUTH NEEDED FOR MIGRAINE HEADACHE . MAY REPEAT AFTER 2 HOURS. 12 tablet 0 hydrOXYzine pamoate (VISTARIL) 25 mg capsule Take 1-2 capsules by mouth three times a day as needed. 30 capsule 2 ondansetron (ZOFRAN) 4 mg tablet Take 1 tablet by mouth every 8 hours as needed for nausea/vomiting. 12 tablet 0 EPINEPHrine (EPIPEN) 0.3 mg/0.3 mL auto-injector Inject 0.3 mL intramuscularly as needed. Inject full content of the syringe. 2 Each 0 dicyclomine (BENTYL) 10 mg capsule Take 1 capsule by mouth three times daily as needed. 30 capsule 0 phenazopyridine (PYRIDIUM) 100 mg tablet Take 1 tablet by mouth three times a day as needed. 6 tablet 0 No current facility-administered medications for this visit. Review of Systems Constitutional: Negative for chills, diaphoresis, fatigue and fever. Respiratory: Negative. Cardiovascular: Negative. Gastrointestinal: Negative. Genitourinary: Positive for difficulty urinating, dysuria, frequency, hematuria and urgency. Negative for flank pain, menstrual problem, vaginal bleeding, vaginal discharge and vaginal pain. Neurological: Negative. BP 112/68 Pulse 77 Temp 98.2 Resp 18 Ht 5' 5.25 (1.66m) Wt 150 lb (68.0kg) SpO2 97% LMP 11/21/2022 BMI 24.78 kg/(m^2). Physical Exam Vitals and nursing note reviewed. Constitutional: Appearance: Normal appearance. HENT: Mouth/Throat: Mouth: Mucous membranes are moist. Cardiovascular: Rate and Rhythm: Normal rate. Pulmonary: Effort: Pulmonary effort is normal. Abdominal: General: There is no distension. Tenderness: There is no abdominal tenderness. Skin: General: Skin is warm and dry. Neurological: Mental Status: She is alert and oriented to person, place, and time. Psychiatric: Mood and Affect: Mood normal. Behavior: Behavior is cooperative. Latest Ref Rng 05/26/2024 GLUCOSE UA (POCT) Negative mg/dL Negative BILIRUBIN UA (POCT) Negative Negative KETONE UA (POCT) Negative mg/dL Negative SPECIFIC GRAVITY UA (POCT) 1.005 - 1.030 1.010 HEMOGLOBIN/BLOOD UA (POCT) Negative Large ! PH UA (POCT) 4.5 - 8.0 7.0 PROTEIN UA (POCT) Negative mg/dL Negative UROBILINOGEN UA (POCT) Normal E.U./dL 0.2 NITRITE UA (POCT) Negative Negative LEUKOCYTES UA (POCT) Negative Small ! COLOR UA (POCT) Light yellow CLARITY UA (POCT) Clear Legend: ! Abnormal ASSESSMENT/PLAN: 1. Burning with urination - ICD9: 788.1, ICD10: R30.0 (primary diagnosis) acute - UA positive for ryan esterase and hematuria - Send urine for culture - Patient education for prevention given. Increase water intake. - UA DIP, URINE (POC) - URINE CULTURE - PHENAZOPYRIDINE 100 MG TABLET 2. Urinary urgency - ICD9: 788.63, ICD10: R39.15 - UA DIP, URINE (POC) - URINE CULTURE New medication(s) prescribed today: Yes: Pyridium. Discussed new medication dosage, usage, goals of therapy, and side effects. Patient has been apprised of any potential drug interactions to be aware of. Patient expresses understanding. Counseling completed in adopting health behaviors such as avoiding excessive alcohol use, avoid tobacco use, improve nutrition, and engage in physical activities. Copy of written care plan, clinical summary, treatment plan, new medications, goals, and self management requirements were given to patient. Emelia Siddiqui APRN.KAY documented in this encounter [facility] 05-25-2024 Telephone encounter Note No Show Documentation Ana Aragon no showed for an appointment on 05/25/2024 with Emelia Siddiqui APRN.CNP at 4:20 pm. She was scheduled for possible urinary tract infection. I called and left a message for the patient regarding her missed appointment, told her to call the office if she needs to schedule another appointment. Resources discussed/offered to patient: na No show determined to be fault of patient: Yes This is the patients third no show in the last 12 months. Patient was rescheduled for na. Letter sent thru MyChart: Yes Is this the Third or Fourth No Show? No Elenita Brady May 25, 2024 4:46 PM [facility] 05-25-2024 Miscellaneous Notes No Show Documentation Ana Aragon no showed for an appointment on 05/25/2024 with Emelia Siddiqui APRN.CNP at 4:20 pm. She was scheduled for possible urinary tract infection. I called and left a message for the patient regarding her missed appointment, told her to call the office if she needs to schedule another appointment. Resources discussed/offered to patient: na No show determined to be fault of patient: Yes This is the patients third no show in the last 12 months. Patient was rescheduled for na. Letter sent thru MyChart: Yes Is this the Third or Fourth No Show? No Elenita Brady May 25, 2024 4:46 PM documented in this encounter [facility] 04-20-2024 Instructions Emelia Siddiqui APRN.CNP - 04/20/2024 2:29 PM EDT Vitamin D 1,000-2,000 international unit(s) DAILY Magnesium glycinate 200 mg documented in this encounter [facility] 04-20-2024 History of Present illness Narrative Images from the [place] [address] Date of Evaluation: 04/20/2024 Patient Name: Ana Aragon : 1990 Ana Aragon is a 33 year old female who presents for Wellness. I reviewed past medical, surgical, social, and family histories today and updated chart. Allergies, chronic medications, and supplements were also reviewed. She has been on a subscription of Ozempic for the last 2 months and has lost about 22 pounds. It has helped with her sugar cravings. Exercise: Patient does not have an exercise routine currently. Trying to walk more. Weight Trend: Last 2 Encounter Wt Readings: Date: Wt: 04/20/2024 71.2 kg (157 lb) 09/16/2023 74.8 kg (165 lb) Eating Habits: Patient does maintain healthy eating habits. Types of food appropriate diet Caffeine- 1-2 servings Tobacco Use: Types: Cigarettes Alcohol Use: Rare occasion Active Problem List/Chronic Problems There are no active hospital problems to display for this patient. Health Maintenance Depression Screening Never done Cervical Cancer Screening due on 06/19/2021 Influenza Vaccine(1) due on 04/12/2024 Immunization History Administered Date(s) Administered COVID-19 original vaccine, age 12+ yr, monovalent ([employer] - [employer]) 07/27/2022 09/07/2022 influenza (IIV3) vaccine, age 6 mo - 64 yr, trivalent (AFLURIA, FLULAVAL, FLUVIRIN, FLUZONE) 09/27/2023 04/20/2024 influenza (IIV3) vaccine, trivalent (AFLURIA, FLULAVAL, FLUVIRIN, FLUZONE) 07/25/2022 influenza (IIV4) vaccine, age 6 mo - 64 yr, quadrivalent (AFLURIA, FLULAVAL, FLUZONE) 05/19/2015 influenza (IIV4) vaccine, age 6 mo - 64 yr, quadrivalent, PF (AFLURIA, FLUARIX, FLULAVAL, FLUZONE) 06/30/2019 07/25/2022 influenza vaccine, unspecified formulation 05/19/2013 measles mumps rubella (MMR) vaccine (M-M-R II, PRIORIX) 04/01/2023 04/29/2023 tetanus diphtheria pertussis (Tdap) vaccine, age 7+ yr (ADACEL, BOOSTRIX) 07/13/2015 01/20/2019 Review of Systems Constitutional: Negative for appetite change, chills, diaphoresis, fatigue, fever and unexpected weight change. Respiratory: Negative. Cardiovascular: Negative. Gastrointestinal: Negative for abdominal pain, diarrhea, nausea and vomiting. Genitourinary: Negative for dysuria, frequency and urgency. Musculoskeletal: Negative. Skin: Negative. Neurological: Negative for dizziness, seizures, syncope, light-headedness and headaches. Psychiatric/Behavioral: Positive for dysphoric mood. The patient is nervous/anxious. PAIN: Negative for pain, history of chronic pain, or current treatment for a chronic pain condition. ALLERGIES Allergen Reactions Bees Rash Chest pains, facial swelling FLUoxetine (PROZAC) 40 mg capsule take 1 capsule by mouth every day fluticasone (FLOVENT) 44 mcg/actuation inhaler INHALE 1 PUFF INSTRUCTED TWO TIMES A DAY. SHAKE WELL BEFORE USE. RINSE MOUTH AFTER USE. albuterol HFA (PROVENTIL HFA, VENTOLIN HFA) 90 mcg/actuation inhaler Inhale 2 Puffs as instructed every 4 hours as needed. SUMAtriptan (IMITREX) 25 mg tablet TAKE 1 TABLET BY MOUTH NEEDED FOR MIGRAINE HEADACHE . MAY REPEAT AFTER 2 HOURS. hydrOXYzine pamoate (VISTARIL) 25 mg capsule Take 1-2 capsules by mouth three times a day as needed. ondansetron (ZOFRAN) 4 mg tablet Take 1 tablet by mouth every 8 hours as needed for nausea/vomiting. EPINEPHrine (EPIPEN) 0.3 mg/0.3 mL auto-injector Inject 0.3 mL intramuscularly as needed. Inject full content of the syringe. dicyclomine (BENTYL) 10 mg capsule Take 1 capsule by mouth three times daily as needed. 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 Physical Exam Vitals and nursing note reviewed. Constitutional: Appearance: Normal appearance. She is well-developed. HENT: Head: Normocephalic. Right Ear: Tympanic membrane, ear canal and external ear normal. Left Ear: Tympanic membrane, ear canal and external ear normal. Nose: Nose normal. Mouth/Throat: Lips: [place]. Mouth: Mucous membranes are moist. Pharynx: Oropharynx is clear. Eyes: General: Vision grossly intact. Conjunctiva/sclera: Conjunctivae normal. Pupils: Pupils are equal, round, and reactive to light. Neck: Thyroid: No thyroid mass or thyromegaly. Cardiovascular: Rate and Rhythm: Normal rate and regular rhythm. Pulses: Normal pulses. Heart sounds: Normal heart sounds. No murmur heard. Pulmonary: Effort: Pulmonary effort is normal. No respiratory distress. Breath sounds: Normal breath sounds and air entry. Abdominal: General: Bowel sounds are normal. Palpations: Abdomen is soft. Tenderness: There is no abdominal tenderness. Musculoskeletal: Cervical back: Normal range of motion and neck supple. Right lower leg: No edema. Left lower leg: No edema. Skin: General: Skin is warm and dry. Neurological: General: No focal deficit present. Mental Status: She is alert and oriented to person, place, and time. Motor: Motor function is intact. Psychiatric: Mood and Affect: Mood and affect normal. Speech: Speech normal. Behavior: Behavior normal. Behavior is cooperative. Thought Content: Thought content normal. Cognition and Memory: Cognition normal. Judgment: Judgment normal. ASSESSMENT/PLAN: 1. Well adult exam - ICD9: V70.0, ICD10: Z00.00 (primary diagnosis) - Counseled on healthy diet and regular exercise - Patient counseled on and acknowledged vaccine benefits/risks/side effects; VIS provided: Influenza - Follow up for annual exam in one year - COMPLETE BLOOD COUNT AND DIFFERENTIAL - COMPREHENSIVE METABOLIC PANEL 2. Encounter for immunization - ICD9: V03.89, ICD10: Z23 - INFLUENZA VACCINE, AGE 6MO-64YR, TRIVALENT (AFLURIA, FLULAVAL, FLUVIRIN, FLUZONE) - IMADM PRQ ID SUBQ/IM NJXS 1 VACC 3. PAKO (generalized anxiety disorder) - ICD9: 300.02, ICD10: F41.1 - Stable on Prozac 4. Screening for depression - ICD9: V79.0, ICD10: Z13.31 - DEPRESSION SCREENING Discussed health maintenance, including regular aerobic exercise, low fat diet, and periodic exams. Return in about 1 year (around 04/20/2025) for well adult exam. Emelia Siddiqui APRN.CNP documented in this encounter [facility] 04-02-2024 Telephone encounter Note No Show Documentation Ana Aragon no showed for an appointment on 04/02/24 with Emelia Siddiqui APRN.CNP . She was scheduled for wellness ex. I called but was unable to reach. Letter sent to call and reschedule. Resources discussed/offered to patient: No show determined to be fault of patient: N/A This is the patients second no show in the last 12 months. Patient was rescheduled for . Letter mailed : Yes Is this the Third or Fourth No Show? No Cathie Ayala April 02, 2024 9:43 AM [facility] 04-02-2024 Miscellaneous Notes No Show Documentation Ana Aragon no showed for an appointment on 04/02/24 with Emelia Siddiqui APRN.CNP . She was scheduled for wellness ex. I called but was unable to reach. Letter sent to call and reschedule. Resources discussed/offered to patient: No show determined to be fault of patient: N/A This is the patients second no show in the last 12 months. Patient was rescheduled for . Letter mailed : Yes Is this the Third or Fourth No Show? No Cathie Ayala April 02, 2024 9:43 AM documented in this encounter [facility] 03-19-2024 Telephone encounter Note Patient informed. Sharla Whittaker MA [facility] 03-19-2024 Miscellaneous Notes Patient informed. Sharla Whittaker MA Lab order placed. Patient left message stating she needs to have another TB screen for school and would like to know if this could be ordered for her to complete today. Please advise. Sharla Whittaker MA documented in this encounter [facility] 03-19-2024 Telephone encounter Note Lab order placed. [facility] 03-19-2024 Telephone encounter Note Patient left message stating she needs to have another TB screen for school and would like to know if this could be ordered for her to complete today. Please advise. Sharla Whittaker MA [facility] 01-13-2024 Telephone encounter Note Pharmacy requesting refills as follows: Last Office Visit: 09/16/2023 Last Refill: 09/16/2023 Next Office Visit: No future apt Requested Prescriptions Pending Prescriptions Disp Refills FLUoxetine (PROZAC) 40 mg capsule [Pharmacy Med Name: FLUOXETINE HCL 40 MG CAPSULE] 90 capsule 1 Sig: take 1 capsule by mouth every day Please review and advise. Hanane Tony LPN [facility] 01-13-2024 Miscellaneous Notes Pharmacy requesting refills as follows: Last Office Visit: 09/16/2023 Last Refill: 09/16/2023 Next Office Visit: No future apt Requested Prescriptions Pending Prescriptions Disp Refills FLUoxetine (PROZAC) 40 mg capsule [Pharmacy Med Name: FLUOXETINE HCL 40 MG CAPSULE] 90 capsule 1 Sig: take 1 capsule by mouth every day Please review and advise. Hanane Tony LPN documented in this encounter [facility] 12-30-2023 Telephone encounter Note Pharmacy comment: REQUEST FOR 90 DAYS PRESCRIPTION. DX Code Needed. [facility] 12-30-2023 Miscellaneous Notes Pharmacy comment: REQUEST FOR 90 DAYS PRESCRIPTION. DX Code Needed. documented in this encounter [facility] 10-28-2023 Miscellaneous Notes Patient is informed Susy Granado MA Nitric oxide test was elevated indicating inflammation. I would like to start her on a daily steroid inhaler called Flovent. She will do 1 puff twice daily. Rinse mouth out really well after. I'd like for her to follow up with me in 2-3 months. documented in this encounter [facility] 10-01-2023 History of Present illness Narrative PULM FUNCTION SMARTBLOCK: Provider: Domingo Thomson MD Assisting Tech: Tatum Pope RRT Spirometry w/BD: 1 documented in this encounter [facility] 10-01-2023 Procedure note Associated Ord er(s): NITRIC OXIDE, EXHALED RESPIRATORY THERAPY ORAL EXHALED NITRIC OXIDE SERVICE DATE: 10/01/2023 SERVICE TIME: 10:35 AM Oral Exhaled Nitric Oxide measurement: 25.0 (ppb) Normal: Adult 5-20 ppb, pediatric (<12 years) 5-15 ppb High Normal / Increased: Adult 20-35 ppb, pediatric (<12 years) 15-25 ppb Moderately raised exhaled Nitric Oxide may indicate underlying inflammation, but note that: Cold and influenza can raise exhaled Nitric Oxide and some patients have higher baseline exhaled Nitric Oxide levels than others. High: Adult >35 ppb, pediatric (<12 years) >25 ppb Indicative of ongoing eosinophilic inflammation. Symptomatic patient likely to respond to steroids. Possible causes (if already on steroids): Poor compliance, recent allergen exposure, steroid dose inadequate, and steroid resistance. Note that not all patients with high exhaled nitric oxide levels display symptoms. Oral Exhaled Nitric Oxide measurement (Previous Encounters) Test Date Oral Exhaled Nitric Oxide (ppb) 10/01/2023 25.0 NAME: Tatum Pope RRT PATIENT NAME: Ana Aragon DATE: October 01, 2023 TIME: 10:35 AM documented in this encounter [facility] 09-16-2023 History of Present illness Narrative CHIEF COMPLAINT: Ana Aragon is a 33 year old female who presents for a cough that started 4 days ago. She states her symptoms started as a sore throat and nasal congestion and then developed into a dry cough. Her chest is painful from the cough. She had some leftover Tessalon perles but they didn't help. She has not tested for Covid. She needs a refill on her Albuterol inhaler because it is broken. She is concerned why she is always getting sick. She was treated with Prednisone in May for a cough. She completed PFTs last year that showed normal spirometry but significant response to bronchodilator. I reviewed past medical, surgical, social, and family histories today and updated chart. Allergies, chronic medications, and supplements were also reviewed. The history is provided by the patient. No school speech language pathologist was used. Cough This is a new problem. The current episode started more than 2 days ago. The problem occurs every few minutes. The problem has been gradually worsening. The cough is Non-productive. There has been no fever. Associated symptoms include chest pain, shortness of breath and wheezing. Pertinent negatives include no chills, no sweats, no weight loss, no ear congestion, no ear pain, no headaches, no rhinorrhea, no sore throat, no myalgias and no eye redness. She is not a smoker. Her past medical history is significant for bronchitis. Her past medical history does not include pneumonia or emphysema. PAST MEDICAL HISTORY Diagnosis Date Asthma EXERCISE INDUCED, NO INHALER SINCE AGE 13 Endometrioid adenofibroma PAKO (generalized anxiety disorder) 06/26/2022 PAST SURGICAL HISTORY Procedure Laterality Date APPENDECTOMY 2010 Social History Tobacco Use Smoking status: Former Packs/day: 0.25 Years: 3.00 Additional pack years: 0.00 Total pack years: 0.75 Types: Cigarettes Quit date: 09/18/2012 Years since quittin.0 Smokeless tobacco: Never Vaping Use Vaping Use: Never used Substance Use Topics Alcohol use: Yes Alcohol/week: 2.0 standard drinks of alcohol Types: 2 Cans of Beer (12oz) per week Comment: social Drug use: No ALLERGIES Allergen Reactions Bees Rash Chest pains, facial swelling Family History Problem Relation Age of Onset other (epilepsy) Mother Alcohol/Drug Father Hypertension Father Hyperlipidemia Father Stroke Maternal Grandmother Cancer Paternal Grandmother LUNG Emphysema Paternal Grandfather Current Outpatient Medications Medication Sig Dispense Refill SUMAtriptan (IMITREX) 25 mg tablet TAKE 1 TABLET BY MOUTH NEEDED FOR MIGRAINE HEADACHE . MAY REPEAT AFTER 2 HOURS. 12 tablet 0 FLUoxetine (PROZAC) 40 mg capsule TAKE 1 CAPSULE BY MOUTH EVERY DAY 90 capsule 1 hydrOXYzine pamoate (VISTARIL) 25 mg capsule Take 1-2 capsules by mouth three times a day as needed. 30 capsule 2 albuterol HFA (PROVENTIL HFA, VENTOLIN HFA) 90 mcg/actuation inhaler Inhale 2 Puffs as instructed every 4 hours as needed. 1 Each 0 ondansetron (ZOFRAN) 4 mg tablet Take 1 tablet by mouth every 8 hours as needed for nausea/vomiting. 12 tablet 0 EPINEPHrine (EPIPEN) 0.3 mg/0.3 mL auto-injector Inject 0.3 mL intramuscularly as needed. Inject full content of the syringe. 2 Each 0 dicyclomine (BENTYL) 10 mg capsule Take 1 capsule by mouth three times daily as needed. 30 capsule 0 predniSONE (DELTASONE) 20 mg tablet Take 3 pills by mouth daily for 3 days, then 2 pills by mouth daily for 3 days, then 1 pill by mouth daily for 3 days (Patient not taking: Reported on 09/16/2023) 18 tablet 0 No current facility-administered medications for this visit. Review of Systems Constitutional: Negative for chills, diaphoresis, fatigue, fever and weight loss. HENT: Negative for ear pain, rhinorrhea and sore throat. Eyes: Negative for redness. Respiratory: Positive for cough, chest tightness, shortness of breath and wheezing. Cardiovascular: Positive for chest pain. Gastrointestinal: Negative. Musculoskeletal: Negative for myalgias. Neurological: Negative for dizziness, light-headedness and headaches. BP 102/60 Pulse 75 Temp 97.9 Resp 18 Ht 5' 5.25 (1.66m) Wt 165 lb (74.8kg) SpO2 97% LMP 11/21/2022 BMI 27.26 kg/(m^2). Physical Exam Vitals and nursing note reviewed. HENT: Nose: Nose normal. Mouth/Throat: Mouth: Mucous membranes are moist. Pharynx: Oropharynx is clear. Eyes: Pupils: Pupils are equal, round, and reactive to light. Cardiovascular: Rate and Rhythm: Normal rate and regular rhythm. Heart sounds: Normal heart sounds. Pulmonary: Effort: Pulmonary effort is normal. Breath sounds: Normal air entry. Examination of the left-lower field reveals decreased breath sounds. Decreased breath sounds present. No wheezing, rhonchi or rales. Skin: General: Skin is warm and dry. Neurological: Mental Status: She is alert and oriented to person, place, and time. ASSESSMENT/PLAN: 1. Acute lower respiratory infection - ICD9: 519.8, ICD10: J22 (primary diagnosis) - Will start treatment with Augmentin due to abnormal lung sounds - Can start Prednisone if cough does not improve - AMOXICILLIN 875 MG-POTASSIUM CLAVULANATE 125 MG TABLET - PREDNISONE 20 MG TABLET - ALBUTEROL SULFATE HFA 90 MCG/ACTUATION AEROSOL INHALER 2. Recurrent cough - ICD9: 786.2, ICD10: R05.8 - Asthma is still differential, recommend nitric oxide and spirometry once feeling better - NITRIC OXIDE, EXHALED - ALBUTEROL SULFATE HFA 90 MCG/ACTUATION AEROSOL INHALER - SPIROMETRY - BASELINE AND POST DILATOR 3. Recurrent upper respiratory infection (URI) - ICD9: 465.9, ICD10: J06.9 - NITRIC OXIDE, EXHALED - SPIROMETRY - BASELINE AND POST DILATOR 4. PAKO (generalized anxiety disorder) - ICD9: 300.02, ICD10: F41.1 - FLUOXETINE 40 MG CAPSULE New medication(s) prescribed today: Yes: Augmentin and Prednisone. Discussed new medication dosage, usage, goals of therapy, and side effects. Patient has been apprised of any potential drug interactions to be aware of. Patient expresses understanding. Counseling completed in adopting health behaviors such as avoiding excessive alcohol use, avoid tobacco use, improve nutrition, and engage in physical activities. Copy of written care plan, clinical summary, treatment plan, new medications, goals, and self management requirements were given to patient. Emelia Siddiqui APRN.KAY documented in this encounter [facility] 07-03-2023 History of Present illness Narrative This note was created using [employer]. Subjective Ana Aragon is a 32 year old female here today for sick visit. I reviewed past medical, surgical, social, and family histories today and updated chart. Allergies, chronic medications, and supplements were also reviewed. 100.7 fever last night Sore throat No runny nose, no cough Headache and muscles aching Son tested positive for strep PAST MEDICAL HISTORY Diagnosis Date Asthma EXERCISE INDUCED, NO INHALER SINCE AGE 13 Endometrioid adenofibroma PAKO (generalized anxiety disorder) 06/26/2022 PAST SURGICAL HISTORY Procedure Laterality Date APPENDECTOMY 2010 ALLERGIES Bees MEDICATIONS SUMAtriptan (IMITREX) 25 mg tablet TAKE 1 TABLET BY MOUTH NEEDED FOR MIGRAINE HEADACHE . MAY REPEAT AFTER 2 HOURS. FLUoxetine (PROZAC) 20 mg capsule Take 1 capsule by mouth once daily. albuterol HFA (PROVENTIL HFA, VENTOLIN HFA) 90 mcg/actuation inhaler Inhale 2 Puffs as instructed every 4 hours as needed. ondansetron (ZOFRAN) 4 mg tablet Take 1 tablet by mouth every 8 hours as needed for nausea/vomiting. EPINEPHrine (EPIPEN) 0.3 mg/0.3 mL auto-injector Inject 0.3 mL intramuscularly as needed. Inject full content of the syringe. dicyclomine (BENTYL) 10 mg capsule Take 1 capsule by mouth three times daily as needed. predniSONE (DELTASONE) 20 mg tablet Take 3 pills by mouth daily for 3 days, then 2 pills by mouth daily for 3 days, then 1 pill by mouth daily for 3 days (Patient not taking: Reported on 07/03/2023) FAMILY HISTORY Problem Relation Age of Onset other (epilepsy) Mother Alcohol/Drug Father Hypertension Father Hyperlipidemia Father Stroke Maternal Grandmother Cancer Paternal Grandmother LUNG Emphysema Paternal Grandfather Social History Tobacco Use Smoking status: Former Packs/day: 0.25 Years: 3.00 Additional pack years: 0.00 Total pack years: 0.75 Types: Cigarettes Quit date: 09/18/2012 Years since quittin.7 Smokeless tobacco: Never Vaping Use Vaping Use: Never used Substance Use Topics Alcohol use: Yes Alcohol/week: 2.0 standard drinks of alcohol Types: 2 Cans of Beer (12oz) per week Comment: social Drug use: No Review of Systems Constitutional: Positive for chills and fever. Negative for appetite change, fatigue and unexpected weight change. HENT: Positive for sore throat and trouble swallowing. Negative for congestion, ear pain and rhinorrhea. Eyes: Negative for pain, discharge, itching and visual disturbance. Respiratory: Negative for cough, shortness of breath and wheezing. Cardiovascular: Negative for chest pain, palpitations and leg swelling. Gastrointestinal: Negative for abdominal pain, constipation, diarrhea, nausea and vomiting. Genitourinary: Negative for difficulty urinating. Musculoskeletal: Positive for arthralgias and myalgias. Skin: Negative for rash. Neurological: Positive for headaches. Negative for dizziness, tremors and weakness. Psychiatric/Behavioral: Negative for dysphoric mood and sleep disturbance. The patient is not nervous/anxious. Objective BP 104/60 Pulse 92 Temp 36.7 C (98.1 F) Ht 165.7 cm (5' 5.25) Wt 75.3 kg (166 lb) LMP 11/21/2022 (Approximate) SpO2 96% BMI 27.41 kg/m Physical Exam Constitutional: General: She is not in acute distress. Appearance: She is well-developed. She is not toxic-appearing. HENT: Head: Normocephalic and atraumatic. Right Ear: Hearing, tympanic membrane, ear canal and external ear normal. No drainage. Tympanic membrane is not injected or bulging. Left Ear: Hearing, tympanic membrane, ear canal and external ear normal. No drainage. Tympanic membrane is not injected or bulging. Nose: Nose normal. No mucosal edema or rhinorrhea. Mouth/Throat: Lips: [place]. Mouth: Mucous membranes are moist. No oral lesions. Pharynx: Oropharynx is clear. Uvula midline. Posterior oropharyngeal erythema present. No oropharyngeal exudate. Eyes: General: Lids are normal. Right eye: No discharge. Left eye: No discharge. Conjunctiva/sclera: Conjunctivae normal. Pupils: Pupils are equal, round, and reactive to light. Cardiovascular: Rate and Rhythm: Normal rate and regular rhythm. Heart sounds: Normal heart sounds. No murmur heard. Pulmonary: Effort: Pulmonary effort is normal. Breath sounds: Normal breath sounds. No wheezing, rhonchi or rales. Musculoskeletal: Cervical back: Normal range of motion and neck supple. Lymphadenopathy: Head: Right side of head: No tonsillar, preauricular or posterior auricular adenopathy. Left side of head: No tonsillar, preauricular or posterior auricular adenopathy. Cervical: Cervical adenopathy present. Upper Body: Right upper body: No supraclavicular adenopathy. Left upper body: No supraclavicular adenopathy. Skin: General: Skin is warm and dry. Findings: No bruising or rash. Neurological: General: No focal deficit present. Mental Status: She is alert and oriented to person, place, and time. Cranial Nerves: No cranial nerve deficit. Psychiatric: Mood and Affect: Mood and affect normal. Speech: Speech normal. Behavior: Behavior normal. Behavior is cooperative. ASSESSMENT/PLAN: 1. Strep pharyngitis - ICD9: 034.0, ICD10: J02.0 (primary diagnosis) - Rapid Strep positive in the office today - antibiotic as written - Discussed supportive care treatment with fluids, rest and analgesia. - Call back if drooling, increased temperature, symptoms of dehydration and/or still sick in one week 2. Sore throat - ICD9: 462, ICD10: J02.9 - Rapid Strep positive in the office today - STREP A MOLECULAR (POC) Samantha Sethi APRN.SECURITY SOFTWARE ENGINEER documented in this encounter [facility] 07-02-2023 Miscellaneous Notes pharmacy electronically requesting refills as follows: Last seen 03/22/23 . Last refill 05/23/23 . Requested Prescriptions Pending Prescriptions Disp Refills SUMAtriptan (IMITREX) 25 mg tablet [Pharmacy Med Name: SUMATRIPTAN SUCC 25 MG TABLET] 12 tablet 0 Sig: TAKE 1 TABLET BY MOUTH NEEDED FOR MIGRAINE HEADACHE . MAY REPEAT AFTER 2 HOURS. Please review and advise. Sharla Whittaker MA documented in this encounter [facility] 06-07-2023 History of Present illness Narrative Subjective The history is provided by the patient. Pt hs not felt well for a few days with sinus congestion, drainage, and a deep cough She is prone to bronchitis since having covid 19 about 2 years ago. The cough is keeping her up at night, and she feels like she is breathing harder. She has been taking mucinex, using her inhaler. She does not use any tobacco or nicotine products. ALLERGIES Allergen Reactions Bees Rash Chest pains, facial swelling Current Outpatient Medications Medication Sig Dispense Refill SUMAtriptan (IMITREX) 25 mg tablet TAKE 1 TABLET BY MOUTH NEEDED FOR MIGRAINE HEADACHE (SEE ADMINISTRATION INSTRUCTIONS). MAY REPEAT AFTER 2 HOURS. 12 tablet 0 FLUoxetine (PROZAC) 20 mg capsule Take 1 capsule by mouth once daily. 30 capsule 2 albuterol HFA (PROVENTIL HFA, VENTOLIN HFA) 90 mcg/actuation inhaler Inhale 2 Puffs as instructed every 4 hours as needed. 1 Each 0 ondansetron (ZOFRAN) 4 mg tablet Take 1 tablet by mouth every 8 hours as needed for nausea/vomiting. 12 tablet 0 EPINEPHrine (EPIPEN) 0.3 mg/0.3 mL auto-injector Inject 0.3 mL intramuscularly as needed. Inject full content of the syringe. 2 Each 0 dicyclomine (BENTYL) 10 mg capsule Take 1 capsule by mouth three times daily as needed. 30 capsule 0 No current facility-administered medications for this visit. ACTIVE PROBLEM LIST Pako (Generalized Anxiety Disorder) Recurrent Upper Respiratory Infection (Uri) Recurrent Cough Social History Tobacco Use Smoking status: Former Packs/day: 0.25 Years: 3.00 Additional pack years: 0.00 Total pack years: 0.75 Types: Cigarettes Quit date: 09/18/2012 Years since quittin.7 Smokeless tobacco: Never Vaping Use Vaping Use: Never used Substance Use Topics Alcohol use: Yes Alcohol/week: 5.0 standard drinks of alcohol Types: 2 Cans of Beer (12oz) per week Comment: social Drug use: No Family History Problem Relation Age of Onset other (epilepsy) Mother Alcohol/Drug Father Hypertension Father Hyperlipidemia Father Stroke Maternal Grandmother Cancer Paternal Grandmother LUNG Emphysema Paternal Grandfather Reviewed past medical history, family history and surgeries. All medications and supplements were reviewed with the patient. Review of Systems Constitutional: Negative for chills, diaphoresis, fever, malaise/fatigue and weight loss. HENT: Positive for congestion. Negative for ear pain and hearing loss. Eyes: Negative for blurred vision and double vision. Respiratory: Positive for cough. Negative for shortness of breath. Cardiovascular: Negative for chest pain, palpitations and leg swelling. Gastrointestinal: Negative for constipation, diarrhea and heartburn. Genitourinary: Negative for dysuria and frequency. Musculoskeletal: Negative for back pain, falls, joint pain and myalgias. Skin: Negative for itching and rash. Neurological: Negative for dizziness, weakness and headaches. Endo/Heme/Allergies: Does not bruise/bleed easily. Psychiatric/Behavioral: Negative for depression and substance abuse. The patient does not have insomnia. Objective BP 112/68 Pulse 82 Temp 36.7 C (98 F) Resp 16 Ht 165.7 cm (5' 5.25) Wt 74.6 kg (164 lb 6.4 oz) LMP 11/21/2022 (Approximate) SpO2 96% BMI 27.15 kg/m Physical Exam Constitutional: Appearance: Normal appearance. HENT: Head: Normocephalic and atraumatic. Nose: Congestion present. Mouth/Throat: Mouth: Mucous membranes are moist. Dentition: Normal dentition. Pharynx: Oropharynx is clear. Posterior oropharyngeal erythema present. Eyes: General: Lids are normal. Extraocular Movements: Extraocular movements intact. Conjunctiva/sclera: Conjunctivae normal. Pupils: Pupils are equal, round, and reactive to light. Neck: Thyroid: No thyroid mass or thyromegaly. Vascular: No carotid bruit. Trachea: Phonation normal. Cardiovascular: Rate and Rhythm: Normal rate and regular rhythm. Heart sounds: Normal heart sounds. No murmur heard. No friction rub. No gallop. Pulmonary: Effort: Pulmonary effort is normal. Breath sounds: Normal breath sounds. No wheezing or rales. Abdominal: General: Bowel sounds are normal. There is no distension. Palpations: Abdomen is soft. There is no mass. Tenderness: There is no abdominal tenderness. Musculoskeletal: General: No swelling or tenderness. Normal range of motion. Cervical back: Normal range of motion and neck supple. No edema. Lymphadenopathy: Cervical: No cervical adenopathy. Skin: General: Skin is warm and dry. Findings: No erythema or rash. Nails: There is no clubbing. Neurological: Mental Status: She is alert and oriented to person, place, and time. Cranial Nerves: No cranial nerve deficit. Motor: Motor function is intact. Coordination: Coordination normal. Gait: Gait is intact. Psychiatric: Attention and Perception: Attention normal. Mood and Affect: Mood and affect normal. Speech: Speech normal. Behavior: Behavior normal. Behavior is cooperative. Thought Content: Thought content normal. Cognition and Memory: Cognition and memory normal. Judgment: Judgment normal. ASSESSMENT/PLAN: 1. Acute cough - ICD9: 786.2, ICD10: R05.1 Most likely viral - CODEINE 10 MG-GUAIFENESIN 100 MG/5 ML ORAL LIQUID Pt advised to call if not better by Saturday and we can call in an antibiotic Gudelia Sheets, DO PDMP website checked and validated. All prescriptions have been APPROPRIATELY filled. No suspicious activity was identified. 06/07/2023 by Gudelia Richards DO documented in this encounter [facility] 05-23-2023 Miscellaneous Notes pharmacy electronically requesting refills as follows: Last seen 03/22/23 . Last refill 04/23/23 . Requested Prescriptions Pending Prescriptions Disp Refills SUMAtriptan (IMITREX) 25 mg tablet [Pharmacy Med Name: SUMATRIPTAN SUCC 25 MG TABLET] 12 tablet 0 Sig: TAKE 1 TABLET BY MOUTH NEEDED FOR MIGRAINE HEADACHE (SEE ADMINISTRATION INSTRUCTIONS). MAY REPEAT AFTER 2 HOURS. Please review and advise. Sharla Whittaker MA documented in this encounter [facility] 04-23-2023 Miscellaneous Notes Pharmacy requesting refills: Last office visit 03/22/23. Last refill 03/22/23 . Requested Prescriptions Pending Prescriptions Disp Refills SUMAtriptan (IMITREX) 25 mg tablet [Pharmacy Med Name: SUMATRIPTAN SUCC 25 MG TABLET] 12 tablet 0 Sig: TAKE 1 TABLET BY MOUTH NEEDED FOR MIGRAINE HEADACHE (SEE ADMINISTRATION INSTRUCTIONS). MAY REPEAT AFTER 2 HOURS. Please review and advise. Thelma Lee documented in this encounter [facility] 04-17-2023 Miscellaneous Notes pharmacy electronically requesting refills as follows: Last seen 03/22/23 . Last refill 03/22/23 . Requested Prescriptions Pending Prescriptions Disp Refills sertraline (ZOLOFT) 50 mg tablet [Pharmacy Med Name: SERTRALINE HCL 50 MG TABLET] 30 tablet 0 Sig: TAKE 1 TABLET BY MOUTH ONCE DAILY. 1/2 TABLET FOR THE FIRST 7 DAYS AND THEN 1 FULL TABLET DAILY AFTER. Please review and advise. Sharla Whittaker MA documented in this encounter [facility] 03-28-2023 Miscellaneous Notes The patient has been scheduled for 04/01/23 at 10:45 am. Miroslava Tong Left a message informing patient and requested her to call back to schedule a NV Susy Granado MA I would recommend that she has an updated MMR vaccine. She can come in for a NV for this. Patient informed of results and states she does not think she had measles. Please advise. Sharla Whittaker MA ----- Message from Emelia Siddiqui APRN.CNP sent at 03/27/2023 4:53 PM EDT ----- Negative Hep B +Immunity to varicella, mumps, and rubella Her Measles test did not confirm antibodies for it. Did she ever have measles? She may need to get a booster of the MMR. Celiac panel was negative Negative for TB documented in this encounter [facility] 03-27-2023 Miscellaneous Notes ----- Message from Emelia Siddiqui APRN.CNP sent at 03/27/2023 4:53 PM EDT ----- Negative Hep B +Immunity to varicella, mumps, and rubella Her Measles test did not confirm antibodies for it. Did she ever have measles? She may need to get a booster of the MMR. Celiac panel was negative Negative for TB documented in this encounter [facility] 03-22-2023 History of Present illness Narrative Images from the original note were not included. [address] [address] Date of Evaluation: 03/22/2023 Patient Name: Ana Aragon : 1990 Ana Aragon is a 32 year old female who presents for wellness exam. I reviewed past medical, surgical, social, and family histories today and updated chart. Allergies, chronic medications, and supplements were also reviewed. Has been having lower abdominal pain, cramping, bloating, diarrhea for the last week Decreased appetite Has lost some weight Bilious stool No blood, mucous Exercise: Patient does not have an exercise routine currently but plans on starting here soon. Weight Trend: Last 2 Encounter Wt Readings: Date: Wt: 03/22/2023 74.8 kg (165 lb) 12/25/2022 74.8 kg (165 lb) Eating Habits: Patient does maintain healthy eating habits. Types of food appropriate diet Caffeine- cut back Tobacco Use: 0.25 packs/day, for 3 years. Quit 09/18/2012. Types: Cigarettes Alcohol Use: None Active Problem List/Chronic Problems There are no active hospital problems to display for this patient. Health Maintenance HEPATITIS B(1 of 3 - 3-dose series) Never done HPV TESTING Never done PAP TESTING due on 06/19/2023 HEALTH MAINTENANCE REVIEW: Immunization History Administered Date(s) Administered COVID-19 original vaccine, age 12+ yr, monovalent ([employer] - [employer]) 07/27/2022 09/07/2022 influenza (IIV3) vaccine, trivalent (AFLURIA, FLULAVAL, FLUVIRIN, FLUZONE) 07/25/2022 influenza (IIV4) vaccine, age 6 mo - 64 yr, quadrivalent (AFLURIA, FLULAVAL, FLUZONE) 05/19/2015 influenza (IIV4) vaccine, age 6 mo - 64 yr, quadrivalent, PF (AFLURIA, FLUARIX, FLULAVAL, FLUZONE) 06/30/2019 influenza vaccine, unspecified formulation 05/19/2013 tetanus diphtheria pertussis (Tdap) vaccine, age 7+ yr (ADACEL, BOOSTRIX) 07/13/2015 01/20/2019 Review of Systems Constitutional: Positive for diaphoresis (will break out in a sweat randomly). Negative for appetite change, chills, fatigue, fever and unexpected weight change. Eyes: Negative for visual disturbance. Respiratory: Negative. Cardiovascular: Negative for chest pain, palpitations and leg swelling. Gastrointestinal: Positive for abdominal distention, abdominal pain, diarrhea and nausea. Negative for blood in stool, constipation and vomiting. Genitourinary: Negative. Musculoskeletal: Negative for arthralgias, back pain, myalgias, neck pain and neck stiffness. Skin: Negative. Neurological: Positive for dizziness and headaches (migraines). Negative for seizures, syncope and light-headedness. PAIN: Negative for pain, history of chronic pain, or current treatment for a chronic pain condition. ALLERGIES Allergen Reactions Bees Rash Chest pains, facial swelling albuterol HFA (PROVENTIL HFA, VENTOLIN HFA) 90 mcg/actuation inhaler Inhale 2 Puffs as instructed every 4 hours as needed. SUMAtriptan (IMITREX) 25 mg tablet Take 1 tablet by mouth as needed for migraine headache (see administration instructions). May repeat after 2 hours. ondansetron (ZOFRAN) 4 mg tablet Take 1 tablet by mouth every 8 hours as needed for nausea/vomiting. EPINEPHrine (EPIPEN) 0.3 mg/0.3 mL auto-injector Inject 0.3 mL intramuscularly as needed. Inject full content of the syringe. dicyclomine (BENTYL) 10 mg capsule Take 1 capsule by mouth three times daily as needed. sertraline (ZOLOFT) 50 mg tablet Take 1 tablet by mouth once daily. 1/2 tablet for the first 7 days and then 1 full tablet daily after. PAST MEDICAL HISTORY Diagnosis Date Asthma EXERCISE INDUCED, NO INHALER SINCE AGE 13 Endometrioid adenofibroma PAKO (generalized anxiety disorder) 06/26/2022 PAST SURGICAL HISTORY Procedure Laterality Date APPENDECTOMY 2010 FAMILY HISTORY Problem Relation Age of Onset other (epilepsy) Mother Alcohol/Drug Father Hypertension Father Hyperlipidemia Father Stroke Maternal Grandmother Cancer Paternal Grandmother LUNG Emphysema Paternal Grandfather Last 3 Encounter BP Readings: Date: BP: 03/22/2023 120/68 12/25/2022 117/78 11/22/2022 120/70 BP 120/68 Pulse 76 Temp 97.6 Resp 18 Ht 5' 5.25 (1.66m) Wt 165 lb (74.8kg) SpO2 96% LMP 11/21/2022 BMI 27.26 kg/(m^2). Physical Exam Vitals and nursing note reviewed. Constitutional: Appearance: Normal appearance. She is well-developed and well-groomed. HENT: Head: Normocephalic. Right Ear: Tympanic membrane, ear canal and external ear normal. Left Ear: Tympanic membrane, ear canal and external ear normal. Nose: Nose normal. Mouth/Throat: Lips: [place]. Mouth: Mucous membranes are moist. Pharynx: Oropharynx is clear. Eyes: General: Vision grossly intact. Extraocular Movements: Extraocular movements intact. Conjunctiva/sclera: Conjunctivae normal. Pupils: Pupils are equal, round, and reactive to light. Neck: Thyroid: No thyroid mass or thyromegaly. Cardiovascular: Rate and Rhythm: Normal rate and regular rhythm. Pulses: Normal pulses. Heart sounds: Normal heart sounds, S1 normal and S2 normal. No murmur heard. Pulmonary: Effort: Pulmonary effort is normal. No respiratory distress. Breath sounds: Normal breath sounds and air entry. Abdominal: General: Bowel sounds are normal. Palpations: Abdomen is soft. There is no hepatomegaly or splenomegaly. Tenderness: There is no abdominal tenderness. Musculoskeletal: Cervical back: Normal range of motion and neck supple. Right lower leg: No edema. Left lower leg: No edema. Skin: General: Skin is warm and dry. Neurological: General: No focal deficit present. Mental Status: She is alert and oriented to person, place, and time. Motor: Motor function is intact. Psychiatric: Mood and Affect: Mood and affect normal. Speech: Speech normal. Behavior: Behavior normal. Behavior is cooperative. Thought Content: Thought content normal. Cognition and Memory: Cognition normal. Judgment: Judgment normal. ASSESSMENT/PLAN: 1. Well adult exam - ICD9: V70.0, ICD10: Z00.00 (primary diagnosis) - Counseled on healthy diet and regular exercise - Calcium intake with supplements or by diet of 1000 mg/day for under 50, 4589-9409 mg/day for 50+ - Depression screening tool completed and reviewed with patient. Based on score and interview, patient is not at risk for depression and recommended no further intervention at this time. - Follow up for annual exam in one year 2. Migraine without aura and without status migrainosus, not intractable - ICD9: 346.10, ICD10: G43.009 - SUMATRIPTAN 25 MG TABLET - ONDANSETRON HCL 4 MG TABLET 3. PAKO (generalized anxiety disorder) - ICD9: 300.02, ICD10: F41.1 - Discussed that the Prozac could be causing her diaphoresis. She would like to switch back to the Zoloft to see if it improves. - SERTRALINE 50 MG TABLET 4. Abdominal bloating with cramps - ICD9: 787.3, 789.00, ICD10: R14.0, R10.9 Etiology unclear Differential Diagnosis includes IBS, IBD, Diverticulitis, Lactose intolerance, Celiac sprue, and Ovarian cyst - Labs of Celiac panel - Increase fiber in diet - [place] low residue diet - Follow up in 6 weeks or sooner if worsening of symptoms - TRANSGLUTAMINASE ABS - GLIADIN (DEAMINATED) ABS - DICYCLOMINE 10 MG CAPSULE 5. Diarrhea, unspecified type - ICD9: 787.91, ICD10: R19.7 - No suspicion for infectious source at this time - TRANSGLUTAMINASE ABS - GLIADIN (DEAMINATED) ABS - DICYCLOMINE 10 MG CAPSULE 6. Immunity status testing - ICD9: V72.61, ICD10: Z01.84 - HEP B SURF AB - MUMPS IGG AB - RUBEOLA (MEASLES)IGG - RUBELLA IGG AB - VARICELLA ZOSTER IGG 7. Screening for tuberculosis - ICD9: V74.1, ICD10: Z11.1 - BLOOD TB SCREEN, INCUBATED Discussed health maintenance, including regular aerobic exercise, low fat diet, and periodic exams. Return in about 6 weeks (around 05/03/2023) for abdominal pain, anxiety. Emelia Siddiqui APRN.SECURITY SOFTWARE ENGINEER documented in this encounter [facility] 02-08-2023 Miscellaneous Notes Referral faxed. Susy Granado MA Please fax neurology referral to Dr. [facility] in [place], their number is [phone] and fax number is [phone] documented in this encounter [facility] 01-16-2023 Miscellaneous Notes pharmacy electronically requesting refills as follows: Last seen 11/22/22 . Last refill 11/12/22 . Requested Prescriptions Pending Prescriptions Disp Refills sertraline (ZOLOFT) 50 mg tablet [Pharmacy Med Name: SERTRALINE HCL 50 MG TABLET] 90 tablet 1 Sig: TAKE 1 TABLET BY MOUTH ONCE DAILY. TAKE WITH 25 MG TABLET DAILY. Please review and advise. Sharla Whittaker MA documented in this encounter [facility] 12-20-2022 Miscellaneous Notes Pharmacy requesting refills as follows: Last Office Visit 11/22/22. Last Refill 11/22/22. Requested Prescriptions Pending Prescriptions Disp Refills SUMAtriptan (IMITREX) 25 mg tablet [Pharmacy Med Name: SUMATRIPTAN SUCC 25 MG TABLET] 12 tablet 0 Sig: TAKE 1 TABLET BY MOUTH NEEDED FOR MIGRAINE HEADACHE (SEE ADMINISTRATION INSTRUCTIONS). MAY REPEAT AFTER 2 HOURS. Please review and advise. Susy Granado MA documented in this encounter [facility] 11-22-2022 Nurse Note Patient given ketorlac IM in the right glute . Patient tolerated injection well. Lot#: [id number] Exp date: 03/2024 Helen Hammer MA documented in this encounter [facility] 11-22-2022 Instructions Emelia Siddiqui APRN.SECURITY SOFTWARE ENGINEER - 11/22/2022 2:02 PM EDT Images from the original note were not included. Migraine Headaches What is a migraine headache? A migraine headache is a primary headache disorder that effects approximately 12% of the population. It is a headache that tends to recur in an individual and is moderate to severe if left untreated. It can be one sided, throbbing and aggravated by routine physical activity. It can be associated with light and sound and even smell sensitivity and many patients will become nauseated with it.. In a minority of patients there can be visual or sensory changes before, during or after the headache, known as auras. Who is affected by migraines? The National Headache Foundation estimates that nearly 30 million Americans suffer from migraines. Migraines occur about three times more frequently in women than in men. Each migraine can last from four hours to three days. Occasionally, it will last longer. What causes a migraine? The exact causes of migraines are unknown, although they are related to changes in the brain as well as to genetic causes. People with migraines may inherit the tendency to be affected by certain migraine triggers, such as fatigue, bright lights, weather changes and others. For many years, scientists believed that migraines were linked to the expanding (dilation) and constriction (narrowing) of blood vessels on the brain's surface. However, it is now believed that migraine is caused by inherited abnormalities in certain areas of the brain. There is a migraine pain center or generator in the mid-brain area. A migraine begins when hyperactive nerve cells send out impulses to the blood vessels leading to the dilation of these vessels and the release of prostaglandins, serotonin and other inflammatory substances that cause the pulsation to be painful. Certain brain cells that use serotonin as a messenger are involved in controlling mood, attention, sleep, and pain. Therefore, chronic changes in serotonin can lead to anxiety, panic disorder, and depression. What triggers a migraine? Many migraines seem to be triggered by external factors. Migraine sufferers can help the physician identify these triggers. Possible triggers include: Emotional stress is one of the most common triggers of migraine headache. Migraine sufferers generally are highly affected by stressful events. During stressful events, certain chemicals in the brain are released to combat the situation (know as the flight or fight response). The release of these chemicals can provoke migraine. Repressed emotions surrounding stress, such as anxiety, worry, excitement and fatigue can increase muscle tension and dilated blood vessels can intensify the severity of migraine. Sensitivity to specific chemicals and preservatives in foods. Certain foods and beverages, such as aged cheese, alcoholic beverages, and food additives such as nitrates (in pepperoni, hot dogs, luncheon meats) and monosodium glutamate (MSG, commonly found in Slovenian food) may be responsible for triggering up to 30% of migraines. Caffeine. Excessive caffeine consumption or withdrawal from caffeine can cause headaches when the caffeine level abruptly drops. The blood vessels seem to become sensitized to caffeine, and when caffeine is not ingested, a headache may occur. Caffeine itself is often helpful in treating acute migraine attacks. Changing weather conditions such as storm fronts, barometric pressure changes, strong winds or changes in altitude Menstrual periods Tension Excessive fatigue Missing meals Changes in normal sleep pattern Are migraines hereditary? Yes, migraines have a tendency to run in families. Four out of 5 migraine sufferers have a family history of migraines. If one parent has a history of migraines, the child has a 50% chance of developing migraines, and if both parents have a history of migraines, the risk jumps to 75%. What are the symptoms of migraines? The symptoms of migraine headaches can occur in various combinations and include: Type of pain The pain of a migraine can be described as a pounding or throbbing. The headache often begins as a dull ache and develops into throbbing pain. The pain is usually aggravated by physical activity. Severity/intensity of pain The pain of a migraine can be described as mild, moderate, or severe. Untreated the headache will become moderate to severe Location of pain The pain can shift from one side of the head to the other, or it can affect the front of the head or feel like it's affecting the whole head. Duration of pain Most migraines last about 4 hours, although severe ones can last up to a week. Frequency of headaches The frequency of migraines varies widely among individuals. It is common for a migraine sufferer to get 2-4 headaches per month. Some people, however, may get headaches every few days, while others only get a migraine once or twice a year. Associated symptoms Sensitivity to light, noise and odors Nausea and vomiting, stomach upset, abdominal pain Loss of appetite Sensations of being very warm or cold Paleness (pallor) Fatigue Dizziness Blurred vision Diarrhea (rare) Fever (rare) Warning signs Symptoms that signal the onset of a migraine are used to describe two types of migraine dysfunction: Migraine with aura (formerly known as classic migraine) Migraine without aura (formerly known as common migraine) Aura is a physiological warning sign that a migraine is about to begin. What are the symptoms of migraines with aura? Migraines with auras occur in about 15-20% of migraine sufferers. An aura can occur before, during, or after the pain occurs and last from 15 to 60 minutes. The symptoms always last less than one hour. Visual auras include: Bright flashing dots or lights Blind spots Distorted vision Temporary vision loss Wavy or jagged lines There are also auras that can affect the other senses. These auras can be described simply as having a funny feeling, or the person may not be able to describe the aura. Other auras may include ringing in the ears (tinnitus), or having changes in smell (such as strange odors), taste, or touch. Rare migraine conditions include these types of neurological auras: Hemiplegic migraine: temporary paralysis (hemiplegia) or neurological or sensory changes on one side of the body. The onset of the headache may be associated with temporary numbness, dizziness or vision changes. Retinal migraine: temporary, partial or complete loss of vision in one eye, along with a dull ache behind the eye that may spread to the rest of the head. Basilar artery migraine: dizziness, confusion or loss of balance can precede the headache. The headache pain may affect the back of the head. These symptoms usually occur suddenly and can be associated with the inability to speak properly, ringing in the ears, and vomiting. This type of migraine is strongly related to hormonal changes and primarily affects young adult women. Status migrainosus: a rare and severe type of migraine that can last 72 hours or longer. The pain and nausea are so intense that people who have this type of headache often need to be hospitalized. Certain medications, or medication withdrawal, can cause this type migraine syndrome. Ophthalmoplegic migraine: pain around the eye, including paralysis in the muscles surrounding the eye. This is an emergency medical condition, as the symptoms can also be caused by pressure on the nerves behind the eye or an aneurysm. Other symptoms of ophthalmoplegic migraines include droopy eyelid, double vision, or other vision changes. What are the symptoms of migraines without aura? Migraines without auras are more common, occurring in 80 to 85 percent of migraine sufferers. Several hours before the onset of the headache, the person can experience vague symptoms, including: Anxiety Depression Fatigue or tiredness How are migraines treated? Many medications are available to treat migraines. Symptomatic relief: Symptomatic relief medications are used to relieve symptoms associated with headaches, including the pain of a headache or the nausea and vomiting associated with migraine. Mdtp-ujr-qjhyelg medications are effective for some people with migraines. The main ingredients in pain-relieving medications are ibuprofen, aspirin, acetaminophen, naproxen, and caffeine. Be cautious when taking zfmk-zgl-apuxxcd pain-relieving medications, because sometimes they can contribute to a headache, or their overuse can cause analgesic-rebound headaches or a dependency problem. If you are taking any weti-uuz-aerhrvd pain medications more than three times a week or daily, it's time to see your health care provider, who can suggest prescription medications that may be more effective. Anti-nauseants are often needed to relieve nausea that accompanies migraines. Abortive medications are most effective when used at the first sign of a migraine to stop the process that causes the headache pain. By stopping the headache process, abortive medications help prevent the symptoms of migraines including pain, nausea, light-sensitivity, etc. Abortive medications work by constricting the blood vessels, bringing them back to normal and relieving the throbbing pain. Preventive (prophylactic) medications may be prescribed when the headaches are severe, occur more than two or three times a month and are significantly interfering with normal activities. Preventive medications reduce the frequency and severity of the headaches and are generally taken on a regular, daily basis. All of these treatments should be used under the direction of a headache specialist or physician familiar with migraine therapy. As with any medication, it is important to carefully follow the label instructions and your physician's advice. Biofeedback Biofeedback training can also help. People can learn to recognize stressful situations that trigger migraines so they can learn to control these situations. If the migraine begins slowly, many people can use biofeedback to stop the attack before it becomes full blown. How can migraines be prevented? Identifying and then avoiding migraine triggers should reduce the frequency of your migraine attacks. Recalling what was eaten prior to an attack may help you identify chemical triggers and make the necessary dietary changes to avoid these triggers in the future. Women who get migraines during their menstrual periods typically find relief during and after menopause. Hormonal treatment of migraines has not been satisfactory, however. Generally, becoming aware of the menstrual cycle patterns as they relate to the onset of the headaches can help you take preventive action against the headaches. Stress management and coping techniques, along with relaxation training, can help prevent or reduce the severity of the migraine attacks. Migraine sufferers also seem to have fewer attacks when they eat on a regular schedule and get adequate rest. Regular exercise--in moderation--can also help prevent migraines. References Migraine Research Foundation. About Migraine 08/13/2014. National Headache Foundation. Migraines 08/13/2014. [employer].org. Commonly Used Acute Migraine Treatments 08/13/2014. Copyright 1554-6437 The [facility]. All rights reserved This information is provided by the [facility] and is not intended to replace the medical advice of your doctor or health care provider. Please consult your health care provider for advice about a specific medical condition. For additional health information, please contact the Center for Consumer Health Information at the [facility] or toll-free extension [phone]. If you prefer, you may visit [email or web address] or [email or web address]. This document was last reviewed on: 2014 index#5005 Ana Benjy DeniseAlbany Migraine Diet Foods Allowed Foods to Avoid Beverages Decaffeinated coffee, fruit juice, club soda Chocolate, cocoa, certain alcoholic beverages (red wine, port, daniele, scotch bourbon, gin). Excessive NutraSweet (no more than 24 ounces per day of diet drink.) Meats, Fish, Poultry Fresh of frozen turkey, chicken, fish, beef, christie, veal, pork. Limit eggs to 3 per week. Tuna or tuna salad Aged, canned, cured or processed meats, including ham or game, pickle bergeron, salad and dried fish; chicken liver, bologna; fermented sausage; any food prepared with meat tenderizer, soy sauce or Brewers yeast; any food containing nitrates for tyramine (smoked meats, including cosme, sausage, ham, salami, pepperoni, hotdogs) Dairy products Milk: 2% or skim Cheese: Thai, cottage, former, ricotta, cream, Panamanian, processed cheese. Slice yogurt; limit half cup per day Milk: Buttermilk, sour cream, chocolate milk Cheese: Stilted, tito, cheddar, mozzarella, cheese spread, Roquefort, provolone, gruyere, muenster, feta, Parmesan, emmenthal, brie, brick, camembert, gouda, Hickey Breads and cereals Commercial bread, Vincentian muffins, Rainbow toast, crackers, bagels All hot and dry cereals Hot fresh homemade yeast bread or crackers containing cheese. Fresh yeast coffee cake, doughnuts and sour dough bread. Any products containing chocolate or nuts. Potato or substitute White potato, sweet potato, rice, macaroni, spaghetti, noodles None Vegetables Any except those to avoid Beans such as pole, broad, alexander, [place] Islander, esthela, navy, yuan, garbanzo, snow peas, pea pods, sauerkraut, onions (except for flavoring). All olives, pickles Fruit Any except those to avoid Limits: [place] fruits to half a cup per day (1 orange); banana to half per day Avocados, figs, raises, papaya, passion fruit, red, plums Soups Cream soups made from foods allowed in the diet, homemade broth Canned soup, soup or bouillon cubes, soup, base, with yeast or MSG (read label) Desserts Any cake, cookie without chocolate, nuts or yeast. Any putting or ice cream without, chocolate or nuts. Flavored gelatin. Any products containing chocolate, including ice cream, putting, cookies, cake or pies. Micemeat pie. Sweets Sugar, jelly, jam, honey, hard candy Chocolate candy or syrup, carob Miscellaneous Salt and moderation, lemon juice, butter or margarine, cooking oil, whipped cream, white vinegar, commercial salad dressings Pizza, cheese sauce, excessive MSG (Slovenian food and Accent), meat tenderizer, season salt, yeast, yeast extract. Mixed dishes (including macaroni and cheese, beef stroganoff, cheese, glimpses, lasagna, frozen TV dinners). Chocolate, nuts (including peanut butter). All non-white vinegars and anything fermented pickle or marinated From: Westley LOPEZ. Migraine-induced dizziness: Diagnosis and management. ENG Report February,. [employer]. [email or web address] eMedicine Specialties > Otolaryngology and Facial Plastic Surgery > Vertigo & Dizziness Migraine-Associated Vertigo Noel Dodge MD, Clinical Domestic Laundry Worker, Division of Neurotology, Department of Otolaryngology Head and Neck Surgery, [facility]; Consulting Staff, [facility], [facility] Jatinder Acevedo MD, Staff Physician, Department of Otolaryngology, [facility]; Jeanine Mendoza MD, Customer Relations Coordinator of Otolaryngology, Director of Neurotology and Skull Base Surgery, [facility]; Patricio Hernández DO, [facility], [employer], Department of Otolaryngology-Facial Plastic Surgery, [facility], [facility]; Grant Martin MD, FACS, Wrapper Caser of Otolaryngology, [employer] [facility] [employer]; Physician, [facility] Updated: Jul 01, 2008 Introduction Background Migraine is a disease characterized by periodic headaches, but patients often experience other symptoms, including dizziness. In some patients, dizziness can be the only symptom. Since the 19th century, repeated references have been made to the clinical association of migraine and dizziness. Over the years, several syndromes have been reported of episodic vertigo associated with migraine. Some of these syndromes include benign paroxysmal vertigo of childhood and benign recurrent vertigo in adults. Some authors have even suggested an association between migraine and M ni re disease. In 1983, Edson and Nacriso reported a significant increase in the frequency of vertigo in people with migraines versus people with tension headaches.[1 ]Vertigo is also a known symptom of basilar artery migraine, which is a special form of migraine (see the International Headache Society classification of migraine, below). Although the definition of migraine-related vertigo and the continuum of the symptom complex remains poorly defined, the relationship is clearly more than a chance association. One well-controlled study evaluated 200 patients from a migraine clinic, a dizziness clinic, and a control group from an orthopedic clinic. The group presenting with vertigo showed a higher lifetime prevalence of migraine (38%) than a similar group of patients in the control group (24%, P < 0.01). Similar findings have been seen in studies evaluating migraine patients. Vertigo, as well as chronic nonspecific symptoms of vestibular system dysfunction, can be related to all forms of migraine. The manifestations of migraine-associated vertigo are quite varied and may include episodic true vertigo, positional vertigo, constant imbalance, movement-associated dysequilibrium, and/or lightheadedness. Symptoms can occur prior to the onset of headache, during a headache, or, as is most common, during a headache-free interval. As such, many patients who experience migraines have vertigo or dizziness as the main symptom rather than headache. For this reason, this article is devoted to the description of migraine-associated vertigo. Migraine headaches are recurrent headaches often accompanied by nausea and light sensitivity by symptom-free intervals. The headaches typically have a throbbing quality, are relieved after sleep, and may be accompanied by visual symptoms, dizziness, or vertigo. Patients often have a family history of migraine. Migraine can be divided into 2 categories, migraine without aura (common migraine, 90% of migraine headache cases) and migraine with aura (classic migraine, 10% of cases). Basilar migraine, also known as Bickerstaff syndrome (1961), is an important variant of migraine with aura. Bickerstaff syndrome consists of 2 or more symptoms (ie, vertigo, tinnitus, decreased hearing, ataxia, dysarthria, visual symptoms in both hemifields of both eyes, diplopia, bilateral paresthesias or paresis, decreased level of consciousness) followed by a throbbing headache. Many patients with migraine asscociated vertigo do not fit into the categories noted below. International Headache Society classification of migraine Migraine without aura (formally called common migraine) Headache attacks last 4-72 hours untreated. In children younger than 15 years, headache may last 2-48 hours. Headache has at least 2 of the following characteristics: Unilateral location Pulsating quality Moderate or severe intensity that inhibits or prohibits daily activities Aggravation by walking up stairs or similar routine physical activity During headache, at least 1 of the following occurs: Nausea and/or vomiting Photophobia and phonophobia At least 1 of the following occurs: History and physical examination findings do not suggest another disorder. History and physical examination findings do suggest another disorder, but the other disorder is ruled out by appropriate investigations (eg, MRI or CT scanning of the head). Migraine with aura (formally called classic migraine) Aura with at least 2 attacks of the following: One reversible aura symptom indicating focal [employer] WORK[employer] dysfunction (ie, vertigo, tinnitus, decreased hearing, ataxia, visual symptoms in one hemifield of both eyes, dysarthria, double vision, paresthesias, paresis, decreased level of consciousness) Aura symptom that develops gradually over more than 4 minutes or 2 or more symptoms that occur in succession No aura symptom that lasts more than 60 minutes unless more than one aura symptom is present Headache occurring before, during, or up to 60 minutes after aura is completed Headache - Same as that for migraine without aura Migraine with prolonged aura - Fulfills criteria for migraine with aura but the aura lasts more than 60 minutes and less than 7 days Basilar migraine (replaces basilar artery migraine) - Fulfills criteria for migraine with aura but 2 or more aura symptoms of the following types occur: vertigo, tinnitus, decreased hearing, ataxia, visual symptoms in both hemifields of both eyes, dysarthria, double vision, bilateral paresthesias, bilateral paresis, and decreased level of consciousness Migraine aura without headache (replaces migraine equivalent or acephalic migraine) - Fulfills criteria for migraine with aura but no headache occurs Childhood periodic syndromes that may be precursors to or be associated with migraine Benign paroxysmal vertigo of childhood Brief sporadic episodes of dysequilibrium, anxiety, and often nystagmus or vomiting Normal neurologic examination findings Normal findings on electroencephalography Migrainous infarction (replaces complicated migraine) Patient has previously fulfilled criteria for migraine with aura. The present attack is typical of previous attacks, but neurologic deficits are not completely reversible within 7 days and/or neuroimaging demonstrates ischemic infarction in relevant area. Other causes of infarction are ruled out by appropriate investigations. Pathophysiology The pathophysiology of migraine-associated vertigo is not completely understood, however both central and peripheral defects have been observed. In 1992, Marisa and Niharika developed the most commonly accepted theory regarding the pathophysiology of migraine-associated vertigo.[2 ]These authors propose that episodes of dizziness of a duration similar to that of a migraine aura (<60 min) that are time-locked with the headache most likely have the same pathophysiologic mechanism (eg, spreading wave of depression) as other aura phenomena. According to the spreading depression theory, some type of stimulus (eg, chemical, mechanical) results in a transient wave front that suppresses central neuronal activity. This depression spreads in all directions from its site of origin. These changes result in a reduction in cerebral blood flow in the areas of spreading depression. However, most patients with migraine-associated vertigo have dizziness independently of the headache. Marisa and Niharika suggest that when dizziness is unrelated to headache, the dizziness occurs from the release of neuropeptides. ]Neuropeptide release has an excitatory effect on the baseline firing rate of the sensory epithelium of the inner ear, as well as on the vestibular nuclei in the ozzie. Asymmetric neuropeptide release results in the sensation of vertigo. When neuropeptide release is symmetric, the patient feels an increased sensitivity to motion due to an increased vestibular firing rate during head movements. Marisa and Rajoh also propose that CGRP and other neuropeptides may produce a prolonged hormonelike effect as these peptides diffuse into the extracellular fluid.[2 ]This may explain the prolonged symptoms in some patients with migraine-associated vertigo, as well as the typical progression of persistent spontaneous vertigo followed by benign positional vertigo then motion sensitivity. Some authors have suggested that peripheral cochleovestibular dysfunction in migraine patients may be attributed to vasospasm of the internal auditory artery causing ischemia to the labyrinth. Furthermore, Ronnie et al have reported a positive association of progesterone receptor (PGR) with migraine-associated vertigo.[3 ] Serotonin (5-HT) has also been found to be an important substrate in the development of migraine. Interestingly, 5-HT has direct effects on the firing rate of vestibular nucleus neurons. Both the serotonergic and the peptidergic pathways possibly play a role in the development of the short and prolonged periods of dizziness in migraine-associated vertigo. No single hypothesis explains the headache or dizziness process in migraine at this time. Thus, the causes of the symptoms of migraine remain controversial. Frequency [place] Migraine is an extremely common disorder worldwide. Migraine occurs in 18% of women and in 6% of men, totaling 25-28 million people in the [place] alone. The disease is most prevalent in women of childbearing age, with an approximate prevalence of 25% in 35-year-old women. Overall, episodic vertigo occurs in about 25-35% of all migraine patients. Using these figures, roughly 3.0-3.5% of people in the [place] have episodic vertigo and migraine. Comparatively, the prevalence of M ni re disease (a peripheral vestibular disorder with symptoms overlapping that of migraine-associated vertigo) is estimated to be 0.2% of the [place] population. Sex The epidemiology of migraine-associated vertigo corresponds to that of migraine in general. Migraine is present in 18% of females and in 6% of males aged 12-80 years. Peak ages are 30-45 years. Clinical History As with any type of dizziness evaluation, the history is the most important means to diagnose migraine-associated vertigo. Patients with migraine-related vestibulopathy typically experience a varied range of dizzy symptoms throughout their life and even within individual attacks. These symptoms may be solitary or may be a combination of vertigo, lightheadedness, or imbalance. At the time of presentation, dizziness symptoms may have been present for a few weeks or for several years. Vertigo may occur spontaneously, provoked by head motion or provoked by visual stimuli. Symptoms may last for a few minutes or may be continuous for several weeks or months. In women, dizziness may often occur during the menstrual cycle. Patients with migraine-associated vertigo often provide a long history of motion intolerance during car, boat, or air travel or all 3. Some patients are very sensitive to motion of the environment and to busy environments. Vertigo, which is an illusion of movement of the environment or of the patient in relation to the environment, is the most common type of dizziness reported. Vertigo is present at some time in approximately 70% of patients. The attacks of vertigo may awaken patients and are usually spontaneous, but they may be provoked by motion. The duration of the vertigo can also be quite variable. When vertigo is present, it may be indistinguishable from the spontaneous vertigo of M ni re disease. One clue that the vertigo is not of the M ni re type is that the vertigo of migraine-associated vertigo may last longer than 24 hours. In fact, a rocking sensation may be a continuous feeling for many weeks to months. In contrast, the vertigo of M ni re disease typically does not last longer than 24 hours. (For further information regarding migraine-associated vertigo and M ni re disease, see Differentials and Table 1). The frequencies of different durations of vertigo spells in migraine-associated vertigo are as follows: A duration of seconds (7%) A duration of minutes to up to 2 hours (31%) A duration of 2-6 hours (5%) A duration of 6-24 hours (8%) A duration longer than 24 hours (49%) Unexplained sensorineural hearing loss has been variously reported in 0-31% of unselected patients with migraine. Changes in sensorineural hearing are rarely a significant feature of migraine-related vertigo and help to differentiate it from other causes of vertigo, especially M ni re disease. Up to 80% of patients with basilar migraine have been reported to have sensorineural hearing loss. The hearing loss of basilar migraine often affects the lower frequencies and may be bilateral. Fluctuation is also possible, similar to the sensorineural hearing loss of M ni re disease. Unlike in M ni re disease, the sensorineural hearing loss rarely progresses. Table 1. A Comparison of the Symptoms of Migraine-Associated Vertigo and M ni re Disease Symptom Migraine-Associated Vertigo M ni re Disease Vertigo May last >24 h Lasts <24 h Sensorineural hearing loss Very uncommon; when present, often low frequency; very rarely progressive; may fluctuate in cases of basilar migraine Nearly always progressive; most often unilateral; may be bilateral; fluctuation is common Tinnitus May be unilateral or bilateral; rarely obtrusive May be unilateral or bilateral; often of significant intensity Photophobia Often present; may or may not be associated with dizziness Never present unless a concurrent history of migraine exists A thorough headache history is also important when evaluating patients for possible migraine-associated vertigo. Many patients with recurrent headaches are unaware that their headaches may be from migraine. Patients may or may not have a history of concurrent migraine headaches. In fact, most patients have dizziness symptoms during headache-free intervals or even numerous years following their last migraine headache. Some patients with migraine-associated vertigo have never experienced a migraine headache but have a family history of migraine. No diagnostic tests exist for migraine-associated vertigo. The diagnosis is made by clinical history or, when the history is unclear, by a therapeutic response to treatment. A definite diagnosis of migraine-associated vertigo can be made when patients have migraine with aura that is accompanied by concurrent episodes of vertigo or when they have migraine without aura that is repeatedly associated with vertigo immediately before or during the headache. A probable diagnosis of migraine-associated vestibulopathy is suggested when patients experience recurrent or continuous vertigo or dizziness sensations without neurologic symptoms, when the dizziness is not time-locked to headache, when a past or family history of migraine headaches exists, and when the dizziness cannot be fully explained by other vestibular disorders. In these patients, a trial of migraine therapy can be started for both diagnostic and therapeutic purposes. Proposed criteria by Ko and Domopert for diagnosis of definite migrainous vertigo are as follows:[4 ] Episodic vestibular symptoms of at least moderate severity (rotational vertigo, other illusory self or object motion, positional vertigo, head motion intolerance, ie, sensation of imbalance or illusory self or object motion that is provoked by head motion) Migraine according to the IHS criteria At least one of the following migrainous symptoms during at least 2 vertiginous attacks: migrainous headache, photophobia, phonophobia, visual or other auras Other causes ruled out by appropriate investigations Proposed criteria for diagnosis of probable migrainous vertigo are as follows: Episodic vestibular symptoms of at least moderate severity (rotational vertigo, other illusory self or object motion, positional vertigo, head motion intolerance) At least one of the following: migraine according to the criteria of the IHS; migrainous symptoms during vertigo; migraine-specific precipitants of vertigo, eg, specific foods, sleep irregularities, hormonal changes; response to antimigraine drugs Other causes ruled out by appropriate investigations Physical Findings on a complete neurotologic examination are often normal. Causes Migraine headache and migraine-associated vertigo are often triggered by certain factors. These factors include stress, anxiety, hypoglycemia, fluctuating estrogen, certain foods, and smoking. Other Problems to Be Considered The differential diagnosis of migraine-associated vertigo includes peripheral and central vestibular disorders. Peripheral disorders include M ni re disease, perilymphatic fistula, benign paroxysmal positional vertigo, recurrent vestibular neuritis, and recurrent vestibulopathy. Central disorders include multiple sclerosis, central paroxysmal positional vertigo, vertebrobasilar artery insufficiency, and cervicomedullary compression from abnormalities of the craniovertebral junction. The principal differential is with M ni re disease. The overlapping symptoms of M ni re disease and migraine-associated vertigo include episodic vertigo, sensorineural hearing loss, and tinnitus. Differentiating migraine-associated vertigo from M ni re disease may be difficult because of the overlapping nature of the symptoms of these diseases. However, often the patient s history offers clues that may help make the diagnosis. These differences are outlined in Table 1 in the History section. The following is a list of symptoms that would support the diagnosis of migraine-associated vertigo as opposed to M ni re disease: photophobia, nonprogressive sensorineural hearing loss, vertigo of longer than 24 hours in duration, a long-standing history of motion intolerance, and dizziness occurring only during the menstrual cycle. Childhood benign positional vertigo is strongly related to migraine-related vertigo. Migraine and vestibular disease can coexist. Patients who meet the clinical criteria for M ni re disease should be treated appropriately for M ni re disease, even if a history of migraine headache exists. Workup Imaging Studies MRI An MRI of the brain with gadolinium is necessary when patients present with unilateral symptoms or signs or if the patient's symptoms do not respond to appropriate treatment. If symptoms are those of unilateral sensorineural hearing loss or tinnitus, the MRI should be directed to the internal auditory canals. Other Tests No pathognomonic abnormalities on either imaging or vestibular testing confirm migraine-associated vertigo. When the clinical history is wholly consistent, no other evaluation should be necessary to confirm the diagnosis. Full audiometric evaluation, including pure-tone audiometry, word recognition scores, and reflex testing, is appropriate for any patient being evaluated for dizziness. Other tests may include electronystagmography (ENG) and electrocochleography (ECoG). ENG is typically not helpful in differentiating migraine-associated vertigo from M ni re disease. However, for patients with a several-year history of dizziness, normal findings on ENG are suggestive of migraine-associated vertigo. Patients with a several-year history of M ni re disease often have a reduced vestibular response on at least one side. ECoG may help to differentiate M ni re disease and perilymphatic fistula from migraine-associated vertigo. Treatment Medical Care Because most patients equate migraine with headache exclusively, convincing them that symptoms other than headache are due to migraine may be difficult. Dizziness secondary to migraine usually responds to the same treatment used for migraine headaches. The 3 broad classes of migraine headache treatment include a reduction of risk factors, abortive medications, and prophylactic medical therapy. In general, drugs used to abort migraine headaches have not been found effective in treating dizziness secondary to migraine. Reduction of risk factors includes an attempt to avoid certain conditions (eg, stress, anxiety, hypoglycemia, fluctuating estrogen, certain foods, smoking) that can trigger migraine. Elimination of control pills or estrogen replacement products may be helpful. Specific foods to avoid are discussed in the Diet section. Prophylactic medications are described in the Medication section. Consultations Consultation with a neurologist is warranted. Diet Avoiding certain foods may help 25-30% of all people who experience migraines. In general, the following foods should be avoided: monosodium glutamate (MSG), certain alcoholic beverages (eg, red wine, port, daniele, scotch, bourbon), aged cheese (eg, Da, Roquefort, Brie, Gruyere, cheddar, tito, mozzarella, Parmesan, Boursault, Hickey), chocolate (including carob), and aspartame. MSG is often found in certain soups, [place] food and fast food, soy sauce, yeast, yeast extract, meat tenderizers, seasoned salt, and several salad dressings. If foods are a trigger for symptoms, the offending food(s) can be identified by adding back one food at a time until symptoms return. A food diary is an alternative option to an elimination diet. A food diary may be helpful because certain foods cause migraine symptoms almost immediately (eg, red wine, MSG), whereas other foods (eg, chocolate, cheese) may cause symptoms the next day. The diary should include all foods consumed for 24 hours prior to the onset of a dizzy spell. Medication Prophylactic medical therapy should be used when migraine-associated vertigo occurs several times a month, is continuous over several weeks or months, or has severely affected the patient's lifestyle. First-line prophylactic medications include calcium channel blockers (verapamil), tricyclic antidepressants (nortriptyline), and beta-blockers (propranolol). Second-line treatment includes topiramate, valproic acid, venlafaxine, and methysergide. Acetazolamide has also been reported as an effective treatment by several authors. The actual mechanism of action for migraine control with these medications is unknown. However, the calcium channel blockers, tricyclic antidepressants, beta-blockers, and methysergide are believed to block the release of neuropeptides into dural blood vessel domínguez because of their antagonist effect on 5-HT2 receptors. One class of prophylactic medication does not seem to be more effective than the others. If dizziness is not controlled with one class of medication, another class should be used. If dizziness is controlled with one of these medications, the drug should be administered continuously for at least 1 year (except for methysergide, which requires a 3- to 4-wk drug-free interval at 6 mo). The medication can be restarted for another year if the dizziness returns after discontinuing therapy. Follow-up Further Outpatient Care Vestibular rehabilitation therapy may be recommended when movement-associated dysequilibrium is present. Movement-associated dysequilibrium may be the predominant symptom, or it may be a continuing symptom despite adequate vertigo control with prophylactic medication. In either case, vestibular rehabilitation often is quite beneficial. Vestibular rehabilitation is not indicated for the treatment of spontaneously occurring vertigo. Adapted from http://emedicine.medscape.com/articl e/[email or web address]-[email or web address] documented in this encounter [facility] 11-22-2022 History of Present illness Narrative Images from the original note were not included. CHIEF COMPLAINT: Ana Aragon is a 32 year old female who presents for a migraine headache for the last 2 days. She vomited once yesterday due to the pain. I reviewed past medical, surgical, social, and family histories today and updated chart. Allergies, chronic medications, and supplements were also reviewed. She reports having a history of migraines but typically only has one 1-2 times a month. She tries to stay ahead of it worsening by taking Tylenol or Excedrin migraine but sometimes the migraine will last 2-3 days. She states it typically starts at the back of her head and radiates down both sides of her neck over her traps. Does have light sensitivity and N/V typically. Denies any vision changes or auras. She is not currently on any control but her menstrual cycles are a trigger. Can't seem to identify any other triggers. Today she rates her pain is a 5-6/10 She has a history of neck pain and had Flexeril but never noticed this helping She has been to a chiropractor in the past Does home exercises without much relief The history is provided by the patient. No school speech language pathologist was used. PAST MEDICAL HISTORY Diagnosis Date Asthma EXERCISE INDUCED, NO INHALER SINCE AGE 13 PAKO (generalized anxiety disorder) 06/26/2022 PAST SURGICAL HISTORY Procedure Laterality Date APPENDECTOMY 2010 Social History Tobacco Use Smoking status: Former Packs/day: 0.25 Years: 3.00 Pack years: 0.75 Types: Cigarettes Quit date: 09/18/2012 Years since quittin.1 Smokeless tobacco: Never Vaping Use Vaping Use: Never used Substance Use Topics Alcohol use: Yes Alcohol/week: 5.0 standard drinks Types: 2 Cans of Beer (12oz) per week Comment: social Drug use: No ALLERGIES Allergen Reactions Bees Rash Chest pains, facial swelling Family History Problem Relation Age of Onset other (epilepsy) Mother Alcohol/Drug Father Hypertension Father Hyperlipidemia Father Stroke Maternal Grandmother Cancer Paternal Grandmother LUNG Emphysema Paternal Grandfather Current Outpatient Medications Medication Sig Dispense Refill sertraline (ZOLOFT) 25 mg tablet TAKE 1 TABLET BY MOUTH ONCE DAILY. TAKE WITH 50 MG TABLET DAILY. 90 tablet 1 albuterol HFA (PROVENTIL HFA, VENTOLIN HFA) 90 mcg/actuation inhaler Inhale 2 Puffs as instructed every 4 hours as needed. 1 Each 0 sertraline (ZOLOFT) 50 mg tablet Take 1 tablet by mouth once daily. Take with 25 mg tablet daily. 90 tablet 1 EPINEPHrine (EPIPEN) 0.3 mg/0.3 mL auto-injector Inject 0.3 mL intramuscularly as needed. Inject full content of the syringe. 2 Each 0 cyclobenzaprine (FLEXERIL) 5 mg tablet Take 1 tablet by mouth twice daily as needed for pain or muscle spasm. (Patient not taking: Reported on 11/22/2022) 30 tablet 0 No current facility-administered medications for this visit. Review of Systems Constitutional: Positive for fatigue and unexpected weight change (gaining weight). Negative for appetite change, chills, diaphoresis and fever. Eyes: Negative for visual disturbance. Respiratory: Negative. Cardiovascular: Negative. Gastrointestinal: Positive for nausea and vomiting. Negative for abdominal pain, constipation and diarrhea. Musculoskeletal: Positive for neck pain and neck stiffness. Skin: Negative. Neurological: Positive for dizziness and headaches. Hematological: Negative. BP 120/70 Pulse 78 Temp 98.2 Ht 5' 5.25 (1.66m) Wt 171 lb (77.6kg) SpO2 98% LMP 11/17/2021 BMI 28.25 kg/(m^2). Physical Exam Vitals and nursing note reviewed. Constitutional: General: She is not in acute distress. Appearance: Normal appearance. HENT: Mouth/Throat: Mouth: Mucous membranes are moist. Pharynx: Oropharynx is clear. Uvula midline. Eyes: General: Vision grossly intact. Extraocular Movements: Extraocular movements intact. Pupils: Pupils are equal, round, and reactive to light. Neck: Cardiovascular: Rate and Rhythm: Normal rate and regular rhythm. Heart sounds: Normal heart sounds, S1 normal and S2 normal. Pulmonary: Effort: Pulmonary effort is normal. Breath sounds: Normal breath sounds. Musculoskeletal: Cervical back: Neck supple. No edema, erythema, signs of trauma, rigidity, torticollis or crepitus. Pain with movement and muscular tenderness present. No spinous process tenderness. Decreased range of motion (from ear to shoulder). Skin: General: Skin is warm and dry. Neurological: Mental Status: She is alert and oriented to person, place, and time. Cranial Nerves: Cranial nerves 2-12 are intact. Sensory: Sensation is intact. Psychiatric: Attention and Perception: Attention normal. Mood and Affect: Mood and affect normal. Speech: Speech normal. Behavior: Behavior normal. Thought Content: Thought content normal. Cognition and Memory: Cognition normal. No visits with results within 1 Day(s) from this visit. Latest known visit with results is: Appointment on 09/24/2022 Component Date Value Ref Range Status hCG Quantitative, Blood 09/24/2022 <0.6 <5.0 mIU/mL Final Negative TSH 09/24/2022 1.040 0.270 - 4.200 mIU/L Final If the patient is , TSH reference range varies by gestational period: First Trimester (weeks 9-12): 0.180-2.990 mIU/L Second Trimester: 0.110-3.980 mIU/L Third Trimester: 0.480-4.710 mIU/L Flavio Harris et al. A Practical Approach for the Verifications and Determination of Site- and Trimester-Specific Reference Intervals for Thyroid Function tests in . Thyroid, 2019:29:3:412-420. Star Pritchard et al. 2017 Guidelines of the [place] Thyroid Association for the Diagnosis and Management of Thyroid Disease during and the . Thyroid, 2017:27:3:315-389. Protein, Total 09/24/2022 7.2 6.3 - 8.0 g/dL Final Albumin 09/24/2022 4.4 3.9 - 4.9 g/dL Final Calcium, Total 09/24/2022 8.8 8.5 - 10.2 mg/dL Final Bilirubin, Total 09/24/2022 0.3 0.2 - 1.3 mg/dL Final Alkaline Phosphatase 09/24/2022 81 34 - 123 U/L Final AST 09/24/2022 18 13 - 35 U/L Final ALT 09/24/2022 11 7 - 38 U/L Final Glucose 09/24/2022 96 74 - 99 mg/dL Final The [place] Diabetes Association (ADA) provides guidance for cutoff values for fasting glucose and random glucose. The ADA defines fasting as no caloric intake for at least 8 hours. Fasting plasma glucose results between 100 to 125 mg/dL indicate increased risk for diabetes (prediabetes). Fasting plasma glucose results greater than or equal to 126 mg/dL meet the criteria for diagnosis of diabetes. In the absence of unequivocal hyperglycemia, results should be confirmed by repeat testing. In a patient with classic symptoms of hyperglycemia or hyperglycemic crisis, random plasma glucose results greater than or equal to 200 mg/dL meet the criteria for diagnosis of diabetes. Reference: Standards of Medical Care in Diabetes 2016, [place] Diabetes Association. Diabetes Care. 2016.39(Suppl 1). BUN 09/24/2022 9 7 - 21 mg/dL Final Creatinine 09/24/2022 0.74 0.58 - 0.96 mg/dL Final Sodium 09/24/2022 138 136 - 144 mmol/L Final Potassium 09/24/2022 4.1 3.7 - 5.1 mmol/L Final Chloride 09/24/2022 106 (A) 97 - 105 mmol/L Final CO2 09/24/2022 23 22 - 30 mmol/L Final Anion Gap 09/24/2022 9 9 - 18 mmol/L Final Estimated Glomerular Filtration Ra* 09/24/2022 110 >=60 mL/min/1.73m Final Estimated Glomerular Filtration Rate (eGFR) is calculated using the 2020 CKD-EPI creatinine equation. This equation utilizes serum creatinine, sex, and age as parameters. The creatinine assay has traceable calibration to isotope dilution-mass spectrometry. Refer to KDIGO guidelines for clinical interpretation. In patients with unstable renal function, e.g. those with acute kidney injury, the eGFR may not accurately reflect actual GFR. WBC 09/24/2022 6.13 3.70 - 11.00 k/uL Final RBC 09/24/2022 4.61 3.90 - 5.20 m/uL Final Hemoglobin 09/24/2022 13.3 11.5 - 15.5 g/dL Final Hematocrit 09/24/2022 40.6 36.0 - 46.0 % Final MCV 09/24/2022 88.1 80.0 - 100.0 fL Final MCH 09/24/2022 28.9 26.0 - 34.0 pg Final MCHC 09/24/2022 32.8 30.5 - 36.0 g/dL Final RDW-CV 09/24/2022 11.9 11.5 - 15.0 % Final Platelet Count 09/24/2022 288 150 - 400 k/uL Final MPV 09/24/2022 9.4 9.0 - 12.7 fL Final ASSESSMENT/PLAN: 1. Migraine without aura and without status migrainosus, not intractable - ICD9: 346.10, ICD10: G43.009 (primary diagnosis) - Discussed starting treatment with an abortive medication such as Imitrex. She states her mom uses this and it helps. - Will give a Toradol injection today in the office. No contraindications identified. - SUMATRIPTAN 25 MG TABLET - ONDANSETRON HCL 4 MG TABLET - KETOROLAC 60 MG/2 ML INTRAMUSCULAR SOLUTION 2. Chronic neck pain - ICD9: 723.1, 338.29, ICD10: M54.2, G89.29 - Stretching, ice or heat prn, topical anesthetics prn. New medication(s) prescribed today: Yes: Imitrex, Zofran, and Toradol. Discussed new medication dosage, usage, goals of therapy, and side effects. Patient has been apprised of any potential drug interactions to be aware of. Patient expresses understanding. Counseling completed in adopting health behaviors such as avoiding excessive alcohol use, avoid tobacco use, improve nutrition, and engage in physical activities. Copy of written care plan, clinical summary, treatment plan, new medications, goals, and self management requirements were given to patient. Emelia Siddiqui APRN.CNP documented in this encounter [facility] 11-22-2022 Miscellaneous Notes Please help schedule apt. For migraines. Thanks. Helen Hammer MA Patient lm on vm wondering if you would prescribe anything for migraines. Please advise. Helen Hammer MA documented in this encounter [facility] 09-24-2022 Miscellaneous Notes ----- Message from Emelia Siddiqui APRN.CNP sent at 09/24/2022 10:37 AM EST ----- All labs were WNL and negative . Let's continue to monitor for the next 2-4 weeks for her menstrual cycle and if it does not occur then we will try the medication we discussed in the office. documented in this encounter [facility] 09-14-2022 Miscellaneous Notes Patient requesting refills: Last office visit 08/27/2022. Last refill 06/26/2022.nov none Requested Prescriptions Pending Prescriptions Disp Refills albuterol HFA (PROVENTIL HFA, VENTOLIN HFA) 90 mcg/actuation inhaler 1 Each 0 Sig: Inhale 2 Puffs as instructed every 4 hours as needed. Please review and advise. Helen Hammer MA documented in this encounter [facility] 09-14-2022 Miscellaneous Notes Left message informing patient, phone number to reach the office was left for any questions or concerns. Susy Granado MA ----- Message from Emelia Siddiqui APRN.SECURITY SOFTWARE ENGINEER sent at 09/14/2022 3:03 PM EST ----- Spirometry was normal but she had a significant response to the Albuterol indicating underlying asthma. Continue her Albuterol as needed for SOB and wheezing. documented in this encounter [facility] 09-12-2022 History of Present illness Narrative PULM FUNCTION SMARTBLOCK: Provider: Janak Meeks Jr., MD Assisting Tech: Tatum Pope RRT Spirometry w/BD: 1 DLCO: 1 LV - Gas: 1 documented in this encounter [facility] 09-07-2022 Nurse Note Immunizations were given as ordered. Vaccination information sheet given. Susy Granado MA documented in this encounter [facility] 09-04-2022 Miscellaneous Notes ----- Message from Robert De León RRT sent at 09/04/2022 4:57 PM EST ----- Regarding: PFT Orders Hi Emelia, I have scheduled this patient for her PFT's next Saturday. Unfortunately the three orders for her PFT are linked to an old referral under her old insurance which 08/11. I can not put her in the system with this. The easiest way would be if you would cancel her previous orders and reorder the complete PFT's. Would you be able to do this? Robert Velazquez documented in this encounter [facility] 08-27-2022 Instructions Emelia Siddiqui APRN.CNP - 08/27/2022 3:[address] [facility] [address] [place] [id number] Appointment:[phone] documented in this encounter [facility] 08-27-2022 History of Present illness Narrative CHIEF COMPLAINT: Ana Aragon is a 32 year old female who presents for a sore throat for the last 2 days. I reviewed past medical, surgical, social, and family histories today and updated chart. Allergies, chronic medications, and supplements were also reviewed. Fever of 102.2 this morning Tylenol Rates pain a 5/10 Fatigued, body aches No ear pain, coughing, N/V Son and are also sick with similar symptoms She has been frequently ill for the last 12 months- strep, URI. She was recently treated in July with a Zpak for an URI. Hasn't been able to complete her PFTs yet because she has been ill The history is provided by the patient. No school speech language pathologist was used. Sore Throat This is a new problem. The current episode started in the past 7 days. The problem has been unchanged. The pain is worse on the right side. The maximum temperature recorded prior to her arrival was 102 - 102.9 F. The fever has been present for 1 to 2 days. The pain is at a severity of 5/10. The pain is moderate. Associated symptoms include swollen glands. Pertinent negatives include no abdominal pain, congestion, coughing, diarrhea, drooling, ear discharge, ear pain, headaches, hoarse voice, plugged ear sensation, neck pain, shortness of breath, trouble swallowing or vomiting. She has had exposure to strep. She has had no exposure to mono. She has tried acetaminophen and cool liquids for the symptoms. The treatment provided mild relief. PAST MEDICAL HISTORY Diagnosis Date Asthma EXERCISE INDUCED, NO INHALER SINCE AGE 13 PAKO (generalized anxiety disorder) 06/26/2022 PAST SURGICAL HISTORY Procedure Laterality Date APPENDECTOMY 2010 Social History Tobacco Use Smoking status: Former Packs/day: 0.25 Years: 3.00 Pack years: 0.75 Types: Cigarettes Quit date: 09/18/2012 Years since quittin.9 Smokeless tobacco: Never Vaping Use Vaping Use: Never used Substance Use Topics Alcohol use: Yes Alcohol/week: 5.0 standard drinks Types: 2 Cans of Beer (12oz) per week Comment: social Drug use: No ALLERGIES Allergen Reactions Bees Rash Chest pains, facial swelling Family History Problem Relation Age of Onset other (epilepsy) Mother Alcohol/Drug Father Hypertension Father Hyperlipidemia Father Stroke Maternal Grandmother Cancer Paternal Grandmother LUNG Emphysema Paternal Grandfather Current Outpatient Medications Medication Sig Dispense Refill albuterol HFA (PROVENTIL HFA, VENTOLIN HFA) 90 mcg/actuation inhaler Inhale 2 Puffs as instructed every 4 hours as needed. 1 Each 0 cyclobenzaprine (FLEXERIL) 5 mg tablet Take 1 tablet by mouth twice daily as needed for pain or muscle spasm. 30 tablet 0 sertraline (ZOLOFT) 25 mg tablet Take 1 tablet by mouth once daily. Take with 50 mg tablet daily. 90 tablet 1 sertraline (ZOLOFT) 50 mg tablet Take 1 tablet by mouth once daily. Take with 25 mg tablet daily. 90 tablet 1 EPINEPHrine (EPIPEN) 0.3 mg/0.3 mL auto-injector Inject 0.3 mL intramuscularly as needed. Inject full content of the syringe. 2 Each 0 azithromycin (ZITHROMAX) 250 mg tablet Take two tablets by mouth the first day and then one tablet a day for days 2-5 (Patient not taking: Reported on 08/27/2022) 6 tablet 0 No current facility-administered medications for this visit. Review of Systems Constitutional: Positive for chills, diaphoresis, fatigue and fever. HENT: Positive for sore throat. Negative for congestion, drooling, ear discharge, ear pain, hoarse voice, mouth sores, rhinorrhea and trouble swallowing. Respiratory: Negative for cough, chest tightness and shortness of breath. Cardiovascular: Negative for chest pain. Gastrointestinal: Negative for abdominal pain, diarrhea, nausea and vomiting. Musculoskeletal: Negative for neck pain. Neurological: Negative for dizziness, light-headedness and headaches. BP 120/70 Pulse 112 Temp 99.2 Ht 5' 5.25 (1.66m) Wt 158 lb (71.7kg) SpO2 97% [facility] 11/17/2021 BMI 26.10 kg/(m^2). Physical Exam Vitals and nursing note reviewed. Constitutional: Appearance: She is ill-appearing. HENT: Right Ear: Tympanic membrane, ear canal and external ear normal. Left Ear: Tympanic membrane, ear canal and external ear normal. Nose: Congestion and rhinorrhea present. Mouth/Throat: Mouth: Mucous membranes are moist. Pharynx: Uvula midline. Oropharyngeal exudate and posterior oropharyngeal erythema present. No pharyngeal swelling or uvula swelling. Tonsils: Tonsillar exudate present. 2+ on the right. 2+ on the left. Eyes: Conjunctiva/sclera: Conjunctivae normal. Pupils: Pupils are equal, round, and reactive to light. Cardiovascular: Rate and Rhythm: Regular rhythm. Tachycardia present. Heart sounds: Normal heart sounds. Pulmonary: Effort: Pulmonary effort is normal. Breath sounds: Normal breath sounds and air entry. Skin: General: Skin is warm and dry. Findings: No rash. Neurological: Mental Status: She is alert and oriented to person, place, and time. ASSESSMENT/PLAN: 1. Sore throat - ICD9: 462, ICD10: J02.9 (primary diagnosis) - suspect strep - Rapid Strep positive in the office today - antibiotic as written - Discussed supportive care treatment with fluids, rest and analgesia. - The patient may also use warm salt water gargles, throat lozenges and/or OTC throat spray as needed. - Contagious dz precautions discussed- including considered contagious until on antibiotics for 24 hours - The patient should follow up in 3-5 days if symptoms persist or worsen - Call back if drooling, increased temperature, symptoms of dehydration and/or still sick in one week - STREP A MOLECULAR (POC) - DEXAMETHASONE 4 MG TABLET - AMOXICILLIN 875 MG-POTASSIUM CLAVULANATE 125 MG TABLET 2. Strep throat - ICD9: 034.0, ICD10: J02.0 - See above 3. Frequent infections - ICD9: V12.00, ICD10: Z86.19 - CONSULT TO ALLERGY/IMMUNOLOGY 4. Depression screening - ICD9: V79.0, ICD10: Z13.31 - No risk - DEPRESSION SCREENING/ASSESSMENT New medication(s) prescribed today: Yes: Augmentin and Decadron. Discussed new medication dosage, usage, goals of therapy, and side effects. Patient has been apprised of any potential drug interactions to be aware of. Patient expresses understanding. Counseling completed in adopting health behaviors such as avoiding excessive alcohol use, avoid tobacco use, improve nutrition, and engage in physical activities. Copy of written care plan, clinical summary, treatment plan, new medications, goals, and self management requirements were given to patient. Emelia Siddiqui APRN.KAY documented in this encounter [facility] 07-27-2022 History of Present illness Narrative Right lower shoulder/upper arm has localized reaction of light erythema, warmth to touch, and swelling. Advised to use ice as needed and take OTC NSAIDS prn. F/U if symptoms worsen. Patient states understanding. Patient identified by name and . Patient came in for her first shot of covid. Patient handled injection well. Patient wanted BQ to look at flu shot she got in right arm at her work. BQ looked at it and it was ok. Helen Hammer MA documented in this encounter [facility] 07-16-2022 Instructions Emelia Siddiqui APRN.CNP - 07/16/2022 12:01 PM EST - Symptomatic management with rest, fluids, and analgesia as needed. - Cool mist humidifier at night. - Follow-up with PCP in 3-5 days if symptoms persist or worsen. - Go to the emergency department for fever greater than 102, neck stiffness, severe headache, drooling, signs of dehydration, chest pain, if you cough up blood, feel like you are going to pass out, or have difficulty breathing. documented in this encounter [facility] 07-16-2022 History of Present illness Narrative CHIEF COMPLAINT: Ana Aragon is a 32 year old female who presents for persistent cough for the last 3 months. She was ill recently around 06/26 and was given an Albuterol inhaler to use but she states this hasn't helped. She did initially feel better for a few days and then the cough and chest congestion worsened again last Saturday. She has some leftover Tessalon perles but they did not provide any relief to the cough. The cough seems to be worse at night when she's laying down. She denies any SOB or wheezing. No fevers, sore throat, runny nose. Tested negative for COVID on Saturday. She had COVID previously and has gotten sick frequently since then with the cough being the symptom that would last the longest. The history is provided by the patient. No school speech language pathologist was used. PAST MEDICAL HISTORY Diagnosis Date Asthma EXERCISE INDUCED, NO INHALER SINCE AGE 13 PAKO (generalized anxiety disorder) 06/26/2022 PAST SURGICAL HISTORY Procedure Laterality Date APPENDECTOMY 2010 Social History Tobacco Use Smoking status: Former Packs/day: 0.25 Years: 3.00 Pack years: 0.75 Types: Cigarettes Quit date: 09/18/2012 Years since quittin.8 Smokeless tobacco: Never Vaping Use Vaping Use: Never used Substance Use Topics Alcohol use: Yes Alcohol/week: 5.0 standard drinks Types: 2 Cans of Beer (12oz) per week Comment: social Drug use: No ALLERGIES Allergen Reactions Bees Rash Chest pains, facial swelling Family History Problem Relation Age of Onset other (epilepsy) Mother Alcohol/Drug Father Hypertension Father Hyperlipidemia Father Stroke Maternal Grandmother Cancer Paternal Grandmother LUNG Emphysema Paternal Grandfather Current Outpatient Medications Medication Sig Dispense Refill albuterol HFA (PROVENTIL HFA, VENTOLIN HFA) 90 mcg/actuation inhaler Inhale 2 Puffs as instructed every 4 hours as needed. 1 Each 0 cyclobenzaprine (FLEXERIL) 5 mg tablet Take 1 tablet by mouth twice daily as needed for pain or muscle spasm. 30 tablet 0 sertraline (ZOLOFT) 25 mg tablet Take 1 tablet by mouth once daily. Take with 50 mg tablet daily. 90 tablet 1 sertraline (ZOLOFT) 50 mg tablet Take 1 tablet by mouth once daily. Take with 25 mg tablet daily. 90 tablet 1 EPINEPHrine (EPIPEN) 0.3 mg/0.3 mL auto-injector Inject 0.3 mL intramuscularly as needed. Inject full content of the syringe. 2 Each 0 No current facility-administered medications for this visit. Review of Systems Constitutional: Negative for chills, diaphoresis and fever. HENT: Negative for congestion, ear pain, postnasal drip, rhinorrhea, sinus pressure and sore throat. Respiratory: Positive for cough and chest tightness. Negative for apnea, shortness of breath and wheezing. Cardiovascular: Negative for chest pain, palpitations and leg swelling. Gastrointestinal: Negative. Neurological: Negative for dizziness, light-headedness and headaches. BP 122/70 Pulse 73 Temp 97.6 Resp 18 Ht 5' 5.25 (1.66m) Wt 160 lb (72.6kg) SpO2 96% LMP 11/17/2021 BMI 26.43 kg/(m^2). Physical Exam Vitals and nursing note reviewed. Constitutional: Appearance: She is ill-appearing. HENT: Nose: Nose normal. Mouth/Throat: Mouth: Mucous membranes are moist. Pharynx: Oropharynx is clear. Eyes: Pupils: Pupils are equal, round, and reactive to light. Cardiovascular: Rate and Rhythm: Normal rate and regular rhythm. Heart sounds: Normal heart sounds. No murmur heard. Pulmonary: Effort: Pulmonary effort is normal. No accessory muscle usage or respiratory distress. Breath sounds: Normal air entry. Examination of the right-lower field reveals decreased breath sounds. Examination of the left-lower field reveals decreased breath sounds. Decreased breath sounds present. No wheezing, rhonchi or rales. Skin: General: Skin is warm and dry. Neurological: Mental Status: She is alert and oriented to person, place, and time. ASSESSMENT/PLAN: 1. Recurrent cough - ICD9: 786.2, ICD10: R05.8 (primary diagnosis) - Cough has been off and on for the last 3-4 weeks - Will start with Prednisone taper, Zpak, and Codeine cough syrup prn. - SPIROMETRY - BASELINE AND POST DILATOR - LUNG VOLUMES - LUNG DIFFUSION CAPACITY (DLCO) - PREDNISONE 20 MG TABLET - AZITHROMYCIN 250 MG TABLET - CODEINE 10 MG-GUAIFENESIN 100 MG/5 ML ORAL LIQUID 2. Recurrent upper respiratory infection (URI) - ICD9: 465.9, ICD10: J06.9 - Symptomatic treatment with prn analgesia - Supportive care with fluids and rest - Follow up in 3-5 days if symptoms persist or sooner if worsening of symptoms PDMP website checked and validated. All prescriptions have been APPROPRIATELY filled. No suspicious activity was identified. 07/16/2022 by Emelia Siddiqui APRN.CNP New medication(s) prescribed today: Yes: Prednisone, Zpak, and Codeine cough syrup. Discussed new medication dosage, usage, goals of therapy, and side effects. Patient has been apprised of any potential drug interactions to be aware of. Patient expresses understanding. Counseling completed in adopting health behaviors such as avoiding excessive alcohol use, avoid tobacco use, improve nutrition, and engage in physical activities. Copy of written care plan, clinical summary, treatment plan, new medications, goals, and self management requirements were given to patient. Emelia Siddiqui APRN.CNP documented in this encounter [facility] 06-26-2022 History of Present illness Narrative VIRTUAL VISIT PROGRESS NOTE This is a virtual visit using [employer] video visit. It required patient-provider interaction for the medical decision making as documented below. Ana Aragon is a 31 year old female seen for 1 month follow up for anxiety and depression. She says it is helping but makes her sleepy but not to the point that she wants to stop it. Also has a cough that started on Saturday Cough is deep, causing some chest pain Has some phlegm, taking Mucinex DM twice daily No fever, chills, sweats, body aches No sore throat, ear pain Did have a migraine the last 2 days but none today No Advil and Tylenol No wheezing HISTORY REVIEWED (electronic chart updated): PAST MEDICAL HISTORY Diagnosis Date Asthma EXERCISE INDUCED, NO INHALER SINCE AGE 13 PAKO (generalized anxiety disorder) 06/26/2022 PAST SURGICAL HISTORY Procedure Laterality Date APPENDECTOMY 2010 FAMILY HISTORY Problem Relation Age of Onset other (epilepsy) Mother Alcohol/Drug Father Hypertension Father Hyperlipidemia Father Stroke Maternal Grandmother Cancer Paternal Grandmother LUNG Emphysema Paternal Grandfather Social History Tobacco Use Smoking status: Former Packs/day: 0.25 Years: 3.00 Pack years: 0.75 Types: Cigarettes Quit date: 09/18/2012 Years since quittin.7 Smokeless tobacco: Never Vaping Use Vaping Use: Never used Substance Use Topics Alcohol use: Yes Alcohol/week: 5.0 standard drinks Types: 2 Cans of Beer (12oz) per week Comment: social Drug use: No Current Outpatient Medications Medication Sig cyclobenzaprine (FLEXERIL) 5 mg tablet Take 1 tablet by mouth twice daily as needed for pain or muscle spasm. sertraline (ZOLOFT) 25 mg tablet Take 1 tablet by mouth once daily. Take with 50 mg tablet daily. sertraline (ZOLOFT) 50 mg tablet Take 1 tablet by mouth once daily. Take with 25 mg tablet daily. EPINEPHrine (EPIPEN) 0.3 mg/0.3 mL auto-injector Inject 0.3 mL intramuscularly as needed. Inject full content of the syringe. albuterol HFA (PROVENTIL HFA, VENTOLIN HFA) 90 mcg/actuation inhaler Inhale 2 Puffs as instructed every 4 hours as needed. No current facility-administered medications for this visit. ALLERGIES Allergen Reactions Bees Rash Chest pains, facial swelling REVIEW OF SYSTEMS: GENERAL: no fever, admits to fatigue HEENT: denies AVELAR, change in hearing or vision, no other ENT complaints, no sore throat, no ear pain NECK: denies swelling or pain in neck RESPIRATORY: mild productive cough without SOB/wheezing CARDIOVASCULAR: no chest pain, no palpitations GI: normal appetite, tolerating PO well, BMs normal, no abdominal pain, no nausea, and no vomiting PSYCH: symptoms under good control with current treatment PHYSICAL EXAMINATION: VIDEO EXAM: (if completed, performed via video enabled technology) GENERAL: alert and appropriate, in no distress, well-hydrated, well nourished, and coughs occasionally RESPIRATORY: breathing non-labored CHEST: equal chest rise with normal respiratory effort ASSESSMENT: (F41.1) PAKO (generalized anxiety disorder) (primary encounter diagnosis) (R05.1) Acute cough PLAN: 1. PAKO (generalized anxiety disorder) - ICD9: 300.02, ICD10: F41.1 (primary diagnosis) - Stable on current dose of Zoloft 75 mg daily. - F/U in 3 months or sooner 2. Acute cough - ICD9: 786.2, ICD10: R05.1 - Suspect viral etiology. Advised to take home COVID test. - Symptomatic management with rest, fluids, and analgesia as needed. - Cool mist humidifier at night. - Follow-up with PCP in 3-5 days if symptoms persist or worsen. - Go to the emergency department for fever greater than 102, neck stiffness, severe headache, drooling, signs of dehydration, chest pain, if you cough up blood, feel like you are going to pass out, or have difficulty breathing. I spent a total of 15 minutes on the date of the service which included preparing to see the patient, [id number] patient care, completing clinical documentation, performing a medically appropriate examination, counseling and educating the patient/family/caregiver, and ordering medications, tests, or procedures Emelia Siddiqui APRN.CNP documented in this encounter [facility] 05-17-2022 Miscellaneous Notes No Show Documentation Ana Aragon no showed for an appointment on 05/17/2022 with Emelia Siddiqui APRN.CNP at 10:40 am. She was scheduled for well adult exam. Patient called in 7 minutes after the start of her appointment time to cancel and reschedule due to having a sick child at home today. Resources discussed/offered to patient: na No show determined to be fault of patient: Yes This is the patients second no show in the last 12 months. Patient was rescheduled for 05/24/2022 at 10:40 am. Letter mailed : Yes Is this the Third or Fourth No Show? No Elenita Brady May 17, 2022 11:01 AM documented in this encounter [facility] 12-12-2021 History of Present illness Narrative ED Follow Up: Patient discharged from [facility] ED on 12/08/21. 1. How are you feeling since your ED visit? n/a Have your symptoms improved or resolved? Not applicable 2. Were you prescribed any medications while in the ED or advised to stop any medication? Not applicable - If yes, were you able to fill your prescriptions? Not applicable -if stopped medication, what was the medication? n/a 3. Were you advised to schedule a follow up appointment with your provider? Not applicable - If no, Do you feel like you need an appointment scheduled? Not applicable - If yes, Do you need this scheduled now or has this already been scheduled? Not applicable 4. Were you able to contact the office or palaeontologist provider prior to your ED visit? Not applicable 5. Is there anything else I can do for you today? Not applicable Amina Zamora MA 12/12/2021 documented in this encounter [facility] 12-06-2021 Miscellaneous Notes Pharmacy requesting refills: Last office visit 08/22/2021. Last refill 06/06/2021 nov none Pending Prescriptions Disp Refills SERTRALINE 50 MG TABLET 90 tablet 1 Sig: TAKE 1 TABLET BY MOUTH EVERY DAY AMIRAH: Yes Please review and advise. Helen Hammer MA documented in this encounter [facility] 05-19-2015 History of Past i llness Narrative Problem Noted Date Resolved Date control 05/19/2015 06/26/2022 Overview: 05/19/15 - considering sterilization, counseled on other methods including mirena IUD - KJ Supervision of other normal , antepartu m 03/01/2015 12/29/2015 Supervision of normal first 11/24/2012 07/03/2013 Overview: Johnson- boy on us History of asthma 10/09/2012 10/24/2012 Overview: 10/09/2012 Patient has a history of exercise-induced asthma. She has not used an inhaler since age 13. Quit smoking 10/09/2012 08/04/2013 Overview: 10/24/12 - encouraged continued cessation - KK 10/09/2012Pt recently quit smoking 09/18/2012. Discussed risks of smoking during and advised pt to continue not smoking. Family history of defects 10/09/2012 08/04/2013 Overview: 10/09/2012Patient's niece born with gastroschisis. Patient requested diagnostic testing 10/09/2012 08/04/2013 Overview: 10/09/2012 Patient desires early screening in with sequential testing. 12/08/2012negative Sequential screen first trimester. The first part of the Sequential Screen reports that her risk for Down syndrome decreased from her age-related risk of 1:810 to 1:10,000 and her Trisomy 18 risk decreased from her age-related risk of 1:2,800 to 1:10,000. Based on these results Dr. Howard's recommendation is for patient to follow-up with Sequential second trimester screening (12/30-01/13) and level II anatomy scan after 18wks. 01/19/2013negative Sequential screen second trimester. The second part of the Sequential Screen reports that her risk for Down syndrome decreased from her age-related risk of 1:1,100 to 1:10,000, her Trisomy 18 risk decreased from her age-related risk of 1:4,200 to 1:10,000 and the ONTD risk is 1:5,100. Based on these results Dr. Howard's recommendation is for patient to follow-up with a level II anatomy ultrasound. documented as of this encounter (statuses as of 06/26/2022) [facility] History of Past illness Narrative* Problem Noted Date Resolved Date control 05/19/2015 06/26/2022 Overview: 05/19/15 - considering sterilization, counseled on other methods including mirena IUD - Supervision of other normal , antepartu m 03/01/2015 12/29/2015 Supervision of normal first 11/24/2012 07/03/2013 Overview: Johnson- boy on us History of asthma 10/09/2012 10/24/2012 Overview: 10/09/2012 Patient has a history of exercise-induced asthma. She has not used an inhaler since age 13. Quit smoking 10/09/2012 08/04/2013 Overview: 10/24/12 - encouraged continued cessation - KK 10/09/2012Pt recently quit smoking 09/18/2012. Discussed risks of smoking during and advised pt to continue not smoking. Family history of defects 10/09/2012 08/04/2013 Overview: 10/09/2012Patient's niece born with gastroschisis. Patient requested diagnostic testing 10/09/2012 08/04/2013 Overview: 10/09/2012 Patient desires early screening in with sequential testing. 12/08/2012negative Sequential screen first trimester. The first part of the Sequential Screen reports that her risk for Down syndrome decreased from her age-related risk of 1:810 to 1:10,000 and her Trisomy 18 risk decreased from her age-related risk of 1:2,800 to 1:10,000. Based on these results Dr. Howard's recommendation is for patient to follow-up with Sequential second trimester screening (12/30-01/13) and level II anatomy scan after 18wks. 01/19/2013negative Sequential screen second trimester. The second part of the Sequential Screen reports that her risk for Down syndrome decreased from her age-related risk of 1:1,100 to 1:10,000, her Trisomy 18 risk decreased from her age-related risk of 1:4,200 to 1:10,000 and the ONTD risk is 1:5,100. Based on these results Dr. Howard's recommendation is for patient to follow-up with a level II anatomy ultrasound. documented as of this encounter (statuses as of 07/16/2022) [facility] History of Past illness Narrative* Problem Noted Date Resolved Date control 05/19/2015 06/26/2022 Overview: 05/19/15 - considering sterilization, counseled on other methods including mirena IUD - KJ Supervision of other normal , antepartu m 03/01/2015 12/29/2015 Supervision of normal first 11/24/2012 07/03/2013 Overview: Johnson- boy on us History of asthma 10/09/2012 10/24/2012 Overview: 10/09/2012 Patient has a history of exercise-induced asthma. She has not used an inhaler since age 13. Quit smoking 10/09/2012 08/04/2013 Overview: 10/24/12 - encouraged continued cessation - KK 10/09/2012Pt recently quit smoking 09/18/2012. Discussed risks of smoking during and advised pt to continue not smoking. Family history of defects 10/09/2012 08/04/2013 Overview: 10/09/2012Patient's niece born with gastroschisis. Patient requested diagnostic testing 10/09/2012 08/04/2013 Overview: 10/09/2012 Patient desires early screening in with sequential testing. 12/08/2012negative Sequential screen first trimester. The first part of the Sequential Screen reports that her risk for Down syndrome decreased from her age-related risk of 1:810 to 1:10,000 and her Trisomy 18 risk decreased from her age-related risk of 1:2,800 to 1:10,000. Based on these results Dr. Howard's recommendation is for patient to follow-up with Sequential second trimester screening (12/30-01/13) and level II anatomy scan after 18wks. 01/19/2013negative Sequential screen second trimester. The second part of the Sequential Screen reports that her risk for Down syndrome decreased from her age-related risk of 1:1,100 to 1:10,000, her Trisomy 18 risk decreased from her age-related risk of 1:4,200 to 1:10,000 and the ONTD risk is 1:5,100. Based on these results Dr. Howard's recommendation is for patient to follow-up with a level II anatomy ultrasound. documented as of this encounter (statuses as of 07/27/2022) [facility] History of Past illness Narrative* Problem Noted Date Resolved Date control 05/19/2015 06/26/2022 Overview: 05/19/15 - considering sterilization, counseled on other methods including mirena IUD - Supervision of other normal , antepartu m 03/01/2015 12/29/2015 Supervision of normal first 11/24/2012 07/03/2013 Overview: Johnson- boy on us History of asthma 10/09/2012 10/24/2012 Overview: 10/09/2012 Patient has a history of exercise-induced asthma. She has not used an inhaler since age 13. Quit smoking 10/09/2012 08/04/2013 Overview: 10/24/12 - encouraged continued cessation - KK 10/09/2012Pt recently quit smoking 09/18/2012. Discussed risks of smoking during and advised pt to continue not smoking. Family history of defects 10/09/2012 08/04/2013 Overview: 10/09/2012Patient's niece born with gastroschisis. Patient requested diagnostic testing 10/09/2012 08/04/2013 Overview: 10/09/2012 Patient desires early screening in with sequential testing. 12/08/2012negative Sequential screen first trimester. The first part of the Sequential Screen reports that her risk for Down syndrome decreased from her age-related risk of 1:810 to 1:10,000 and her Trisomy 18 risk decreased from her age-related risk of 1:2,800 to 1:10,000. Based on these results Dr. Howard's recommendation is for patient to follow-up with Sequential second trimester screening (12/30-01/13) and level II anatomy scan after 18wks. 01/19/2013negative Sequential screen second trimester. The second part of the Sequential Screen reports that her risk for Down syndrome decreased from her age-related risk of 1:1,100 to 1:10,000, her Trisomy 18 risk decreased from her age-related risk of 1:4,200 to 1:10,000 and the ONTD risk is 1:5,100. Based on these results Dr. Howard's recommendation is for patient to follow-up with a level II anatomy ultrasound. documented as of this encounter (statuses as of 08/27/2022) [facility] History of Past illness Narrative* Problem Noted Date Resolved Date control 05/19/2015 06/26/2022 Overview: 05/19/15 - considering sterilization, counseled on other methods including mirena IUD - KJ Supervision of other normal , antepartu m 03/01/2015 12/29/2015 Supervision of normal first 11/24/2012 07/03/2013 Overview: Johnson- boy on us History of asthma 10/09/2012 10/24/2012 Overview: 10/09/2012 Patient has a history of exercise-induced asthma. She has not used an inhaler since age 13. Quit smoking 10/09/2012 08/04/2013 Overview: 10/24/12 - encouraged continued cessation - KK 10/09/2012Pt recently quit smoking 09/18/2012. Discussed risks of smoking during and advised pt to continue not smoking. Family history of defects 10/09/2012 08/04/2013 Overview: 10/09/2012Patient's niece born with gastroschisis. Patient requested diagnostic testing 10/09/2012 08/04/2013 Overview: 10/09/2012 Patient desires early screening in with sequential testing. 12/08/2012negative Sequential screen first trimester. The first part of the Sequential Screen reports that her risk for Down syndrome decreased from her age-related risk of 1:810 to 1:10,000 and her Trisomy 18 risk decreased from her age-related risk of 1:2,800 to 1:10,000. Based on these results Dr. Howard's recommendation is for patient to follow-up with Sequential second trimester screening (12/30-01/13) and level II anatomy scan after 18wks. 01/19/2013negative Sequential screen second trimester. The second part of the Sequential Screen reports that her risk for Down syndrome decreased from her age-related risk of 1:1,100 to 1:10,000, her Trisomy 18 risk decreased from her age-related risk of 1:4,200 to 1:10,000 and the ONTD risk is 1:5,100. Based on these results Dr. Howard's recommendation is for patient to follow-up with a level II anatomy ultrasound. documented as of this encounter (statuses as of 09/05/2022) [facility] History of Past illness Narrative* Problem Noted Date Resolved Date control 05/19/2015 06/26/2022 Overview: 05/19/15 - considering sterilization, counseled on other methods including mirena IUD - Supervision of other normal , antepartu m 03/01/2015 12/29/2015 Supervision of normal first 11/24/2012 07/03/2013 Overview: Johnson- boy on us History of asthma 10/09/2012 10/24/2012 Overview: 10/09/2012 Patient has a history of exercise-induced asthma. She has not used an inhaler since age 13. Quit smoking 10/09/2012 08/04/2013 Overview: 10/24/12 - encouraged continued cessation - KK 10/09/2012Pt recently quit smoking 09/18/2012. Discussed risks of smoking during and advised pt to continue not smoking. Family history of defects 10/09/2012 08/04/2013 Overview: 10/09/2012Patient's niece born with gastroschisis. Patient requested diagnostic testing 10/09/2012 08/04/2013 Overview: 10/09/2012 Patient desires early screening in with sequential testing. 12/08/2012negative Sequential screen first trimester. The first part of the Sequential Screen reports that her risk for Down syndrome decreased from her age-related risk of 1:810 to 1:10,000 and her Trisomy 18 risk decreased from her age-related risk of 1:2,800 to 1:10,000. Based on these results Dr. Howard's recommendation is for patient to follow-up with Sequential second trimester screening (12/30-01/13) and level II anatomy scan after 18wks. 01/19/2013negative Sequential screen second trimester. The second part of the Sequential Screen reports that her risk for Down syndrome decreased from her age-related risk of 1:1,100 to 1:10,000, her Trisomy 18 risk decreased from her age-related risk of 1:4,200 to 1:10,000 and the ONTD risk is 1:5,100. Based on these results Dr. Howard's recommendation is for patient to follow-up with a level II anatomy ultrasound. documented as of this encounter (statuses as of 09/07/2022) [facility] History of Past illness Narrative* Problem Noted Date Resolved Date control 05/19/2015 06/26/2022 Overview: 05/19/15 - considering sterilization, counseled on other methods including mirena IUD - KJ Supervision of other normal , antepartu m 03/01/2015 12/29/2015 Supervision of normal first 11/24/2012 07/03/2013 Overview: Johnson- boy on us History of asthma 10/09/2012 10/24/2012 Overview: 10/09/2012 Patient has a history of exercise-induced asthma. She has not used an inhaler since age 13. Quit smoking 10/09/2012 08/04/2013 Overview: 10/24/12 - encouraged continued cessation - KK 10/09/2012Pt recently quit smoking 09/18/2012. Discussed risks of smoking during and advised pt to continue not smoking. Family history of defects 10/09/2012 08/04/2013 Overview: 10/09/2012Patient's niece born with gastroschisis. Patient requested diagnostic testing 10/09/2012 08/04/2013 Overview: 10/09/2012 Patient desires early screening in with sequential testing. 12/08/2012negative Sequential screen first trimester. The first part of the Sequential Screen reports that her risk for Down syndrome decreased from her age-related risk of 1:810 to 1:10,000 and her Trisomy 18 risk decreased from her age-related risk of 1:2,800 to 1:10,000. Based on these results Dr. Howard's recommendation is for patient to follow-up with Sequential second trimester screening (12/30-01/13) and level II anatomy scan after 18wks. 01/19/2013negative Sequential screen second trimester. The second part of the Sequential Screen reports that her risk for Down syndrome decreased from her age-related risk of 1:1,100 to 1:10,000, her Trisomy 18 risk decreased from her age-related risk of 1:4,200 to 1:10,000 and the ONTD risk is 1:5,100. Based on these results Dr. Howard's recommendation is for patient to follow-up with a level II anatomy ultrasound. documented as of this encounter (statuses as of 09/12/2022) [facility] History of Past illness Narrative* Problem Noted Date Resolved Date control 05/19/2015 06/26/2022 Overview: 05/19/15 - considering sterilization, counseled on other methods including mirena IUD - KJ Supervision of other normal , antepartu m 03/01/2015 12/29/2015 Supervision of normal first 11/24/2012 07/03/2013 Overview: Johnson- boy on us History of asthma 10/09/2012 10/24/2012 Overview: 10/09/2012 Patient has a history of exercise-induced asthma. She has not used an inhaler since age 13. Quit smoking 10/09/2012 08/04/2013 Overview: 10/24/12 - encouraged continued cessation - KK 10/09/2012Pt recently quit smoking 09/18/2012. Discussed risks of smoking during and advised pt to continue not smoking. Family history of defects 10/09/2012 08/04/2013 Overview: 10/09/2012Patient's niece born with gastroschisis. Patient requested diagnostic testing 10/09/2012 08/04/2013 Overview: 10/09/2012 Patient desires early screening in with sequential testing. 12/08/2012negative Sequential screen first trimester. The first part of the Sequential Screen reports that her risk for Down syndrome decreased from her age-related risk of 1:810 to 1:10,000 and her Trisomy 18 risk decreased from her age-related risk of 1:2,800 to 1:10,000. Based on these results Dr. Howard's recommendation is for patient to follow-up with Sequential second trimester screening (12/30-01/13) and level II anatomy scan after 18wks. 01/19/2013negative Sequential screen second trimester. The second part of the Sequential Screen reports that her risk for Down syndrome decreased from her age-related risk of 1:1,100 to 1:10,000, her Trisomy 18 risk decreased from her age-related risk of 1:4,200 to 1:10,000 and the ONTD risk is 1:5,100. Based on these results Dr. Howard's recommendation is for patient to follow-up with a level II anatomy ultrasound. documented as of this encounter (statuses as of 09/14/2022) [facility] History of Past illness Narrative* Problem Noted Date Resolved Date control 05/19/2015 06/26/2022 Overview: 05/19/15 - considering sterilization, counseled on other methods including mirena IUD - KJ Supervision of other normal , antepartu m 03/01/2015 12/29/2015 Supervision of normal first 11/24/2012 07/03/2013 Overview: Johnson- boy on us History of asthma 10/09/2012 10/24/2012 Overview: 10/09/2012 Patient has a history of exercise-induced asthma. She has not used an inhaler since age 13. Quit smoking 10/09/2012 08/04/2013 Overview: 10/24/12 - encouraged continued cessation - KK 10/09/2012Pt recently quit smoking 09/18/2012. Discussed risks of smoking during and advised pt to continue not smoking. Family history of defects 10/09/2012 08/04/2013 Overview: 10/09/2012Patient's niece born with gastroschisis. Patient requested diagnostic testing 10/09/2012 08/04/2013 Overview: 10/09/2012 Patient desires early screening in with sequential testing. 12/08/2012negative Sequential screen first trimester. The first part of the Sequential Screen reports that her risk for Down syndrome decreased from her age-related risk of 1:810 to 1:10,000 and her Trisomy 18 risk decreased from her age-related risk of 1:2,800 to 1:10,000. Based on these results Dr. Howard's recommendation is for patient to follow-up with Sequential second trimester screening (12/30-01/13) and level II anatomy scan after 18wks. 01/19/2013negative Sequential screen second trimester. The second part of the Sequential Screen reports that her risk for Down syndrome decreased from her age-related risk of 1:1,100 to 1:10,000, her Trisomy 18 risk decreased from her age-related risk of 1:4,200 to 1:10,000 and the ONTD risk is 1:5,100. Based on these results Dr. Howard's recommendation is for patient to follow-up with a level II anatomy ultrasound. documented as of this encounter (statuses as of 09/15/2022) [facility] History of Past illness Narrative* Problem Noted Date Resolved Date control 05/19/2015 06/26/2022 Overview: 05/19/15 - considering sterilization, counseled on other methods including mirena IUD - KJ Supervision of other normal , antepartu m 03/01/2015 12/29/2015 Supervision of normal first 11/24/2012 07/03/2013 Overview: Johnson- boy on us History of asthma 10/09/2012 10/24/2012 Overview: 10/09/2012 Patient has a history of exercise-induced asthma. She has not used an inhaler since age 13. Quit smoking 10/09/2012 08/04/2013 Overview: 10/24/12 - encouraged continued cessation - KK 10/09/2012Pt recently quit smoking 09/18/2012. Discussed risks of smoking during and advised pt to continue not smoking. Family history of defects 10/09/2012 08/04/2013 Overview: 10/09/2012Patient's niece born with gastroschisis. Patient requested diagnostic testing 10/09/2012 08/04/2013 Overview: 10/09/2012 Patient desires early screening in with sequential testing. 12/08/2012negative Sequential screen first trimester. The first part of the Sequential Screen reports that her risk for Down syndrome decreased from her age-related risk of 1:810 to 1:10,000 and her Trisomy 18 risk decreased from her age-related risk of 1:2,800 to 1:10,000. Based on these results Dr. Howard's recommendation is for patient to follow-up with Sequential second trimester screening (12/30-01/13) and level II anatomy scan after 18wks. 01/19/2013negative Sequential screen second trimester. The second part of the Sequential Screen reports that her risk for Down syndrome decreased from her age-related risk of 1:1,100 to 1:10,000, her Trisomy 18 risk decreased from her age-related risk of 1:4,200 to 1:10,000 and the ONTD risk is 1:5,100. Based on these results Dr. Howard's recommendation is for patient to follow-up with a level II anatomy ultrasound. documented as of this encounter (statuses as of 09/26/2022) [facility] History of Past illness Narrative* Problem Noted Date Resolved Date control 05/19/2015 06/26/2022 Overview: 05/19/15 - considering sterilization, counseled on other methods including mirena IUD - KJ Supervision of other normal , antepartu m 03/01/2015 12/29/2015 Supervision of normal first 11/24/2012 07/03/2013 Overview: [facility] on [facility] History of asthma 10/09/2012 10/24/2012 Overview: 10/09/2012 Patient has a history of exercise-induced asthma. She has not used an inhaler since age 13. Quit smoking 10/09/2012 08/04/2013 Overview: 10/24/12 - encouraged continued cessation - KK 10/09/2012Pt recently quit smoking 09/18/2012. Discussed risks of smoking during and advised pt to continue not smoking. Family history of defects 10/09/2012 08/04/2013 Overview: 10/09/2012Patient's niece born with gastroschisis. Patient requested diagnostic testing 10/09/2012 08/04/2013 Overview: 10/09/2012 Patient desires early screening in with sequential testing. 12/08/2012negative Sequential screen first trimester. The first part of the Sequential Screen reports that her risk for Down syndrome decreased from her age-related risk of 1:810 to 1:10,000 and her Trisomy 18 risk decreased from her age-related risk of 1:2,800 to 1:10,000. Based on these results Dr. Howard's recommendation is for patient to follow-up with Sequential second trimester screening (12/30-01/13) and level II anatomy scan after 18wks. 01/19/2013negative Sequential screen second trimester. The second part of the Sequential Screen reports that her risk for Down syndrome decreased from her age-related risk of 1:1,100 to 1:10,000, her Trisomy 18 risk decreased from her age-related risk of 1:4,200 to 1:10,000 and the ONTD risk is 1:5,100. Based on these results Dr. Howard's recommendation is for patient to follow-up with a level II anatomy ultrasound. documented as of this encounter (statuses as of 11/23/2022) [facility]10-[facility]2015 History of Past illness Narrative* Problem Noted Date Resolved Date control 05/19/2015 06/26/2022 Overview: 05/19/15 - considering sterilization, counseled on other methods including mirena IUD - KJ Supervision of other normal , antepartu m 03/01/2015 12/29/2015 Supervision of normal first 11/24/2012 07/03/2013 Overview: [facility]- boy on us History of asthma 10/09/2012 10/24/2012 Overview: 10/09/2012 Patient has a history of exercise-induced asthma. She has not used an inhaler since age 13. Quit smoking 10/09/2012 08/04/2013 Overview: 10/24/12 - encouraged continued cessation - KK 10/09/2012Pt recently quit smoking 09/18/2012. Discussed risks of smoking during and advised pt to continue not smoking. Family history of defects 10/09/2012 08/04/2013 Overview: 10/09/2012Patient's niece born with gastroschisis. Patient requested diagnostic testing 10/09/2012 08/04/2013 Overview: 10/09/2012 Patient desires early screening in with sequential testing. 12/08/2012negative Sequential screen first trimester. The first part of the Sequential Screen reports that her risk for Down syndrome decreased from her age-related risk of 1:810 to 1:10,000 and her Trisomy 18 risk decreased from her age-related risk of 1:2,800 to 1:10,000. Based on these results Dr. Howard's recommendation is for patient to follow-up with Sequential second trimester screening (12/30-01/13) and level II anatomy scan after 18wks. 01/19/2013negative Sequential screen second trimester. The second part of the Sequential Screen reports that her risk for Down syndrome decreased from her age-related risk of 1:1,100 to 1:10,000, her Trisomy 18 risk decreased from her age-related risk of 1:4,200 to 1:10,000 and the ONTD risk is 1:5,100. Based on these results Dr. Howard's recommendation is for patient to follow-up with a level II anatomy ultrasound. documented as of this encounter (statuses as of 11/23/2022) [facility]10-[facility]2015 History of Past illness Narrative* Problem Noted Date Resolved Date control 05/19/2015 06/26/2022 Overview: 05/19/15 - considering sterilization, counseled on other methods including mirena IUD - KJ Supervision of other normal , antepartu 03/01/2015 12/29/2015 Supervision of normal first 11/24/2012 07/03/2013 Overview: [facility]- boy on us History of asthma 10/09/2012 10/24/2012 Overview: 10/09/2012 Patient has a history of exercise-induced asthma. She has not used an inhaler since age 13. Quit smoking 10/09/2012 08/04/2013 Overview: 10/24/12 - encouraged continued cessation - KK 10/09/2012Pt recently quit smoking 09/18/2012. Discussed risks of smoking during and advised pt to continue not smoking. Family history of defects 10/09/2012 08/04/2013 Overview: 10/09/2012Patient's niece born with gastroschisis. Patient requested diagnostic testing 10/09/2012 08/04/2013 Overview: 10/09/2012 Patient desires early screening in with sequential testing. 12/08/2012negative Sequential screen first trimester. The first part of the Sequential Screen reports that her risk for Down syndrome decreased from her age-related risk of 1:810 to 1:10,000 and her Trisomy 18 risk decreased from her age-related risk of 1:2,800 to 1:10,000. Based on these results Dr. Howard's recommendation is for patient to follow-up with Sequential second trimester screening (12/30-01/13) and level II anatomy scan after 18wks. 01/19/2013negative Sequential screen second trimester. The second part of the Sequential Screen reports that her risk for Down syndrome decreased from her age-related risk of 1:1,100 to 1:10,000, her Trisomy 18 risk decreased from her age-related risk of 1:4,200 to 1:10,000 and the ONTD risk is 1:5,100. Based on these results Dr. Howard's recommendation is for patient to follow-up with a level II anatomy ultrasound. documented as of this encounter (statuses as of 12/20/2022) [facility] History of Past illness Narrative* Problem Noted Date Resolved Date control 05/19/2015 06/26/2022 Overview: 05/19/15 - considering sterilization, counseled on other methods including mirena IUD - Supervision of other normal , antepartu m 03/01/2015 12/29/2015 Supervision of normal first 11/24/2012 07/03/2013 Overview: [facility]- [facility] on us History of asthma 10/09/2012 10/24/2012 Overview: 10/09/2012 Patient has a history of exercise-induced asthma. She has not used an inhaler since age 13. Quit smoking 10/09/2012 08/04/2013 Overview: 10/24/12 - encouraged continued cessation - KK 10/09/2012Pt recently quit smoking 09/18/2012. Discussed risks of smoking during and advised pt to continue not smoking. Family history of defects 10/09/2012 08/04/2013 Overview: 10/09/2012Patient's niece born with gastroschisis. Patient requested diagnostic testing 10/09/2012 08/04/2013 Overview: 10/09/2012 Patient desires early screening in with sequential testing. 12/08/2012negative Sequential screen first trimester. The first part of the Sequential Screen reports that her risk for Down syndrome decreased from her age-related risk of 1:810 to 1:10,000 and her Trisomy 18 risk decreased from her age-related risk of 1:2,800 to 1:10,000. Based on these results Dr. Howard's recommendation is for patient to follow-up with Sequential second trimester screening (12/30-01/13) and level II anatomy scan after 18wks. 01/19/2013negative Sequential screen second trimester. The second part of the Sequential Screen reports that her risk for Down syndrome decreased from her age-related risk of 1:1,100 to 1:10,000, her Trisomy 18 risk decreased from her age-related risk of 1:4,200 to 1:10,000 and the ONTD risk is 1:5,100. Based on these results Dr. Howard's recommendation is for patient to follow-up with a level II anatomy ultrasound. documented as of this encounter (statuses as of 01/17/2023) [facility] History of Past illness Narrative* Problem Noted Date Resolved Date control 05/19/2015 06/26/2022 Overview: 05/19/15 - considering sterilization, counseled on other methods including mirena IUD - KJ Supervision of other normal , antepartu 03/01/2015 12/29/2015 Supervision of normal first 11/24/2012 07/03/2013 Overview: [facility]- [facility] on [place] History of asthma 10/09/2012 10/24/2012 Overview: 10/09/2012 Patient has a history of exercise-induced asthma. She has not used an inhaler since age 13. Quit smoking 10/09/2012 08/04/2013 Overview: 10/24/12 - encouraged continued cessation - KK 10/09/2012Pt recently quit smoking 09/18/2012. Discussed risks of smoking during and advised pt to continue not smoking. Family history of defects 10/09/2012 08/04/2013 Overview: 10/09/2012Patient's niece born with gastroschisis. Patient requested diagnostic testing 10/09/2012 08/04/2013 Overview: 10/09/2012 Patient desires early screening in with sequential testing. 12/08/2012negative Sequential screen first trimester. The first part of the Sequential Screen reports that her risk for Down syndrome decreased from her age-related risk of 1:810 to 1:10,000 and her Trisomy 18 risk decreased from her age-related risk of 1:2,800 to 1:10,000. Based on these results Dr. Howard's recommendation is for patient to follow-up with Sequential second trimester screening (12/30-01/13) and level II anatomy scan after 18wks. 01/19/2013negative Sequential screen second trimester. The second part of the Sequential Screen reports that her risk for Down syndrome decreased from her age-related risk of 1:1,100 to 1:10,000, her Trisomy 18 risk decreased from her age-related risk of 1:4,200 to 1:10,000 and the ONTD risk is 1:5,100. Based on these results Dr. Howard's recommendation is for patient to follow-up with a level II anatomy ultrasound. documented as of this encounter (statuses as of 02/08/2023) [facility]2015 History of Past illness Narrative* Problem Noted Date Diagnosed Date Resolved Date control 05/19/2015 06/26/2022 Overview: 05/19/15 - considering sterilization, counseled on other methods including mirena IUD - KJ Supervision of other normal , antepartum 03/01/2015 12/29/2015 Supervision of normal first 11/24/2012 07/03/2013 Overview: [facility]- [facility] on [place] History of asthma 10/09/2012 10/24/2012 Overview: 10/09/2012 Patient has a history of exercise-induced asthma. She has not used an inhaler since age 13. Quit smoking 10/09/2012 08/04/2013 Overview: 10/24/12 - encouraged continued cessation - KK 10/09/2012Pt recently quit smoking 09/18/2012. Discussed risks of smoking during and advised pt to continue not smoking. Family history of defects 10/09/2012 08/04/2013 Overview: 10/09/2012Patient's niece born with gastroschisis. Patient requested diagnostic testing 10/09/2012 08/04/2013 Overview: 10/09/2012 Patient desires early screening in with sequential testing. 12/08/2012negative Sequential screen first trimester. The first part of the Sequential Screen reports that her risk for Down syndrome decreased from her age-related risk of 1:810 to 1:10,000 and her Trisomy 18 risk decreased from her age-related risk of 1:2,800 to 1:10,000. Based on these results Dr. Howard's recommendation is for patient to follow-up with Sequential second trimester screening (12/30-01/13) and level II anatomy scan after 18wks. 01/19/2013negative Sequential screen second trimester. The second part of the Sequential Screen reports that her risk for Down syndrome decreased from her age-related risk of 1:1,100 to 1:10,000, her Trisomy 18 risk decreased from her age-related risk of 1:4,200 to 1:10,000 and the ONTD risk is 1:5,100. Based on these results Dr. Howard's recommendation is for patient to follow-up with a level II anatomy ultrasound. documented as of this encounter (statuses as of 03/23/2023) [facility] History of Past illness Narrative* Problem Noted Date Diagnosed Date Resolved Date control 05/19/2015 06/26/2022 Overview: 05/19/15 - considering sterilization, counseled on other methods including mirena IUD - KJ Supervision of other normal , antepartum 03/01/2015 12/29/2015 Supervision of normal first 11/24/2012 07/03/2013 Overview: [facility]- [facility] on us History of asthma 10/09/2012 10/24/2012 Overview: 10/09/2012 Patient has a history of exercise-induced asthma. She has not used an inhaler since age 13. Quit smoking 10/09/2012 08/04/2013 Overview: 10/24/12 - encouraged continued cessation - KK 10/09/2012Pt recently quit smoking 09/18/2012. Discussed risks of smoking during and advised pt to continue not smoking. Family history of defects 10/09/2012 08/04/2013 Overview: 10/09/2012Patient's niece born with gastroschisis. Patient requested diagnostic testing 10/09/2012 08/04/2013 Overview: 10/09/2012 Patient desires early screening in with sequential testing. 12/08/2012negative Sequential screen first trimester. The first part of the Sequential Screen reports that her risk for Down syndrome decreased from her age-related risk of 1:810 to 1:10,000 and her Trisomy 18 risk decreased from her age-related risk of 1:2,800 to 1:10,000. Based on these results Dr. Howard's recommendation is for patient to follow-up with Sequential second trimester screening (12/30-01/13) and level II anatomy scan after 18wks. 01/19/2013negative Sequential screen second trimester. The second part of the Sequential Screen reports that her risk for Down syndrome decreased from her age-related risk of 1:1,100 to 1:10,000, her Trisomy 18 risk decreased from her age-related risk of 1:4,200 to 1:10,000 and the ONTD risk is 1:5,100. Based on these results Dr. Howard's recommendation is for patient to follow-up with a level II anatomy ultrasound. documented as of this encounter (statuses as of 03/28/2023) [facility] History of Past illness Narrative* Problem Noted Date Diagnosed Date Resolved Date control 05/19/2015 06/26/2022 Overview: 05/19/15 - considering sterilization, counseled on other methods including mirena IUD - KJ Supervision of other normal , antepartum 03/01/2015 12/29/2015 Supervision of normal first 11/24/2012 07/03/2013 Overview: [facility]- boy on us History of asthma 10/09/2012 10/24/2012 Overview: 10/09/2012 Patient has a history of exercise-induced asthma. She has not used an inhaler since age 13. Quit smoking 10/09/2012 08/04/2013 Overview: 10/24/12 - encouraged continued cessation - KK 10/09/2012Pt recently quit smoking 09/18/2012. Discussed risks of smoking during and advised pt to continue not smoking. Family history of defects 10/09/2012 08/04/2013 Overview: 10/09/2012Patient's niece born with gastroschisis. Patient requested diagnostic testing 10/09/2012 08/04/2013 Overview: 10/09/2012 Patient desires early screening in with sequential testing. 12/08/2012negative Sequential screen first trimester. The first part of the Sequential Screen reports that her risk for Down syndrome decreased from her age-related risk of 1:810 to 1:10,000 and her Trisomy 18 risk decreased from her age-related risk of 1:2,800 to 1:10,000. Based on these results Dr. Howard's recommendation is for patient to follow-up with Sequential second trimester screening (12/30-01/13) and level II anatomy scan after 18wks. 01/19/2013negative Sequential screen second trimester. The second part of the Sequential Screen reports that her risk for Down syndrome decreased from her age-related risk of 1:1,100 to 1:10,000, her Trisomy 18 risk decreased from her age-related risk of 1:4,200 to 1:10,000 and the ONTD risk is 1:5,100. Based on these results Dr. Howard's recommendation is for patient to follow-up with a level II anatomy ultrasound. documented as of this encounter (statuses as of 03/29/2023) [facility] History of Past illness Narrative* Problem Noted Date Diagnosed Date Resolved Date control 05/19/2015 06/26/2022 Overview: 05/19/15 - considering sterilization, counseled on other methods including mirena IUD - KJ Supervision of other normal , antepartum 03/01/2015 12/29/2015 Supervision of normal first 11/24/2012 07/03/2013 Overview: [facility]- boy on us History of asthma 10/09/2012 10/24/2012 Overview: 10/09/2012 Patient has a history of exercise-induced asthma. She has not used an inhaler since age 13. Quit smoking 10/09/2012 08/04/2013 Overview: 10/24/12 - encouraged continued cessation - KK 10/09/2012Pt recently quit smoking 09/18/2012. Discussed risks of smoking during and advised pt to continue not smoking. Family history of defects 10/09/2012 08/04/2013 Overview: 10/09/2012Patient's niece born with gastroschisis. Patient requested diagnostic testing 10/09/2012 08/04/2013 Overview: 10/09/2012 Patient desires early screening in with sequential testing. 12/08/2012negative Sequential screen first trimester. The first part of the Sequential Screen reports that her risk for Down syndrome decreased from her age-related risk of 1:810 to 1:10,000 and her Trisomy 18 risk decreased from her age-related risk of 1:2,800 to 1:10,000. Based on these results Dr. Howard's recommendation is for patient to follow-up with Sequential second trimester screening (12/30-01/13) and level II anatomy scan after 18wks. 01/19/2013negative Sequential screen second trimester. The second part of the Sequential Screen reports that her risk for Down syndrome decreased from her age-related risk of 1:1,100 to 1:10,000, her Trisomy 18 risk decreased from her age-related risk of 1:4,200 to 1:10,000 and the ONTD risk is 1:5,100. Based on these results Dr. Howard's recommendation is for patient to follow-up with a level II anatomy ultrasound. documented as of this encounter (statuses as of 04/01/2023) [facility] History of Past illness Narrative* Problem Noted Date Diagnosed Date Resolved Date control 05/19/2015 06/26/2022 Overview: 05/19/15 - considering sterilization, counseled on other methods including mirena IUD - Supervision of other normal , antepartum 03/01/2015 12/29/2015 Supervision of normal first 11/24/2012 07/03/2013 Overview: [facility]- boy on us History of asthma 10/09/2012 10/24/2012 Overview: 10/09/2012 Patient has a history of exercise-induced asthma. She has not used an inhaler since age 13. Quit smoking 10/09/2012 08/04/2013 Overview: 10/24/12 - encouraged continued cessation - 10/09/2012Pt recently quit smoking 09/18/2012. Discussed risks of smoking during and advised pt to continue not smoking. Family history of defects 10/09/2012 08/04/2013 Overview: 10/09/2012Patient's niece born with gastroschisis. Patient requested diagnostic testing 10/09/2012 08/04/2013 Overview: 10/09/2012 Patient desires early screening in with sequential testing. 12/08/2012negative Sequential screen first trimester. The first part of the Sequential Screen reports that her risk for Down syndrome decreased from her age-related risk of 1:810 to 1:10,000 and her Trisomy 18 risk decreased from her age-related risk of 1:2,800 to 1:10,000. Based on these results Dr. Howard's recommendation is for patient to follow-up with Sequential second trimester screening (12/30-01/13) and level II anatomy scan after 18wks. 01/19/2013negative Sequential screen second trimester. The second part of the Sequential Screen reports that her risk for Down syndrome decreased from her age-related risk of 1:1,100 to 1:10,000, her Trisomy 18 risk decreased from her age-related risk of 1:4,200 to 1:10,000 and the ONTD risk is 1:5,100. Based on these results Dr. Howard's recommendation is for patient to follow-up with a level II anatomy ultrasound. documented as of this encounter (statuses as of 04/17/2023) [facility] History of Past illness Narrative* Problem Noted Date Diagnosed Date Resolved Date control 05/19/2015 06/26/2022 Overview: 05/19/15 - considering sterilization, counseled on other methods including mirena IUD - Supervision of other normal , antepartum 03/01/2015 12/29/2015 Supervision of normal first 11/24/2012 07/03/2013 Overview: [facility]- boy on us History of asthma 10/09/2012 10/24/2012 Overview: 10/09/2012 Patient has a history of exercise-induced asthma. She has not used an inhaler since age 13. Quit smoking 10/09/2012 08/04/2013 Overview: 10/24/12 - encouraged continued cessation - KK 10/09/2012Pt recently quit smoking 09/18/2012. Discussed risks of smoking during and advised pt to continue not smoking. Family history of defects 10/09/2012 08/04/2013 Overview: 10/09/2012Patient's niece born with gastroschisis. Patient requested diagnostic testing 10/09/2012 08/04/2013 Overview: 10/09/2012 Patient desires early screening in with sequential testing. 12/08/2012negative Sequential screen first trimester. The first part of the Sequential Screen reports that her risk for Down syndrome decreased from her age-related risk of 1:810 to 1:10,000 and her Trisomy 18 risk decreased from her age-related risk of 1:2,800 to 1:10,000. Based on these results Dr. Howard's recommendation is for patient to follow-up with Sequential second trimester screening (12/30-01/13) and level II anatomy scan after 18wks. 01/19/2013negative Sequential screen second trimester. The second part of the Sequential Screen reports that her risk for Down syndrome decreased from her age-related risk of 1:1,100 to 1:10,000, her Trisomy 18 risk decreased from her age-related risk of 1:4,200 to 1:10,000 and the ONTD risk is 1:5,100. Based on these results Dr. Howard's recommendation is for patient to follow-up with a level II anatomy ultrasound. documented as of this encounter (statuses as of 04/23/2023) [facility] History of Past illness Narrative* Problem Noted Date Diagnosed Date Resolved Date control 05/19/2015 06/26/2022 Overview: 05/19/15 - considering sterilization, counseled on other methods including mirena IUD - Supervision of other normal , antepartum 03/01/2015 12/29/2015 Supervision of normal first 11/24/2012 07/03/2013 Overview: [facility]- boy on us History of asthma 10/09/2012 10/24/2012 Overview: 10/09/2012 Patient has a history of exercise-induced asthma. She has not used an inhaler since age 13. Quit smoking 10/09/2012 08/04/2013 Overview: 10/24/12 - encouraged continued cessation - KK 10/09/2012Pt recently quit smoking 09/18/2012. Discussed risks of smoking during and advised pt to continue not smoking. Family history of defects 10/09/2012 08/04/2013 Overview: 10/09/2012Patient's niece born with gastroschisis. Patient requested diagnostic testing 10/09/2012 08/04/2013 Overview: 10/09/2012 Patient desires early screening in with sequential testing. 12/08/2012negative Sequential screen first trimester. The first part of the Sequential Screen reports that her risk for Down syndrome decreased from her age-related risk of 1:810 to 1:10,000 and her Trisomy 18 risk decreased from her age-related risk of 1:2,800 to 1:10,000. Based on these results Dr. Howard's recommendation is for patient to follow-up with Sequential second trimester screening (12/30-01/13) and level II anatomy scan after 18wks. 01/19/2013negative Sequential screen second trimester. The second part of the Sequential Screen reports that her risk for Down syndrome decreased from her age-related risk of 1:1,100 to 1:10,000, her Trisomy 18 risk decreased from her age-related risk of 1:4,200 to 1:10,000 and the ONTD risk is 1:5,100. Based on these results Dr. Howard's recommendation is for patient to follow-up with a level II anatomy ultrasound. documented as of this encounter (statuses as of 04/29/2023) [facility] History of Past illness Narrative* Problem Noted Date Diagnosed Date Resolved Date control 05/19/2015 06/26/2022 Overview: 05/19/15 - considering sterilization, counseled on other methods including mirena IUD - Supervision of other normal , antepartum 03/01/2015 12/29/2015 Supervision of normal first 11/24/2012 07/03/2013 Overview: [facility]- boy on us History of asthma 10/09/2012 10/24/2012 Overview: 10/09/2012 Patient has a history of exercise-induced asthma. She has not used an inhaler since age 13. Quit smoking 10/09/2012 08/04/2013 Overview: 10/24/12 - encouraged continued cessation - KK 10/09/2012Pt recently quit smoking 09/18/2012. Discussed risks of smoking during and advised pt to continue not smoking. Family history of defects 10/09/2012 08/04/2013 Overview: 10/09/2012Patient's niece born with gastroschisis. Patient requested diagnostic testing 10/09/2012 08/04/2013 Overview: 10/09/2012 Patient desires early screening in with sequential testing. 12/08/2012negative Sequential screen first trimester. The first part of the Sequential Screen reports that her risk for Down syndrome decreased from her age-related risk of 1:810 to 1:10,000 and her Trisomy 18 risk decreased from her age-related risk of 1:2,800 to 1:10,000. Based on these results Dr. Howard's recommendation is for patient to follow-up with Sequential second trimester screening (12/30-01/13) and level II anatomy scan after 18wks. 01/19/2013negative Sequential screen second trimester. The second part of the Sequential Screen reports that her risk for Down syndrome decreased from her age-related risk of 1:1,100 to 1:10,000, her Trisomy 18 risk decreased from her age-related risk of 1:4,200 to 1:10,000 and the ONTD risk is 1:5,100. Based on these results Dr. Howard's recommendation is for patient to follow-up with a level II anatomy ultrasound. documented as of this encounter (statuses as of 05/01/2023) [facility] History of Past illness Narrative* Problem Noted Date Diagnosed Date Resolved Date control 05/19/2015 06/26/2022 Overview: 05/19/15 - considering sterilization, counseled on other methods including mirena IUD - JULIANNE Supervision of other normal , antepartum 03/01/2015 12/29/2015 Supervision of normal first 11/24/2012 07/03/2013 Overview: Johnson- boy on us History of asthma 10/09/2012 10/24/2012 Overview: 10/09/2012 Patient has a history of exercise-induced asthma. She has not used an inhaler since age 13. Quit smoking 10/09/2012 08/04/2013 Overview: 10/24/12 - encouraged continued cessation - KK 10/09/2012Pt recently quit smoking 09/18/2012. Discussed risks of smoking during and advised pt to continue not smoking. Family history of defects 10/09/2012 08/04/2013 Overview: 10/09/2012Patient's niece born with gastroschisis. Patient requested diagnostic testing 10/09/2012 08/04/2013 Overview: 10/09/2012 Patient desires early screening in with sequential testing. 12/08/2012negative Sequential screen first trimester. The first part of the Sequential Screen reports that her risk for Down syndrome decreased from her age-related risk of 1:810 to 1:10,000 and her Trisomy 18 risk decreased from her age-related risk of 1:2,800 to 1:10,000. Based on these results Dr. Howard's recommendation is for patient to follow-up with Sequential second trimester screening (12/30-01/13) and level II anatomy scan after 18wks. 01/19/2013negative Sequential screen second trimester. The second part of the Sequential Screen reports that her risk for Down syndrome decreased from her age-related risk of 1:1,100 to 1:10,000, her Trisomy 18 risk decreased from her age-related risk of 1:4,200 to 1:10,000 and the ONTD risk is 1:5,100. Based on these results Dr. Howard's recommendation is for patient to follow-up with a level II anatomy ultrasound. documented as of this encounter (statuses as of 05/23/2023) [facility] History of Past illness Narrative* Problem Noted Date Diagnosed Date Resolved Date control 05/19/2015 06/26/2022 Overview: 05/19/15 - considering sterilization, counseled on other methods including mirena IUD - Supervision of other normal , antepartum 03/01/2015 12/29/2015 Supervision of normal first 11/24/2012 07/03/2013 Overview: Johnson- boy on us History of asthma 10/09/2012 10/24/2012 Overview: 10/09/2012 Patient has a history of exercise-induced asthma. She has not used an inhaler since age 13. Quit smoking 10/09/2012 08/04/2013 Overview: 10/24/12 - encouraged continued cessation - KK 10/09/2012Pt recently quit smoking 09/18/2012. Discussed risks of smoking during and advised pt to continue not smoking. Family history of defects 10/09/2012 08/04/2013 Overview: 10/09/2012Patient's niece born with gastroschisis. Patient requested diagnostic testing 10/09/2012 08/04/2013 Overview: 10/09/2012 Patient desires early screening in with sequential testing. 12/08/2012negative Sequential screen first trimester. The first part of the Sequential Screen reports that her risk for Down syndrome decreased from her age-related risk of 1:810 to 1:10,000 and her Trisomy 18 risk decreased from her age-related risk of 1:2,800 to 1:10,000. Based on these results Dr. Howard's recommendation is for patient to follow-up with Sequential second trimester screening (12/30-01/13) and level II anatomy scan after 18wks. 01/19/2013negative Sequential screen second trimester. The second part of the Sequential Screen reports that her risk for Down syndrome decreased from her age-related risk of 1:1,100 to 1:10,000, her Trisomy 18 risk decreased from her age-related risk of 1:4,200 to 1:10,000 and the ONTD risk is 1:5,100. Based on these results Dr. Howard's recommendation is for patient to follow-up with a level II anatomy ultrasound. documented as of this encounter (statuses as of 06/12/2023) [facility] History of Past illness Narrative* Problem Noted Date Diagnosed Date Resolved Date control 05/19/2015 06/26/2022 Overview: 05/19/15 - considering sterilization, counseled on other methods including mirena IUD - KJ Supervision of other normal , antepartum 03/01/2015 12/29/2015 Supervision of normal first 11/24/2012 07/03/2013 Overview: Johnson- boy on us History of asthma 10/09/2012 10/24/2012 Overview: 10/09/2012 Patient has a history of exercise-induced asthma. She has not used an inhaler since age 13. Quit smoking 10/09/2012 08/04/2013 Overview: 10/24/12 - encouraged continued cessation - KK 10/09/2012Pt recently quit smoking 09/18/2012. Discussed risks of smoking during and advised pt to continue not smoking. Family history of defects 10/09/2012 08/04/2013 Overview: 10/09/2012Patient's niece born with gastroschisis. Patient requested diagnostic testing 10/09/2012 08/04/2013 Overview: 10/09/2012 Patient desires early screening in with sequential testing. 12/08/2012negative Sequential screen first trimester. The first part of the Sequential Screen reports that her risk for Down syndrome decreased from her age-related risk of 1:810 to 1:10,000 and her Trisomy 18 risk decreased from her age-related risk of 1:2,800 to 1:10,000. Based on these results Dr. Howard's recommendation is for patient to follow-up with Sequential second trimester screening (12/30-01/13) and level II anatomy scan after 18wks. 01/19/2013negative Sequential screen second trimester. The second part of the Sequential Screen reports that her risk for Down syndrome decreased from her age-related risk of 1:1,100 to 1:10,000, her Trisomy 18 risk decreased from her age-related risk of 1:4,200 to 1:10,000 and the ONTD risk is 1:5,100. Based on these results Dr. Howard's recommendation is for patient to follow-up with a level II anatomy ultrasound. documented as of this encounter (statuses as of 07/03/2023) [facility] History of Past illness Narrative* Problem Noted Date Diagnosed Date Resolved Date control 05/19/2015 06/26/2022 Overview: 05/19/15 - considering sterilization, counseled on other methods including mirena IUD - Supervision of other normal , antepartum 03/01/2015 12/29/2015 Supervision of normal first 11/24/2012 07/03/2013 Overview: Johnson- boy on us History of asthma 10/09/2012 10/24/2012 Overview: 10/09/2012 Patient has a history of exercise-induced asthma. She has not used an inhaler since age 13. Quit smoking 10/09/2012 08/04/2013 Overview: 10/24/12 - encouraged continued cessation - KK 10/09/2012Pt recently quit smoking 09/18/2012. Discussed risks of smoking during and advised pt to continue not smoking. Family history of defects 10/09/2012 08/04/2013 Overview: 10/09/2012Patient's niece born with gastroschisis. Patient requested diagnostic testing 10/09/2012 08/04/2013 Overview: 10/09/2012 Patient desires early screening in with sequential testing. 12/08/2012negative Sequential screen first trimester. The first part of the Sequential Screen reports that her risk for Down syndrome decreased from her age-related risk of 1:810 to 1:10,000 and her Trisomy 18 risk decreased from her age-related risk of 1:2,800 to 1:10,000. Based on these results Dr. Howard's recommendation is for patient to follow-up with Sequential second trimester screening (12/30-01/13) and level II anatomy scan after 18wks. 01/19/2013negative Sequential screen second trimester. The second part of the Sequential Screen reports that her risk for Down syndrome decreased from her age-related risk of 1:1,100 to 1:10,000, her Trisomy 18 risk decreased from her age-related risk of 1:4,200 to 1:10,000 and the ONTD risk is 1:5,100. Based on these results Dr. Howard's recommendation is for patient to follow-up with a level II anatomy ultrasound. documented as of this encounter (statuses as of 07/04/2023) [facility] History of Past illness Narrative* Problem Noted Date Diagnosed Date Resolved Date control 05/19/2015 06/26/2022 Overview: 05/19/15 - considering sterilization, counseled on other methods including mirena IUD - KJ Supervision of other normal , antepartum 03/01/2015 12/29/2015 Supervision of normal first 11/24/2012 07/03/2013 Overview: Johnson- boy on us History of asthma 10/09/2012 10/24/2012 Overview: 10/09/2012 Patient has a history of exercise-induced asthma. She has not used an inhaler since age 13. Quit smoking 10/09/2012 08/04/2013 Overview: 10/24/12 - encouraged continued cessation - KK 10/09/2012Pt recently quit smoking 09/18/2012. Discussed risks of smoking during and advised pt to continue not smoking. Family history of defects 10/09/2012 08/04/2013 Overview: 10/09/2012Patient's niece born with gastroschisis. Patient requested diagnostic testing 10/09/2012 08/04/2013 Overview: 10/09/2012 Patient desires early screening in with sequential testing. 12/08/2012negative Sequential screen first trimester. The first part of the Sequential Screen reports that her risk for Down syndrome decreased from her age-related risk of 1:810 to 1:10,000 and her Trisomy 18 risk decreased from her age-related risk of 1:2,800 to 1:10,000. Based on these results Dr. Howard's recommendation is for patient to follow-up with Sequential second trimester screening (12/30-01/13) and level II anatomy scan after 18wks. 01/19/2013negative Sequential screen second trimester. The second part of the Sequential Screen reports that her risk for Down syndrome decreased from her age-related risk of 1:1,100 to 1:10,000, her Trisomy 18 risk decreased from her age-related risk of 1:4,200 to 1:10,000 and the ONTD risk is 1:5,100. Based on these results Dr. Howard's recommendation is for patient to follow-up with a level II anatomy ultrasound. documented as of this encounter (statuses as of 09/17/2023) [facility] History of Past illness Narrative* Problem Noted Date Diagnosed Date Resolved Date control 05/19/2015 06/26/2022 Overview: 05/19/15 - considering sterilization, counseled on other methods including mirena IUD - Supervision of other normal , antepartum 03/01/2015 12/29/2015 Supervision of normal first 11/24/2012 07/03/2013 Overview: Johnson- boy on us History of asthma 10/09/2012 10/24/2012 Overview: 10/09/2012 Patient has a history of exercise-induced asthma. She has not used an inhaler since age 13. Quit smoking 10/09/2012 08/04/2013 Overview: 10/24/12 - encouraged continued cessation - KK 10/09/2012Pt recently quit smoking 09/18/2012. Discussed risks of smoking during and advised pt to continue not smoking. Family history of defects 10/09/2012 08/04/2013 Overview: 10/09/2012Patient's niece born with gastroschisis. Patient requested diagnostic testing 10/09/2012 08/04/2013 Overview: 10/09/2012 Patient desires early screening in with sequential testing. 12/08/2012negative Sequential screen first trimester. The first part of the Sequential Screen reports that her risk for Down syndrome decreased from her age-related risk of 1:810 to 1:10,000 and her Trisomy 18 risk decreased from her age-related risk of 1:2,800 to 1:10,000. Based on these results Dr. Howard's recommendation is for patient to follow-up with Sequential second trimester screening (12/30-01/13) and level II anatomy scan after 18wks. 01/19/2013negative Sequential screen second trimester. The second part of the Sequential Screen reports that her risk for Down syndrome decreased from her age-related risk of 1:1,100 to 1:10,000, her Trisomy 18 risk decreased from her age-related risk of 1:4,200 to 1:10,000 and the ONTD risk is 1:5,100. Based on these results Dr. Howard's recommendation is for patient to follow-up with a level II anatomy ultrasound. documented as of this encounter (statuses as of 10/01/2023) [facility] History of Past illness Narrative* Problem Noted Date Diagnosed Date Resolved Date control 05/19/2015 06/26/2022 Overview: 05/19/15 - considering sterilization, counseled on other methods including mirena IUD - KJ Supervision of other normal , antepartum 03/01/2015 12/29/2015 Supervision of normal first 11/24/2012 07/03/2013 Overview: Johnson- boy on us History of asthma 10/09/2012 10/24/2012 Overview: 10/09/2012 Patient has a history of exercise-induced asthma. She has not used an inhaler since age 13. Quit smoking 10/09/2012 08/04/2013 Overview: 10/24/12 - encouraged continued cessation - KK 10/09/2012Pt recently quit smoking 09/18/2012. Discussed risks of smoking during and advised pt to continue not smoking. Family history of defects 10/09/2012 08/04/2013 Overview: 10/09/2012Patient's niece born with gastroschisis. Patient requested diagnostic testing 10/09/2012 08/04/2013 Overview: 10/09/2012 Patient desires early screening in with sequential testing. 12/08/2012negative Sequential screen first trimester. The first part of the Sequential Screen reports that her risk for Down syndrome decreased from her age-related risk of 1:810 to 1:10,000 and her Trisomy 18 risk decreased from her age-related risk of 1:2,800 to 1:10,000. Based on these results Dr. Howard's recommendation is for patient to follow-up with Sequential second trimester screening (12/30-01/13) and level II anatomy scan after 18wks. 01/19/2013negative Sequential screen second trimester. The second part of the Sequential Screen reports that her risk for Down syndrome decreased from her age-related risk of 1:1,100 to 1:10,000, her Trisomy 18 risk decreased from her age-related risk of 1:4,200 to 1:10,000 and the ONTD risk is 1:5,100. Based on these results Dr. Howard's recommendation is for patient to follow-up with a level II anatomy ultrasound. documented as of this encounter (statuses as of 10/01/2023) [facility] History of Past illness Narrative* Problem Noted Date Diagnosed Date Resolved Date control 05/19/2015 06/26/2022 Overview: 05/19/15 - considering sterilization, counseled on other methods including mirena IUD - KJ Supervision of other normal , antepartum 03/01/2015 12/29/2015 Supervision of normal first 11/24/2012 07/03/2013 Overview: Johnson- boy on us History of asthma 10/09/2012 10/24/2012 Overview: 10/09/2012 Patient has a history of exercise-induced asthma. She has not used an inhaler since age 13. Quit smoking 10/09/2012 08/04/2013 Overview: 10/24/12 - encouraged continued cessation - KK 10/09/2012Pt recently quit smoking 09/18/2012. Discussed risks of smoking during and advised pt to continue not smoking. Family history of defects 10/09/2012 08/04/2013 Overview: 10/09/2012Patient's niece born with gastroschisis. Patient requested diagnostic testing 10/09/2012 08/04/2013 Overview: 10/09/2012 Patient desires early screening in with sequential testing. 12/08/2012negative Sequential screen first trimester. The first part of the Sequential Screen reports that her risk for Down syndrome decreased from her age-related risk of 1:810 to 1:10,000 and her Trisomy 18 risk decreased from her age-related risk of 1:2,800 to 1:10,000. Based on these results Dr. Howard's recommendation is for patient to follow-up with Sequential second trimester screening (12/30-01/13) and level II anatomy scan after 18wks. 01/19/2013negative Sequential screen second trimester. The second part of the Sequential Screen reports that her risk for Down syndrome decreased from her age-related risk of 1:1,100 to 1:10,000, her Trisomy 18 risk decreased from her age-related risk of 1:4,200 to 1:10,000 and the ONTD risk is 1:5,100. Based on these results Dr. Howard's recommendation is for patient to follow-up with a level II anatomy ultrasound. documented as of this encounter (statuses as of 10/28/2023) [facility] History of Past illness Narrative* Problem Noted Date Resolved Date Supervision of other normal , antepartu m 03/01/2015 12/29/2015 Supervision of normal first 11/24/2012 07/03/2013 Overview: Johnson- boy on us History of asthma 10/09/2012 10/24/2012 Overview: 10/09/2012 Patient has a history of exercise-induced asthma. She has not used an inhaler since age 13. Quit smoking 10/09/2012 08/04/2013 Overview: 10/24/12 - encouraged continued cessation - KK 10/09/2012Pt recently quit smoking 09/18/2012. Discussed risks of smoking during and advised pt to continue not smoking. Family history of defects 10/09/2012 08/04/2013 Overview: 10/09/2012Patient's niece born with gastroschisis. Patient requested diagnostic testing 10/09/2012 08/04/2013 Overview: 10/09/2012 Patient desires early screening in with sequential testing. 12/08/2012negative Sequential screen first trimester. The first part of the Sequential Screen reports that her risk for Down syndrome decreased from her age-related risk of 1:810 to 1:10,000 and her Trisomy 18 risk decreased from her age-related risk of 1:2,800 to 1:10,000. Based on these results Dr. Howard's recommendation is for patient to follow-up with Sequential second trimester screening (12/30-01/13) and level II anatomy scan after 18wks. 01/19/2013negative Sequential screen second trimester. The second part of the Sequential Screen reports that her risk for Down syndrome decreased from her age-related risk of 1:1,100 to 1:10,000, her Trisomy 18 risk decreased from her age-related risk of 1:4,200 to 1:10,000 and the ONTD risk is 1:5,100. Based on these results Dr. Howard's recommendation is for patient to follow-up with a level II anatomy ultrasound. documented as of this encounter (statuses as of 12/06/2021) [facility] History of Past illness Narrative* Problem Noted Date Resolved Date Supervision of other normal , antepartu m 03/01/2015 12/29/2015 Supervision of normal first 11/24/2012 07/03/2013 Overview: Johnson- boy on us History of asthma 10/09/2012 10/24/2012 Overview: 10/09/2012 Patient has a history of exercise-induced asthma. She has not used an inhaler since age 13. Quit smoking 10/09/2012 08/04/2013 Overview: 10/24/12 - encouraged continued cessation - KK 10/09/2012Pt recently quit smoking 09/18/2012. Discussed risks of smoking during and advised pt to continue not smoking. Family history of defects 10/09/2012 08/04/2013 Overview: 10/09/2012Patient's niece born with gastroschisis. Patient requested diagnostic testing 10/09/2012 08/04/2013 Overview: 10/09/2012 Patient desires early screening in with sequential testing. 12/08/2012negative Sequential screen first trimester. The first part of the Sequential Screen reports that her risk for Down syndrome decreased from her age-related risk of 1:810 to 1:10,000 and her Trisomy 18 risk decreased from her age-related risk of 1:2,800 to 1:10,000. Based on these results Dr. Howard's recommendation is for patient to follow-up with Sequential second trimester screening (12/30-01/13) and level II anatomy scan after 18wks. 01/19/2013negative Sequential screen second trimester. The second part of the Sequential Screen reports that her risk for Down syndrome decreased from her age-related risk of 1:1,100 to 1:10,000, her Trisomy 18 risk decreased from her age-related risk of 1:4,200 to 1:10,000 and the ONTD risk is 1:5,100. Based on these results Dr. Howard's recommendation is for patient to follow-up with a level II anatomy ultrasound. documented as of this encounter (statuses as of 12/12/2021) [facility] History of Past illness Narrative* Problem Noted Date Resolved Date Supervision of other normal , antepartu m 03/01/2015 12/29/2015 Supervision of normal first 11/24/2012 07/03/2013 Overview: Johnson- boy on us History of asthma 10/09/2012 10/24/2012 Overview: 10/09/2012 Patient has a history of exercise-induced asthma. She has not used an inhaler since age 13. Quit smoking 10/09/2012 08/04/2013 Overview: 10/24/12 - encouraged continued cessation - KK 10/09/2012Pt recently quit smoking 09/18/2012. Discussed risks of smoking during and advised pt to continue not smoking. Family history of defects 10/09/2012 08/04/2013 Overview: 10/09/2012Patient's niece born with gastroschisis. Patient requested diagnostic testing 10/09/2012 08/04/2013 Overview: 10/09/2012 Patient desires early screening in with sequential testing. 12/08/2012negative Sequential screen first trimester. The first part of the Sequential Screen reports that her risk for Down syndrome decreased from her age-related risk of 1:810 to 1:10,000 and her Trisomy 18 risk decreased from her age-related risk of 1:2,800 to 1:10,000. Based on these results Dr. Howard's recommendation is for patient to follow-up with Sequential second trimester screening (12/30-01/13) and level II anatomy scan after 18wks. 01/19/2013negative Sequential screen second trimester. The second part of the Sequential Screen reports that her risk for Down syndrome decreased from her age-related risk of 1:1,100 to 1:10,000, her Trisomy 18 risk decreased from her age-related risk of 1:4,200 to 1:10,000 and the ONTD risk is 1:5,100. Based on these results Dr. Howard's recommendation is for patient to follow-up with a level II anatomy ultrasound. documented as of this encounter (statuses as of 05/17/2022) [facility] PAKO (generalized anxiety disorder) Generalized anxiety disorder [facility] PAKO (generalized anxiety disorder)- Primary Generalized anxiety disorder Acute cough [facility] Recurrent cough- Primary Cough Recurrent upper respiratory infection (URI) Acute upper respiratory infections of unspecified site [facility] Diagnosis Encounter for immunization- Primary Need for other specified prophylactic vaccination against single bacterial disease [facility] Diagnosis Sore throat- Primary Acute pharyngitis Strep throat Streptococcal sore throat Frequent infections Depression screening Screening for depression [facility] Diagnosis Persistent cough- Primary Cough [facility] Diagnosis Encounter for immunization- Primary Need for other specified prophylactic vaccination against single bacterial disease [facility] Diagnosis Persistent cough Cough [facility] Diagnosis Persistent cough Cough [facility] Diagnosis Migraine without aura and without status migrainosus, not intractable- Primary Migraine without aura, without mention of intractable migraine without mention of status migrainosus Chronic neck pain Cervicalgia [facility] Diagnosis Onset Date Resolution Status Fatigue acute Secondary oligomenorrhea acu te Weight gain acute [facility] Work Phone: Evaluation note* Diagnosis Migraine without aura and without status migrainosus, not intractable Migraine without aura, without mention of intractable migraine without mention of status migrainosus [facility] Diagnosis PAKO (generalized anxiety disorder) Generalized anxiety disorder documented in this [facility] Diagnosis Migraine without aura and without status migrainosus, not intractable- Primary Migraine without aura, without mention of intractable migraine without mention of status migrainosus documented [facility] Diagnosis Well adult exam- Primary Routine general medical examination at a health care facility Migraine without aura and without status migrainosus, not intractable Migraine without aura, without mention of intractable migraine without mention of status migrainosus PAKO (generalized anxiety disorder) Generalized anxiety disorder Abdominal bloating with cramps Diarrhea, unspecified type Immunity status testing Antibody response examination Screening for tuberculosis Screening examination for pulmonary tuberculosis [facility] Diagnosis Need for immunization against measles- Primary Need for prophylactic vaccination and inoculation against measles alone [facility] Diagnosis PAKO (generalized anxiety disorder) Generalized anxiety disorder [facility] Diagnosis Migraine without aura and without status migrainosus, not intractable Migraine without aura, without mention of intractable migraine without mention of status migrainosus documented [facility] Diagnosis Encounter for immunization- Primary Need for other specified prophylactic vaccination against single bacterial disease [facility] Diagnosis PAKO (generalized anxiety disorder)- Primary Generalized anxiety disorder [facility]* Diagnosis Acute cough- Primary [facility]* Diagnosis Migraine without aura and without status migrainosus, not intractable Migraine without aura, without mention of intractable migraine without mention of status migrainosus documented [facility]* Diagnosis Strep pharyngitis- Primary Streptococcal sore throat Sore throat Acute pharyngitis documented [facility]* Diagnosis Acute lower respiratory infection- Primary Other diseases of respiratory system, not elsewhere classified Recurrent cough Cough Recurrent upper respiratory infection (URI) Acute upper respiratory infections of unspecified site PAKO (generalized anxiety disorder) Generalized anxiety disorder [facility] Diagnosis Recurrent cough Cough Recurrent upper respiratory infection (URI) Acute upper respiratory infections of unspecified site [facility] Diagnosis Recurrent cough Cough Recurrent upper respiratory infection (URI) Acute upper respiratory infections of unspecified site documented [facility]* Diagnosis Moderate persistent asthma, uncomplicated- Primary Unspecified asthma [facility]* Diagnosis Moderate persistent asthma, uncomplicated Unspecified asthma [facility]* Diagnosis PAKO (generalized anxiety disorder) Generalized anxiety disorder documented [facility]* Diagnosis Immunity status testing- Primary Antibody response examination Screening-pulmonary TB Screening examination for pulmonary tuberculosis Screening for tuberculosis Screening examination for pulmonary tuberculosis [facility] Diagnosis Well adult exam- Primary Routine general medical examination at a health care facility Encounter for immunization Need for other specified prophylactic vaccination against single bacterial disease PAKO (generalized anxiety disorder) Generalized anxiety disorder Screening for depression [facility]* Diagnosis Burning with urination- Primary Dysuria Urinary urgency Urgency of urination documented [facility]* Diagnosis Acute cystitis with hematuria- Primary Acute cystitis [facility] Diagnosis PAKO (generalized anxiety disorder)- Primary Generalized anxiety disorder Difficulty concentrating Attention or concentration deficit documented in this encounter [facility] note* Diagnosis Migraine without aura and without status migrainosus, not intractable- Primary Migraine without aura, without mention of intractable migraine without mention of status migrainosus documented in this encounter [facility] note* Diagnosis PAKO (generalized anxiety disorder) Generalized anxiety disorder documented in this encounter [facility] note* Diagnosis Migraine without aura and without status migrainosus, not intractable- Primary Migraine without aura, without mention of intractable migraine without mention of status migrainosus [facility] Diagnosis Rash- Primary Rash and other nonspecific skin eruption documented in this encounter [facility] note* Diagnosis Erythema migrans- Primary documented in this encounter [facility] for referral (narrative)* Outpatient Procedure (Routine) - Pending Review Specialty Diagnoses / Procedures Referred By Contac t Referred To [facility] [place] Diagnoses Recurrent cough Procedures LUNG DIFFUSION CAPACITY (DLCO) DIFFUSING CAPACITY Emelia Siddiqui APRN.CNP [address] [place] [address] [facility] [place] [address] [place] [id number] Referral ID Status Reason Start Date Expiration Date Visits Requested Visits Authorized [id number] Pending Review Auto-Generat ed Referral 07/16/2022 08/15/2023 1 1 * Outpatient Procedure (Routine) - Pending Review Specialty Diagnoses / Procedures Referred By Contac t Referred To [facility] [place] Diagnoses Recurrent cough Procedures LUNG VOLUMES Emelia Siddiqui APRN.CNP [address] [place] [address] [facility] [place] [address] [place] [id number] Referral ID Status Reason Start Date Expiration Date Visits Requested Visits Authorized [id number] Pending Review Auto-Generat ed Referral 07/16/2022 08/15/2023 1 1 * Outpatient Procedure (Routine) - Pending Review Specialty Diagnoses / Procedures Referred By Contac t Referred To [facility] [place] Diagnoses Recurrent cough Procedures SPIROMETRY - BASELINE AND POST DILATOR BRNCDILAT RSPSE SPMTRY PRE&POST-BRNCDILAT ADMN Emelia Siddiqui APRN.CNP [address] [place] [address] [facility] [place] [address] [place] [address] Referral ID Status Reason Start Date Expiration Date Visits Requested Visits Authorized [id number] Pending Review Auto-Generat ed Referral 07/16/2022 08/15/2023 1 1 [facility] Outpatient Procedure (Routine) - Pending Review Specialty Diagnoses / Procedures Referred By Contac t Referred To [facility] [place] Diagnoses Persistent cough Procedures LUNG VOLUMES Emelia Siddiqui APRN.SECURITY SOFTWARE ENGINEER [address] [place] [address] [facility] [address] [place] [address] Referral ID Status Reason Start Date Expiration Date Visits Requested Visits Authorized [id number] Pending Review Auto-Generat ed Referral 09/04/2022 10/04/2023 1 1 * Outpatient Procedure (Routine) - Pending Review Specialty Diagnoses / Procedures Referred By Contac t Referred To [facility] [place] Diagnoses Persistent cough Procedures LUNG DIFFUSION CAPACITY (DLCO) DIFFUSING CAPACITY Emelia Siddiqui APRN.CNP [address] [place] [address] [facility] [address] [place] [id number] Referral ID Status Reason Start Date Expiration Date Visits Requested Visits Authorized [id number] Pending Review Auto-Generat ed Referral 09/04/2022 10/04/2023 1 1 * Outpatient Procedure (Routine) - Pending Review Specialty Diagnoses / Procedures Referred By Contac t Referred To [facility] [place] Diagnoses Persistent cough Procedures SPIROMETRY - BASELINE AND POST DILATOR BRNCDILAT RSPSE SPMTRY PRE&POST-BRNCDILAT ADMN Emelia Siddiqui APRN.SECURITY SOFTWARE ENGINEER [address] [place] [address] [address] Referral ID Status Reason Start Date Expiration Date Visits Requested Visits Authorized [id number] Pending Review Auto-Generat ed Referral 09/04/2022 10/04/2023 1 1 [facility] Outpatient Procedure (Routine) - Pending Review Specialty Diagnoses / Procedures Referred By Contac t Referred To [facility] [place] Diagnoses Recurrent cough Recurrent upper respiratory infection (URI) Procedures SPIROMETRY - BASELINE AND POST DILATOR BRNCDILAT RSPSE SPMTRY PRE&POST-BRNCDILAT ADMN Emelia Siddiqui APRN.SECURITY SOFTWARE ENGINEER [address] [place] [address] [address] Referral ID Status Reason Start Date Expiration Date Visits Requested Visits Authorized [id number] Pending Review Auto-Generat ed Referral 09/16/2023 10/15/2024 1 1 * Outpatient Procedure (Routine) - Pending Review Specialty Diagnoses / Procedures Referred By Contac t Referred To [facility] [place] Diagnoses Recurrent cough Recurrent upper respiratory infection (URI) Procedures NITRIC OXIDE, EXHALED NITRIC OXIDE GAS DETERMINATION Emelia Siddiqui APRN.SECURITY SOFTWARE ENGINEER [address] [place] [address] [address] Referral ID Status Reason Start Date Expiration Date Visits Requested Visits Authorized [id number] Pending Review Auto-Generat ed Referral 09/16/2023 10/15/2024 1 1 [facility] for visit Narrative* Diagnostic Procedure Only (Routine) - Closed Specialty Diagnoses / Procedures Referred By Coral t Referred To Contact [facility] Diagnoses Recurrent cough Recurrent upper respiratory infection (URI) Procedures NITRIC OXIDE, EXHALED NITRIC OXIDE GAS DETERMINATION Emelia Siddiqui APRN.SECURITY SOFTWARE ENGINEER [address] [place] [address] [facility] [place] [address] [place] [address] Referral ID Status Reason Start Date Expiration Date Visits Re quested Visits Authorized [id number] Closed 10/01/2023 08/11/2024 1 1 [facility] Summary Purpose Family History No Family History Records Found Relationship Condition Age at Onset Recorded Date/T preethi mother Epilepsy Unknown grandmother Epilepsy Unknown Advance Directives No Advanced Directives Records FoundDocuments on File Type Date Recorded 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 Advance Directive(s) 07/17/2021 3:53 PM Advance Directive(s) 05/12/2018 7:06 PM Documents on File Type Date Recorded 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 Advance Directive(s) 12/08/2021 5:37 PM Advance Directive(s) 07/17/2021 3:53 PM Advance Directive(s) 05/12/2018 7:06 PM Advance Directive Response Recorded Date/ Time Living Will No April 16 6:51pm Power of Appraiser No April 16, 2019 6:51pm Reason for Referral Specialty Diagnoses / Procedures Referred By Contac t Referred To Contact Allergy / [facility] Department Diagnoses Frequent infections Procedures CONSULT TO ALLERGY/IMMUNOLOGY OFFICE/OUTPATIENT NEW HIGH MDM 60-74 MINUTES Emelia Siddiqui APRN.CNP [address] [place] [address] Abigail Hunter MD [address] [address] Referral ID Status Reason Start Date Expiration Date Visits Requested Visits Authorized [id number] Authorized PCP Requested Referral 08/27/2022 08/27/2023 1 1 Specialty Diagnoses / Procedures Referred By Coral t Referred To Contact NEUROLOGY Diagnoses Migraine without aura and without status migrainosus, not intractable Procedures CONSULT TO NEUROLOGY OFFICE/OUTPATIENT [facility] MDM 60-74 MINUTES Emelia Siddiqui APRN.SECURITY SOFTWARE ENGINEER [address] [place] [address] Joao Trevizo MD [address] [place] [address] Referral ID Status Reason Start Date Expiration Date Visits Requested Visits Authorized [id number] Authorized PCP Requested Referral 02/07/2023 02/07/2024 1 1 Medications Administered Section Inactive Administered Medications - up to 3 most recent administrations Medication Order MAR Action Action Date Dose Rate Site keTORolac 60 mg injection (Toradol) 60 mg, INTRAMUSCULAR, ONCE, 1 dose, On Jennifer 11/22/22 at 1430, Ketorolac (Toradol) is indicated for the short-term (up to 5 days) management of moderately severe acute pain. Continuation of ketorolac (Toradol) beyond 5 days increases the risk of developing serious adverse events. Please verify the duration of therapy for ketorolac (Toradol)., If ordered PRN for pain, patient/guardian may elect to receive this medication for higher pain levels INSTEAD of the opioid, if preferred: Yes Given 11/22/2022 2:07 PM EDT 60 mg Buttocks, Right Chief Complaint and Reason for Visit Chief Complaint discuss hormone conc erns E ORDERS Reason for Visit Fatigue Secondary oligomenorrhea Weight gain Chief Complaint discuss hormone conc erns E ORDERS Secondary oligomenorrhea Reason for Visit Fatigue Secondary oligomenorrhea Weight gain Additional Source Comments INFORMATION SOURCE (unrecogn ized section and content) DATE CREATED AUTHOR 08/19/2019 [facility] DATE CREATED AUTHOR AUTHOR'S ORGANIZ ATION 10/09/2024 [facility] DATE CREATED AUTHOR AUTHOR'S ORGANIZ ATION 12/25/2024 [facility] DATE CREATED AUTHOR AUTHOR'S ORGANIZ ATION 06/18/2025 [facility] DATE CREATED AUTHOR AUTHOR'S ORGANIZ ATION 06/20/2025 [facility] Source Comments (unrecognize d section and content) In the event this informatio n is protected by the Federal Confidentiality of Alcohol and Drug Abuse Patient Records regulations: The Federal rules restrict any use of the information to criminally investigate or prosecute any alcohol or drug abuse patient.[facility] event this information is protected by the Federal Confidentiality of Alcohol and Drug Abuse Patient Records regulations: The Federal rules restrict any use of the information to criminally investigate or prosecute any alcohol or drug abuse patient.[facility] the event this information is protected by the Federal Confidentiality of Alcohol and Drug Abuse Patient Records regulations: The Federal rules restrict any use of the information to criminally investigate or prosecute any alcohol or drug abuse patient.[facility] the event this information is protected by the Federal Confidentiality of Alcohol and Drug Abuse Patient Records regulations: The Federal rules restrict any use of the information to criminally investigate or prosecute any alcohol or drug abuse patient.[facility] the event this information is protected by the Federal Confidentiality of Alcohol and Drug Abuse Patient Records regulations: The Federal rules restrict any use of the information to criminally investigate or prosecute any alcohol or drug abuse patient.[facility] the event this information is protected by the Federal Confidentiality of Alcohol and Drug Abuse Patient Records regulations: The Federal rules restrict any use of the information to criminally investigate or prosecute any alcohol or drug abuse patient.[facility] the event this information is protected by the Federal Confidentiality of Alcohol and Drug Abuse Patient Records regulations: The Federal rules restrict any use of the information to criminally investigate or prosecute any alcohol or drug abuse patient.[facility] the event this information is protected by the Federal Confidentiality of Alcohol and Drug Abuse Patient Records regulations: The Federal rules restrict any use of the information to criminally investigate or prosecute any alcohol or drug abuse patient.[facility] the event this information is protected by the Federal Confidentiality of Alcohol and Drug Abuse Patient Records regulations: The Federal rules restrict any use of the information to criminally investigate or prosecute any alcohol or drug abuse patient.[facility] the event this information is protected by the Federal Confidentiality of Alcohol and Drug Abuse Patient Records regulations: The Federal rules restrict any use of the information to criminally investigate or prosecute any alcohol or drug abuse patient.[facility] the event this information is protected by the Federal Confidentiality of Alcohol and Drug Abuse Patient Records regulations: The Federal rules restrict any use of the information to criminally investigate or prosecute any alcohol or drug abuse patient.[facility] the event this information is protected by the Federal Confidentiality of Alcohol and Drug Abuse Patient Records regulations: The Federal rules restrict any use of the information to criminally investigate or prosecute any alcohol or drug abuse patient.[facility] the event this information is protected by the Federal Confidentiality of Alcohol and Drug Abuse Patient Records regulations: The Federal rules restrict any use of the information to criminally investigate or prosecute any alcohol or drug abuse patient.[facility] the event this information is protected by the Federal Confidentiality of Alcohol and Drug Abuse Patient Records regulations: The Federal rules restrict any use of the information to criminally investigate or prosecute any alcohol or drug abuse patient.[facility] the event this information is protected by the Federal Confidentiality of Alcohol and Drug Abuse Patient Records regulations: The Federal rules restrict any use of the information to criminally investigate or prosecute any alcohol or drug abuse patient.[facility] the event this information is protected by the Federal Confidentiality of Alcohol and Drug Abuse Patient Records regulations: The Federal rules restrict any use of the information to criminally investigate or prosecute any alcohol or drug abuse patient.[facility] the event this information is protected by the Federal Confidentiality of Alcohol and Drug Abuse Patient Records regulations: The Federal rules restrict any use of the information to criminally investigate or prosecute any alcohol or drug abuse patient.[facility] the event this information is protected by the Federal Confidentiality of Alcohol and Drug Abuse Patient Records regulations: The Federal rules restrict any use of the information to criminally investigate or prosecute any alcohol or drug abuse patient.[facility] the event this information is protected by the Federal Confidentiality of Alcohol and Drug Abuse Patient Records regulations: The Federal rules restrict any use of the information to criminally investigate or prosecute any alcohol or drug abuse patient.[facility] the event this information is protected by the Federal Confidentiality of Alcohol and Drug Abuse Patient Records regulations: The Federal rules restrict any use of the information to criminally investigate or prosecute any alcohol or drug abuse patient.[facility] the event this information is protected by the Federal Confidentiality of Alcohol and Drug Abuse Patient Records regulations: The Federal rules restrict any use of the information to criminally investigate or prosecute any alcohol or drug abuse patient.[facility] the event this information is protected by the Federal Confidentiality of Alcohol and Drug Abuse Patient Records regulations: The Federal rules restrict any use of the information to criminally investigate or prosecute any alcohol or drug abuse patient.[facility] the event this information is protected by the Federal Confidentiality of Alcohol and Drug Abuse Patient Records regulations: The Federal rules restrict any use of the information to criminally investigate or prosecute any alcohol or drug abuse patient.[facility] the event this information is protected by the Federal Confidentiality of Alcohol and Drug Abuse Patient Records regulations: The Federal rules restrict any use of the information to criminally investigate or prosecute any alcohol or drug abuse patient.[facility] the event this information is protected by the Federal Confidentiality of Alcohol and Drug Abuse Patient Records regulations: The Federal rules restrict any use of the information to criminally investigate or prosecute any alcohol or drug abuse patient.[facility] the event this information is protected by the Federal Confidentiality of Alcohol and Drug Abuse Patient Records regulations: The Federal rules restrict any use of the information to criminally investigate or prosecute any alcohol or drug abuse patient.[facility] the event this information is protected by the Federal Confidentiality of Alcohol and Drug Abuse Patient Records regulations: The Federal rules restrict any use of the information to criminally investigate or prosecute any alcohol or drug abuse patient.[facility] the event this information is protected by the Federal Confidentiality of Alcohol and Drug Abuse Patient Records regulations: The Federal rules restrict any use of the information to criminally investigate or prosecute any alcohol or drug abuse patient.[facility] the event this information is protected by the Federal Confidentiality of Alcohol and Drug Abuse Patient Records regulations: The Federal rules restrict any use of the information to criminally investigate or prosecute any alcohol or drug abuse patient.[facility] the event this information is protected by the Federal Confidentiality of Alcohol and Drug Abuse Patient Records regulations: The Federal rules restrict any use of the information to criminally investigate or prosecute any alcohol or drug abuse patient.[facility] the event this information is protected by the Federal Confidentiality of Alcohol and Drug Abuse Patient Records regulations: The Federal rules restrict any use of the information to criminally investigate or prosecute any alcohol or drug abuse patient.[facility] the event this information is protected by the Federal Confidentiality of Alcohol and Drug Abuse Patient Records regulations: The Federal rules restrict any use of the information to criminally investigate or prosecute any alcohol or drug abuse patient.[facility] the event this information is protected by the Federal Confidentiality of Alcohol and Drug Abuse Patient Records regulations: The Federal rules restrict any use of the information to criminally investigate or prosecute any alcohol or drug abuse patient.[facility] the event this information is protected by the Federal Confidentiality of Alcohol and Drug Abuse Patient Records regulations: The Federal rules restrict any use of the information to criminally investigate or prosecute any alcohol or drug abuse patient.[facility] the event this information is protected by the Federal Confidentiality of Alcohol and Drug Abuse Patient Records regulations: The Federal rules restrict any use of the information to criminally investigate or prosecute any alcohol or drug abuse patient.[facility] the event this information is protected by the Federal Confidentiality of Alcohol and Drug Abuse Patient Records regulations: The Federal rules restrict any use of the information to criminally investigate or prosecute any alcohol or drug abuse patient.[facility]In the event this information is protected by the Federal Confidentiality of Alcohol and Drug Abuse Patient Records regulations: The Federal rules restrict any use of the information to criminally investigate or prosecute any alcohol or drug abuse patient.[facility]In the event this information is protected by the Federal Confidentiality of Alcohol and Drug Abuse Patient Records regulations: The Federal rules restrict any use of the information to criminally investigate or prosecute any alcohol or drug abuse patient.[facility]In the event this information is protected by the Federal Confidentiality of Alcohol and Drug Abuse Patient Records regulations: The Federal rules restrict any use of the information to criminally investigate or prosecute any alcohol or drug abuse patient.[facility]In the event this information is protected by the Federal Confidentiality of Alcohol and Drug Abuse Patient Records regulations: The Federal rules restrict any use of the information to criminally investigate or prosecute any alcohol or drug abuse patient.[facility] HospitalIn the event this information is protected by the Federal Confidentiality of Alcohol and Drug Abuse Patient Records regulations: The Federal rules restrict any use of the information to criminally investigate or prosecute any alcohol or drug abuse patient.[facility] HospitalIn the event this information is protected by the Federal Confidentiality of Alcohol and Drug Abuse Patient Records regulations: The Federal rules restrict any use of the information to criminally investigate or prosecute any alcohol or drug abuse patient.[facility] HospitalIn the event this information is protected by the Federal Confidentiality of Alcohol and Drug Abuse Patient Records regulations: The Federal rules restrict any use of the information to criminally investigate or prosecute any alcohol or drug abuse patient.[facility]In the event this information is protected by the Federal Confidentiality of Alcohol and Drug Abuse Patient Records regulations: The Federal rules restrict any use of the information to criminally investigate or prosecute any alcohol or drug abuse patient.[facility]In the event this information is protected by the Federal Confidentiality of Alcohol and Drug Abuse Patient Records regulations: The Federal rules restrict any use of the information to criminally investigate or prosecute any alcohol or drug abuse patient.[facility] HospitalIn the event this information is protected by the Federal Confidentiality of Alcohol and Drug Abuse Patient Records regulations: The Federal rules restrict any use of the information to criminally investigate or prosecute any alcohol or drug abuse patient.[facility] HospitalIn the event this information is protected by the Federal Confidentiality of Alcohol and Drug Abuse Patient Records regulations: The Federal rules restrict any use of the information to criminally investigate or prosecute any alcohol or drug abuse patient.[facility] HospitalIn the event this information is protected by the Federal Confidentiality of Alcohol and Drug Abuse Patient Records regulations: The Federal rules restrict any use of the information to criminally investigate or prosecute any alcohol or drug abuse patient.[facility] HospitalIn the event this information is protected by the Federal Confidentiality of Alcohol and Drug Abuse Patient Records regulations: The Federal rules restrict any use of the information to criminally investigate or prosecute any alcohol or drug abuse patient.[facility] HospitalIn the event this information is protected by the Federal Confidentiality of Alcohol and Drug Abuse Patient Records regulations: The Federal rules restrict any use of the information to criminally investigate or prosecute any alcohol or drug abuse patient.[facility] HospitalIn the event this information is protected by the Federal Confidentiality of Alcohol and Drug Abuse Patient Records regulations: The Federal rules restrict any use of the information to criminally investigate or prosecute any alcohol or drug abuse patient.[facility] HospitalIn the event this information is protected by the Federal Confidentiality of Alcohol and Drug Abuse Patient Records regulations: The Federal rules restrict any use of the information to criminally investigate or prosecute any alcohol or drug abuse patient.[facility] HospitalIn the event this information is protected by the Federal Confidentiality of Alcohol and Drug Abuse Patient Records regulations: The Federal rules restrict any use of the information to criminally investigate or prosecute any alcohol or drug abuse patient.[facility] HospitalIn the event this information is protected by the Federal Confidentiality of Alcohol and Drug Abuse Patient Records regulations: The Federal rules restrict any use of the information to criminally investigate or prosecute any alcohol or drug abuse patient.[facility] HospitalIn the event this information is protected by the Federal Confidentiality of Alcohol and Drug Abuse Patient Records regulations: The Federal rules restrict any use of the information to criminally investigate or prosecute any alcohol or drug abuse patient.[facility] HospitalIn the event this information is protected by the Federal Confidentiality of Alcohol and Drug Abuse Patient Records regulations: The Federal rules restrict any use of the information to criminally investigate or prosecute any alcohol or drug abuse patient.[facility] HospitalIn the event this information is protected by the Federal Confidentiality of Alcohol and Drug Abuse Patient Records regulations: The Federal rules restrict any use of the information to criminally investigate or prosecute any alcohol or drug abuse patient.[facility] HospitalIn the event this information is protected by the Federal Confidentiality of Alcohol and Drug Abuse Patient Records regulations: The Federal rules restrict any use of the information to criminally investigate or prosecute any alcohol or drug abuse patient.[facility] HospitalIn the event this information is protected by the Federal Confidentiality of Alcohol and Drug Abuse Patient Records regulations: The Federal rules restrict any use of the information to criminally investigate or prosecute any alcohol or drug abuse patient.[facility] HospitalIn the event this information is protected by the Federal Confidentiality of Alcohol and Drug Abuse Patient Records regulations: The Federal rules restrict any use of the information to criminally investigate or prosecute any alcohol or drug abuse patient.[facility] Reason for Visit (unrecogniz ed section and content) Reason Comments Refill Request Reason Onset Date Comments ER F/U 12/12/2021 Reason Comments Missed Appointment 2nd no show in 365 d ays (2nd letter sent) Reason Comments F/U 1 month Cough Reason Comments Cough Started: 3+ weeks ag oSymptoms: CoughWas prescribed the inhaler and no relief Reason Comments Sore Throat X 2 days Reason Comments Orders Reason Comments Immunizations Specialty Diagnoses / Procedures Referred By Contac t Referred To Contact Family Medicine / FAMILY MEDICINE Diagnoses 2ND COVID VACCINE Procedures NURSE Self [address] [address] Referral ID Status Reason Start Date Expiration Date Visits Re quested Visits Authorized [id number] Closed 08/12/2022 08/11/2023 1 1 Reason Comments Procedure Specialty Diagnoses / Procedures Referred By Contac t Referred [facility] Contact [facility] Diagnoses Persistent cough Procedures SPIROMETRY - BASELINE AND POST DILATOR BRNCDILAT RSPSE SPMTRY PRE&POST-BRNCDILAT ADMN Emelia Siddiqui APRN.SECURITY SOFTWARE ENGINEER [address] [place] [address] [facility] [address] [place], [place] [id number] Referral ID Status Reason Start Date Expiration Date V isits Requested Visits Authorized [id number] Closed Auto-Generate d Referral 08/12/2022 08/11/2023 1 1 Specialty Diagnoses / Procedures Referred By Contac t Referred To Contact [facility] Diagnoses Persistent cough Procedures LUNG DIFFUSION CAPACITY (DLCO) DIFFUSING CAPACITY Emelia Siddiqui APRN.SECURITY SOFTWARE ENGINEER [address] [place] [address] [facility] [address] [place] [address] Referral ID Status Reason Start Date Expiration Date V isits Requested Visits Authorized [id number] Closed Auto-Generate d Referral 08/12/2022 08/11/2023 1 1 Specialty Diagnoses / Procedures Referred By Contac t Referred To Contact [facility] Diagnoses Persistent cough Procedures LUNG VOLUMES Emelia Siddiqui HEEL TOP LIFT SPLITTER.SECURITY SOFTWARE ENGINEER [address] [place] [address] [facility] [address] [place], [place] [id number] Referral ID Status Reason Start Date Expiration Date V isits Requested Visits Authorized [id number] Closed Auto-Generate d Referral 08/12/2022 08/11/2023 1 1 Reason Comments Results Reason Onset Date Comments Refill Request 09/14/2022 Reason Comments Patient Question Reason Comments Headache X 1 day. Vomited onc e yesterday due to pain . Reason Comments Wellness Reason Comments Results Appointment Reason Comments Cough Deep worse at night and it keeps her up, non productive, also having a little sinus congestion. Symptoms started 3 days ago. Did not test for covid Reason Comments Sore Throat X 2 days Reason Comments Cough Started: 4 days Symp toms: started as a sore throat, and a little nasal congestion then it developed into this dry cough and she has chest pain from the coughTreatment: leftover tana cuevas Covid Test: none Specialty Diagnoses / Procedures Referred By Contdilan t Referred To Contact [facility] Diagnoses Recurrent cough Recurrent upper respiratory infection (URI) Procedures SPIROMETRY - BASELINE AND POST DILATOR BRNCDILAT RSPSE SPMTRY PRE&POST-BRNCDILAT ADMN Emelia Siddiqui, HEEL TOP LIFT SPLITTER.SECURITY SOFTWARE ENGINEER [address] [place] [address] [facility] [address] [place] [address] Referral ID Status Reason Start Date Expiration Date Visits Re quested Visits Authorized [id number] Closed 10/01/2023 08/11/2024 1 1 Reason Comments Med Change Request Reason Comments Missed Appointment 3rd no show in 365 d ays (2nd letter sent) Reason Comments UTI Reason Comments Medication Follow-up Reason Comments Appointment Reason Onset Date Comments ED Follow-up 10/06/2024 [facility] 10/07/2024 Reason Onset Date Comments Refill Request 11/16/2024 Reason Onset Date Comments Refill Request 12/08/2024 Reason Comments Follow Up Reason Comments Insect Bites & Stings Entered by patient Trauma Left upper arm, redn ess, warmth, swelling, increasing in size, unsure of what insectx 2 days Reason Comments Rash Care Teams (unrecognized sec tion and content) Inspector Process Relationship Specialty Start Date End Date Emelia Siddiqui, HEEL TOP LIFT SPLITTER.SECURITY SOFTWARE ENGINEER [address] [place] [address] PCP - General Family Practice 05/25/21 Inspector Process Relationship Specialty Start Date End Date Emelia Siddiqui, HEEL TOP LIFT SPLITTER.SECURITY SOFTWARE ENGINEER [address] [place] [address] PCP - General Family Practice 05/25/21 Inspector Process Relationship Specialty Start Date End Date Emelia Siddiqui, HEEL TOP LIFT SPLITTER.SECURITY SOFTWARE ENGINEER [address] [place] [address] PCP - General Family Medicine 05/25/21 Inspector Process Relationship Specialty Start Date End Date Emelia Siddiqui, HEEL TOP LIFT SPLITTER.SECURITY SOFTWARE ENGINEER [address] [facility] [place] [address] PCP - General Family Medicine 05/25/21 Inspector Process Relationship Specialty Start Date End Date Emelia Siddiqui, HEEL TOP LIFT SPLITTER.SECURITY SOFTWARE ENGINEER [address] [facility] [place] [address] PCP - General Family Medicine 05/25/21 Inspector Process Relationship Specialty Start Date End Date Emelia Siddiqui, HEEL TOP LIFT SPLITTER.SECURITY SOFTWARE ENGINEER [address] [facility] [place] [address] PCP - General Family Medicine 05/25/21 Inspector Process Relationship Specialty Start Date End Date Emelia Siddiqui, HEEL TOP LIFT SPLITTER.SECURITY SOFTWARE ENGINEER [address] [place] [place] [address] PCP - General Family Medicine 05/25/21 Inspector Process Relationship Specialty Start Date End Date Emelia Siddiqui, HEEL TOP LIFT SPLITTER.SECURITY SOFTWARE ENGINEER [address] [facility] [place] [address] PCP - General Family Medicine 05/25/21 Inspector Process Relationship Specialty Start Date End Date Emelia Siddiqui, HEEL TOP LIFT SPLITTER.SECURITY SOFTWARE ENGINEER [address] [facility] [place] [address] PCP - General Family Medicine 05/25/21 Inspector Process Relationship Specialty Start Date End Date Emelia Siddiqui, HEEL TOP LIFT SPLITTER.SECURITY SOFTWARE ENGINEER [address] [place] [place] [address] PCP - General Family Medicine 05/25/21 Inspector Process Relationship Specialty Start Date End Date Emelia Siddiqui, HEEL TOP LIFT SPLITTER.SECURITY SOFTWARE ENGINEER [address] [place] [place] [address] PCP - General Family Medicine 05/25/21 Inspector Process Relationship Specialty Start Date End Date Emelia Siddiqui, HEEL TOP LIFT SPLITTER.SECURITY SOFTWARE ENGINEER [address] [place] [address] PCP - General Family Medicine 05/25/21 Inspector Process Relationship Specialty Start Date End Date Emelia Siddiqui, HEEL TOP LIFT SPLITTER.SECURITY SOFTWARE ENGINEER [address] [place] [address] PCP - General Family Medicine 05/25/21 Team Status: Active Member Role Status Dates No Primary Care Physician Family Provider Active Emelia Siddiqui HOOP MAKER MACHINE, HOOP MAKER MACHINE-C Primary Care Provider Active Team Status: Inactive Member Role Status Dates No Primary Care Physician Primary Care Provider, Refer ring Provider Active Dr. Naty Ace MD Attending Provider Active Team Status: Inactive Member Role Status Dates Emelia Siddiqui HOOP MAKER MACHINE, HOOP MAKER MACHINE-C Primary Care Provider Active Dr. Naty Ace MD Attending Provider, Referr ing Provider Active Inspector Process Relationship Specialty Start Date End Date Emelia Siddiqui, HEEL TOP LIFT SPLITTER.SECURITY SOFTWARE ENGINEER [address] [place] [address] PCP - General Family Medicine 05/25/21 Inspector Process Relationship Specialty Start Date End Date Emelia Siddiqui, HEEL TOP LIFT SPLITTER.SECURITY SOFTWARE ENGINEER [address] [place] [address] PCP - General Family Medicine 05/25/21 Inspector Process Relationship Specialty Start Date End Date Emelia Siddiqui, HEEL TOP LIFT SPLITTER.SECURITY SOFTWARE ENGINEER [address] [place] [address] PCP - General Family Medicine 05/25/21 Inspector Process Relationship Specialty Start Date End Date Emelia Siddiqui, HEEL TOP LIFT SPLITTER.SECURITY SOFTWARE ENGINEER [address] [facility] [place] [address] PCP - General Family Medicine 05/25/21 Inspector Process Relationship Specialty Start Date End Date Emelia Siddiqui, HEEL TOP LIFT SPLITTER.SECURITY SOFTWARE ENGINEER [address] [place] [address] PCP - General Family Medicine 05/25/21 Inspector Process Relationship Specialty Start Date End Date QuedenEmelia A, HEEL TOP LIFT SPLITTER.SECURITY SOFTWARE ENGINEER [address] [place] [address] PCP - General Family Medicine 05/25/21 Inspector Process Relationship Specialty Start Date End Date QuedenLisaEmelia A, HEEL TOP LIFT SPLITTER.SECURITY SOFTWARE ENGINEER [address] [place] [address] PCP - General Family Medicine 05/25/21 Inspector Process Relationship Specialty Start Date End Date QuedenLisaEmelia A, HEEL TOP LIFT SPLITTER.SECURITY SOFTWARE ENGINEER [address] [place] [address] PCP - General Family Medicine 05/25/21 Inspector Process Relationship Specialty Start Date End Date QuedenTraceyny A, HEEL TOP LIFT SPLITTER.SECURITY SOFTWARE ENGINEER [address] [place] [address] PCP - General Family Medicine 05/25/21 Inspector Process Relationship Specialty Start Date End Date QuedenLisaEmelia A, HEEL TOP LIFT SPLITTER.SECURITY SOFTWARE ENGINEER [address] [place] [address] PCP - General Family Medicine 05/25/21 Inspector Process Relationship Specialty Start Date End Date Queden, Emelia A, HEEL TOP LIFT SPLITTER.SECURITY SOFTWARE ENGINEER [address] [place] [address] PCP - General Family Medicine 05/25/21 Inspector Process Relationship Specialty Start Date End Date Queden, Emelia A, HEEL TOP LIFT SPLITTER.SECURITY SOFTWARE ENGINEER [address] [place] [address] PCP - General Family Medicine 05/25/21 Inspector Process Relationship Specialty Start Date End Date Emelia Siddiqui, HEEL TOP LIFT SPLITTER.SECURITY SOFTWARE ENGINEER [address] [place] [address] PCP - General Family Medicine 05/25/21 Inspector Process Relationship Specialty Start Date End Date Emelia Siddiqui, HEEL TOP LIFT SPLITTER.SECURITY SOFTWARE ENGINEER [address] [place] [address] PCP - General Family Medicine 05/25/21 Inspector Process Relationship Specialty Start Date End Date Emelia Siddiqui, HEEL TOP LIFT SPLITTER.SECURITY SOFTWARE ENGINEER [address] [place] [address] PCP - General Family Medicine 05/25/21 Inspector Process Relationship Specialty Start Date End Date Emelia Siddiqui, HEEL TOP LIFT SPLITTER.SECURITY SOFTWARE ENGINEER [address] [place] [address] PCP - General Family Medicine 05/25/21 Inspector Process Relationship Specialty Start Date End Date Emelia Siddiqui, HEEL TOP LIFT SPLITTER.SECURITY SOFTWARE ENGINEER [address] [place] [address] PCP - General Family Medicine 05/25/21 Inspector Process Relationship Specialty Start Date End Date Emelia Siddiqui, HEEL TOP LIFT SPLITTER.SECURITY SOFTWARE ENGINEER [address] [place] [address] PCP - General Family Medicine 05/25/21 Inspector Process Relationship Specialty Start Date End Date Emelia Siddiqui, HEEL TOP LIFT SPLITTER.SECURITY SOFTWARE ENGINEER [address] [place] [address] PCP - General Family Medicine 05/25/21 Inspector Process Relationship Specialty Start Date End Date Emelia Siddiqui, HEEL TOP LIFT SPLITTER.SECURITY SOFTWARE ENGINEER [address] [place], [place] [id number] PCP - General Family Medicine 05/25/21 Inspector Process Relationship Specialty Start Date End Date Emelia Siddiqui, HEEL TOP LIFT SPLITTER.SECURITY SOFTWARE ENGINEER [address] [place] [address] PCP - General Family Medicine 05/25/21 Inspector Process Relationship Specialty Start Date End Date Emelia Siddiqui, HEEL TOP LIFT SPLITTER.SECURITY SOFTWARE ENGINEER [address] [place], [place] [id number] PCP - General Family Medicine 05/25/21 Inspector Process Relationship Specialty Start Date End Date Emelia Siddiqui, HEEL TOP LIFT SPLITTER.SECURITY SOFTWARE ENGINEER [address] [place] [address] PCP - General Family Medicine 05/25/21 FOR RECORDS PERTAINING TO PATIENTS WHO ARE OR HAVE BEEN ENROLLED IN A CHEMICAL DEPENDENCY/SUBSTANCEABUSE PROGRAM, SOME INFORMATION MAY BE OMITTED. This clinical summary was aggregated from multiple sources. Caution should be exercised in using it in the provision of clinical care. This summary normalizes information from multiple sources, and as a consequence, information in this document may materially change the coding, format and clinical context of patient data. In addition, data may be omitted in some cases. CLINICAL DECISIONS SHOULD BE BASED ON THE PRIMARY CLINICAL RECORDS. Contractually [facility]. provides no warranty or guarantee of the accuracy or completeness of information in this document.
[2025-08-06 15:11] VITALS: BP 127/74; PULSE 81; RESP 16; TEMP 36.8; O2SAT 100
== END 2025-08-06 15:12 | disposition home or self-care (01) ==
PROVIDERS: Emergency Provider Emergency Medicine; PCP Nurse Practitioner Family; Visit Provider Emergency Medicine
DX: K08.89 Other specified disorders of teeth and supporting structures (principal); G44.009 Cluster headache syndrome, unspecified, not intractable; Z79.899 Other long term (current) drug therapy; Z90.49 Acquired absence of other specified parts of digestive tract
CPT/HCPCS: 96372; 99282